=== PATIENT | female | born 1955 ===

== ENCOUNTER 2020-02-14 15:43 | Emergency (ER) | payer OTHER, SELFPAY ==
[2020-02-14 16:25] VITALS: BP 134/77; PULSE 72; RESP 16; TEMP 37; O2SAT 100; BMI 42.0
--- NOTE | 2020-02-14 16:35 | ED.SKABFB ---
HPI - Skin/Abscess/Foreign Bdy General Chief complaint: Skin/Abscess/Foreign Body Stated complaint: Mouth discomfort Time Seen by Provider: 02/14/20 16:29 Source: patient Mode of arrival: ambulatory Limitations: no limitations History of Present Illness HPI narrative: 64 y/o female with history of DM2 not on insulin, asthma, HTN, TIA, COPD, active smoker who presenting with 1 week of painful rash and a cyst under her right breast. She states the cyst has been draining a foul smelling pus, which is improving. She was seen in another ED on 02/06 where she had an I&D and was started on antibiotics. She states the rash around it is red, itchy and painful and worsening. She denies fever, chills. Glucose has been controlled. Related Data Home Medications Medication Instructions Recorded Confirmed albuterol sulfate 0.63 mg INHALATION Q4-6H PRN 01/25/20 01/25/20 albuterol sulfate 2 puff INHALATION Q4-6H PRN 01/25/20 01/25/20 amlodipine 1 tab PO BID 01/25/20 01/25/20 famotidine 40 mg PO BEDTIME 01/25/20 01/25/20 fluticasone propionate [Flovent 1 puff INHALATION BID 01/25/20 01/25/20 HFA] hydrochlorothiazide 1 tab PO DAILY 01/25/20 01/25/20 metformin 1 tab PO BID 01/25/20 01/25/20 methadone 120 mg PO DAILY 01/25/20 01/25/20 mirtazapine 1 tab PO BEDTIME 01/25/20 01/25/20 oxcarbazepine 600 mg PO BID 01/25/20 01/25/20 sertraline 1 tab PO DAILY 01/25/20 01/25/20 simvastatin 1 tab PO DAILY 01/25/20 01/25/20 zolpidem 1 tab PO BEDTIME 01/25/20 01/25/20 Previous Rx's Medication Instructions Recorded ketoconazole 1 applic TOPICAL BID #30 g 02/14/20 Allergies Allergy/AdvReac Type Severity Reaction Status Date / Time Penicillins Allergy Intermediate RASH SOB Verified 01/25/20 08:47 Aspir-81 Allergy Intermediate Rash Uncoded 01/25/20 08:47 Review of Systems Review of Systems: Constitutional: No Fever, No Chills ENT/Mouth: No sore throat, No Rhinorrhea, No Swallowing Difficulty Eyes: No Eye Pain, No Swelling, No Redness Cardiovascular: No Chest Pain, No SOB, No Orthopnea, No Edema Respiratory: No Cough, No Sputum, No Wheezing, No dyspnea Gastrointestinal: No Nausea, No Vomiting, No Diarrhea, No abdominal Pain Genitourinary: No Dysuria, No Urinary Frequency, No Hematuria Musculoskeletal: No joint pain, No Myalgias Skin: + Skin Lesions, + rash Neuro: No Weakness, No Numbness, No Dizziness, No Headache Psych: No Anxiety/Panic, No Depression Heme/Lymph: No Bruising, No Lymphadenopathy Endocrine: No Polyuria, No Polydipsia PMFSH Past Medical History Attestation statement: The following information was validated with the patient. Medical History Anemia Arthritis Asthma Back pain BiPAP (biphasic positive airway pressure) dependence COPD (chronic obstructive pulmonary disease) COPD (chronic obstructive pulmonary disease) Depression Diabetes Diabetic acidosis, type I Elevated cholesterol GERD (gastroesophageal reflux disease) History of blood transfusion History of headache HTN (hypertension) Hx of anxiety disorder Hx of bipolar disorder Hx of drug dependence Oxygen dependent Sleep apnea Surgical History H/O colonoscopy History of esophagogastroduodenoscopy (EGD) Hx of arthroscopic knee surgery Hx of section Hx of foot surgery Hx of total knee replacement Social History Social History Smoking Status: Current every day smoker Packs Per Day: 0.25 Cigarettes Per Day: 5.0 Years Smoked: 50 Smoked in Last 30 Days: Yes Use of substances other than those prescribed or required for medical reasons: No Advance Directives: No Advance Directives Information Provided: Yes Physical Exam Vital Signs: Vital Signs: Vital Signs Temp Pulse Resp BP Pulse Ox 02/14/20 16:25 98.6 F 72 16 134/77 100 Body Mass Index 42.0 Appearance: Alert. Oriented X3. No acute distress. HEENT: normal inspection CVS: Normal heart rate and rhythm. Pulses normal. Chest: under right breast fold is a diffuse erythematous and flaky rash, small self-draining abscess with no drainage, unable to express pus, no induration or flutuance Respiratory: No respiratory distress. Skin: Skin warm and dry. Normal skin color. Normal skin turgor. No rashes. Neuro: Oriented X 3. No motor deficit. No sensory deficit. Course Course Course Narrative: 64 y/o female presenting with itchy painful rash under her right breast consistent with candidiasis. will give 1x dose of diflucan now and start on an antifungal ointment. the small cyst is no longer draining and is improveing. no need for antibiotics at this time. no systemic signs or symptoms of infection. MDM - Skin/Abscess/Foreign Bdy MDM Narrative Medical decision making narrative: fungal rash Differential Diagnosis Differential diagnosis: Likely abscess of skin or subcutaneous tissue, urticaria, herpes zoster, allergic reaction to drug, cellulitis and contact dermatitis Critical Care Time Critical Care Time Critical Care Time: No Discharge Plan Discharge Clinical Impression: Candidiasis of breast Patient Disposition: Home, Self-Care Instructions: Skin Yeast Infection (ED) Additional Instructions: You were given a dose of a strong antifungal medication for the rash under your breast. Keep area clean and dry. It is okay to clean briefly with mild soap and water. Recommend using cotton or gauze in between your breast tissue and upper abdomen to absorb any sweat or moisture and allow the rash to heal. Use the prescribed cream 2 times per day until rash is completely gone. If the cyst returns or has increased drainage, redness, warmth or pain call your doctor or come back to the ER for further evaluation. Prescriptions: New ketoconazole 2 % cream 1 applic topical BID Qty: 30 RF: 0 No Action albuterol sulfate 0.63 mg/3 mL Solution For Nebulization 0.63 mg INHALATION Q4-6H PRN (Reason: Shortness Of Breath) RF: 0 famotidine 40 mg Tablet 40 mg PO BEDTIME RF: 0 simvastatin 10 mg tablet 1 tab PO DAILY RF: 0 amlodipine 5 mg tablet 1 tab PO BID RF: 0 metformin 1,000 mg tablet 1 tab PO BID RF: 0 mirtazapine 45 mg tablet 1 tab PO BEDTIME RF: 0 oxcarbazepine 600 mg Tablet 600 mg PO BID RF: 0 hydrochlorothiazide 25 mg tablet 1 tab PO DAILY RF: 0 zolpidem 10 mg tablet 1 tab PO BEDTIME RF: 0 albuterol sulfate 90 mcg/actuation HFA aerosol inhaler 2 puff inhalation Q4-6H PRN (Reason: Shortness Of Breath) RF: 0 sertraline 50 mg tablet 1 tab PO DAILY RF: 0 Flovent HFA 110 mcg/actuation Hfa Aerosol Inhaler 1 puff INHALATION BID RF: 0 methadone 5 mg/5 mL Solution 120 mg PO DAILY RF: 0
[2020-02-14] MEDS: Fluconazole 150 MG TABLET PO (17:26)
== END 2020-02-14 17:20 | disposition home or self-care (01) ==
PROVIDERS: Emergency Provider Internal Medicine; PCP Internal Medicine
DX: B37.2 Candidiasis of skin and nail (principal); F17.200 Nicotine dependence, unspecified, uncomplicated; Z71.6 Tobacco abuse counseling; Z79.899 Other long term (current) drug therapy
CPT/HCPCS: 99283; 99284

== ENCOUNTER 2020-02-22 11:28 | Outpatient (REF) | payer OTHER, SELFPAY | END 2020-02-22 11:29 | disposition home or self-care (01) | LOC: HO.LAB 11:28 | PROVIDERS: Visit Provider Internal Medicine | DX: Z20.828 Contact with and (suspected) exposure to other viral communicable diseases (principal) | CPT/HCPCS: C9803; U0003 ==

== ENCOUNTER 2020-04-08 12:38 | Emergency (ER) | payer OTHER, SELFPAY ==
[2020-04-08 12:41] VITALS: BP 204/101; PULSE 68; RESP 19; TEMP 36.9; O2SAT 94; BMI 53.0
--- NOTE | 2020-04-08 12:49 | PC.NURSE ---
pt to formerly [facility] per charge- charge aware of bp.
[2020-04-08 14:52] VITALS: BP 171/93; PULSE 64; O2SAT 94
--- NOTE | 2020-04-08 14:53 | PC.NURSE ---
ambulatory with steady/slow/laborous ambulation
--- NOTE | 2020-04-08 15:14 | ED_ITS ---
HPI - General Adult General Chief complaint: General Medical Stated complaint: leg pain,diff walking Time Seen by Provider: 04/08/20 14:57 Source: patient Mode of arrival: ambulatory Limitations: no limitations History of Present Illness HPI narrative: 64-year-old female with a past medical history of high cholester ol on simvastatin, substance abuse on methadone, anemia, arthritis, asthma, chronic back pain, COPD, depression, diabetes, GERD, hypertension, anxiety, bipolar disease here with bilateral lower leg pain. The patient tells me she has had pain for the last 2-3 weeks. She has 0 to a primary care doctor today and he referred her to the emergency department for further evaluation. She denies any fall risks or injuries. She denies any back pain. She denies any numbness or tingling. Denies any bowel or bladder incontinence. No fevers or chills. She does feel like her both of her legs are slightly swollen and feel heavy. No shortness of breath, chest pain, cough. No recent travel. No sick contacts. Onset (ago): week(s) Location: lower extremity (Bilateral) Radiation: non-radiation Severity: mild Quality: aching Relieving factors: none Exacerbating factors: none Associated symptoms: denies other symptoms Treatments prior to arrival: none Related Data Home Medications Medication Instructions Recorded Confirmed albuterol sulfate 0.63 mg INHALATION Q4-6H PRN 01/25/20 01/25/20 albuterol sulfate 2 puff INHALATION Q4-6H PRN 01/25/20 01/25/20 amlodipine 1 tab PO BID 01/25/20 01/25/20 famotidine 40 mg PO BEDTIME 01/25/20 01/25/20 fluticasone propionate [Flovent 1 puff INHALATION BID 01/25/20 01/25/20 HFA] hydrochlorothiazide 1 tab PO DAILY 01/25/20 01/25/20 metformin 1 tab PO BID 01/25/20 01/25/20 methadone 120 mg PO DAILY 01/25/20 01/25/20 mirtazapine 1 tab PO BEDTIME 01/25/20 01/25/20 oxcarbazepine 600 mg PO BID 01/25/20 01/25/20 sertraline 1 tab PO DAILY 01/25/20 01/25/20 simvastatin 1 tab PO DAILY 01/25/20 01/25/20 zolpidem 1 tab PO BEDTIME 01/25/20 01/25/20 Previous Rx's Medication Instructions Recorded ketoconazole 1 applic TOPICAL BID #30 g 02/14/20 cyclobenzaprine 10 mg PO TID PRN #10 tab 04/08/20 Allergies Allergy/AdvReac Type Severity Reaction Status Date / Time Penicillins Allergy Intermediate RASH SOB Verified 04/08/20 12:40 Aspir-81 Allergy Intermediate Rash Uncoded 01/25/20 08:47 Review of Systems Review of Systems: Yes all other systems are reviewed and are negative Constitutional: Constitutional: Reports no additional constitutional complaints, Denies body ache(s), Denies chills, Denies fever(s), Denies headache(s) and Denies weakness Eyes: Eyes: Reports no additional eye complaints and Denies change in vision ENT: Reports system reviewed and no additional complaints, except as documented, Denies dizziness, Denies headache(s), Denies nasal congestion, Denies nasal discharge and Denies neck pain Cardiovascular: Cardiovascular: Reports no additional cardiovascular complaints, Denies chest pain, Denies leg edema and Denies dyspnea Respiratory: Respiratory: Reports no additional respiratory complaints, Denies cough and Denies dyspnea Gastrointestinal: Gastrointestinal: Reports no additional gastrointestinal complaints, Denies abdominal pain, Denies diarrhea, Denies nausea and Denies vomiting Genitourinary: Genitourinary: Reports no additional female genitourinary complaints and Denies urinary incontinence Musculoskeletal: Musculoskeletal: Reports no additional musculoskeletal complaints, Denies back pain, Denies arthralgias, Denies joint swelling, Denies neck pain, Denies numbness and Denies tingling Comments: Muscle aches Integumentary/Breasts: Skin/Breast: Reports system reviewed and no additional complaints, except as docu and Denies rash Neurologic: Reports system reviewed and no additional complaints, except as documented, Denies Abnormal speech present, Denies dizziness, Denies headache(s), Denies numbness, Denies tingling and Denies weakness PMFSH Past Medical History Attestation statement: The following information was validated with the patient. Source: old records reviewed and nursing notes reviewed Medical History Anemia Arthritis Asthma Back pain BiPAP (biphasic positive airway pressure) dependence COPD (chronic obstructive pulmonary disease) COPD (chronic obstructive pulmonary disease) Depression Diabetes Diabetic acidosis, type I Elevated cholesterol GERD (gastroesophageal reflux disease) History of blood transfusion History of headache HTN (hypertension) Hx of anxiety disorder Hx of bipolar disorder Hx of drug dependence Oxygen dependent Sleep apnea Surgical History H/O colonoscopy History of esophagogastroduodenoscopy (EGD) Hx of arthroscopic knee surgery Hx of section Hx of foot surgery Hx of total knee replacement Social History Social History Smoking Status: Current every day smoker Packs Per Day: 0.25 Cigarettes Per Day: 5.0 Years Smoked: 50 Use of substances other than those prescribed or required for medical reasons: No Advance Directives: No Advance Directives Information Provided: No Physical Exam Vital Signs: Vital Signs: Last Vital Signs Temp 98.2 F 04/08/20 17:52 Pulse 62 04/08/20 17:52 Resp 18 04/08/20 17:52 BP 145/85 H 04/08/20 17:52 Pulse Ox 93 04/08/20 17:52 Body Mass Index 53.0 Const: General: cooperative, healthy appearing, comfortable and no acute distress Orientation/consciousness: patient oriented x3 Limitations: no limitations HENMT: Head: Yes normal to inspection Ears: hearing grossly normal bilaterally General nose exam: Normal external nose present Face and sinus: Yes normal facial exam Mouth: Normal oral and palatal mucosa present Throat: Yes posterior oropharynx normal Eyes: General: appearance normal, both eyes and all related structures Pupils: Equal, round and reactive pupils present Neck: Neck: Yes normal visual inspection Chest: Chest palpation & inspection: normal inspection of the chest Resp: Effort & Inspection: normal respiratory effort Auscultation: clear to auscultation bilaterally Cardio: Rate: regular rate Rhythm: regular rhythm Peripheral pulses: Peripheral pulses 2+ throughout GI: Inspection: Yes normal to inspection Palpation (GI): Soft to palpation and nontender Auscultation: normal bowel sounds Back/Spine/Pelvis: Thoracic/Lumbar Spine: thoracic and lumbar spine normal to inspection Skin: General skin exam: no rashes or lesions noted Neuro: General: patient oriented x3, Normal light touch and pain sensation, no focal motor deficits and normal sensation to monofilament Cranial nerves: Yes CN's II-XII intact bilaterally, Yes Equal, round and reactive pupils present and Yes Bilaterally intact EOM present Cognition (Neuro): normal cognition Speech: No Abnormal speech present Gait exam (Neuro): Normal gait present Motor exam (neuro): 5/5 motor strength present throughout Sensory Exam: Normal double simultaneous stimulation for sensation Deep tendon reflexes (DTR's): Right patellar reflex intensity grade: 2+, Left patellar reflex intensity grade: 2+, Right ankle reflex intensity grade: 2+ and Left ankle reflex intensity grade: 2+ Extrem: Other: Trace bilateral lower extremity swelling. Nonpitting. No redness or warmth. Neurovascularly intact distally with palpable pulses. Diffuse tenderness in the lower extremities over the muscles noted. No bony abnormalities with full range of motion of each joint General: Yes normal to inspection Course Course Course Narrative: 64-year-old female here with bilateral lower extremity pain, heaviness, trace edema times several weeks. On exam patient has normal neurological exam. She has some trace nonpitting edema. She has diffuse muscle tenderness in the lower extremities with normal reflexes. Will check labs including CPK, D-dimer, LFTs. 1800-labs are unremarkable. Patient feeling improved. Likely component of chronic venous stasis, may also have some underlying MS pain syndrome. Recommended f/u with PCP in the next 7 days for further eval and treatment as needed. Reviewed worrisome signs and symptoms and when to return to the emergency department comfortable discharge home Medical Decision Making Medical Records Medical records reviewed: Yes I reviewed the patient's medical records. Lab Data Lab results reviewed: Yes I reviewed the patient's lab results. Result diagrams: 04/08/20 16:41 04/08/20 16:41 Labs: Lab Results 04/08/20 04/08/20 04/08/20 Range/Units 16:40 16:41 16:41 WBC 10.8 (4.8-10.8) X10*3/uL RBC 4.60 (4.20-5.50) X10*6/uL Hgb 13.1 (12.0-16.0) g/dl Hct 41.9 (37-47) % MCV 91.1 (80-98) fL MCH 28.5 (27.0-33.0) pg MCHC 31.3 (31.0-35.0) g/dl RDW 14.8 (11.0-16.0) % Plt Count 241 (160-400) X10*3/uL MPV 10.8 (9.4-12.3) fL Immature Gran % (Auto) 0.5 H (0.0-0.4) % Neut % (Auto) 66.9 (45-73) % Lymph % (Auto) 23.5 (20-40) % [place] % (Auto) 6.9 (2-11) % Eos % (Auto) 1.8 (0-4) % Baso % (Auto) 0.4 (0-2) % Lymph # (Auto) 2.5 (1.2-4.9) X10*3/uL [place] # (Auto) 0.7 (0.1-1.2) X10*3/uL Eos # (Auto) 0.2 (0.0-0.4) X10*3/uL Baso # (Auto) 0.0 (0.0-0.2) X10*3/uL Abs Immat Gran (auto) 0.05 H (0.00-0.03) X10*3/uL Absolute Neuts (auto) 7.2 (2.0-8.3) X10*3/uL Absolute Nucleated RBC 0.000 (0.0-0.012) X10*3/uL Nucleated RBC % (auto) 0.0 (0.0-0.2) /100WBC PT 11.8 (10.8-13.0) SEC INR 1.0 (0.9-1.1) D-Dimer < 200 NG/ML Sodium (135-145) mmol/L Potassium (3.3-5.1) mmol/l Chloride (96-108) mmol/L Carbon Dioxide (22-29) mmol/L Anion Gap (12-20) BUN (9-16) mg/dL Creatinine (0.5-1.4) mg/dL Estim Creat Clear Calc Estimated GFR Random Glucose (60-115) mg/dL Calcium (8.4-10.2) mg/dL Magnesium (1.6-2.6) mg/dL Total Bilirubin (0.0-1.0) mg/dL Direct Bilirubin (0.0-0.5) mg/dL AST (5-31) U/L ALT (0-31) U/L Alkaline Phosphatase (39-117) U/L Total Creatine Kinase (26-140) U/L B-Natriuretic Peptide 97 (<100) pg/mL Total Protein (6.5-8.0) g/dL Albumin (3.5-5.0) g/dL 04/08/20 Range/Units 16:41 WBC (4.8-10.8) X10*3/uL RBC (4.20-5.50) X10*6/uL Hgb (12.0-16.0) g/dl Hct (37-47) % MCV (80-98) fL MCH (27.0-33.0) pg MCHC (31.0-35.0) g/dl RDW (11.0-16.0) % Plt Count (160-400) X10*3/uL MPV (9.4-12.3) fL Immature Gran % (Auto) (0.0-0.4) % Neut % (Auto) (45-73) % Lymph % (Auto) (20-40) % [place] % (Auto) (2-11) % Eos % (Auto) (0-4) % Baso % (Auto) (0-2) % Lymph # (Auto) (1.2-4.9) X10*3/uL [place] # (Auto) (0.1-1.2) X10*3/uL Eos # (Auto) (0.0-0.4) X10*3/uL Baso # (Auto) (0.0-0.2) X10*3/uL Abs Immat Gran (auto) (0.00-0.03) X10*3/uL Absolute Neuts (auto) (2.0-8.3) X10*3/uL Absolute Nucleated RBC (0.0-0.012) X10*3/uL Nucleated RBC % (auto) (0.0-0.2) /100WBC PT (10.8-13.0) SEC INR (0.9-1.1) D-Dimer NG/ML Sodium 143 (135-145) mmol/L Potassium 4.1 (3.3-5.1) mmol/l Chloride 102 (96-108) mmol/L Carbon Dioxide 36 H (22-29) mmol/L Anion Gap 9 L (12-20) BUN 10 (9-16) mg/dL Creatinine 0.94 (0.5-1.4) mg/dL Estim Creat Clear Calc 78.9 Estimated GFR 60 Random Glucose 124 H (60-115) mg/dL Calcium 8.6 (8.4-10.2) mg/dL Magnesium 1.9 (1.6-2.6) mg/dL Total Bilirubin 0.3 (0.0-1.0) mg/dL Direct Bilirubin < 0.2 (0.0-0.5) mg/dL AST 16 (5-31) U/L ALT 20 (0-31) U/L Alkaline Phosphatase 124 H (39-117) U/L Total Creatine Kinase 113 (26-140) U/L B-Natriuretic Peptide (<100) pg/mL Total Protein 7.2 (6.5-8.0) g/dL Albumin 3.9 (3.5-5.0) g/dL Discharge Plan Discharge Clinical Impression: Muscle ache of extremity Patient Disposition: Home, Self-Care Instructions: Musculoskeletal Pain (ED) Additional Instructions: Buy some topical pain creams and apply your legs (gordon rodriguez) Elevate your legs Follow-up with your PCP as discussed Prescriptions: New cyclobenzaprine 10 mg tablet 10 mg PO TID PRN (Reason: muscle spasm) Qty: 10 RF: 0 No Action albuterol sulfate 0.63 mg/3 mL Solution For Nebulization 0.63 mg INHALATION Q4-6H PRN (Reason: Shortness Of Breath) RF: 0 famotidine 40 mg Tablet 40 mg PO BEDTIME RF: 0 simvastatin 10 mg tablet 1 tab PO DAILY RF: 0 amlodipine 5 mg tablet 1 tab PO BID RF: 0 metformin 1,000 mg tablet 1 tab PO BID RF: 0 mirtazapine 45 mg tablet 1 tab PO BEDTIME RF: 0 oxcarbazepine 600 mg Tablet 600 mg PO BID RF: 0 hydrochlorothiazide 25 mg tablet 1 tab PO DAILY RF: 0 zolpidem 10 mg tablet 1 tab PO BEDTIME RF: 0 albuterol sulfate 90 mcg/actuation HFA aerosol inhaler 2 puff inhalation Q4-6H PRN (Reason: Shortness Of Breath) RF: 0 sertraline 50 mg tablet 1 tab PO DAILY RF: 0 Flovent HFA 110 mcg/actuation Hfa Aerosol Inhaler 1 puff INHALATION BID RF: 0 methadone 5 mg/5 mL Solution 120 mg PO DAILY RF: 0 ketoconazole 2 % cream 1 applic topical BID Qty: 30 RF: 0 Referrals: Rito Grady MD [Primary Care Provider] - 2 days Interventions: ED Discharge Assessment Last Done: 04/08/20 18:03 Discharge Date/Time: 04/08/20 18:04
[2020-04-08] MEDS: oxyCODONE HCl Immed Release 5 MG TABLET PO (16:06)
[2020-04-08 16:49] LABS: MANUAL DIFF FLAG NO
[2020-04-08 16:50] LABS: Basophils Percent Auto 0.4 % (0-2); Eosinophils Absolute Auto 0.2 X10*3/uL (0.0-0.4); Eosinophils Percent Auto 1.8 % (0-4); Hematocrit 41.9 % (37-47); Hemoglobin 13.1 g/dl (12.0-16.0); Imm Gran Abs Auto 0.05 X10*3/uL (0.00-0.03); Imm Gran Pct Auto 0.5 % (0.0-0.4); Lymphocytes Absolute Auto 2.5 X10*3/uL (1.2-4.9); Lymphocytes Percent Auto 23.5 % (20-40); Mean Corpuscular HGB Conc 31.3 g/dl (31.0-35.0); Mean Corpuscular Hemoglobin 28.5 pg (27.0-33.0); Mean Corpuscular Volume 91.1 fL (80-98); Mean Platelet Volume 10.8 fL (9.4-12.3); Monocytes Absolute Auto 0.7 X10*3/uL (0.1-1.2); Monocytes Percent Auto 6.9 % (2-11); Neutrophils Absolute Auto 7.2 X10*3/uL (2.0-8.3); Neutrophils Percent Auto 66.9 % (45-73); Platelet Count 241 X10*3/uL (160-400); Red Cell Distribution Width 14.8 % (11.0-16.0); White Blood Count 10.8 X10*3/uL (4.8-10.8)
[2020-04-08 16:56] LABS: Prothrombin Time 11.8 SEC (10.8-13.0)
[2020-04-08 17:03] LABS: D Dimer < 200 NG/ML
[2020-04-08 17:18] LABS: B Type Natriuretic Peptide 97 pg/mL (<100)
[2020-04-08 17:27] LABS: Alanine Aminotransferase 20 U/L (0-31); Albumin Level 3.9 g/dL (3.5-5.0); Alkaline Phosphatase 124 U/L (39-117); Anion Gap 9 (12-20); Aspartate Amino Transferase 16 U/L (5-31); Bilirubin Direct < 0.2 mg/dL (0.0-0.5); Bilirubin Total 0.3 mg/dL (0.0-1.0); Blood Urea Nitrogen 10 mg/dL (9-16); Calcium 8.6 mg/dL (8.4-10.2); Carbon Dioxide 36 mmol/L (22-29); Chloride 102 mmol/L (96-108); Creatinine Clr Calc Pharmacy 78.9; Estimated Glomerular Filt Rate 60; Glucose Random 124 mg/dL (60-115); Magnesium 1.9 mg/dL (1.6-2.6); Potassium 4.1 mmol/l (3.3-5.1); Sodium 143 mmol/L (135-145); Total Protein 7.2 g/dL (6.5-8.0)
[2020-04-08 17:52] VITALS: BP 145/85; PULSE 62; RESP 18; TEMP 36.8; O2SAT 93
== END 2020-04-08 18:04 | disposition home or self-care (01) ==
PROVIDERS: Nurse Practitioner Family; Emergency Provider Emergency Medicine Emergency Medical Services; PCP Internal Medicine
DX: M79.10 Myalgia, unspecified site (principal); M79.662 Pain in left lower leg; M79.661 Pain in right lower leg; E11.9 Type 2 diabetes mellitus without complications; I10 Essential (primary) hypertension; E78.00 Pure hypercholesterolemia, unspecified; F11.20 Opioid dependence, uncomplicated; F17.200 Nicotine dependence, unspecified, uncomplicated; Z79.899 Other long term (current) drug therapy
CPT/HCPCS: 36415; 80048; 80076; 82550; 83735; 83880; 85025; 85379; 85610; 99284

== ENCOUNTER 2020-04-30 09:42 | Emergency (ER) | payer OTHER, SELFPAY ==
[2020-04-30 10:05] VITALS: BP 151/84; PULSE 73; RESP 18; TEMP 36.6; O2SAT 94; BMI 51.2
--- NOTE | 2020-04-30 10:23 | XR_ITS ---
EXAMINATION: XR KNEE, LEFT CLINICAL INFORMATION: Twisting injury COMPARISON: Standing AP knees 03/17/2019, left knee 05/10/2017 TECHNIQUE: Four views of the left knee. FINDINGS: There has been prior total knee arthroplasty. The hardware is intact. There is no fracture. No destructive process or osteolysis. Suprapatellar effusion is present and there is spurring at the quadriceps surgeon patella. XR/XR knee LT 3V IMPRESSION: Suprapatellar effusion. No fracture or dislocation. Prior total knee arthroplasty.
--- NOTE | 2020-04-30 11:06 | ED_ITS ---
HPI - Extremity Injury (Lower) General Chief Complaint: Extremity Injury, Lower Stated Complaint: knee pain Time Seen by Provider: 04/30/20 10:19 Source: patient Mode of arrival: ambulatory History of Present Illness HPI Narrative: 64-year-old female with a past medical history of anemia, asthma, COPD, diabetes, hyperlipidemia, GERD, hypertension, bipolar, bilateral total knee replacement c/o left knee pain s/p twisting injury/stepping wrong last night. Denies direct trauma/falls, numbness, tingling, weakness, fever/chills complaint: knee injury Related Data Home Medications Medication Instructions Recorded Confirmed albuterol sulfate 0.63 mg INHALATION Q4-6H PRN 01/25/20 01/25/20 albuterol sulfate 2 puff INHALATION Q4-6H PRN 01/25/20 01/25/20 amlodipine 1 tab PO BID 01/25/20 01/25/20 famotidine 40 mg PO BEDTIME 01/25/20 01/25/20 fluticasone propionate [Flovent 1 puff INHALATION BID 01/25/20 01/25/20 HFA] hydrochlorothiazide 1 tab PO DAILY 01/25/20 01/25/20 metformin 1 tab PO BID 01/25/20 01/25/20 methadone 120 mg PO DAILY 01/25/20 01/25/20 mirtazapine 1 tab PO BEDTIME 01/25/20 01/25/20 oxcarbazepine 600 mg PO BID 01/25/20 01/25/20 sertraline 1 tab PO DAILY 01/25/20 01/25/20 simvastatin 1 tab PO DAILY 01/25/20 01/25/20 zolpidem 1 tab PO BEDTIME 01/25/20 01/25/20 Previous Rx's Medication Instructions Recorded ketoconazole 1 applic TOPICAL BID #30 g 02/14/20 cyclobenzaprine 10 mg PO TID PRN #10 tab 04/08/20 naproxen 500 mg PO BID PRN 10 Days #20 tab 04/30/20 Allergies Allergy/AdvReac Type Severity Reaction Status Date / Time Penicillins Allergy Intermediate RASH SOB Verified 04/08/20 12:40 Aspir-81 Allergy Intermediate Rash Uncoded 01/25/20 08:47 Review of Systems Review of Systems: Constitutional: No Weight loss, No Fever, No Chills Musculoskeletal: + joint pain, No Myalgias, + Joint Swelling Skin: No Skin Lesions, No rash Neuro: No Weakness, No Numbness, No Paresthesias Yes all other systems are reviewed and are negative [facility] Past Medical History Attestation statement: The following information was validated with the patient. Medical History Anemia Arthritis Asthma Back pain BiPAP (biphasic positive airway pressure) dependence COPD (chronic obstructive pulmonary disease) COPD (chronic obstructive pulmonary disease) Depression Diabetes Diabetic acidosis, type I Elevated cholesterol GERD (gastroesophageal reflux disease) History of blood transfusion History of headache HTN (hypertension) Hx of anxiety disorder Hx of bipolar disorder Hx of drug dependence Oxygen dependent Sleep apnea Surgical History H/O colonoscopy History of esophagogastroduodenoscopy (EGD) Hx of arthroscopic knee surgery Hx of section Hx of foot surgery Hx of total knee replacement Social History Social History Smoking Status: Current every day smoker Packs Per Day: 0.25 Cigarettes Per Day: 5.0 Years Smoked: 50 Advance Directives: No Advance Directives Information Provided: Yes Physical Exam Vital Signs: Vital Signs: Last Vital Signs Temp 97.9 F 04/30/20 10:05 Pulse 73 04/30/20 10:05 Resp 18 04/30/20 10:05 BP 151/84 H 04/30/20 10:05 Pulse Ox 94 04/30/20 10:05 Body Mass Index 51.2 Const: General: cooperative and healthy appearing Orientation/consciousness: patient oriented x3 Limitations: no limitations HENMT: Head: Yes normal to inspection Ears: hearing grossly normal bilaterally General nose exam: Normal external nose present Face and sinus: Yes normal facial exam Eyes: General: appearance normal, both eyes and all related structures EOM: EOMs intact bilaterally Neck: Neck: Yes normal visual inspection Resp: Effort & Inspection: normal respiratory effort Cardio: Rate: regular rate Peripheral pulses: dorsalis pedis present GI: Inspection: Yes normal to inspection Skin: Rashes: no rashes Wounds: no wounds Neuro: General: patient oriented x3 Extrem: Other: Left knee with prior surgical site noted, suprapatellar swelling with diffuse ttp, pain with ROM. NV intact Course Course Course Narrative: Knee x-ray showing suprapatellar effusion. No fracture or dislocation. > patient placed in Roman wrap in the ED to follow-up with orthopedics MDM - Extremity Injury (Lower) MDM Narrative Medical decision making narrative: Concern for ligamental/tension or meniscal injury. Lower concern for fracture/dislocation without direct trauma Discharge Plan Discharge Clinical Impression: Suprapatellar effusion of knee Patient Disposition: Home, Self-Care Instructions: Swollen Knee Joint (ED) Additional Instructions: Your x-ray showed an effusion of your knee. Wear Roman wrap at home for comfort/stability. Follow-up with orthopedics. Ice and elevate. Take Tylenol and naproxen at home for pain. If symptoms persist or worsen, pain becomes unbearable, you develop weak ness/numbness return to the ED Prescriptions: New naproxen 500 mg tablet 500 mg PO BID PRN (Reason: pain) 10 Days Qty: 20 RF: 0 No Action albuterol sulfate 0.63 mg/3 mL Solution For Nebulization 0.63 mg INHALATION Q4-6H PRN (Reason: Shortness Of Breath) RF: 0 famotidine 40 mg Tablet 40 mg PO BEDTIME RF: 0 simvastatin 10 mg tablet 1 tab PO DAILY RF: 0 amlodipine 5 mg tablet 1 tab PO BID RF: 0 metformin 1,000 mg tablet 1 tab PO BID RF: 0 mirtazapine 45 mg tablet 1 tab PO BEDTIME RF: 0 oxcarbazepine 600 mg Tablet 600 mg PO BID RF: 0 hydrochlorothiazide 25 mg tablet 1 tab PO DAILY RF: 0 zolpidem 10 mg tablet 1 tab PO BEDTIME RF: 0 albuterol sulfate 90 mcg/actuation HFA aerosol inhaler 2 puff inhalation Q4-6H PRN (Reason: Shortness Of Breath) RF: 0 sertraline 50 mg tablet 1 tab PO DAILY RF: 0 Flovent HFA 110 mcg/actuation Hfa Aerosol Inhaler 1 puff INHALATION BID RF: 0 methadone 5 mg/5 mL Solution 120 mg PO DAILY RF: 0 ketoconazole 2 % cream 1 applic topical BID Qty: 30 RF: 0 cyclobenzaprine 10 mg tablet 10 mg PO TID PRN (Reason: muscle spasm) Qty: 10 RF: 0 Referrals: Melia Rick MD [Physician] - 1 week
--- NOTE | 2020-04-30 11:12 | PC.NURSE ---
PT ASSISTED BY W/C TO BATHROOM AND BACK TO CHAIR. SLOW STEADY GAIT.
== END 2020-04-30 11:22 | disposition home or self-care (01) ==
PROVIDERS: Emergency Provider Emergency Medicine; PCP Internal Medicine
DX: M25.462 Effusion, left knee (principal); E11.9 Type 2 diabetes mellitus without complications; I10 Essential (primary) hypertension; F17.210 Nicotine dependence, cigarettes, uncomplicated; J44.9 Chronic obstructive pulmonary disease, unspecified; Z99.81 Dependence on supplemental oxygen; Z79.84 Long term (current) use of oral hypoglycemic drugs; Z79.899 Other long term (current) drug therapy
CPT/HCPCS: 73562; 99283

== ENCOUNTER → 2020-05-06 13:09 | Outpatient (BNVA) | payer OTHER, SELFPAY | PROVIDERS: PCP Internal Medicine; Visit Provider Orthopaedic Surgery | DX: Z47.1 Aftercare following joint replacement surgery (principal); Z96.652 Presence of left artificial knee joint | CPT/HCPCS: 99212 ==

== ENCOUNTER 2020-05-16 11:15 | Emergency (ER) | payer OTHER, SELFPAY ==
--- NOTE | ~2020-05-16 | US_ITS ---
EXAMINATION: US VENOUS ULTRASOUND WITH DOPPLER LOWER EXTREMITY, LEFT CLINICAL INFORMATION: Left lower extremity pain and swelling. COMPARISON: None TECHNIQUE: Ultrasound of the deep veins is performed from the hip to the calf with compression sonography and color and pulse Doppler assessment. Spectral analysis with color-flow imaging is performed. FINDINGS: There is normal venous compression and respiratory variation and augmented flow. The visualized common femoral vein, superficial femoral vein, profunda femoral vein, popliteal vein, and the trifurcation region shows no evidence of deep venous thrombosis. There is no significant popliteal fossa cyst. If the patient's symptoms persist, followup ultrasound in 5 days 7 days might be of value to exclude proximal propagation from a non-visualized calf vein. US/US venous duplex LE LT IMPRESSION: No DVT demonstrated in the left lower extremity.
[2020-05-16 12:13] VITALS: BP 133/100; PULSE 71; RESP 18; TEMP 36.8; O2SAT 92; BMI 51.2
--- NOTE | 2020-05-16 12:14 | ED_ITS ---
HPI - General Adult General Chief complaint: Extremity Problem Stated complaint: LEG PAIN,SWELLING Time Seen by Provider: 05/16/20 12:13 Source: patient Mode of arrival: wheelchair Limitations: no limitations History of Present Illness HPI narrative: 64 yo female with past medical history of COPD, anemia, arthritis, chronic back pain, depression, DM, GERD, HLD, anxiety, bipolar here with complaints of left knee/calf pain x several weeks. Had fall initially. Seen [place] [facility] and had negative x-rays. Referred to orthopedics. Seen by Dr Villasenor and referred to PT and bariatrics. Patient tells me increasing pain in calf and posterior knee now. No SOB, CP, Cough. Related Data Home Medications Medication Instructions Recorded Confirmed albuterol sulfate 0.63 mg INHALATION Q4-6H PRN 01/25/20 01/25/20 albuterol sulfate 2 puff INHALATION Q4-6H PRN 01/25/20 01/25/20 amlodipine 1 tab PO BID 01/25/20 01/25/20 famotidine 40 mg PO BEDTIME 01/25/20 01/25/20 fluticasone propionate [Flovent 1 puff INHALATION BID 01/25/20 01/25/20 HFA] hydrochlorothiazide 1 tab PO DAILY 01/25/20 01/25/20 metformin 1 tab PO BID 01/25/20 01/25/20 methadone 120 mg PO DAILY 01/25/20 01/25/20 mirtazapine 1 tab PO BEDTIME 01/25/20 01/25/20 oxcarbazepine 600 mg PO BID 01/25/20 01/25/20 sertraline 1 tab PO DAILY 01/25/20 01/25/20 simvastatin 1 tab PO DAILY 01/25/20 01/25/20 zolpidem 1 tab PO BEDTIME 01/25/20 01/25/20 Previous Rx's Medication Instructions Recorded ketoconazole 1 applic TOPICAL BID #30 g 02/14/20 cyclobenzaprine 10 mg PO TID PRN #10 tab 04/08/20 naproxen 500 mg tablet 500 mg PO BID PRN 30 Days #60 tab 05/06/20 cyclobenzaprine 10 mg PO TID PRN #30 tab 05/16/20 oxycodone 5 mg PO Q8H PRN #5 tab 05/16/20 Allergies Allergy/AdvReac Type Severity Reaction Status Date / Time Penicillins Allergy Intermediate RASH SOB Verified 05/16/20 12:17 Aspir-81 Allergy Intermediate Rash Uncoded 05/16/20 12:17 Review of Systems Review of Systems: Yes all other systems are reviewed and are negative Constitutional: Constitutional: Reports no additional constitutional complai nts, Denies body ache(s), Denies chills, Denies fever(s), Denies headache(s) and Denies weakness Eyes: Eyes: Reports no additional eye complaints and Denies change in vision ENT: Reports system reviewed and no additional complaints, except as documented, Denies dizziness, Denies headache(s), Denies nasal congestion, Denies nasal discharge and Denies neck pain Cardiovascular: Cardiovascular: Reports no additional cardiovascular complaints, Denies chest pain, Denies leg edema and Denies dyspnea Respiratory: Respiratory: Reports no additional respiratory complaints, Denies cough and Denies dyspnea Gastrointestinal: Gastrointestinal: Reports no additional gastrointestinal complaints, Denies abdominal pain, Denies diarrhea, Denies nausea and Denies vomiting Genitourinary: Genitourinary: Reports no additional female genitourinary complaints and Denies urinary incontinence Musculoskeletal: Musculoskeletal: Reports no additional musculoskeletal complaints, Denies back pain, Reports arthralgias, Reports joint swelling, Denies neck pain, Denies numbness and Denies tingling Integumentary/Breasts: Skin/Breast: Reports system reviewed and no additional complaints, except as docu and Denies rash Neurologic: Reports system reviewed and no additional complaints, except as documented, Denies Abnormal speech present, Denies dizziness, Denies headache(s), Denies numbness, Denies tingling and Denies weakness [facility] Past Medical History Attestation statement: The following information was validated with the patient. Source: old records reviewed and nursing notes reviewed Medical History Anemia Arthritis Asthma Back pain BiPAP (biphasic positive airway pressure) dependence COPD (chronic obstructive pulmonary disease) COPD (chronic obstructive pulmonary disease) Depression Diabetes Diabetic acidosis, type I Elevated cholesterol GERD (gastroesophageal reflux disease) History of blood transfusion History of headache HTN (hypertension) Hx of anxiety disorder Hx of bipolar disorder Hx of drug dependence Oxygen dependent Sleep apnea Surgical History H/O colonoscopy History of esophagogastroduodenoscopy (EGD) Hx of arthroscopic knee surgery Hx of section Hx of foot surgery Hx of total knee replacement Social History Social History Smoking Status: Current every day smoker Packs Per Day: 0.25 Cigarettes Per Day: 5.0 Years Smoked: 50 Advance Directives: No Advance Directives Information Provided: No Current occupational status: disabled Current occupation: right handed Physical Exam Vital Signs: Vital Signs: Last Vital Signs Temp 98.3 F 05/16/20 12:13 Pulse 71 05/16/20 12:13 Resp 18 05/16/20 12:13 BP 133/100 H 05/16/20 12:13 Pulse Ox 92 05/16/20 12:13 Body Mass Index 51.2 Const: General: cooperative, healthy appearing, comfortable and no acute distress Orientation/consciousness: patient oriented x3 Limitations: no limitations HENMT: Head: Yes normal to inspection Ears: hearing grossly normal bilaterally General nose exam: Normal external nose present Face and sinus: Yes normal facial exam Mouth: Normal oral and palatal mucosa present Throat: Yes posterior oropharynx normal Eyes: General: appearance normal, both eyes and all related structures Pupils: Equal, round and reactive pupils present Neck: Neck: Yes normal visual inspection Chest: Chest palpation & inspection: normal inspection of the chest Resp: Effort & Inspection: normal respiratory effort Auscultation: clear to auscultation bilaterally Cardio: Rate: regular rate Rhythm: regular rhythm Peripheral pulses: Peripheral pulses 2+ throughout GI: Inspection: Yes normal to inspection Palpation (GI): Soft to palpation and nontender Auscultation: normal bowel sounds Back/Spine/Pelvis: Thoracic/Lumbar Spine: thoracic and lumbar spine normal to inspection Skin: General skin exam: no rashes or lesions noted Neuro: General: patient oriented x3, no focal motor deficits and normal sensation to monofilament Cranial nerves: Yes Equal, round and reactive pupils present Cognition (Neuro): normal cognition Speech: No Abnormal speech present Gait exam (Neuro): Normal gait present Motor exam (neuro): 5/5 motor strength present throughout Extrem: Other: Pain over posteroir knee and left calf. No appreciated swelling, erythema or warmth. FROM. NV intact distally General: Yes normal to inspection Course Course Course Narrative: 64 yo female here with left knee pain/calf pain and swelling x several weeks. Initially had injury. Seen and had negative x-rays and then followed by orthopedics. Pending PT and bariatric appt. WIll check US to r/o DVT. 1600-US negative for DVT. Likely underlying degenerative changes vs sprain. No need for new x-ray with no new trauma or injury. Reviewed supportive care at home. Reviewed worrisome signs/symptoms with patient and when to return to the ED. Comfortable with discharge home. Medical Decision Making Imaging Data venous US: Attestation: I personally reviewed and interpreted this imaging study as follows: Radiologist's impression: EXAMINATION: US VENOUS ULTRASOUND WITH DOPPLER LOWER EXTREMITY, LEFT CLINICAL INFORMATION: Left lower extremity pain and swelling. COMPARISON: None TECHNIQUE: Ultrasound of the deep veins is performed from the hip to the calf with compression sonography and color and pulse Doppler assessment. Spectral analysis with color-flow imaging is performed. FINDINGS: There is normal venous compression and respiratory variation and augmented flow. The visualized common femoral vein, superficial femoral vein, profunda femoral vein, popliteal vein, and the trifurcation region shows no evidence of deep venous thrombosis. There is no significant popliteal fossa cyst. If the patient's symptoms persist, followup ultrasound in 5 days 7 days might be of value to exclude proximal propagation from a non-visualized calf vein. US/US venous duplex LE IMPRESSION: No DVT demonstrated in the left lower extremity. Discharge Plan Discharge Clinical Impression: Arthritis Patient Disposition: Home, Self-Care Instructions: Knee Pain (ED) Additional Instructions: Ice, elevation, srini wrap for comfort Use cane for walking Follow-up with orthopedics, physical therapy and bariatrics Prescriptions: New cyclobenzaprine 10 mg tablet 10 mg PO TID PRN (Reason: muscle spasm) Qty: 30 RF: 0 oxycodone 5 mg tablet 5 mg PO Q8H PRN (Reason: pain) Qty: 5 RF: 0 No Action albuterol sulfate 0.63 mg/3 mL Solution For Nebulization 0.63 mg INHALATION Q4-6H PRN (Reason: Shortness Of Breath) RF: 0 famotidine 40 mg Tablet 40 mg PO BEDTIME RF: 0 simvastatin 10 mg tablet 1 tab PO DAILY RF: 0 amlodipine 5 mg tablet 1 tab PO BID RF: 0 metformin 1,000 mg tablet 1 tab PO BID RF: 0 mirtazapine 45 mg tablet 1 tab PO BEDTIME RF: 0 oxcarbazepine 600 mg Tablet 600 mg PO BID RF: 0 hydrochlorothiazide 25 mg tablet 1 tab PO DAILY RF: 0 zolpidem 10 mg tablet 1 tab PO BEDTIME RF: 0 albuterol sulfate 90 mcg/actuation HFA aerosol inhaler 2 puff inhalation Q4-6H PRN (Reason: Shortness Of Breath) RF: 0 sertraline 50 mg tablet 1 tab PO DAILY RF: 0 Flovent HFA 110 mcg/actuation Hfa Aerosol Inhaler 1 puff INHALATION BID RF: 0 methadone 5 mg/5 mL Solution 120 mg PO DAILY RF: 0 ketoconazole 2 % cream 1 applic topical BID Qty: 30 RF: 0 cyclobenzaprine 10 mg tablet 10 mg PO TID PRN (Reason: muscle spasm) Qty: 10 RF: 0 naproxen 500 mg tablet 500 mg PO BID PRN (Reason: pain) 30 Days Qty: 60 RF: 0 Referrals: Ethan Villasenor MD [Physician] - 2 days Interventions: ED Discharge Assessment Last Done: 05/16/20 14:37 Discharge Date/Time: 05/16/20 14:37
[2020-05-16] MEDS: Ketorolac Tromethamine 60 MG/2 ML VIAL IM (14:34)
== END 2020-05-16 14:37 | disposition home or self-care (01) ==
PROVIDERS: Emergency Provider Emergency Medicine; PCP Internal Medicine
DX: M17.0 Bilateral primary osteoarthritis of knee (principal); R60.0 Localized edema; M25.562 Pain in left knee; M25.561 Pain in right knee; Z79.899 Other long term (current) drug therapy; F17.200 Nicotine dependence, unspecified, uncomplicated; Z71.6 Tobacco abuse counseling
CPT/HCPCS: 93971; 96372; 99283; 99284; J1885

== ENCOUNTER 2020-05-20 09:44 | Emergency (ER) | payer OTHER, SELFPAY ==
--- NOTE | ~2020-05-20 | XR_ITS ---
EXAMINATION: XR CHEST CLINICAL INFORMATION: Shortness of breath COMPARISON: Previous chest x-ray August [address] of the chest February 2019 TECHNIQUE: 2 views of the chest were obtained. FINDINGS: The cardiac and mediastinal contours are normal. The lungs are clear. There is no pleural effusion or pneumothorax. There are degenerative changes of the spine. XR/XR chest 2V IMPRESSION: No evidence for acute disease in the chest.
[2020-05-20 10:26] VITALS: BP 179/89; PULSE 92; RESP 16; TEMP 37.3; O2SAT 90; BMI 49.4
--- NOTE | 2020-05-20 10:31 | ED_ITS ---
HPI - Extremity Injury (Lower) General Chief Complaint: Extremity Injury, Lower Stated Complaint: bilateral knee pain,arthritis Time Seen by Provider: 05/20/20 10:29 Source: patient Mode of arrival: ambulatory History of Present Illness HPI Narrative: 64-year-old female with a past medical history of anemia, asthma, COPD on home O2 as needed, diabetes, hyperlipidemia, GERD, hypertension, bipolar, bilateral total knee replacement c/o acute on chronic low back pain radiating down bilateral lower extremities greater on the left. Admits was seen and evaluated in ED twice recently for similar symptoms, had negative x-rays and DVT study, however reports continued pain. Denies trauma/falls or injury. Denies numbness, weakness, urinary incontinence/retention, fever. Related Data Home Medications Medication Instructions Recorded Confirmed albuterol sulfate 0.63 mg INHALATION Q4-6H PRN 01/25/20 01/25/20 albuterol sulfate 2 puff INHALATION Q4-6H PRN 01/25/20 01/25/20 amlodipine 1 tab PO BID 01/25/20 01/25/20 famotidine 40 mg PO BEDTIME 01/25/20 01/25/20 fluticasone propionate [Flovent 1 puff INHALATION BID 01/25/20 01/25/20 HFA] hydrochlorothiazide 1 tab PO DAILY 01/25/20 01/25/20 metformin 1 tab PO BID 01/25/20 01/25/20 methadone 120 mg PO DAILY 01/25/20 01/25/20 mirtazapine 1 tab PO BEDTIME 01/25/20 01/25/20 oxcarbazepine 600 mg PO BID 01/25/20 01/25/20 sertraline 1 tab PO DAILY 01/25/20 01/25/20 simvastatin 1 tab PO DAILY 01/25/20 01/25/20 zolpidem 1 tab PO BEDTIME 01/25/20 01/25/20 Previous Rx's Medication Instructions Recorded ketoconazole 1 applic TOPICAL BID #30 g 02/14/20 cyclobenzaprine 10 mg PO TID PRN #10 tab 04/08/20 naproxen 500 mg tablet 500 mg PO BID PRN 30 Days #60 tab 05/06/20 cyclobenzaprine 10 mg PO TID PRN #30 tab 05/16/20 oxycodone 5 mg PO Q8H PRN #5 tab 05/16/20 acetaminophen [Tylenol Extra 500 mg PO Q6H PRN #20 tab 05/20/20 Strength] lidocaine [Lidoderm] 1 patch TOPICAL DAILY PRN #30 ea 05/20/20 MDD remove after 12 hours tramadol 50 mg PO Q8H PRN 3 Days #9 tab 05/20/20 Allergies Allergy/AdvReac Type Severity Reaction Status Date / Time Penicillins Allergy Intermediate RASH SOB Verified 05/16/20 12:17 Aspir-81 Allergy Intermediate Rash Uncoded 05/16/20 12:17 Review of Systems Review of Systems: Constitutional: No Weight loss, No Fever, No Chills Cardiovascular: No Chest Pain, + SOB Respiratory: No Cough Genitourinary: No Hematuria, No Urinary Incontinence/Retention, No Flank Pain Musculoskeletal: +back pain radiating down legs, + Myalgias, + Joint Swelling Skin: No Skin Lesions, No rash Neuro: No Weakness, No Numbness, No Paresthesias Yes all other systems are reviewed and are negative [facility] Past Medical History Attestation statement: The following information was validated with the patient. Medical History Anemia Arthritis Asthma Back pain BiPAP (biphasic positive airway pressure) dependence COPD (chronic obstructive pulmonary disease) COPD (chronic obstructive pulmonary disease) Depression Diabetes Diabetic acidosis, type I Elevated cholesterol GERD (gastroesophageal reflux disease) History of blood transfusion History of headache HTN (hypertension) Hx of anxiety disorder Hx of bipolar disorder Hx of drug dependence Oxygen dependent Sleep apnea Surgical History H/O colonoscopy History of esophagogastroduodenoscopy (EGD) Hx of arthroscopic knee surgery Hx of section Hx of foot surgery Hx of total knee replacement Social History Social History Smoking Status: Current every day smoker Packs Per Day: 0.25 Cigarettes Per Day: 5.0 Years Smoked: 50 Smoked in Last 30 Days: Yes Use of substances other than those prescribed or required for medical reasons: No Substance Use Type Other:: methadone Advance Directives: No Advance Directives Information Provided: Yes Current occupational status: disabled Current occupation: right handed Physical Exam Vital Signs: Vital Signs: Last Vital Signs Temp 99.2 F 05/20/20 10:26 Pulse 65 05/20/20 11:56 Resp 16 05/20/20 10:26 BP 179/89 H 05/20/20 10:26 Pulse Ox 96 05/20/20 11:56 Body Mass Index 49.4 Const: General: cooperative, healthy appearing, comfortable, no acute distress, well developed, alert and awake Orientation/consciousness: patient oriented x3 Limitations: no limitations HENMT: Head: Yes normal to inspection Ears: hearing grossly normal bilaterally General nose exam: Normal external nose present Face and sinus: Yes normal facial exam Eyes: General: appearance normal, both eyes and all related structures EOM: EOMs intact bilaterally Neck: Neck: Yes normal visual inspection and Yes no meningeal signs Resp: Effort & Inspection: normal respiratory effort and able to speak in complete sentences Auscultation: no rales, no rhonchi and no wheezes Cardio: Rate: regular rate Heart sounds: S1 normal heart sound present and S2 normal heart sound present GI: Inspection: Yes normal to inspection : General: Yes no CVA tenderness Back/Spine/Pelvis: Other: No midline thoracic/lumbar spinous tenderness. + left-sided lower lumbar MSK tenderness/buttock tenderness to palpation. Back: no CVA tenderness Skin: Rashes: no rashes Wounds: no wounds Neuro: Other: Strength intact throughout. No saddle anesthesia General: patient oriented x3, tone normal, moves all extremities and no meningeal signs Motor exam (neuro): 5/5 motor strength present throughout Extrem: General: Yes normal to inspection Course Course Course Narrative: -patient is now satting 96% on room air, without intervention. CXR unremarkable. Discussed follow-up with her PCP, patient verbalized understanding feel safe for discharge home MDM - Extremity Injury (Lower) MDM Narrative Medical decision making narrative: On exam patient sating 90% on 2L nasal cannula which she reports is her baseline when she has a cold, upon further questioning does admits to mild SOB x 1 week, denies cough/CP. Lungs CTA, in no respiratory distress, talking in complete sentences. No midline spinous tenderness throughout, no red flag symptoms. Concern patient is pain seeking. States she is going to see PCP straight from the ED Convinced patient to obtain CXR in the ED for lung evaluation which she was agreeable for prior to d/c Discharge Plan Discharge Clinical Impression: Sciatic leg pain Patient Disposition: Home, Self-Care Instructions: Sciatica (ED) Additional Instructions: Your pain is likely musculoskeletal Continue taking previously prescribed medication Lidoderm patches are numbing patches, apply to painful area In addition take Tylenol at home Tramadol as an opiate pain medication, take only when pain is severe for the next 3 days. You need to follow-up with her primary care doctor If symptoms persist or worsen, pain becomes unbearable, you developed urinary retention or incontinence, or weakness return to the ED Prescriptions: New tramadol 50 mg tablet 50 mg PO Q8H PRN (Reason: severe pain (scale score 7-10)) 3 Days Qty: 9 RF: 0 acetaminophen [Tylenol Extra Strength] 500 mg tablet 500 mg PO Q6H PRN (Reason: pain or fever) Qty: 20 RF: 0 lidocaine [Lidoderm] 5 % adhesive patch,medicated 1 patch topical DAILY MDD remove after 12 hours PRN (Reason: pain) Qty: 30 RF: 0 No Action albuterol sulfate 0.63 mg/3 mL Solution For Nebulization 0.63 mg INHALATION Q4-6H PRN (Reason: Shortness Of Breath) RF: 0 famotidine 40 mg Tablet 40 mg PO BEDTIME RF: 0 simvastatin 10 mg tablet 1 tab PO DAILY RF: 0 amlodipine 5 mg tablet 1 tab PO BID RF: 0 metformin 1,000 mg tablet 1 tab PO BID RF: 0 mirtazapine 45 mg tablet 1 tab PO BEDTIME RF: 0 oxcarbazepine 600 mg Tablet 600 mg PO BID RF: 0 hydrochlorothiazide 25 mg tablet 1 tab PO DAILY RF: 0 zolpidem 10 mg tablet 1 tab PO BEDTIME RF: 0 albuterol sulfate 90 mcg/actuation HFA aerosol inhaler 2 puff inhalation Q4-6H PRN (Reason: Shortness Of Breath) RF: 0 sertraline 50 mg tablet 1 tab PO DAILY RF: 0 Flovent HFA 110 mcg/actuation Hfa Aerosol Inhaler 1 puff INHALATION BID RF: 0 methadone 5 mg/5 mL Solution 120 mg PO DAILY RF: 0 ketoconazole 2 % cream 1 applic topical BID Qty: 30 RF: 0 cyclobenzaprine 10 mg tablet 10 mg PO TID PRN (Reason: muscle spasm) Qty: 30 RF: 0 oxycodone 5 mg tablet 5 mg PO Q8H PRN (Reason: pain) Qty: 5 RF: 0 cyclobenzaprine 10 mg tablet 10 mg PO TID PRN (Reason: muscle spasm) Qty: 10 RF: 0 naproxen 500 mg tablet 500 mg PO BID PRN (Reason: pain) 30 Days Qty: 60 RF: 0 Referrals: Rito Grady MD [Primary Care Provider] - 2 days
[2020-05-20] MEDS: oxyCODONE HCl Immed Release 5 MG TABLET PO (10:57)
[2020-05-20] MEDS: Acetaminophen 325 MG TABLET 650 MG PO (10:58)
[2020-05-20] MEDS: Lidocaine 4 % Patch ADH..PATCH 1 PATCH TRANSDERMA (10:59)
[2020-05-20 11:56] VITALS: PULSE 65; O2SAT 96
== END 2020-05-20 12:38 | disposition home or self-care (01) ==
PROVIDERS: Emergency Provider Emergency Medicine; PCP Internal Medicine
DX: M54.42 Lumbago with sciatica, left side (principal); E11.9 Type 2 diabetes mellitus without complications; I10 Essential (primary) hypertension; J44.9 Chronic obstructive pulmonary disease, unspecified; Z99.81 Dependence on supplemental oxygen; F11.20 Opioid dependence, uncomplicated; F17.210 Nicotine dependence, cigarettes, uncomplicated
CPT/HCPCS: 71046; 99283; 99284

== ENCOUNTER 2020-05-27 10:41 | Outpatient (REF) | payer OTHER, SELFPAY ==
--- NOTE | ~2020-05-27 | XR_ITS ---
EXAMINATION: XR LUMBOSACRAL SPINE CLINICAL INFORMATION: Pain COMPARISON: Previous x-ray November 2013 TECHNIQUE: Three views of the lumbosacral spine. FINDINGS: There is 6 mm anterior subluxation of L4 with respect L5 probably related to facet arthritis. This is increased from 2014 exam. Bone alignment is otherwise normal. No fracture or dislocation is seen. There is mild degenerative disc disease at L3-L4 and L4-L5. There is degenerative disc disease at T11-T12. There is severe lower lumbar spine facet arthritis. XR/XR lumbar spine 2-3V IMPRESSION: 6 mm anterior subluxation of L4 with respect L5 probably related to facet arthritis. There is severe lower lumbar spine facet arthritis. Mild degenerative disc disease at L3-L4 and L4-L5.
[2020-05-27 12:14] LABS: Anion Gap 14 (12-20); Blood Urea Nitrogen 16 mg/dL (9-16); C Reactive Protein 3.42 mg/dL (< or = 0.50); Calcium 9.8 mg/dL (8.4-10.2); Carbon Dioxide 37 mmol/L (22-29); Chloride 95 mmol/L (96-108); Estimated Glomerular Filt Rate 42; Glucose Random 125 mg/dL (60-115); Potassium 4.4 mmol/L (3.3-5.1); Sodium 142 mmol/L (135-145)
[2020-05-27 12:34] LABS: Erythrocyte Sedimentation Rate 19 MM/HR (0-20)
== END 2020-05-27 10:42 | disposition home or self-care (01) ==
LOC: HO.LAB 10:41
PROVIDERS: PCP Internal Medicine; Visit Provider Internal Medicine
DX: M54.9 Dorsalgia, unspecified (principal); E11.9 Type 2 diabetes mellitus without complications; I10 Essential (primary) hypertension; F31.9 Bipolar disorder, unspecified
CPT/HCPCS: 36415; 72100; 80048; 82550; 85652; 86140

== ENCOUNTER 2020-06-11 09:50 | Emergency (ER) | payer OTHER, SELFPAY ==
[2020-06-11 09:58] VITALS: BP 127/72; PULSE 80; RESP 20; TEMP 36.6; O2SAT 95; BMI 47.5
--- NOTE | 2020-06-11 11:16 | ED.BACK ---
HPI - Back Pain/Injury General Chief Complaint: Back Pain/Injury Stated Complaint: BACK PAIN Time Seen by Provider: 06/11/20 11:03 Source: patient Mode of arrival: ambulatory History of Present Illness HPI Narrative: 64-year-old female with a past medical history of anemia, asthma, COPD on home O2 as needed, diabetes, hyperlipidemia, GERD, hypertension, bipolar, bilateral total knee replacement c/o acute on chronic low back pain radiating down left lower extremity x 1 month. Admits was recently seen and treated in our ED for similar symptoms however ran out of medications. Denies known injury, trauma or fall. Admits to paresthesias in left foot. Denies numbness, weakness, urinary incontinence/retention, fever Related Data Home Medications Medication Instructions Recorded Confirmed albuterol sulfate 0.63 mg INHALATION Q4-6H PRN 01/25/20 01/25/20 albuterol sulfate 2 puff INHALATION Q4-6H PRN 01/25/20 01/25/20 amlodipine 1 tab PO BID 01/25/20 01/25/20 famotidine 40 mg PO BEDTIME 01/25/20 01/25/20 fluticasone propionate [Flovent 1 puff INHALATION BID 01/25/20 01/25/20 HFA] hydrochlorothiazide 1 tab PO DAILY 01/25/20 01/25/20 metformin 1 tab PO BID 01/25/20 01/25/20 methadone 120 mg PO DAILY 01/25/20 01/25/20 mirtazapine 1 tab PO BEDTIME 01/25/20 01/25/20 oxcarbazepine 600 mg PO BID 01/25/20 01/25/20 sertraline 1 tab PO DAILY 01/25/20 01/25/20 simvastatin 1 tab PO DAILY 01/25/20 01/25/20 zolpidem 1 tab PO BEDTIME 01/25/20 01/25/20 Previous Rx's Medication Instructions Recorded ketoconazole 1 applic TOPICAL BID #30 g 02/14/20 cyclobenzaprine 10 mg PO TID PRN #10 tab 04/08/20 cyclobenzaprine 10 mg PO TID PRN #30 tab 05/16/20 oxycodone 5 mg PO Q8H PRN #5 tab 05/16/20 acetaminophen [Tylenol Extra 500 mg PO Q6H PRN #20 tab 05/20/20 Strength] lidocaine [Lidoderm] 1 patch TOPICAL DAILY PRN #30 ea 05/20/20 MDD remove after 12 hours tramadol 50 mg PO Q8H PRN 3 Days #9 tab 05/20/20 naproxen 500 mg tablet 500 mg PO BID PRN #60 tab 05/30/20 acetaminophen [Tylenol Extra 500 mg PO Q6H PRN #20 tab 06/11/20 Strength] cyclobenzaprine 5 mg PO Q8H PRN 5 Days #14 tab 06/11/20 lidocaine [Lidoderm] 1 patch TOPICAL DAILY PRN #30 ea 06/11/20 MDD remove after 12 hours naproxen 500 mg PO BID PRN 10 Days #20 tab 06/11/20 tramadol 50 mg PO Q8H PRN 3 Days #9 tab 06/11/20 Allergies Allergy/AdvReac Type Severity Reaction Status Date / Time Penicillins Allergy Intermediate RASH SOB Verified 05/16/20 12:17 Aspir-81 Allergy Intermediate Rash Uncoded 05/16/20 12:17 Review of Systems Review of Systems: Constitutional: No Fever, No Chills Genitourinary: No Urinary Incontinence/retention, No Urgency Musculoskeletal: +back pain, No Myalgias, No Joint Swelling Skin: No Skin Lesions, No rash Neuro: No Weakness, No Numbness, + Paresthesias Yes all other systems are reviewed and are negative [facility] Past Medical History Attestation statement: The following information was validated with the patient. Medical History Anemia Arthritis Asthma Back pain BiPAP (biphasic positive airway pressure) dependence COPD (chronic obstructive pulmonary disease) COPD (chronic obstructive pulmonary disease) Depression Diabetes Diabetic acidosis, type I Elevated cholesterol GERD (gastroesophageal reflux disease) History of blood transfusion History of headache HTN (hypertension) Hx of anxiety disorder Hx of bipolar disorder Hx of drug dependence Oxygen dependent Sleep apnea Surgical History H/O colonoscopy History of esophagogastroduodenoscopy (EGD) Hx of arthroscopic knee surgery Hx of section Hx of foot surgery Hx of total knee replacement Social History Social History Smoking Status: Current every day smoker Packs Per Day: 0.25 Cigarettes Per Day: 5.0 Years Smoked: 50 Advance Directives: No Advance Directives Information Provided: No Current occupational status: disabled Current occupation: right handed Physical Exam Vital Signs: Vital Signs: Last Vital Signs Temp 98 F 06/11/20 09:58 Pulse 80 06/11/20 09:58 Resp 20 06/11/20 09:58 BP 127/72 06/11/20 09:58 Pulse Ox 95 06/11/20 09:58 Body Mass Index 47.5 Const: General: cooperative and healthy appearing Orientation/consciousness: patient oriented x3 Limitations: no limitations HENMT: Head: Yes normal to inspection Ears: hearing grossly normal bilaterally General nose exam: Normal external nose present Face and sinus: Yes normal facial exam Eyes: General: appearance normal, both eyes and all related structures EOM: EOMs intact bilaterally Neck: Neck: Yes normal visual inspection and Yes no meningeal signs Resp: Effort & Inspection: normal respiratory effort Cardio: Rate: regular rate Back/Spine/Pelvis: Other: No midline thoracic/lumbar spinous tenderness. + left-sided lower lumbar/buttock MSK tenderness to palpation. Skin: Rashes: no rashes Wounds: no wounds Neuro: Other: No saddle anesthesia. General: patient oriented x3, tone normal, moves all extremities and no meningeal signs Gait exam (Neuro): Normal gait present Motor exam (neuro): 5/5 motor strength present throughout Extrem: General: Yes normal to inspection MDM - Back Pain/Injury MDM Narrative Medical decision making narrative: On exam VSS, NAD/well-appearing, no midline spinous tenderness or red flag symptoms. No saddle anesthesia. Likely MSK pain/sciatica pain. Low concern for cauda equina/cord compression Differential Diagnosis Differential diagnosis: Likely lumbar radiculopathy and sciatica Medical Records Attestation: I reviewed the patient's medical records. Discharge Plan Discharge Clinical Impression: Sciatica Qualifiers: Laterality: left Qualified Code(s): M54.32 - Sciatica, left side Patient Disposition: Home, Self-Care Instructions: Sciatica (ED) Additional Instructions: Your pain is likely musculoskeletal Flexeril is a muscle relaxer, take at night as it makes you drowsy, do not drive, drink alcohol, or operate machinery while taking it Naproxen as an anti-inflammatory / pain medication, take with food Lidoderm patches are numbing patches, apply to painful area In addition take Tylenol at home Tramadol as an opiate pain medication, take only when pain is severe for the next 3 days You need to follow-up with her primary care doctor If symptoms persist or worsen, pain becomes unbearable, you developed urinary retention or incontinence, or weakness return to the ED Prescriptions: New acetaminophen [Tylenol Extra Strength] 500 mg tablet 500 mg PO Q6H PRN (Reason: pain or fever) Qty: 20 RF: 0 lidocaine [Lidoderm] 5 % adhesive patch,medicated 1 patch topical DAILY MDD remove after 12 hours PRN (Reason: pain) Qty: 30 RF: 0 naproxen 500 mg tablet 500 mg PO BID PRN (Reason: pain) 10 Days Qty: 20 RF: 0 cyclobenzaprine 5 mg tablet 5 mg PO Q8H PRN (Reason: pain (scale score 7-10)) 5 Days Qty: 14 RF: 0 tramadol 50 mg tablet 50 mg PO Q8H PRN (Reason: pain, severe) 3 Days Qty: 9 RF: 0 No Action naproxen 500 mg tablet 500 mg PO BID PRN (Reason: for pain) Qty: 60 RF: 0 albuterol sulfate 0.63 mg/3 mL Solution For Nebulization 0.63 mg INHALATION Q4-6H PRN (Reason: Shortness Of Breath) RF: 0 famotidine 40 mg Tablet 40 mg PO BEDTIME RF: 0 simvastatin 10 mg tablet 1 tab PO DAILY RF: 0 amlodipine 5 mg tablet 1 tab PO BID RF: 0 metformin 1,000 mg tablet 1 tab PO BID RF: 0 mirtazapine 45 mg tablet 1 tab PO BEDTIME RF: 0 oxcarbazepine 600 mg Tablet 600 mg PO BID RF: 0 hydrochlorothiazide 25 mg tablet 1 tab PO DAILY RF: 0 zolpidem 10 mg tablet 1 tab PO BEDTIME RF: 0 albuterol sulfate 90 mcg/actuation HFA aerosol inhaler 2 puff inhalation Q4-6H PRN (Reason: Shortness Of Breath) RF: 0 sertraline 50 mg tablet 1 tab PO DAILY RF: 0 Flovent HFA 110 mcg/actuation Hfa Aerosol Inhaler 1 puff INHALATION BID RF: 0 methadone 5 mg/5 mL Solution 120 mg PO DAILY RF: 0 ketoconazole 2 % cream 1 applic topical BID Qty: 30 RF: 0 cyclobenzaprine 10 mg tablet 10 mg PO TID PRN (Reason: muscle spasm) Qty: 30 RF: 0 oxycodone 5 mg tablet 5 mg PO Q8H PRN (Reason: pain) Qty: 5 RF: 0 cyclobenzaprine 10 mg tablet 10 mg PO TID PRN (Reason: muscle spasm) Qty: 10 RF: 0 tramadol 50 mg tablet 50 mg PO Q8H PRN (Reason: severe pain (scale score 7-10)) 3 Days Qty: 9 RF: 0 acetaminophen [Tylenol Extra Strength] 500 mg tablet 500 mg PO Q6H PRN (Reason: pain or fever) Qty: 20 RF: 0 lidocaine [Lidoderm] 5 % adhesive patch,medicated 1 patch topical DAILY MDD remove after 12 hours PRN (Reason: pain) Qty: 30 RF: 0 Referrals: Rito Grady MD [Primary Care Provider] - 2 days
[2020-06-11] MEDS: Ketorolac Tromethamine 30 MG/ML VIAL IM (11:25)
== END 2020-06-11 12:01 | disposition home or self-care (01) ==
PROVIDERS: Emergency Provider Emergency Medicine; PCP Internal Medicine
DX: M54.42 Lumbago with sciatica, left side (principal); E11.9 Type 2 diabetes mellitus without complications; I10 Essential (primary) hypertension; E78.5 Hyperlipidemia, unspecified; J44.9 Chronic obstructive pulmonary disease, unspecified; Z99.81 Dependence on supplemental oxygen; Z96.653 Presence of artificial knee joint, bilateral; Z79.899 Other long term (current) drug therapy
CPT/HCPCS: 96372; 99283; 99284; J1885

== ENCOUNTER 2020-08-01 11:10 | Outpatient (REF) | payer OTHER, SELFPAY ==
[2020-08-01 13:25] LABS: MANUAL DIFF FLAG NO
[2020-08-01 13:28] LABS: Basophils Percent Auto 0.2 % (0-2); Eosinophils Absolute Auto 0.2 X10*3/uL (0.0-0.4); Eosinophils Percent Auto 1.3 % (0-4); Hematocrit 42.3 % (37-47); Hemoglobin 13.5 g/dl (12.0-16.0); Imm Gran Abs Auto 0.06 X10*3/uL (0.00-0.03); Imm Gran Pct Auto 0.5 % (0.0-0.4); Lymphocytes Absolute Auto 2.1 X10*3/uL (1.2-4.9); Lymphocytes Percent Auto 16.3 % (20-40); Mean Corpuscular HGB Conc 31.9 g/dl (31.0-35.0); Mean Corpuscular Hemoglobin 28.9 pg (27.0-33.0); Mean Corpuscular Volume 90.6 fL (80-98); Mean Platelet Volume 11.3 fL (9.4-12.3); Monocytes Absolute Auto 0.8 X10*3/uL (0.1-1.2); Neutrophils Absolute Auto 9.9 X10*3/uL (2.0-8.3); Neutrophils Percent Auto 75.7 % (45-73); Platelet Count 312 X10*3/uL (160-400); Red Blood Count 4.67 X10*6/uL (4.20-5.50); Red Cell Distribution Width 14.4 % (11.0-16.0); White Blood Count 13.1 X10*3/uL (4.8-10.8)
[2020-08-01 13:58] LABS: B Type Natriuretic Peptide 40 pg/mL (<100)
[2020-08-01 14:02] LABS: Alanine Aminotransferase 17 U/L (0-31); Alkaline Phosphatase 156 U/L (39-117); Anion Gap 13 (12-20); Aspartate Amino Transferase 18 U/L (5-31); Bilirubin Total 0.3 mg/dL (0.0-1.0); Blood Urea Nitrogen 14 mg/dL (9-16); Calcium 9.4 mg/dL (8.4-10.2); Carbon Dioxide 39 mmol/L (22-29); Chloride 95 mmol/L (96-108); Estimated Average Glucose 137 mg/dL; Estimated Glomerular Filt Rate 53; Glucose Random 103 mg/dL (60-115); Hemoglobin A1c % 6.4 %; Potassium 4.1 mmol/L (3.3-5.1); Sodium 143 mmol/L (135-145); Total Protein 7.9 g/dL (6.5-8.0)
[2020-08-01 14:23] LABS: Free T4 (Free Thyroxine) 0.82 ng/dL (0.71-1.85); Thyroid Stimulating Hormone 0.51 uIU/mL (0.32-4.0); Vitamin D 25-OH Total 11.5 ng/mL (>30)
== END 2020-08-01 11:11 | disposition home or self-care (01) ==
LOC: HO.10HDL 11:10
PROVIDERS: PCP Internal Medicine; Visit Provider Internal Medicine
DX: E11.9 Type 2 diabetes mellitus without complications (principal); I10 Essential (primary) hypertension; R60.9 Edema, unspecified; N18.9 Chronic kidney disease, unspecified; R53.83 Other fatigue; E55.9 Vitamin D deficiency, unspecified
CPT/HCPCS: 36415; 80053; 82306; 83036; 83880; 84439; 84443; 85025

== ENCOUNTER → 2020-08-09 12:43 | Outpatient (REF) | payer OTHER, SELFPAY ==
--- NOTE | 2020-08-09 13:00 | CA_ITS ---
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 Study Quality: Technically Difficult ECG Rhythm: Sinus Conclusions: - 1. Normal LV systolic function with grade 1 diastolic dysfunction 2. Normal cardiac valvular Doppler 3. Normal RV systolic pressure 4. No pericardial effusion Findings Left Ventricle Normal left ventricular size, thickness, and systolic function. The visually estimated ejection fraction is between 65-70%. Spectral Doppler is indicative of an impaired relaxation filling pattern. E/E prime ratio is <8, consistent with normal filling pressures. Evidence suggests grade I (mild) diastolic dysfunction. Right Ventricle Normal right ventricular cavity size and systolic function. Atria Both atria are normal in size. There is no evidence of interatrial shunt. Aortic Valve Normal aortic valve structure and function. There is no aortic valve stenosis. There is no aortic valve regurgitation. Mitral Valve Normal mitral valve structure and function. There is mild mitral annular calcification. There is trace mitral valve regurgitation. There is no mitral valve stenosis. Pulmonic Valve The pulmonic valve was not well visualized. Tricuspid Valve Likely normal tricuspid valve structure and function. There is trace tricuspid valve regurgitation. The right ventricular systolic pressure is normal. The right ventricular systolic pressure is 31 mmHg. Normal right atrial pressure. There is no evidence of pulmonary hypertension. Great Vessels All visible segments of the aorta are normal in size. The pulmonary artery was not well visualized. Venous The inferior vena cava is normal in size and collapses greater than 50% with inspiration. Pericardium/Pleural There is no evidence of pericardial effusion. Prior Study Comparison No prior study available for comparison. Measurements M-Mode Liner Measurements Normals - Women/Men AOV Cusps: 1.90 1.5-2.6 cm/m2 2D Linear Measurements IVSd: 1.12 0.6-0.9/0.6-1.0 cm LVIDd: 4.16 3.9-5.3/4.2-5.9 cm LVIDd Index: 2.01 2.4-3.2/2.2-3.1 cm/m2 LVIDs: 2.77 2.0-3.6 cm LVPWd: 1.13 0.7-1.1 cm Ao Root: 2.30 2.1-3.5 cm LA Diam: 3.60 2.7-3.8/3.0-4.0 cm LAIDs Index: 1.74 1.5-2.3 cm/m2 LV Mass: 199.04 67-162/88-224 g LV Mass Index: 96.15 43-95/49-115 g/m2 LVOT Diam: 1.80 3.0+(-)1.3 cm 2D Systolic Function EF 4C: 77.00 >55% EF 2C: 53.90 >55% EF BiP: 67.10 >55% Mitral Valve MV Pk E: 0.68 MV PK A: 0.90 MV Decel Time: 318.00 E/A: 0.80 E'Lateral: 7.62 E'Medial: 7.94 E/E' Med: 8.60 E/E' Lat: 8.90 PHT: 93.00 MVA PHT: 2.37 Decel [place]: 2.13 Aortic Valve AoV Pk Rishabh: 1.91 AoV Mn Rishabh: 1.30 AoV VTI: 0.38 AoV Pk Grad: 15.00 Aov Mn Grad: 8.00 MARCELINO Cont.VTI: 1.74 LVOT LVOT Pk Rishabh: 1.44 LVOT Mn Rishabh: 1.02 LVOT VTI: 0.26 LVOT Pk Grad: 8.00 LVOT Mn Grad: 5.00 LVOT Diam: 1.80 LVOT Area: 2.54 Diastolic Function MV Pk E: 0.68 MV Pk A: 0.90 E/A: 0.80 E'Medial: 7.94 E/E' Med: 8.60 E' Laterial: 7.62 E/E' Lat: 8.90 Tricuspid Valve TR Pk Rishabh: 2.64 TR Pk Grad: 28.00 RA Press: 3.00 RVSP: 31.00 Great Vessels Aorta Ao Root-2D: 2.30 2.0-3.7 cm Ao Asc: 3.10 2.1-3.4 cm Ao Arch: 3.00 Pulmonary Valve PV Pk Rishabh: 1.15 Peak PV Grad: 5.00 Updated in Other Vendor System with Status of Final Familia Morris MD electronically signed on 08/10/2020 11:28:27 AM with status of Final
== END ==
LOC: HO.CARD 12:43
PROVIDERS: Visit Provider Internal Medicine
DX: R53.82 Chronic fatigue, unspecified (principal); R06.82 Tachypnea, not elsewhere classified; R60.9 Edema, unspecified
CPT/HCPCS: 93306

== ENCOUNTER 2020-10-01 10:32 | Inpatient (IN) | payer OTHER, SELFPAY ==
--- NOTE | ~2020-10-01 | US_ITS ---
EXAMINATION: US VENOUS ULTRASOUND WITH DOPPLER LOWER EXTREMITY, BILATERAL CLINICAL INFORMATION: Bilateral lower extremity swelling COMPARISON: None TECHNIQUE: Ultrasound of the deep veins is performed from the hip to the calf with compression sonography and color and pulse Doppler assessment. Spectral analysis with color-flow imaging is performed. FINDINGS: RIGHT: There is normal venous compression and respiratory variation and augmented flow. Lower extremity edema is present The visualized common femoral vein, superficial femoral vein, profunda femoral vein, popliteal vein, and the trifurcation region shows no evidence of deep venous thrombosis. The peroneal veins are poorly seen There is no significant popliteal fossa cyst. LEFT: There is normal venous compression and respiratory variation and augmented flow. Lower extremity edema is present. The visualized common femoral vein, superficial femoral vein, profunda femoral vein, popliteal vein, and the trifurcation region shows no evidence of deep venous thrombosis. There is no significant popliteal fossa cyst. If the patient's symptoms persist, followup ultrasound in 5 days 7 days might be of value to exclude proximal propagation from a non-visualized calf vein. US/US venous duplex LE BI IMPRESSION: No DVT demonstrated in either lower extremity.
--- NOTE | ~2020-10-01 | CT_ITS ---
EXAMINATION: CT ANGIOGRAM OF THE CHEST WITH AND WITHOUT CONTRAST (CT PULMONARY ANGIOGRAM FOR PE) CLINICAL INFORMATION: Shortness of breath, T-wave changes on EKG, rule out PE COMPARISON: Chest x-ray 10/01/2020. CT chest 03/01/2019 TECHNIQUE: Prior to contrast administration, noncontrast localization images were obtained. Subsequently, multidetector volumetric imaging was performed from the thoracic inlet to below the diaphragms following the administration of 71 mL Omnipaque 350 intravenous contrast. No contrast reaction reported Sagittal, coronal, and MIP oblique sagittal reformatted images were obtained on the CT workstation, uploaded to PACS, and reviewed. This CT examination was performed using dose optimization techniques as appropriate, variously including the following: *Automated exposure control *Adjustment of mA and/or kV according to patient size (this includes techniques or standardized protocols for targeted exams where dose is matched to indication/reason for exam; i.e. extremities or head) *Use of iterative reconstruction technique Total exam dose-length product 454 mGy-cm FINDINGS: QUALITY OF STUDY/CONTRAST BOLUS: Satisfactory. PULMONARY ARTERIES: No central or segmental pulmonary emboli. THORACIC AORTA: No aneurysm or dissection. LUNG: Dependent linear atelectasis at both lung bases. No focal consolidation. No suspicious lung nodule. The central bronchial airways are open. There is no bronchiectasis. No interstitial lung disease. Lung nodules: There is a 4 mm nodule right upper lobe axial image 129/45 series 8. This is new since CAT scan 03/01/2019. No other significant lung nodule. A few micronodules noted on the CAT scan of 2019 not apparent on today's study PLEURA: No pleural effusion or pneumothorax. MEDIASTINUM: Heart size mildly enlarged. No pericardial effusion. No evidence of septal bowing or right heart strain. No significant lymphadenopathy. The thyroid is unremarkable. CHEST WALL/AXILLA: No axillary or internal mammary lymphadenopathy. OSSEOUS STRUCTURES: No acute or suspicious osseous abnormality. Multilevel degenerative spondylosis of the spine. UPPER ABDOMEN: Unremarkable. No reflux of contrast into the hepatic veins to suggest elevated right heart pressures. CT/CT angio chest PE protocol IMPRESSION: 1. No acute abnormality. No evidence of pulmonary embolism. 2. 4 mm right upper lobe nodule. 2017 Fleischner Society Recommendations for Lung Nodule(s): Follow-Up based on size (average of long- and short-axis diameters). Use most suspicious nodule for followup. Single Solid low risk nodule < 6 mm: No routine follow-up imaging is recommended in low risk and high risk patients. These guidelines do not apply to patients younger than 35 years, immunocompromised patients, and patients with cancer. F/u in patients with significant comorbidities as clinically warranted. For lung cancer screening, adhere to Lung-RADS guidelines. Reference: Radiology. 2017 Jagjit; 284(1):228-243 VTE: negative
--- NOTE | ~2020-10-01 | XR_ITS ---
EXAMINATION: XR CHEST CLINICAL INFORMATION: Shortness of breath COMPARISON: None TECHNIQUE: 2 views of the chest were obtained. FINDINGS: There is mild cardiomegaly. Lungs are well-expanded and clear. There is moderate spondylosis dorsal spine. No lytic process. XR/XR chest 2V IMPRESSION: No acute cardiopulmonary process seen.
--- NOTE | 2020-10-01 07:14 | ECG_ITS ---
Test Reason : SOB Blood Pressure : / mmHG Vent. Rate : 060 BPM Atrial Rate : 060 BPM P-R Int : 164 ms QRS Dur : 094 ms QT Int : 486 ms P-R-T Axes : 028 053 024 degrees QTc Int : 486 ms Normal sinus rhythm ST & T wave abnormality, consider anterior ischemia Prolonged QT Abnormal ECG When compared with ECG of 30-AUG-2018 16:18, T wave inversion now evident in Anterior leads QT has lengthened Referred By: Claudio Diaz Electronically Signed By:Ty Montes De Oca
[2020-10-01 10:49] VITALS: BP 146/71; PULSE 57; RESP 20; TEMP 36.8; O2SAT 94; BMI 46.0
[2020-10-01 12:13] LABS: MANUAL DIFF FLAG NO
[2020-10-01 12:20] LABS: Basophils Percent Auto 0.3 % (0-2); Eosinophils Absolute Auto 0.2 X10*3/uL (0.0-0.4); Hematocrit 45.2 % (37-47); Hemoglobin 14.3 g/dl (12.0-16.0); Imm Gran Abs Auto 0.06 X10*3/uL (0.00-0.03); Imm Gran Pct Auto 0.5 % (0.0-0.4); Lymphocytes Percent Auto 16.8 % (20-40); Mean Corpuscular HGB Conc 31.6 g/dl (31.0-35.0); Mean Corpuscular Hemoglobin 28.5 pg (27.0-33.0); Mean Platelet Volume 11.5 fL (9.4-12.3); Monocytes Absolute Auto 0.9 X10*3/uL (0.1-1.2); Monocytes Percent Auto 7.5 % (2-11); Neutrophils Absolute Auto 8.7 X10*3/uL (2.0-8.3); Neutrophils Percent Auto 72.9 % (45-73); Platelet Count 241 X10*3/uL (160-400); Red Blood Count 5.02 X10*6/uL (4.20-5.50); Red Cell Distribution Width 14.3 % (11.0-16.0); White Blood Count 11.9 X10*3/uL (4.8-10.8)
[2020-10-01 12:22] LABS: Glucose Urine UA NEG (NEG); Leukocyte Esterase Urine NEG (NEG); Nitrite Urine NEG (NEG); Specific Gravity - Urine <= 1.005 (1.005-1.025); Urine Blood NEG (NEG); Urine Ketones NEG (NEG); Urine Protein NEG (NEG-TRACE)
[2020-10-01 12:28] LABS: Appearance Urine CLEAR; Color Urine STRAW
[2020-10-01 12:53] LABS: Anion Gap 13 (12-20); Blood Urea Nitrogen 11 mg/dL (9-16); Calcium 9.3 mg/dL (8.4-10.2); Carbon Dioxide 38 mmol/L (22-29); Chloride 95 mmol/L (96-108); Creatinine Clr Calc Pharmacy 69.4; Estimated Glomerular Filt Rate 57; Glucose Random 100 mg/dL (60-115); Potassium 3.2 mmol/L (3.3-5.1); Sodium 143 mmol/L (135-145)
[2020-10-01 12:58] LABS: B Type Natriuretic Peptide 18 pg/mL (<100); Troponin-I High Sensitivity 4.3 ng/L (<3.5-17.0)
[2020-10-01] MEDS: predniSONE 20 MG TABLET 60 MG PO (13:47)
[2020-10-01] MEDS: Albuterol Sulfate (0.083%) 2.5 MG/3 ML VIAL.NEB 5 MG INHALE (14:17)
[2020-10-01 14:20] VITALS: PULSE 58; O2SAT 98
[2020-10-01 15:19] VITALS: BP 115/65; PULSE 69; RESP 18; O2SAT 93
[2020-10-01 15:59] LABS: Troponin-I High Sensitivity 4.6 ng/L (<3.5-17.0)
--- NOTE | 2020-10-01 16:15 | ED.GENADULT ---
HPI - General Adult General Chief complaint: Recheck/Abnormal Lab/Rx Stated complaint: abnormal EKG,SOB Time Seen by Provider: 10/01/20 11:18 Source: patient and other (Patient's PCP, Dr. Grady) Mode of arrival: wheelchair Limitations: no limitations History of Present Illness HPI narrative: 64-year-old female who presents emergency department for evaluation of swelling in her lower extremities, shortness of breath, dyspnea on exertion, hypoxia and change in her EKG. The patient states that over the last week she has noted increased swelling in her lower extremities. She states that her legs from the knee down her swollen. She states that she is having constant, burning pain in both her lower extremities which is moderate to severe in intensity. The patient does have COPD but she states that her shortness of breath is worse than usual. She does occasionally wear oxygen 2 L as needed at home and states that she wears it several times a week as needed for shortness of breath. She states that she has had difficulty lying down flat secondary to shortness of breath and does feel short of breath when she walks around. She denied cough, chest pain, fever, chills, nausea, vomiting. The patient followed up with her PCP today, Dr. Grady. He noted that she had significant peripheral edema, she was hypoxic with O2 saturations in the ED 60 89% range and the patient had new T-wave inversions in leads V1 through V4 on her EKG, therefore he brought her to the emergency department for evaluation. Related Data Home Medications Medication Instructions Recorded Confirmed albuterol sulfate 2 puff INHALATION Q4-6H PRN 01/25/20 01/25/20 hydrochlorothiazide 25 mg PO DAILY 01/25/20 01/25/20 metformin 1 tab PO BID 01/25/20 01/25/20 methadone 120 mg PO DAILY 01/25/20 01/25/20 mirtazapine 45 mg PO BEDTIME 01/25/20 01/25/20 oxcarbazepine 600 mg PO BID 01/25/20 01/25/20 simvastatin 10 mg PO DAILY 01/25/20 01/25/20 zolpidem 10 mg PO BEDTIME 01/25/20 01/25/20 famotidine 20 mg PO BEDTIME 10/01/20 Previous Rx's Medication Instructions Recorded acetaminophen [Tylenol Extra 500 mg PO Q6H PRN #20 tab 05/20/20 Strength] Allergies Allergy/AdvReac Type Severity Reaction Status Date / Time Penicillins Allergy Intermediate RASH SOB Verified 05/16/20 12:17 Aspir-81 Allergy Intermediate Rash Uncoded 05/16/20 12:17 Review of Systems Review of Systems: Yes all other systems are reviewed and are negative [facility] Past Medical History [facility] Narrative: Social history: The patient smokes 7 cigarettes per day times 50 years, she drinks alcohol occasionally, she states that she does have a history of drug use. She states that she used intranasal heroin 3 days prior, she states that she occasionally uses crack cocaine but has not used in several months. Source: unable to obtain Medical History Anemia Arthritis Asthma Back pain BiPAP (biphasic positive airway pressure) dependence COPD (chronic obstructive pulmonary disease) COPD (chronic obstructive pulmonary disease) Depression Diabetes Diabetic acidosis, type I Elevated cholesterol GERD (gastroesophageal reflux disease) History of blood transfusion History of headache HTN (hypertension) Hx of anxiety disorder Hx of bipolar disorder Hx of drug dependence Oxygen dependent Sleep apnea Surgical History H/O colonoscopy History of esophagogastroduodenoscopy (EGD) Hx of arthroscopic knee surgery Hx of section Hx of foot surgery Hx of total knee replacement Social History Social History Cigarette Packs Per Day: 0.25 Cigarettes Per Day: 5.0 Years Smoked: 50 Advance Directives: No Advance Directives Information Provided: No Patient : No Current occupational status: disabled Current occupation: right handed Physical Exam Vital Signs: Vital Signs: Last Vital Signs Temp 98.3 F 10/01/20 10:49 Pulse 75 10/01/20 17:17 Resp 20 10/01/20 17:17 BP 117/64 10/01/20 17:17 Pulse Ox 94 10/01/20 17:17 Oxygen Flow Rate 3 10/01/20 10:49 Body Mass Index 46.0 Const: Other: Very pleasant, cooperative, female, does not appear to be in distress, answers all questions appropriately HENMT: Head: Yes normal to inspection, Yes normocephalic and Yes atraumatic Ears: external ears normal General nose exam: Normal external nose present Face and sinus: Yes normal facial exam Mouth: Normal oral and palatal mucosa present Throat: Yes posterior oropharynx normal Eyes: Periorbital: periorbital findings normal Eyelids: Yes eyelids normal Conjunctivae: conjunctivae normal Sclerae: sclerae normal Corneas: corneas normal Pupils: Equal, round and reactive pupils present Direct Ophthalmoscopy: normal light reflex Neck: Neck: Yes full ROM, Yes no lymphadenopathy, Yes no meningeal signs, Yes trachea midline and Yes supple Chest: Chest palpation & inspection: normal inspection of the chest and normal palpation of entire chest wall Resp: Effort & Inspection: normal respiratory effort and able to speak in complete sentences Auscultation: clear to auscultation bilaterally Cardio: Rate: regular rate Rhythm: regular rhythm Heart sounds: S1 normal heart sound present, S2 normal heart sound present and no murmurs GI: Inspection: Yes normal to inspection Palpation (GI): Soft to palpation, nontender, no guarding, not rigid and No hepatosplenomegaly present : General: Yes no CVA tenderness Back/Spine/Pelvis: Back: no CVA tenderness Cervical Spine: normal cervical lordosis Thoracic/Lumbar Spine: thoracic and lumbar spine normal to inspection Skin: Lesions: no lesions Rashes: no rashes Wounds: no wounds Neuro: General: no meningeal signs Cranial nerves: Yes CN's II-XII intact bilaterally and Yes Equal, round and reactive pupils present Cognition (Neuro): normal cognition Motor exam (neuro): 5/5 motor strength present throughout Extrem: Other: 1+ to 2+ pitting edema in the lower extremities, symmetric General: Yes full ROM Psych: Appearance: well kempt Mental Status: mental status grossly normal Speech and movement: Normal speech and movement present Affect: normal affect Attitude: cooperative Thought process: Normal thought process present Thought content: Normal thought content present Course Course Course Narrative: 64-year-old female who was brought to emergency department by her PCP, Dr. Grady for evaluation of new peripheral edema, hypoxia, shortness of breath, dyspnea on exertion, orthopnea and new T-wave inversion V1 through V4 on her 12 EKG. Vital signs were stable. Patient's physical examination did reveal 1+ to 2+ peripheral edema in her lower extremities. Lung exam was clear. On 2-3 L of oxygen via nasal cannula her O2 saturation remained above 92%. I ordered a CBC, CMP, troponin, PT/INR, BNP, EKG and chest x-ray. 1641: Laboratory evaluation revealed a slightly low potassium of 3.2, elevated bicarb of 38. Initial high sensitivity troponin was detectable of 4.3 but not elevated. Repeat 3 hour high sensitivity troponin was 4.6 which was not significantly changed suggesting she did not have acute myocardial injury. BNP was normal. Chest x-ray was unremarkable. Twelve EKG did reveal inverted T-waves V1 through V4. I did discuss these findings with Dr. Grady and with the covering cancer spec, . The cancer spec was concerned that the patient's presentation could represent right heart strain or angina and recommended that the patient be evaluated for pulmonary embolism. Therefore I ordered a CT angiogram and bilateral Doppler ultrasound studies.. He recommended that the patient be heparinized and I did order Lovenox 1 milligram/kilogram subcutaneously. He also recommended the patient be admitted for evaluation of possible coronary artery disease. 1726: Patient was given potassium chloride 40 mg orally for her potassium. The patient's CT pulmonary angiogram in lower extremity Doppler ultrasound studies are pending. At the end of my shift, the patient's care was turned over to my colleague, Dr. Honey Mcgee. 1741: CT pulmonary angiogram revealed no PE or other acute findings. I did discuss the patient's presentation with the covering hospitalist and the patient will be admitted to the hospital service for further evaluation and treatment. Medical Decision Making Lab Data Result diagrams: 10/01/20 12:07 10/01/20 12:07 Labs: Lab Results 10/01/20 10/01/20 10/01/20 Range/Units 12:07 12:07 12:07 WBC 11.9 H (4.8-10.8) X10*3/uL RBC 5.02 (4.20-5.50) X10*6/uL Hgb 14.3 (12.0-16.0) g/dl Hct 45.2 (37-47) % MCV 90.0 (80-98) fL MCH 28.5 (27.0-33.0) pg MCHC 31.6 (31.0-35.0) g/dl RDW 14.3 (11.0-16.0) % Plt Count 241 (160-400) X10*3/uL MPV 11.5 (9.4-12.3) fL Immature Gran % (Auto) 0.5 H (0.0-0.4) % Neut % (Auto) 72.9 (45-73) % Lymph % (Auto) 16.8 L (20-40) % [place] % (Auto) 7.5 (2-11) % Eos % (Auto) 2.0 (0-4) % Baso % (Auto) 0.3 (0-2) % Lymph # (Auto) 2.0 (1.2-4.9) X10*3/uL [place] # (Auto) 0.9 (0.1-1.2) X10*3/uL Eos # (Auto) 0.2 (0.0-0.4) X10*3/uL Baso # (Auto) 0.0 (0.0-0.2) X10*3/uL Abs Immat Gran (auto) 0.06 H (0.00-0.03) X10*3/uL Absolute Neuts (auto) 8.7 H (2.0-8.3) X10*3/uL Absolute Nucleated RBC 0.000 (0.0-0.012) X10*3/uL Nucleated RBC % (auto) 0.0 (0.0-0.2) /100WBC PT 12.0 (10.8-13.0) SEC INR 1.0 (0.9-1.1) APTT 38.3 H (24.1-38.0) SEC Sodium 143 (135-145) mmol/L Potassium 3.2 L D (3.3-5.1) mmol/L Chloride 95 L (96-108) mmol/L Carbon Dioxide 38 H (22-29) mmol/L Anion Gap 13 (12-20) BUN 11 (9-16) mg/dL Creatinine 0.98 (0.5-1.4) mg/dL Estim Creat Clear Calc 69.4 Estimated GFR 57 Random Glucose 100 (60-115) mg/dL Calcium 9.3 (8.4-10.2) mg/dL Troponin I High Sens (<3.5-17.0) ng/L B-Natriuretic Peptide (<100) pg/mL Urine Color Urine Appearance Urine pH (5.0-8.0) Ur Specific [place] (1.005-1.025) Urine Protein (NEG-TRACE) MG/DL Urine Glucose (UA) (NEG) MG/DL Urine Ketones (NEG) MG/DL Urine Blood (NEG) Urine Nitrite (NEG) Ur Leukocyte Esterase (NEG) 10/01/20 10/01/20 10/01/20 Range/Units 12:07 12:07 15:18 WBC (4.8-10.8) X10*3/uL RBC (4.20-5.50) X10*6/uL Hgb (12.0-16.0) g/dl Hct (37-47) % MCV (80-98) fL MCH (27.0-33.0) pg MCHC (31.0-35.0) g/dl RDW (11.0-16.0) % Plt Count (160-400) X10*3/uL MPV (9.4-12.3) fL Immature Gran % (Auto) (0.0-0.4) % Neut % (Auto) (45-73) % Lymph % (Auto) (20-40) % [place] % (Auto) (2-11) % Eos % (Auto) (0-4) % Baso % (Auto) (0-2) % Lymph # (Auto) (1.2-4.9) X10*3/uL [place] # (Auto) (0.1-1.2) X10*3/uL Eos # (Auto) (0.0-0.4) X10*3/uL Baso # (Auto) (0.0-0.2) X10*3/uL Abs Immat Gran (auto) (0.00-0.03) X10*3/uL Absolute Neuts (auto) (2.0-8.3) X10*3/uL Absolute Nucleated RBC (0.0-0.012) X10*3/uL Nucleated RBC % (auto) (0.0-0.2) /100WBC PT (10.8-13.0) SEC INR (0.9-1.1) APTT (24.1-38.0) SEC Sodium (135-145) mmol/L Potassium (3.3-5.1) mmol/L Chloride (96-108) mmol/L Carbon Dioxide (22-29) mmol/L Anion Gap (12-20) BUN (9-16) mg/dL Creatinine (0.5-1.4) mg/dL Estim Creat Clear Calc Estimated GFR Random Glucose (60-115) mg/dL Calcium (8.4-10.2) mg/dL Troponin I High Sens 4.3 4.6 (<3.5-17.0) ng/L B-Natriuretic Peptide 18 (<100) pg/mL Urine Color STRAW Urine Appearance CLEAR Urine pH 6.0 (5.0-8.0) Ur Specific [place] <= 1.005 (1.005-1.025) Urine Protein NEG (NEG-TRACE) MG/DL Urine Glucose (UA) NEG (NEG) MG/DL Urine Ketones NEG (NEG) MG/DL Urine Blood NEG (NEG) Urine Nitrite NEG (NEG) Ur Leukocyte Esterase NEG (NEG) ECG Data Attestation: I personally reviewed and interpreted this ECG as follows: Interpretation: 1110: Normal sinus rhythm rate of 60, normal DC interval, QRS duration with a prolonged QTC of 486 milliseconds, Q-waves in lead 3 and AVF, inverted T-waves in V1 through V4. No PACs or PVCs noted, no ST segment elevation or ST segment depression noted. Discharge Plan Discharge Clinical Impression: Acute dyspnea, Edema, peripheral, EKG abnormalities Patient Disposition: Admitted As Inpatient
[2020-10-01 16:47] LABS: Partial Thromboplastin Time 38.3 SEC (24.1-38.0)
[2020-10-01] MEDS: iohexoL 350 MG/ML 100 ML INFUS..BTL IV (17:12)
[2020-10-01] MEDS: Enoxaparin Sodium 120 MG/0.8 ML SYRINGE 115 MG SUBCUT (17:16)
[2020-10-01 17:17] VITALS: BP 117/64; PULSE 75; RESP 20; O2SAT 94
[2020-10-01 18:04] LABS: COVID-19 Test Negative (Negative)
--- NOTE | 2020-10-01 18:04 | PHA.MEDREC ---
Pharmacy Consult ? Medication Reconciliation Pharmacy has completed the medication reconciliation. pt states that she is also taking norvasc 5 mg daily last fill 03/27/20
[2020-10-01 18:20] VITALS: PULSE 73; RESP 16; O2SAT 100
[2020-10-01] MEDS: Potassium Chloride Packet 20 MEQ PACKET 40 MEQ PO (18:20)
--- NOTE | 2020-10-01 19:09 | PC.NURSE ---
ASSUMED CARE OF PT. PT RESTING IN [facility] AWAITING FOR ROOM ASSIGNMENT. WILL CONTINUE TO MONITOR PT.
[2020-10-01 22:07] VITALS: BP 147/61; PULSE 63; RESP 14; O2SAT 95
--- NOTE | 2020-10-01 22:13 | P.HPHOSP_ITS ---
History of Present Illness Date of Service: 10/01/20 Chief Complaint: SOB 64-year-old female with a past medical history of hypertension, hyperlipidemia, diabetes, COPD, history of opiate dependence on methadone, TESS on CPAP, chronic respiratory failure on as needed supplemental oxygen, anxiety, depression, bipolar disorder, chronic back pain, history of anemia, arthritis presented to the hospital with a chief complaint of shortness of breath. Patient reported that for the past few days she has been feeling short of breath, dyspnea on exertion, also noted leg swelling and weight gain. Mentioned that she went to her PCP for evaluation today noted to have EKG changes; subsequently sent to the ER for further evaluation. Patient denied any chest pains. Denied any lightheadedness dizziness numbness tingling or focal weakness. Denies any urinary symptoms. Patient complains of dry cough. Patient complains of generalized weakness/fatigue. Denies any prior history of CHF are being on Lasix. Review of all other systems is negative except mentioned above ER course: Per ER team patient troponins were negative, EKG showed T-wave inversions in V1 to V4, discussed with Cardiology on-call who recommended admission to the hospital for further evaluation. Initially there were concerns for possible dilatation just but given troponins being negative patient was given Lovenox at therapeutic dose, admitted to the [facility] per Cardiology recommendation. Patient also received prednisone in the ER. [facility] Medical History Anemia Arthritis Asthma Back pain BiPAP (biphasic positive airway pressure) dependence COPD (chronic obstructive pulmonary disease) COPD (chronic obstructive pulmonary disease) Depression Diabetes Diabetic acidosis, type I Elevated cholesterol GERD (gastroesophageal reflux disease) History of blood transfusion History of headache HTN (hypertension) Hx of anxiety disorder Hx of bipolar disorder Hx of drug dependence Oxygen dependent Sleep apnea Surgical History H/O colonoscopy History of esophagogastroduodenoscopy (EGD) Hx of arthroscopic knee surgery Hx of section Hx of foot surgery Hx of total knee replacement Social History Household Members: None Housing: Apartment Do you presently have visiting nurse or other home services: Yes Patient Tobacco Use Status: Current everyday Tobacco user Tobacco use type: Cigarette Cigarette Packs Per Day: 0.25 Cigarettes Per Day: 6 Years Smoked: 50 Second Hand Smoke Exposure: No Substance Use Type: Heroin service: No Current occupational status: disabled Current occupation: right handed Meds Allergies Allergy/AdvReac Type Severity Reaction Status Date / Time Penicillins Allergy Intermediate RASH SOB Verified 05/16/20 12:17 Aspir-81 Allergy Intermediate Rash Uncoded 05/16/20 12:17 Active Medications: Current Medications Generic Name Dose Route Start Last Admin Trade Name Freq PRN Reason Stop Dose Admin Acetaminophen 650 mg 10/01/20 22:07 Acetaminophen 325 Mg Tablet PO Q6H PRN Pain, Mild (Pain Scale 1-3) Amlodipine Besylate 5 mg 10/02/20 09:00 Amlodipine Besylate 5 Mg Tablet PO DAILY [facility] Protocol Atorvastatin Calcium 10 mg 10/02/20 09:00 Atorvastatin Calcium 10 Mg Tablet PO DAILY [facility] Enoxaparin Sodium 115 mg 10/01/20 18:00 10/01/20 17:16 Enoxaparin Sodium 120 Mg/0.8 Ml Syringe SUBCUT 115 mg Q12H [facility] Administration Enoxaparin Sodium 40 mg 10/01/20 22:15 Enoxaparin Sodium 40 Mg/0.4 Ml Syringe SUBCUT Q24H [facility] Famotidine 20 mg 10/02/20 21:00 Famotidine 20 Mg Tablet PO BEDTIME [facility] Furosemide 40 mg 10/02/20 09:00 Furosemide 40 Mg/4 Ml Vial IVPUSH DAILY [facility] Protocol Insulin Human Lispro 0 unit 10/02/20 07:30 Insulin Lispro 100 Unit/Ml 3 Ml Vial SUBCUT QIDACHS [facility] Protocol Magnesium Hydroxide 30 ml 10/01/20 22:07 Milk Of Magnesia 30 Ml Oral.Susp PO DAILY PRN Constipation Mirtazapine 45 mg 10/02/20 21:00 Mirtazapine 15 Mg Tablet PO BEDTIME [facility] Oxcarbazepine 600 mg 10/02/20 09:00 Oxcarbazepine 300 Mg Tablet PO BID [facility] Pharmacy Consult 1 each 10/01/20 17:19 Consult Rx Perform Med Rec MISCELLANE ONCE PRN Consult order Prednisone 40 mg 10/02/20 09:00 Prednisone 20 Mg Tablet PO 10/06/20 09:01 DAILY [facility] Sodium Chloride 3 ml 10/02/20 00:00 0.9 % Sodium Chloride Flush 3 Ml Syringe IVFLUSH QSHIFT [facility] Zolpidem Tartrate 10 mg 10/02/20 21:00 Zolpidem Tartrate 5 Mg Tablet PO BEDTIME [facility] Home Medications Medication Instructions Recorded Confirmed Last Taken Type albuterol sulfate 2 puff INHALATION Q4H PRN 01/25/20 10/01/20 Unknown History hydrochlorothiazide 25 mg PO DAILY 01/25/20 10/01/20 09/30/20 History methadone 120 mg PO DAILY 01/25/20 10/01/20 10/01/20 History oxcarbazepine 600 mg PO BID 01/25/20 10/01/20 10/01/20 History simvastatin 10 mg PO DAILY 01/25/20 10/01/20 10/01/20 History zolpidem 10 mg PO BEDTIME 01/25/20 10/01/20 09/30/20 History amlodipine 1 tab PO DAILY 10/01/20 10/01/20 10/01/20 History famotidine 20 mg PO BEDTIME 10/01/20 10/01/20 09/30/20 History Physical Exam Vital Signs and Narrative: Vital Signs: Last Vital Signs Temp 98.3 F 10/01/20 10:49 Pulse 73 10/01/20 18:20 Resp 16 10/01/20 18:20 BP 117/64 10/01/20 17:17 Pulse Ox 100 10/01/20 18:20 Oxygen Flow Rate 3 10/01/20 10:49 Body Mass Index 46.0 Gen: Appears be in no acute distress HEENT: NCAT, Moist mucosa. JVD present Pulmonary: Slightly diminished breath sounds, occasional expiratory wheezes noted CVS: Normal S1-S2 Abdomen: BS+, Soft, Nontender Extremities: Warm well perfused; 2+ pitting edema noted Neuro: Alert and awake. Grossly nonfocal Results Labs CBC and Chem 7: 10/03/20 12:30 10/03/20 09:49 Labs: Laboratory Results - last 24 hr 10/01/20 10/01/20 10/01/20 12:07 12:07 12:07 MCV 90.0 MCH 28.5 MCHC 31.6 RDW 14.3 Plt Count 241 MPV 11.5 Immature Gran % (Auto) 0.5 H Neut % (Auto) 72.9 Lymph % (Auto) 16.8 L [place] % (Auto) 7.5 Eos % (Auto) 2.0 Baso % (Auto) 0.3 Lymph # (Auto) 2.0 [place] # (Auto) 0.9 Eos # (Auto) 0.2 Baso # (Auto) 0.0 Abs Immat Gran (auto) 0.06 H Absolute Neuts (auto) 8.7 H Absolute Nucleated RBC 0.000 Nucleated RBC % (auto) 0.0 PT 12.0 INR 1.0 APTT 38.3 H Anion Gap 13 Estim Creat Clear Calc 69.4 Estimated GFR 57 Random Glucose 100 Calcium 9.3 Troponin I High Sens B-Natriuretic Peptide Urine Color Urine Appearance Urine pH Ur Specific [place] Urine Protein Urine Glucose (UA) Urine Ketones Urine Blood Urine Nitrite Ur Leukocyte Esterase COVID-19 (ARTHUR) COVID-[place]overink 10/01/20 10/01/20 10/01/20 12:07 12:07 15:18 MCV MCH MCHC RDW Plt Count MPV Immature Gran % (Auto) Neut % (Auto) Lymph % (Auto) [place] % (Auto) Eos % (Auto) Baso % (Auto) Lymph # (Auto) [place] # (Auto) Eos # (Auto) Baso # (Auto) Abs Immat Gran (auto) Absolute Neuts (auto) Absolute Nucleated RBC Nucleated RBC % (auto) PT INR APTT Anion Gap Estim Creat Clear Calc Estimated GFR Random Glucose Calcium Troponin I High Sens 4.3 4.6 B-Natriuretic Peptide 18 Urine Color STRAW Urine Appearance CLEAR Urine pH 6.0 Ur Specific [place] <= 1.005 Urine Protein NEG Urine Glucose (UA) NEG Urine Ketones NEG Urine Blood NEG Urine Nitrite NEG Ur Leukocyte Esterase NEG COVID-19 (ARTHUR) COVID-[place]ink 10/01/20 17:27 MCV MCH MCHC RDW Plt Count MPV Immature Gran % (Auto) Neut % (Auto) Lymph % (Auto) [place] % (Auto) Eos % (Auto) Baso % (Auto) Lymph # (Auto) [place] # (Auto) Eos # (Auto) Baso # (Auto) Abs Immat Gran (auto) Absolute Neuts (auto) Absolute Nucleated RBC Nucleated RBC % (auto) PT INR APTT Anion Gap Estim Creat Clear Calc Estimated GFR Random Glucose Calcium Troponin I High Sens B-Natriuretic Peptide Urine Color Urine Appearance Urine pH Ur Specific [place] Urine Protein Urine Glucose (UA) Urine Ketones Urine Blood Urine Nitrite Ur Leukocyte Esterase COVID-19 (ARTHUR) Negative COVID-19 Clin Com See Note Imaging Radiologist's Impressions: Impressions Chest X-Ray 10/01/20 13:13 IMPRESSION: No acute cardiopulmonary process seen. Chest CTA 10/01/20 16:26 IMPRESSION: 1. No acute abnormality. No evidence of pulmonary embolism. 2. 4 mm right upper lobe nodule. 2017 Fleischner Society Recommendations for Lung Nodule(s): Follow-Up based on size (average of long- and short-axis diameters). Use most suspicious nodule for followup. Single Solid low risk nodule < 6 mm: No routine follow-up imaging is recommended in low risk and high risk patients. These guidelines do not apply to patients younger than 35 years, immunocompromised patients, and patients with cancer. F/u in patients with significant comorbidities as clinically warranted. For lung cancer screening, adhere to Lung-RADS guidelines. Reference: Radiology. 2017 Oct; 284(1):228-243 VTE: negative Venous Duplex 10/01/20 16:26 IMPRESSION: No DVT demonstrated in either lower extremity. Assessment and Plan (1) Acute dyspnea: Status: Acute 64-year-old female with a past medical history of hypertension, hyperlipidemia, diabetes, COPD, TESS, chronic respiratory failure on oxygen as needed, high BMI, GERD, anxiety, depression, bipolar disorder presented to the hospital with a chief complaint of shortness of breath, dyspnea on exertion, generalized weakness. In the ER patient noted to be in mild COPD exacerbation, and new EKG changes; admitted for further evaluation. Shortness of breath: Patient was initially hypoxic, not in respiratory distress, speaks in full sentences, placed on supplemental oxygen. New EKG changes-noted T-wave inversions in V1 to V4, cardiology notified, patient started on therapeutic Lovenox. Echocardiogram. Telemetry. Troponins x2 negative. Patient denies any chest pain. CT scan showed no evidence of PE. COVID-19 negative. No evidence of pneumonia. New onset CHF: Patient noted to have peripheral edema and JVD. Will keep the patient on Lasix 40 mg IV daily. Daily weights and I's and O's. Echocardiogram as mentioned. Mild COPD exacerbation: Will continue the patient on DuoNeb standing and p.r.n.. Prednisone 40 mg daily for 5 days. Hypertension/hyperlipidemia: Continue home amlodipine and statin. Diabetes: Hold home metformin. Will give the patient on insulin sliding scale. Diabetic diet. History of opiate dependence: Patient on methadone 120 mg daily at home. Will consult admission medicine for confirmation off methadone and resuming accordingly. Pulmonary nodule: Outpatient follow-up with the PCP for surveillance CT scans. GI prophylaxis: Pepcid DVT prophylaxis: Patient on systemic anticoagulation Code status: Full code Quality Stroke Does the patient have a stroke diagnosis?: No VTE Prior VTE?: No VTE Risk Level:: Medical - moderate - high VTE Device Contraindication: N/A - Device Ordered VTE Drug Contraindication: N/A - Med Ordered
--- NOTE | 2020-10-01 23:40 | PC.NURSE ---
REPORT GIVEN TO VALERIANO GARCIA. PT TO FLOOR IN [facility] IN [facility].
[2020-10-02] VITALS (11 sets, daily range): BP systolic 111–162; BP diastolic 48–75; PULSE 55–93; RESP 18–19; TEMP 36–36.9; O2SAT 93–97; BMI 45.6
--- NOTE | 2020-10-02 | ECG_ITS ---
Test Reason : EKG CHANGES Blood Pressure : / mmHG Vent. Rate : 056 BPM Atrial Rate : 056 BPM P-R Int : 162 ms QRS Dur : 102 ms QT Int : 522 ms P-R-T Axes : 017 061 068 degrees QTc Int : 503 ms Sinus bradycardia Cannot rule out Inferior infarct , age undetermined ST & T wave abnormality, consider anterolateral ischemia Abnormal ECG When compared with ECG of 01-OCT-2020 11:10, No significant change was found Referred By: Richie Villegas Electronically Signed By:Ty Montes De Oca
[2020-10-02] MEDS: Acetaminophen 325 MG TABLET 650 MG PO (00:38)
[2020-10-02] MEDS: Mirtazapine 15 MG TABLET 45 MG PO (00:38)
[2020-10-02] MEDS: 0.9 % Sodium Chloride Flush 3 ML SYRINGE IVFLUSH ×4 (00:39→23:27)
[2020-10-02] MEDS: Zolpidem Tartrate 5 MG TABLET 10 MG PO ×2 (00:39→21:06)
[2020-10-02] MEDS: Enoxaparin Sodium 120 MG/0.8 ML SYRINGE 115 MG SUBCUT ×2 (06:10→17:39)
[2020-10-02 06:15] LABS: MANUAL DIFF FLAG NO
[2020-10-02 06:22] LABS: Basophils Percent Auto 0.2 % (0-2); Eosinophils Percent Auto 0.1 % (0-4); Hematocrit 42.4 % (37-47); Hemoglobin 13.7 g/dl (12.0-16.0); Imm Gran Abs Auto 0.05 X10*3/uL (0.00-0.03); Imm Gran Pct Auto 0.4 % (0.0-0.4); Lymphocytes Absolute Auto 1.5 X10*3/uL (1.2-4.9); Lymphocytes Percent Auto 11.1 % (20-40); Mean Corpuscular HGB Conc 32.3 g/dl (31.0-35.0); Mean Corpuscular Hemoglobin 28.8 pg (27.0-33.0); Mean Corpuscular Volume 89.1 fL (80-98); Mean Platelet Volume 11.2 fL (9.4-12.3); Monocytes Absolute Auto 1.1 X10*3/uL (0.1-1.2); Neutrophils Absolute Auto 10.8 X10*3/uL (2.0-8.3); Neutrophils Percent Auto 80.2 % (45-73); Platelet Count 235 X10*3/uL (160-400); Red Blood Count 4.76 X10*6/uL (4.20-5.50); White Blood Count 13.5 X10*3/uL (4.8-10.8)
[2020-10-02 06:52] LABS: Alanine Aminotransferase 9 U/L (0-31); Albumin Level 3.7 g/dL (3.5-5.0); Alkaline Phosphatase 130 U/L (39-117); Anion Gap 12 (12-20); Aspartate Amino Transferase 15 U/L (5-31); Bilirubin Total 0.3 mg/dL (0.0-1.0); Blood Urea Nitrogen 10 mg/dL (9-16); Calcium 9.1 mg/dL (8.4-10.2); Carbon Dioxide 36 mmol/L (22-29); Chloride 99 mmol/L (96-108); Creatinine Clr Calc Pharmacy 81.4; Estimated Glomerular Filt Rate > 60; Glucose Random 97 mg/dL (60-115); Potassium 3.6 mmol/L (3.3-5.1); Sodium 143 mmol/L (135-145); Total Protein 7.3 g/dL (6.5-8.0)
[2020-10-02] MEDS: Albuterol/Iprat 2.5/0.5MG 3 ML AMPUL.NEB INHALE ×4 (07:55→19:58)
[2020-10-02 08:07] LABS: Glucose, Whole Blood 104 mg/dL (60-115)
[2020-10-02] MEDS: Furosemide 40 MG/4 ML VIAL IVPUSH ×2 (08:50→17:42)
[2020-10-02] MEDS: OXcarbazepine 300 MG TABLET 600 MG PO ×2 (08:52→21:05)
[2020-10-02] MEDS: predniSONE 20 MG TABLET 40 MG PO (08:52)
[2020-10-02] MEDS: hydroCHLOROthiazide 25 MG TABLET PO (08:52)
[2020-10-02] MEDS: amLODIPine Besylate 5 MG TABLET PO (08:52)
[2020-10-02] MEDS: metFORMIN HCl 1,000 MG TABLET 1000 MG PO (08:53)
[2020-10-02] MEDS: Atorvastatin Calcium 10 MG TABLET PO (08:53)
--- NOTE | 2020-10-02 09:30 | CA_ITS ---
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 - Normal biventricular function. - No RWMA. Findings Procedure Information Contrast agent, definity, is being given per protocol without apparent complications. Left Ventricle Normal left ventricular size and systolic function. There is mildly increased left ventricular wall thickness. The visually estimated ejection fraction is between 65-70%. There is no evidence of regional wall motion abnormalities. Diastolic function is indeterminate on the basis of available data. E/E prime ratio is <8, consistent with normal filling pressures. Right Ventricle Normal right ventricular cavity size and systolic function. Prior Study Comparison No significant change compared to prior study dated: 08/09/2020. Measurements 2D Linear Measurements IVSd: 1.15 0.6-0.9/0.6-1.0 cm LVIDd: 4.36 3.9-5.3/4.2-5.9 cm LVIDd Index: 2.08 2.4-3.2/2.2-3.1 cm/m2 LVIDs: 2.79 2.0-3.6 cm LVPWd: 1.20 0.7-1.1 cm LV Mass: 228.00 67-162/88-224 g LV Mass Index: 108.57 43-95/49-115 g/m2 2D Systolic Function EF 4C: 72.80 >55% EF 2C: 74.40 >55% EF BiP: 74.10 >55% Mitral Valve MV Pk E: 0.92 MV PK A: 0.96 MV Decel Time: 271.00 E/A: 1.00 E'Lateral: 13.30 E'Medial: 12.30 E/E' Med: 7.50 E/E' Lat: 6.90 PHT: 79.00 MVA PHT: 2.78 Decel [place]: 3.40 Diastolic Function MV Pk E: 0.92 MV Pk A: 0.96 E/A: 1.00 E'Medial: 12.30 E/E' Med: 7.50 E' Laterial: 13.30 E/E' Lat: 6.90 Updated in Other Vendor System with Status of Final Ty Montes De Oca MD electronically signed on 10/02/2020 11:20:03 AM with status of Final
--- NOTE | 2020-10-02 09:34 | HO.PM.IMPN ---
Subjective Subjective Date of Service: 10/06/20 Interval History: Seen in f/u for SOB, ECG changes ? Heart failure, still w/ SOB and clicnically no evidence of heart failure Review of Systems Gen: no fever Resp: no sob, no cough CV: no chest, no REED, + leg edema GI: No n/v, no abd pain Neuro: No confusion Physical Exam Vital Signs: Vital Signs: Last Vital Signs Temp 96.8 F 10/02/20 07:48 Pulse 93 10/02/20 07:56 Resp 18 10/02/20 07:48 BP 143/68 H 10/02/20 07:48 Pulse Ox 93 10/02/20 07:48 Oxygen Flow Rate 3 10/01/20 10:49 Body Mass Index 45.6 Const: Other: Constitutional Awake and Alert, No apparent distress Neck Supple, No lymphadenopathy Cardiovascular RRR, No M/R/G, S1 S2, No S3 S4, 1+ pedal edema Respiratory Lungs clear, No respiratory distress Gastrointestinal Non tender, Non-distended Skin No rash Neurological Alert & oriented x3 Psychological Appropriate affect Objective Data Current Medications Generic Name Dose Route Start Last Admin Trade Name Freq PRN Reason Stop Dose Admin Acetaminophen 650 mg 10/01/20 22:07 10/02/20 00:38 Acetaminophen 325 Mg Tablet PO 650 mg Q6H PRN Administration Pain, Mild (Pain Scale 1-3) Albuterol/Ipratropium 3 ml 10/01/20 22:34 Albuterol/Iprat 2.5/0.5mg 3 Ml Ampul.Neb INHALE RQ4H PRN Shortness of Breath/Wheezing Albuterol/Ipratropium 3 ml 10/02/20 08:00 10/02/20 07:55 Albuterol/Iprat 2.5/0.5mg 3 Ml Ampul.Neb INHALE 3 ml RQ4H WHILE AWAKE KAMRYN Administration Amlodipine Besylate 5 mg 10/02/20 09:00 10/02/20 08:52 Amlodipine Besylate 5 Mg Tablet PO 5 mg DAILY KAMRYN Administration Protocol Atorvastatin Calcium 10 mg 10/02/20 09:00 10/02/20 08:53 Atorvastatin Calcium 10 Mg Tablet PO 10 mg DAILY KAMRYN Administration Enoxaparin Sodium 115 mg 10/01/20 18:00 10/02/20 06:10 Enoxaparin Sodium 120 Mg/0.8 Ml Syringe SUBCUT 115 mg Q12H KAMRYN Administration Famotidine 20 mg 10/02/20 21:00 Famotidine 20 Mg Tablet PO BEDTIME KAMRYN Furosemide 40 mg 10/02/20 09:00 10/02/20 08:50 Furosemide 40 Mg/4 Ml Vial IVPUSH 40 mg DAILY KAMRYN Administration Protocol Hydrochlorothiazide 25 mg 10/02/20 09:00 10/02/20 08:52 Hydrochlorothiazide 25 Mg Tablet PO 25 mg DAILY KAMRYN Administration Protocol Insulin Human Lispro 0 unit 10/02/20 07:30 10/02/20 08:12 Insulin Lispro 100 Unit/Ml 3 Ml Vial SUBCUT Not Given QIDACHS [facility] Protocol Magnesium Hydroxide 30 ml 10/01/20 22:07 Milk Of Magnesia 30 Ml Oral.Susp PO DAILY PRN Constipation Metformin HCl 1,000 mg 10/02/20 08:30 10/02/20 08:53 Metformin Hcl 1,000 Mg Tablet PO 1,000 mg BIDWM KAMRYN Administration Methadone HCl 120 mg 10/02/20 09:00 10/02/20 09:33 Methadone Hcl 1 Mg/0.1 Ml Oral.Conc PO 120 mg DAILY KAMRYN Administration Mirtazapine 45 mg 10/02/20 21:00 10/02/20 00:38 Mirtazapine 15 Mg Tablet PO 45 mg BEDTIME KAMRYN Administration Oxcarbazepine 600 mg 10/02/20 09:00 10/02/20 08:52 Oxcarbazepine 300 Mg Tablet PO 600 mg BID KAMRYN Administration Pharmacy Consult 1 each 10/01/20 17:19 Consult Rx Perform Med Rec MISCELLANE ONCE PRN Consult order Prednisone 40 mg 10/02/20 09:00 10/02/20 08:52 Prednisone 20 Mg Tablet PO 10/06/20 09:01 40 mg DAILY KAMRYN Administration Sodium Chloride 3 ml 10/02/20 00:00 10/02/20 08:50 0.9 % Sodium Chloride Flush 3 Ml Syringe IVFLUSH 3 ml QSHIFT KAMRYN Administration Zolpidem Tartrate 10 mg 10/02/20 21:00 10/02/20 00:39 Zolpidem Tartrate 5 Mg Tablet PO 10 mg BEDTIME KAMRYN Administration Labs CBC & Chem 7: 10/03/20 12:30 10/03/20 09:49 Labs: Laboratory Results - last 24 hr 10/01/20 10/01/20 10/01/20 12:07 12:07 12:07 WBC 11.9 H RBC 5.02 Hgb 14.3 Hct 45.2 MCV 90.0 MCH 28.5 MCHC 31.6 RDW 14.3 Plt Count 241 MPV 11.5 Immature Gran % (Auto) 0.5 H Neut % (Auto) 72.9 Lymph % (Auto) 16.8 L [place] % (Auto) 7.5 Eos % (Auto) 2.0 Baso % (Auto) 0.3 Lymph # (Auto) 2.0 [place] # (Auto) 0.9 Eos # (Auto) 0.2 Baso # (Auto) 0.0 Abs Immat Gran (auto) 0.06 H Absolute Neuts (auto) 8.7 H Absolute Nucleated RBC 0.000 Nucleated RBC % (auto) 0.0 PT 12.0 INR 1.0 APTT 38.3 H Sodium 143 Potassium 3.2 L D Chloride 95 L Carbon Dioxide 38 H Anion Gap 13 BUN 11 Creatinine 0.98 Estim Creat Clear Calc 69.4 Estimated GFR 57 POC Glucose Random Glucose 100 Calcium 9.3 Total Bilirubin AST ALT Alkaline Phosphatase Troponin I High Sens B-Natriuretic Peptide Total Protein Albumin Urine Color Urine Appearance Urine pH Ur Specific [place] Urine Protein Urine Glucose (UA) Urine Ketones Urine Blood Urine Nitrite Ur Leukocyte Esterase COVID-19 ([facility]) COVID-19 Clin Com 10/01/20 10/01/20 10/01/20 12:07 12:07 15:18 WBC RBC Hgb Hct MCV MCH MCHC RDW Plt Count MPV Immature Gran % (Auto) Neut % (Auto) Lymph % (Auto) [place] % (Auto) Eos % (Auto) Baso % (Auto) Lymph # (Auto) [place] # (Auto) Eos # (Auto) Baso # (Auto) Abs Immat Gran (auto) Absolute Neuts (auto) Absolute Nucleated RBC Nucleated RBC % (auto) PT INR APTT Sodium Potassium Chloride Carbon Dioxide Anion Gap BUN Creatinine Estim Creat Clear Calc Estimated GFR POC Glucose Random Glucose Calcium Total Bilirubin AST ALT Alkaline Phosphatase Troponin I High Sens 4.3 4.6 B-Natriuretic Peptide 18 Total Protein Albumin Urine Color STRAW Urine Appearance CLEAR Urine pH 6.0 Ur Specific Jackson <= 1.005 Urine Protein NEG Urine Glucose (UA) NEG Urine Ketones NEG Urine Blood NEG Urine Nitrite NEG Ur Leukocyte Esterase NEG COVID-19 ([facility]) COVID-19 Clin Com 10/01/20 10/02/20 10/02/20 17:27 05:59 05:59 WBC Cancelled 13.5 H RBC Cancelled 4.76 Hgb Cancelled 13.7 Hct Cancelled 42.4 MCV Cancelled 89.1 MCH Cancelled 28.8 MCHC Cancelled 32.3 RDW Cancelled 14.0 Plt Count Cancelled 235 MPV Cancelled 11.2 Immature Gran % (Auto) 0.4 Neut % (Auto) 80.2 H Lymph % (Auto) 11.1 L [place] % (Auto) 8.0 Eos % (Auto) 0.1 Baso % (Auto) 0.2 Lymph # (Auto) 1.5 [place] # (Auto) 1.1 Eos # (Auto) 0.0 Baso # (Auto) 0.0 Abs Immat Gran (auto) 0.05 H Absolute Neuts (auto) 10.8 H Absolute Nucleated RBC Cancelled 0.000 Nucleated RBC % (auto) Cancelled 0.0 PT INR APTT Sodium Potassium Chloride Carbon Dioxide Anion Gap BUN Creatinine Estim Creat Clear Calc Estimated GFR POC Glucose Random Glucose Calcium Total Bilirubin AST ALT Alkaline Phosphatase Troponin I High Sens B-Natriuretic Peptide Total Protein Albumin Urine Color Urine Appearance Urine pH Ur Specific [place] Urine Protein Urine Glucose (UA) Urine Ketones Urine Blood Urine Nitrite Ur Leukocyte Esterase COVID-19 ([facility]) Negative COVID-19 Clin Com See Note 10/02/20 10/02/20 05:59 07:44 WBC RBC Hgb Hct MCV MCH MCHC RDW Plt Count MPV Immature Gran % (Auto) Neut % (Auto) Lymph % (Auto) [place] % (Auto) Eos % (Auto) Baso % (Auto) Lymph # (Auto) [place] # (Auto) Eos # (Auto) Baso # (Auto) Abs Immat Gran (auto) Absolute Neuts (auto) Absolute Nucleated RBC Nucleated RBC % (auto) PT INR APTT Sodium 143 Potassium 3.6 Chloride 99 Carbon Dioxide 36 H Anion Gap 12 BUN 10 Creatinine 0.83 Estim Creat Clear Calc 81.4 Estimated GFR > 60 POC Glucose 104 Random Glucose 97 Calcium 9.1 Total Bilirubin 0.3 AST 15 ALT 9 Alkaline Phosphatase 130 H Troponin I High Sens B-Natriuretic Peptide Total Protein 7.3 Albumin 3.7 Urine Color Urine Appearance Urine pH Ur Specific [place] Urine Protein Urine Glucose (UA) Urine Ketones Urine Blood Urine Nitrite Ur Leukocyte Esterase COVID-19 ([facility]) COVID-19 Clin Com Quality Stroke Does the patient have a stroke diagnosis?: No VTE Prior VTE?: No VTE Risk Level:: Medical - moderate - high VTE Device Contraindication: N/A - Device Ordered VTE Drug Contraindication: N/A - Med Ordered Assessment and Plan (1) Acute dyspnea: Status: Acute Assessment and Plan: 64-year-old female with a past medical history of hypertension, hyperlipidemia, diabetes, COPD, TESS, chronic respiratory failure on oxygen as needed, high BMI, GERD, anxiety, depression, bipolar disorder presented to the hospital with a chief complaint of shortness of breath, dyspnea on exertion, generalized weakness. In the ER patient noted to be in mild COPD exacerbation, and new EKG changes; admitted for further evaluation. Shortness of breath: likely from reactive airways disease, possible COPD exacerbation. Better, treat with inhalers, steroid. TESS--to bring in her CPAP ?New onset CHF: I am not convinced she has heart failure, BNP is normal, leg edema likely from CCB, CXR is clear. DC IV Lasix, gert Echo and see what cardiology has to say ?ACS--I am not convinced of ACS and will leave to cardiiology, continue ASA, Lovenox for now Hypertension-Noravasc, add low Lisinopril counter leg edema /hyperlipidemia: statin. Diabetes: Restart Metformin, continue SSI, and diabetic diet Opioid dependence: Methadone verified and ordered. Pulmonary nodule: Outpatient follow-up with the PCP for surveillance CT scans. GI prophylaxis: Pepcid DVT prophylaxis: Lovenox Code status: Full code
--- NOTE | 2020-10-02 11:06 | P.CONCA_ITS ---
History of Present Illness History of Present Illness Date of Service: 10/02/20 Requesting physician: Cecil Rodriguez Chief complaint: CHF, anterior T wave changes Narrative: 64-year-old female who has background history of hypertension, hyperlipidemia, diabetes, COPD, history of opiate dependence on methadone, SPECT to sleep apnea and coronary spur tree failure on supplemental oxygen at home, bipolar disorder, history of anemia and arthritis who is presenting for shortness of breath and anterior T-wave changes. She saw her primary care physician for shortness of breath and lower extremity edema the EKG was performed which showed precordial T-wave inversions. She denied any chest discomfort. With these symptoms she was sent to the emergency department. In the ER her workup was fairly unremarkable other than the ECG changes. She had CT PA to rule out pulmonary embolism. She was started on Lovenox she was being treated as ACS. She was given IV diuretics because she appeared volume overloaded. Of note her BNP was very low. She is complaining of some orthopnea and has lower extremity edema. She is on IV diuretics right now. She is getting Lovenox b.i.d. therapeutic dose. [facility]LY [facility] Past Medical History Medical History Anemia Arthritis Asthma Back pain BiPAP (biphasic positive airway pressure) dependence COPD (chronic obstructive pulmonary disease) COPD (chronic obstructive pulmonary disease) Depression Diabetes Diabetic acidosis, type I Elevated cholesterol GERD (gastroesophageal reflux disease) History of blood transfusion History of headache HTN (hypertension) Hx of anxiety disorder Hx of bipolar disorder Hx of drug dependence Oxygen dependent Sleep apnea Surgical History Surgical History H/O colonoscopy History of esophagogastroduodenoscopy (EGD) Hx of arthroscopic knee surgery Hx of section Hx of foot surgery Hx of total knee replacement Social History Social History Household Members: None Housing: Apartment Do you presently have visiting nurse or other home services: Yes Patient Tobacco Use Status: Current everyday Tobacco user Tobacco use type: Cigarette Cigarette Packs Per Day: 0.25 Cigarettes Per Day: 6 Years Smoked: 50 Smoked in Last 30 Days: Yes Patient Interested in Nicotine Replacement: Yes Patient Given Instructions on How to Stop Smoking: No Second Hand Smoke Exposure: No Use of substances other than those prescribed or required for medical reasons: Yes Substance Use Type: Heroin Substance Use Frequency: Weekly Last Used Substance: Days (ago) Currently Displaying Signs/Symptoms of Drug Intoxication Withdrawal: No Any prior treatment program specific to substance use: Yes Have you been hit, kicked, punched, or otherwise hurt by someone within the past year? If so, by whom?: No Do you feel safe in your current relationship?: No Current Relationship Is there a partner from a previous relationship who is making you feel unsafe now?: No Are you made to feel afraid or neglected: No Advance Directives: No Advance Directives Information Provided: No Do you have thoughts of harming others: None Do you have a plan to hurt others: No Plan Recently lost weight without trying: No How much weight loss: Not applicable Eating poorly because of decreased appetite: No Nutrition screen score: 0 Nutrition Risks: No Nutritional Risk Patient : No : No Poor oral hygiene: No service: No Current occupational status: disabled Current occupation: right handed Meds Allergies Allergy/AdvReac Type Severity Reaction Status Date / Time Penicillins Allergy Intermediate RASH SOB Verified 05/16/20 12:17 Aspir-81 Allergy Intermediate Rash Uncoded 05/16/20 12:17 Active Medications: Current Medications Generic Name Dose Route Start Last Admin Trade Name Freq PRN Reason Stop Dose Admin Acetaminophen 650 mg 10/01/20 22:07 10/02/20 00:38 Acetaminophen 325 Mg Tablet PO 650 mg Q6H PRN Administration Pain, Mild (Pain Scale 1-3) Albuterol/Ipratropium 3 ml 10/01/20 22:34 Albuterol/Iprat 2.5/0.5mg 3 Ml Ampul.Neb INHALE RQ4H PRN Shortness of Breath/Wheezing Albuterol/Ipratropium 3 ml 10/02/20 08:00 10/02/20 07:55 Albuterol/Iprat 2.5/0.5mg 3 Ml Ampul.Neb INHALE 3 ml RQ4H WHILE AWAKE KAMRYN Administration Amlodipine Besylate 5 mg 10/02/20 09:00 10/02/20 08:52 Amlodipine Besylate 5 Mg Tablet PO 5 mg DAILY KAMRYN Administration Protocol Atorvastatin Calcium 10 mg 10/02/20 09:00 10/02/20 08:53 Atorvastatin Calcium 10 Mg Tablet PO 10 mg DAILY KAMRYN Administration Enoxaparin Sodium 115 mg 10/01/20 18:00 10/02/20 06:10 Enoxaparin Sodium 120 Mg/0.8 Ml Syringe SUBCUT 115 mg Q12H KAMRYN Administration Famotidine 20 mg 10/02/20 21:00 Famotidine 20 Mg Tablet PO BEDTIME KAMRYN Furosemide 40 mg 10/02/20 09:00 10/02/20 08:50 Furosemide 40 Mg/4 Ml Vial IVPUSH 40 mg DAILY KAMRYN Administration Protocol Hydrochlorothiazide 25 mg 10/02/20 09:00 10/02/20 08:52 Hydrochlorothiazide 25 Mg Tablet PO 25 mg DAILY KAMRYN Administration Protocol Insulin Human Lispro 0 unit 10/02/20 07:30 10/02/20 08:12 Insulin Lispro 100 Unit/Ml 3 Ml Vial SUBCUT Not Given QIDACHS [facility] Protocol Magnesium Hydroxide 30 ml 10/01/20 22:07 Milk Of Magnesia 30 Ml Oral.Susp PO DAILY PRN Constipation Metformin HCl 1,000 mg 10/02/20 08:30 10/02/20 08:53 Metformin Hcl 1,000 Mg Tablet PO 1,000 mg BIDWM KAMRYN Administration Methadone HCl 120 mg 10/02/20 09:00 10/02/20 09:33 Methadone Hcl 1 Mg/0.1 Ml Oral.Conc PO 120 mg DAILY KAMRYN Administration Mirtazapine 45 mg 10/02/20 21:00 10/02/20 00:38 Mirtazapine 15 Mg Tablet PO 45 mg BEDTIME KAMRYN Administration Oxcarbazepine 600 mg 10/02/20 09:00 10/02/20 08:52 Oxcarbazepine 300 Mg Tablet PO 600 mg BID KAMRYN Administration Pharmacy Consult 1 each 10/01/20 17:19 Consult Rx Perform Med Rec MISCELLANE ONCE PRN Consult order Prednisone 40 mg 10/02/20 09:00 10/02/20 08:52 Prednisone 20 Mg Tablet PO 10/06/20 09:01 40 mg DAILY KAMRYN Administration Sodium Chloride 3 ml 10/02/20 00:00 10/02/20 08:50 0.9 % Sodium Chloride Flush 3 Ml Syringe IVFLUSH 3 ml QSHIFT KAMRYN Administration Zolpidem Tartrate 10 mg 10/02/20 21:00 10/02/20 00:39 Zolpidem Tartrate 5 Mg Tablet PO 10 mg BEDTIME KAMRYN Administration Home Medications Medication Instructions Recorded Confirmed Last Taken Type albuterol sulfate 2 puff INHALATION Q4H PRN 01/25/20 10/01/20 Unknown History hydrochlorothiazide 25 mg PO DAILY 01/25/20 10/01/20 09/30/20 History metformin 1 tab PO BIDWM 01/25/20 10/01/20 10/01/20 History methadone 120 mg PO DAILY 01/25/20 10/01/20 10/01/20 History mirtazapine 45 mg PO BEDTIME 01/25/20 10/01/20 Unknown History oxcarbazepine 600 mg PO BID 01/25/20 10/01/20 10/01/20 History simvastatin 10 mg PO DAILY 01/25/20 10/01/20 10/01/20 History zolpidem 10 mg PO BEDTIME 01/25/20 10/01/20 09/30/20 History amlodipine 1 tab PO DAILY 10/01/20 10/01/20 10/01/20 History famotidine 20 mg PO BEDTIME 10/01/20 10/01/20 09/30/20 History Physical Exam Vital Signs: Vital Signs: Last Vital Signs Temp 96.8 F 10/02/20 07:48 Pulse 93 10/02/20 07:56 Resp 18 10/02/20 07:48 BP 143/68 H 10/02/20 07:48 Pulse Ox 93 10/02/20 07:48 Oxygen Flow Rate 3 10/01/20 10:49 Body Mass Index 45.6 GENERAL APPEARANCE: in no acute distress, pleasant. NECK: no carotid bruit, + jugular venous distention. SKIN: no suspicious lesions, warm and dry. HEART: no murmurs, regular rate and rhythm. LUNGS: Bilateral crackles. ABDOMEN: soft, nontender. EXTREMITIES: 1+ edema. PERIPHERAL PULSES: equal. NEUROLOGIC: No gross deficits, AAO X 3 Results Labs and Meds Result diagrams: 10/02/20 05:59 10/02/20 05:59 Lab results: Laboratory Results - last 24 hr 10/01/20 10/01/20 10/01/20 12:07 12:07 12:07 WBC 11.9 H RBC 5.02 Hgb 14.3 Hct 45.2 MCV 90.0 MCH 28.5 MCHC 31.6 RDW 14.3 Plt Count 241 MPV 11.5 Immature Gran % (Auto) 0.5 H Neut % (Auto) 72.9 Lymph % (Auto) 16.8 L Stone % (Auto) 7.5 Eos % (Auto) 2.0 Baso % (Auto) 0.3 Lymph # (Auto) 2.0 Stone # (Auto) 0.9 Eos # (Auto) 0.2 Baso # (Auto) 0.0 Abs Immat Gran (auto) 0.06 H Absolute Neuts (auto) 8.7 H Absolute Nucleated RBC 0.000 Nucleated RBC % (auto) 0.0 PT 12.0 INR 1.0 APTT 38.3 H Sodium 143 Potassium 3.2 L D Chloride 95 L Carbon Dioxide 38 H Anion Gap 13 BUN 11 Creatinine 0.98 Estim Creat Clear Calc 69.4 Estimated GFR 57 POC Glucose Random Glucose 100 Calcium 9.3 Total Bilirubin AST ALT Alkaline Phosphatase Troponin I High Sens B-Natriuretic Peptide Total Protein Albumin Urine Color Urine Appearance Urine pH Ur Specific [place] Urine Protein Urine Glucose (UA) Urine Ketones Urine Blood Urine Nitrite Ur Leukocyte Esterase COVID-19 (ARTHUR) COVID-[employer] 10/01/20 10/01/20 10/01/20 12:07 12:07 15:18 WBC RBC Hgb Hct MCV MCH MCHC RDW Plt Count MPV Immature Gran % (Auto) Neut % (Auto) Lymph % (Auto) Stone % (Auto) Eos % (Auto) Baso % (Auto) Lymph # (Auto) Stone # (Auto) Eos # (Auto) Baso # (Auto) Abs Immat Gran (auto) Absolute Neuts (auto) Absolute Nucleated RBC Nucleated RBC % (auto) PT INR APTT Sodium Potassium Chloride Carbon Dioxide Anion Gap BUN Creatinine Estim Creat Clear Calc Estimated GFR POC Glucose Random Glucose Calcium Total Bilirubin AST ALT Alkaline Phosphatase Troponin I High Sens 4.3 4.6 B-Natriuretic Peptide 18 Total Protein Albumin Urine Color STRAW Urine Appearance CLEAR Urine pH 6.0 Ur Specific [place] <= 1.005 Urine Protein NEG Urine Glucose (UA) NEG Urine Ketones NEG Urine Blood NEG Urine Nitrite NEG Ur Leukocyte Esterase NEG COVID-19 (ARTHUR) COVID-19 [employer] 10/01/20 10/02/20 10/02/20 17:27 05:59 05:59 WBC Cancelled 13.5 H RBC Cancelled 4.76 Hgb Cancelled 13.7 Hct Cancelled 42.4 MCV Cancelled 89.1 MCH Cancelled 28.8 MCHC Cancelled 32.3 RDW Cancelled 14.0 Plt Count Cancelled 235 MPV Cancelled 11.2 Immature Gran % (Auto) 0.4 Neut % (Auto) 80.2 H Lymph % (Auto) 11.1 L Stone % (Auto) 8.0 Eos % (Auto) 0.1 Baso % (Auto) 0.2 Lymph # (Auto) 1.5 Stone # (Auto) 1.1 Eos # (Auto) 0.0 Baso # (Auto) 0.0 Abs Immat Gran (auto) 0.05 H Absolute Neuts (auto) 10.8 H Absolute Nucleated RBC Cancelled 0.000 Nucleated RBC % (auto) Cancelled 0.0 PT INR APTT Sodium Potassium Chloride Carbon Dioxide Anion Gap BUN Creatinine Estim Creat Clear Calc Estimated GFR POC Glucose Random Glucose Calcium Total Bilirubin AST ALT Alkaline Phosphatase Troponin I High Sens B-Natriuretic Peptide Total Protein Albumin Urine Color Urine Appearance Urine pH Ur Specific [place] Urine Protein Urine Glucose (UA) Urine Ketones Urine Blood Urine Nitrite Ur Leukocyte Esterase COVID-19 (ARTHUR) Negative COVID-19 Clin Com See Note 10/02/20 10/02/20 05:59 07:44 WBC RBC Hgb Hct MCV MCH MCHC RDW Plt Count MPV Immature Gran % (Auto) Neut % (Auto) Lymph % (Auto) Stone % (Auto) Eos % (Auto) Baso % (Auto) Lymph # (Auto) Stone # (Auto) Eos # (Auto) Baso # (Auto) Abs Immat Gran (auto) Absolute Neuts (auto) Absolute Nucleated RBC Nucleated RBC % (auto) PT INR APTT Sodium 143 Potassium 3.6 Chloride 99 Carbon Dioxide 36 H Anion Gap 12 BUN 10 Creatinine 0.83 Estim Creat Clear Calc 81.4 Estimated GFR > 60 POC Glucose 104 Random Glucose 97 Calcium 9.1 Total Bilirubin 0.3 AST 15 ALT 9 Alkaline Phosphatase 130 H Troponin I High Sens B-Natriuretic Peptide Total Protein 7.3 Albumin 3.7 Urine Color Urine Appearance Urine pH Ur Specific [place] Urine Protein Urine Glucose (UA) Urine Ketones Urine Blood Urine Nitrite Ur Leukocyte Esterase COVID-19 (ARTHUR) COVID-19 Clin Com Imaging Radiologist's impression: Impressions Chest X-Ray 10/01/20 13:13 IMPRESSION: No acute cardiopulmonary process seen. Chest CTA 10/01/20 16:26 IMPRESSION: 1. No acute abnormality. No evidence of pulmonary embolism. 2. 4 mm right upper lobe nodule. 2017 Fleischner Society Recommendations for Lung Nodule(s): Follow-Up based on size (average of long- and short-axis diameters). Use most suspicious nodule for followup. Single Solid low risk nodule < 6 mm: No routine follow-up imaging is recommended in low risk and high risk patients. These guidelines do not apply to patients younger than 35 years, immunocompromised patients, and patients with cancer. F/u in patients with significant comorbidities as clinically warranted. For lung cancer screening, adhere to Lung-RADS guidelines. Reference: Radiology. 2017 Oct; 284(1):228-243 VTE: negative Venous Duplex 10/01/20 16:26 IMPRESSION: No DVT demonstrated in either lower extremity. Assessment and Plan (1) Acute dyspnea: Status: Acute (2) Prolonged QT interval: Status: Acute (3) T wave inversion in electrocardiogram: Status: Acute 64-year-old female who has complex medical issues presenting for shortness of breath. She has new anterior T-wave changes. She has prolonged QT also. Echocardiography is not showing any wall motion abnormalities. Clinically she looks volume overloaded and is on diuretics. She does not have pulmonary embolism based on CT PA. she is being treated as acute coronary syndrome with therapeutic dose of Lovenox. She has an aspirin allergy with rash. I think we should load her with Plavix and leave her on 75 mg once a day Plavix. Blood pressure control is good. She has prolonged QT and she is on methadone, mirtazapine and sertraline. I think the med does not been at sertraline should be held for now. Please monitor electrolytes closely. In addition to potassium and magnesium levels sh ould be monitored closely and repleted accordingly. As volume status improves I would transfer to [facility] for potential catheterization. We will aim for transfer tomorrow and catheter ization on Wednesday. Thank you for allowing me to participate in the care of your patient. Please feel free to contact me if you have any questions. Procedures Date of Service Date of Service: 10/02/20
[2020-10-02] MEDS: Insulin Lispro 100 UNIT/ML 3 ML VIAL SUBCUT ×3 (11:32→21:05)
[2020-10-02 11:47] LABS: Glucose, Whole Blood 155 mg/dL (60-115)
--- NOTE | 2020-10-02 12:14 | MHC.CM.PN ---
EMR REVIEWED, PT ADMITTED W/CHF, PER PT SHE LIVES ALONE , USES A CANE, CPAP, HOME O2 PRN 2L NC AND DIABETIC SUPPLIES, PT HAS 1HR/5DAYS A WEEK OF RESIDENCY COORDINATOR HRS WITH [facility], PT WOULD LIKE AN INCREASE IN HOURS AND WAS INSRUCED TO CALL HER PCP MARK TAVAREZ WHOM PT IS ACTIVE WITH, PT ALSO REPORTS DR TAVAREZ PRESCRIBES HER PSYCHIATRIC MEDICATION AND WOULD LIKE TO SPEAK TO CARE TEAM ABOUT [facility] AND [facility]YCHIATRY, CM CONTACTED CARE TEAM AND THEY WILL SEE PT PRIOR TO D/C. PT DOES REPORT SHE FEELS STABLE ON CURRENT MED REGIME, DENIES SI/SIB. D/C PLAN: HOME W/NEW VNA, FRIEND FOR TRANSPORT [facility]: [facility], [facility], GETS A WEEK SUPPLY AT A TIME [facility] FOR HOME O2 [facility]: RESIDENCY COORDINATOR HRS
[2020-10-02] MEDS: Sertraline HCL 50 MG TABLET PO (12:38)
[2020-10-02] MEDS: Clopidogrel Bisulfate 300 MG TABLET PO (13:46)
[2020-10-02] MEDS: Potassium Chloride ER 20 MEQ TAB.ER.PRT 40 MEQ PO (13:46)
--- NOTE | 2020-10-02 14:57 | MHC.CLN ---
NUTRITION DIET CHANGED FROM DIABETIC 2200 KCAL TO DIABETIC 1800 KCAL. 1800 KCAL DIET PROVIDES 36 KCAL/KG IBW. BMI=45.6. DID NOT PROVIDE EDUCATION ON CHF SINCE HEART FAILURE NOT CONFIRMED.
[2020-10-02] MEDS: Nicotine 14 MG PATCH.TD24 TRANSDERMA (16:08)
[2020-10-02 16:18] LABS: INTERNATIONAL NORM RATIO 1.1 (0.9-1.1); Prothrombin Time 12.8 SEC (10.8-13.0)
[2020-10-02 17:00] LABS: Glucose, Whole Blood 215 mg/dL (60-115)
[2020-10-02 20:47] LABS: Glucose, Whole Blood 152 mg/dL (60-115)
[2020-10-02] MEDS: Famotidine 20 MG TABLET PO (21:06)
--- NOTE | 2020-10-03 | ECG_ITS ---
Test Reason : QTC, T WAVE ABN Blood Pressure : / mmHG Vent. Rate : 060 BPM Atrial Rate : 060 BPM P-R Int : 152 ms QRS Dur : 096 ms QT Int : 480 ms P-R-T Axes : 009 058 042 degrees QTc Int : 480 ms Normal sinus rhythm T wave abnormality, consider anterior ischemia Prolonged QT Abnormal ECG When compared with ECG of 02-OCT-2020 09:58, No significant change was found Referred By: Ara Simms Electronically Signed By:Ty Montes De Oca
[2020-10-03 04:00] VITALS: BP 132/55; PULSE 51; RESP 18; TEMP 36.2; O2SAT 95
[2020-10-03 05:36] VITALS: BMI 44.6
[2020-10-03] MEDS: Enoxaparin Sodium 120 MG/0.8 ML SYRINGE 115 MG SUBCUT (05:44)
--- NOTE | 2020-10-03 06:40 | MHC.CARE ---
Wednesday10/02/20, 1400: Received consult for this patient for Anxiety and Depression. Met with pt, who stated she was feeling depressed and had elevated anxiety. Pt reports a Bipolar diagnosis and had a prescriber and therapist through [facility] prior to the pandemic. Pt reports being discharged from [facility] care for missing appointments. Pt is infirmed with Health issues that make it challenging to walk to appointments. She presently has no means of transportation. Pt has been maintaining her medications, being prescribed them through her PCP but is requesting counseling services, a Psychiatrist and a home health aid. Pt advised that a referral will be submitted to [facility] for a therapist and psychiatrist. [employer] contacted to determine if rides could be arranged when tele health services end, [facility] does not provide transportation to anywhere but this campus. Case Management consulted regarding securing a home health aid and other transportation options.
[2020-10-03 07:48] LABS: Glucose, Whole Blood 115 mg/dL (60-115)
[2020-10-03 08:00] VITALS: BP 149/70; PULSE 54; RESP 16; TEMP 36.3; O2SAT 94
[2020-10-03] MEDS: Nicotine 14 MG PATCH.TD24 TRANSDERMA (08:27)
[2020-10-03] MEDS: Furosemide 40 MG/4 ML VIAL IVPUSH (08:27)
[2020-10-03] MEDS: 0.9 % Sodium Chloride Flush 3 ML SYRINGE IVFLUSH (08:27)
[2020-10-03] MEDS: Clopidogrel Bisulfate 75 MG TABLET PO (08:27)
[2020-10-03 08:28] VITALS: BP 149/70; PULSE 65
[2020-10-03] MEDS: OXcarbazepine 300 MG TABLET 600 MG PO (08:28)
[2020-10-03] MEDS: predniSONE 20 MG TABLET 40 MG PO (08:28)
[2020-10-03] MEDS: Atorvastatin Calcium 10 MG TABLET PO (08:28)
[2020-10-03] MEDS: amLODIPine Besylate 5 MG TABLET PO (08:28)
[2020-10-03] MEDS: hydroCHLOROthiazide 25 MG TABLET PO (08:28)
[2020-10-03 09:04] LABS: Magnesium 1.8 mg/dL (1.6-2.6)
--- NOTE | 2020-10-03 10:33 | PM.PNCARD ---
Subjective Subjective Date of Service: 10/03/20 <GUILLERMO Alves - Last Filed: 10/03/20 12:08> 10/03/20 <Ty Montes De Oca MD - Last Filed: 10/03/20 12:43> Principal diagnosis: Abnormal EKG, Fluid overload, ACS <GUILLERMO Alves - Last Filed: 10/03/20 12:08> Interval history: Cardiology follow up for the above. Seen at 0930. Today she reports feeling better. Her breathing is comfortable. She wears O2 2 liters at home and wearing at present. No chest pains or pressure. No palpitation, presyncope, PND, orthopnea. Edema resolved. Slept well. Aware of plan for [facility] transfer. <GUILLERMO Alves - Last Filed: 10/03/20 12:08> Review of Systems Review of Systems as above <GUILLERMO Alves - Last Filed: 10/03/20 12:08> Yes all other systems are reviewed and are negative <GUILLERMO Alves - Last Filed: 10/03/20 12:08> Physical Exam Vital Signs: Last Vital Signs Temp 97.3 F 10/03/20 08:00 Pulse 65 10/03/20 08:28 Resp 16 10/03/20 08:00 BP 149/70 H 10/03/20 08:28 Pulse Ox 94 10/03/20 08:00 Oxygen Flow Rate 3 10/01/20 10:49 Body Mass Index 44.6 <GUILLERMO Alves - Last Filed: 10/03/20 12:08> Const General: cooperative, no acute distress, alert and awake <GUILLERMO Alves - Last Filed: 10/03/20 12:08> Orientation/consciousness: patient oriented x3 <GUILLERMO Alves Last Filed: 10/03/20 12:08> Neck Neck: Yes normal visual inspection and Yes no JVD <GUILLERMO Alves Last Filed: 10/03/20 12:08> Resp Effort & Inspection: normal respiratory effort, able to speak in complete sentences and not labored <GUILLERMO Alves - Last Filed: 10/03/20 12:08> Auscultation: clear to auscultation bilaterally, no crackles, no rales, no rhonchi and no wheezes <Ara SimmsLILLIEC - Last Filed: 10/03/20 12:08> Cardio Palpation: normal PMI <Ara Simms LILLIEC - Last Filed: 10/03/20 12:08> Rate: regular rate <LILLIE AlvesC - Last Filed: 10/03/20 12:08> Rhythm: regular rhythm <Ara SimmsMARYLOUEugeneC - Last Filed: 10/03/20 12:08> Heart sounds: S1 normal heart sound present and S2 normal heart sound present <Ara SimmsMARYLOUEugeneC - Last Filed: 10/03/20 12:08> Peripheral pulses: Peripheral pulses 2+ throughout <Ara SimmsMARYLOUEugeneC - Last Filed: 10/03/20 12:08> GI Inspection: Yes normal to inspection <Ara SimmsMARYLOUEugeneC - Last Filed: 10/03/20 12:08> Neuro General: patient oriented x3 <Ara SimmsMARYLOUEugeneC - Last Filed: 10/03/20 12:08> Extrem General: Yes normal to inspection and No edema <Ara SimmsLILLIEC - Last Filed: 10/03/20 12:08> Results Labs and Meds Result diagrams: : 10/03/20 12:30 10/03/20 09:49 <Ara SimmsLILLIEC - Last Filed: 10/03/20 12:08> Lab results: Laboratory Results - last 24 hr 10/02/20 10/02/20 10/02/20 05:59 11:24 16:00 PT 12.8 INR 1.1 POC Glucose 155 H Magnesium 2.0 10/02/20 10/02/20 10/03/20 16:57 20:40 07:41 PT INR POC Glucose 215 H 152 H 115 Magnesium 10/03/20 08:32 PT INR POC Glucose Magnesium 1.8 <Ara SimmsLILLIEC - Last Filed: 10/03/20 12:08> Progress Note: A&P Assessment and plan (1) T wave inversion in electrocardiogram: Status: Acute <LILLIE AlvesC - Last Filed: 10/03/20 12:08> Assessment and Plan: Admit with sob, edema, EKG changes. EKG shows anterior T wave inversions. No cardiac hx. Does have multi cardiac risks including obesity, HTN, HLD, DM. CTA shows no PE. Evidence of fluid overload and being diuresed with IV Lasix. On therapuetic Lovenox for anticoagulation. - Will change to Heparin drip instead of Lovenox. Given Plavix load and now on 75mg daily. Has aspirin allergy. Heart rate in 50-60s, SB. Not on BB. Continue amlodipine, HCTZ for BP control. EKG done today, no significant change from prior. Will make arrangements for [facility] transfer for planned cardiac cath tomorrow. NPO after midnight. Pt aware of this plan and agreeable. <LILLIE AlvesC - Last Filed: 10/03/20 12:08> (2) Prolonged QT interval: Status: Acute <LILLIE AlvesC - Last Filed: 10/03/20 12:08> Assessment and Plan: EKG yesterday with QTc 503ms. Home sertraline held. K and mg normal. EKG today shows QTc 480ms. am labs are pending. <LILLIE AlvesC - Last Filed: 10/03/20 12:08> (3) Acute dyspnea: Status: Acute <LILLIE AlvesC - Last Filed: 10/03/20 12:08> Assessment and Plan: Improved per pt report. On exam does not appear grossly fluid overloaded at this time. Has been on Lasix 40mg IV bid and fluid balance neg 3 liters since admit. On O2 at same does as at home. Am labs still pending. Likely continue IV Lasix through today then change to PO. <LILLIE AlvesC - Last Filed: 10/03/20 12:08> (4) Edema, peripheral: Status: Acute <LILLIE AlvesC - Last Filed: 10/03/20 12:08> (5) EKG abnormalities: Status: Acute <LILLIE AlvesC - Last Filed: 10/03/20 12:08> (6) ACS (acute coronary syndrome): Status: Acute <GUILLERMO Alves - Last Filed: 10/03/20 12:08> Assessment and Plan: as above <GUILLERMO Alves - Last Filed: 10/03/20 12:08> Fall Risk Details Current Medications: Current Medications Generic Name Dose Route Start Last Admin Trade Name Freq PRN Reason Stop Dose Admin Acetaminophen 650 mg 10/01/20 22:07 10/02/20 00:38 Acetaminophen 325 Mg Tablet PO 650 mg Q6H PRN Administration Pain, Mild (Pain Scale 1-3) Albuterol/Ipratropium 3 ml 10/01/20 22:34 Albuterol/Iprat 2.5/0.5mg 3 Ml Ampul.Neb INHALE RQ4H PRN Shortness of Breath/Wheezing Albuterol/Ipratropium 3 ml 10/02/20 08:00 10/03/20 07:36 Albuterol/Iprat 2.5/0.5mg 3 Ml Ampul.Neb INHALE Not Given RQ4H WHILE AWAKE KAMRYN Amlodipine Besylate 5 mg 10/02/20 09:00 10/03/20 08:28 Amlodipine Besylate 5 Mg Tablet PO 5 mg DAILY KAMRYN Administration Protocol Atorvastatin Calcium 10 mg 10/02/20 09:00 10/03/20 08:28 Atorvastatin Calcium 10 Mg Tablet PO 10 mg DAILY KAMRYN Administration Clopidogrel Bisulfate 75 mg 10/03/20 09:00 10/03/20 08:27 Clopidogrel Bisulfate 75 Mg Tablet PO 75 mg DAILY KAMRYN Administration Enoxaparin Sodium 115 mg 10/01/20 18:00 10/03/20 05:44 Enoxaparin Sodium 120 Mg/0.8 Ml Syringe SUBCUT 115 mg Q12H KAMRYN Administration Famotidine 20 mg 10/02/20 21:00 10/02/20 21:06 Famotidine 20 Mg Tablet PO 20 mg BEDTIME KAMRYN Administration Furosemide 40 mg 10/02/20 18:00 10/03/20 08:27 Furosemide 40 Mg/4 Ml Vial IVPUSH 40 mg BID@0900,1800 KAMRYN Administration Protocol Hydrochlorothiazide 25 mg 10/02/20 09:00 10/03/20 08:28 Hydrochlorothiazide 25 Mg Tablet PO 25 mg DAILY KAMRYN Administration Protocol Insulin Human Lispro 0 unit 10/02/20 07:30 10/03/20 08:04 Insulin Lispro 100 Unit/Ml 3 Ml Vial SUBCUT Not Given QIDACHS [facility] Protocol Magnesium Hydroxide 30 ml 10/01/20 22:07 Milk Of Magnesia 30 Ml Oral.Susp PO DAILY PRN Constipation Metformin HCl 1,000 mg 10/02/20 08:30 10/03/20 08:34 Metformin Hcl 1,000 Mg Tablet PO Not Given BIDWM KAMRYN Methadone HCl 120 mg 10/02/20 09:00 10/03/20 08:27 Methadone Hcl 1 Mg/0.1 Ml Oral.Conc PO 120 mg DAILY KAMRYN Administration Nicotine 14 mg 10/02/20 16:00 10/03/20 08:27 Nicotine 14 Mg Patch.Td24 TRANSDERMA 14 mg DAILY KAMRYN Administration Oxcarbazepine 600 mg 10/02/20 09:00 10/03/20 08:28 Oxcarbazepine 300 Mg Tablet PO 600 mg BID KAMRYN Administration Pharmacy Consult 1 each 10/01/20 17:19 Consult Rx Perform Med Rec MISCELLANE ONCE PRN Consult order Prednisone 40 mg 10/02/20 09:00 10/03/20 08:28 Prednisone 20 Mg Tablet PO 10/06/20 09:01 40 mg DAILY KAMRYN Administration Sodium Chloride 3 ml 10/02/20 00:00 10/03/20 08:27 0.9 % Sodium Chloride Flush 3 Ml Syringe IVFLUSH 3 ml QSHIFT KAMRYN Administration Zolpidem Tartrate 10 mg 10/02/20 21:00 10/02/20 21:06 Zolpidem Tartrate 5 Mg Tablet PO 10 mg BEDTIME KAMRYN Administration <GUILLERMO Alves - Last Filed: 10/03/20 12:08> Time Spent With Patient Time: Total time spent is greater than 50% in coordination of care (as documented) at patient's floor/unit and/or counseling patient: 35 <GUILLERMO Alves - Last Filed: 10/03/20 12:08> Time with patient: 25 - 35 minutes <GUILLERMO Alves - Last Filed: 10/03/20 12:08> Progress Note: Quality Stroke Does the patient have a stroke diagnosis?: No <GUILLERMO Alves Filed: 10/03/20 12:08> Procedures Date of Service Date of Service: 10/03/20 <GUILLERMO Alves - Last Filed: 10/03/20 12:08>
[2020-10-03 11:11] LABS: Anion Gap 15 (12-20); Blood Urea Nitrogen 17 mg/dL (9-16); Calcium 9.3 mg/dL (8.4-10.2); Carbon Dioxide 42 mmol/L (22-29); Chloride 88 mmol/L (96-108); Estimated Glomerular Filt Rate 57; Glucose Random 150 mg/dL (60-115); Magnesium 1.7 mg/dL (1.6-2.6); Sodium 141 mmol/L (135-145)
[2020-10-03 11:13] LABS: Glucose, Whole Blood 212 mg/dL (60-115)
[2020-10-03] MEDS: Albuterol/Iprat 2.5/0.5MG 3 ML AMPUL.NEB INHALE (11:20)
[2020-10-03 11:21] VITALS: PULSE 91; O2SAT 94
--- NOTE | 2020-10-03 11:35 | PC.NURSE ---
Skin Assessment completed today. No skin issues were found. Bilateral lower extremity edema was noted.
[2020-10-03] MEDS: Insulin Lispro 100 UNIT/ML 3 ML VIAL SUBCUT (11:58)
[2020-10-03 12:00] VITALS: BP 140/65; PULSE 65; RESP 18; TEMP 36; O2SAT 96
--- NOTE | 2020-10-03 12:02 | P.DS_ITS ---
DS: Providers Provider Date of Service: 10/03/20 <CARLOTA Calvert - Last Filed: 10/03/20 12:22> Date of admission: 10/01/20 22:07 <CARLOTA Calvert - Last Filed: 10/03/20 12:22> Primary care physician: Rito Grady MD <CARLOTA Calvert - Last Filed: 10/03/20 12:22> Consults: 10/01/20 22:07 Consult to Cardiology Routine Consulting Provider: Ty Montes De Oca Reason for consultation: CHF 10/02/20 00:30 Consult Respiratory Therapy Routine Reason for consultation: sleep apnea 10/02/20 12:13 Consult to Care Team Routine Comment: Reason for consultation: Opiod dependence Has provider been notified: No <CARLOTA Calvert - Last Filed: 10/03/20 12:22> DS: Diagnosis Discharge Diagnosis (1) T wave inversion in electrocardiogram: Status: Acute <CARLOTA Calvert - Last Filed: 10/03/20 12:22> (2) Prolonged QT interval: Status: Acute <CARLOTA Calvert - Last Filed: 10/03/20 12:22> (3) Acute dyspnea: Status: Acute <CARLOTA Calvert - Last Filed: 10/03/20 12:22> (4) Edema, peripheral: Status: Acute <CARLOTA Calvert - Last Filed: 10/03/20 12:22> (5) EKG abnormalities: Status: Acute <CARLOTA Calvert - Last Filed: 10/03/20 12:22> (6) ACS (acute coronary syndrome): Status: Acute <CARLOTA Calvert - Last Filed: 10/03/20 12:22> DS: Medications Discharge Medications Home Medications: Home Medications Medication Instructions Recorded Confirmed albuterol sulfate 2 puff INHALATION Q4H PRN 01/25/20 10/01/20 hydrochlorothiazide 25 mg PO DAILY 01/25/20 10/01/20 methadone 120 mg PO DAILY 01/25/20 10/01/20 oxcarbazepine 600 mg PO BID 01/25/20 10/01/20 simvastatin 10 mg PO DAILY 01/25/20 10/01/20 zolpidem 10 mg PO BEDTIME 01/25/20 10/01/20 amlodipine 1 tab PO DAILY 10/01/20 10/01/20 famotidine 20 mg PO BEDTIME 10/01/20 10/01/20 Previous Rx's Medication Instructions Recorded clopidogrel 75 mg PO DAILY #1 tab 10/03/20 furosemide 40 mg IVPUSH BID@0900,1800 1 Days 10/03/20 ml heparin(porcine) in 0.45% NaCl 25,000 unit CONTINUOUS IV INFUSION 10/03/20 .Q0M #250 ml insulin lispro [Humalog U-100 See Protocol SUBCUT QIDACHS #10 ml 10/03/20 Insulin] ipratropium-albuterol 3 ml INHALATION RQ4H PRN #15 ml 10/03/20 nicotine 14 mg TRANSDERMAL DAILY #7 ea 10/03/20 <CARLOTA Calvert - Last Filed: 10/03/20 12:22> DS: Summary Hospital Course Hospital Course: From H&P on day of admission 64-year-old female with a past medical history of hypertension, hyperlipidemia, diabetes, COPD, history of opiate dependence on methadone, TESS on CPAP, chronic respiratory failure on as needed supplemental oxygen, anxiety, depression, bipolar disorder, chronic back pain, history of anemia, arthritis presented to the hospital with a chief complaint of shortness of breath. Patient reported that for the past few days she has been feeling short of breath, dyspnea on exertion, also noted leg swelling and weight gain. Mentioned that she went to her PCP for evaluation today noted to have EKG changes; subsequently sent to the ER for further evaluation. Patient denied any chest pains. Denied any lightheadedness dizziness numbness tingling or focal weakness. Denies any urinary symptoms. Patient complains of dry cough. Patient complains of generalized weakness/fatigue. Denies any prior history of CHF are being on Lasix. Review of all other systems is negative except mentioned above ER course: Per ER team patient troponins were negative, EKG showed T-wave inversions in V1 to V4, discussed with Cardiology on-call who recommended admission to the hospital for further evaluation. Initially there were concerns for possible dilatation just but given troponins being negative patient was given Lovenox at therapeutic dose, admitted to the [facility] per Cardiology recommendation. Patient also received prednisone in the ER. Dyspnea/EKG changes. Patient was initially hypoxic but not in respiratory distress. She had new t wave inversions noted on her EKG. CTA showed no evidence of PTE. COVID negative, no evidence of pneumonia. She was started on as needed breathing treatments fell with his well as daily prednisone for possible mild COPD exacerbation. She did have peripheral edema and JVD was started on IV Lasix. She underwent echocardiogram which was preserved ejection fraction with no regional wall motion abnormality. She was evaluated by Cardiology who felt she continue diuresis with IV Lasix and also recommended transfer to [facility] for diagnostic cardiac catheterization. She was initially started on therapeutic lovenox which was transitioned to heparin drip. She was loaded with plavix due to aspirin allergy and continued on 75 mg daily. her home statin was continued. Prolonged QTC. QTC over 500ms on admission. no recent fill history for sertraline. continued home home dose of methadone. qt improved to 480 today Pulmonary nodule. outpatient follow up with PCP for surveillance CT Diabetes. Metformin d/c today due to plan for cardiac cath. continue insulin sliding scale Chronic respiratory failure. Patient uses 2 L of oxygen at baseline due to underlying COPD TESS-patient uses CPAP at night Attending Attestation: Patient seen and examined independently and I was present during mercado portion of E/M service. Agree with CARLOTA Zepeda's history, physical, assessment, and plan. <CARLOTA Calvert - Last Filed: 10/03/20 12:22> Time Spent with Patient Time attestation: Total time spent providing and/or coordinating discharge services: <CARLOTA Calvert - Last Filed: 10/03/20 12:22> Discharge coordination time: Greater than 30 minutes <CARLOTA Calvert - Last Filed: 10/03/20 12:22> Quality: Stroke Does the patient have a stroke diagnosis?: No <CARLOTA Calvert - Last Filed: 10/03/20 12:22> Physical Exam Vital Signs: Vital Signs: Last Vital Signs Temp 97.3 F 10/03/20 08:00 Pulse 91 10/03/20 11:21 Resp 16 10/03/20 08:00 BP 149/70 H 10/03/20 08:28 Pulse Ox 94 10/03/20 08:00 Oxygen Flow Rate 3 10/01/20 10:49 Body Mass Index 44.6 <CARLOTA Calvert - Last Filed: 10/03/20 12:22> Const: General: comfortable, no acute distress and alert <CARLOTA Calvert - Last Filed: 10/03/20 12:22> Nutritional Appearance: obese <CARLOTA Calvert - Last Filed: 10/03/20 12:22> Orientation/consciousness: patient oriented x3 <CARLOTA Calvert - Last Filed: 10/03/20 12:22> HENMT: Head: Yes normocephalic and Yes atraumatic <CARLOTA Calvert - Last Filed: 10/03/20 12:22> Eyes: Sclerae: sclerae normal <CARLOTA Calvert - Last Filed: 10/03/20 12:22> Resp: Effort & Inspection: normal respiratory effort and no respiratory distress <CARLOTA Calvert - Last Filed: 10/03/20 12:22> Auscultation: clear to auscultation bilaterally <CARLOTA Calvert - Last Filed: 10/03/20 12:22> Cardio: Rate: regular rate <CARLOTA Calvert - Last Filed: 10/03/20 12:22> Rhythm: regular rhythm <CARLOTA Calvert - Last Filed: 10/03/20 12:22> GI: Palpation (GI): Soft to palpation and nontender <CARLOTA Calvert - Last Filed: 10/03/20 12:22> Neuro: General: patient oriented x3 <CARLOTA Calvert - Last Filed: 10/03/20 12:22> Cranial nerves: Yes CN's II-XII intact bilaterally and Yes Bilaterally intact EOM present <CARLOTA Calvert - Last Filed: 10/03/20 12:22> DS: Data Data Completed and Pending Labs on day of discharge: Laboratory Results - last 24 hr 10/02/20 10/02/20 10/02/20 05:59 16:00 16:57 PT 12.8 INR 1.1 Sodium Potassium Chloride Carbon Dioxide Anion Gap BUN Creatinine Estim Creat Clear Calc Estimated GFR POC Glucose 215 H Random Glucose Calcium Magnesium 2.0 10/02/20 10/03/20 10/03/20 20:40 07:41 08:32 PT INR Sodium Potassium Chloride Carbon Dioxide Anion Gap BUN Creatinine Estim Creat Clear Calc Estimated GFR POC Glucose 152 H 115 Random Glucose Calcium Magnesium 1.8 10/03/20 10/03/20 09:49 11:01 PT INR Sodium 141 Potassium 4.0 Chloride 88 L Carbon Dioxide 42 H* Anion Gap 15 BUN 17 H D Creatinine 0.98 Estim Creat Clear Calc 68.0 Estimated GFR 57 POC Glucose 212 H Random Glucose 150 H D Calcium 9.3 Magnesium 1.7 <CARLOTA Calvert - Last Filed: 10/03/20 12:22> Discharge Plan Discharge Patient Disposition: [facility] <CARLOTA Calvert - Last Filed: 10/03/20 12:22> Discharge Diagnosis: New EKG changes Prolonged QT Dyspnea <CARLOTA Calvert - Last Filed: 10/03/20 12:22> New EKG changes Prolonged QT Dyspnea <Nahum Weiss MD - Last Filed: 10/03/20 13:37> Referrals: [facility] [Outside] - 1 Week Rito Grady MD [Primary Care Provider] - 1 Week Ty Montes De Oca MD [Physician] - 1 Week <CARLOTA Calvert - Last Filed: 10/03/20 12:22> Discharge Medications: New nicotine 14 mg/24 hr Patch 24 Hour 14 mg transdermal DAILY Qty: 7 RF: 0 ipratropium-albuterol 0.5 mg-3 mg(2.5 mg base)/3 mL Solution For Nebulization 3 ml inhalation RQ4H PRN (Reason: Shortness Of Breath/Wheezing) Qty: 15 RF: 0 clopidogrel 75 mg Tablet 75 mg PO DAILY Qty: 1 RF: 0 heparin(porcine) in 0.45% NaCl 25,000 unit/250 mL Parenteral Solution 25,000 unit continuous IV infusion .Q0M Qty: 250 RF: 0 furosemide 10 mg/mL Solution 40 mg IVPUSH BID@0900,1800 1 Days RF: 0 insulin lispro [Humalog U-100 Insulin] 100 unit/mL Solution See Protocol unit subcut QIDACHS Qty: 10 RF: 0 Continued simvastatin 10 mg tablet 10 mg PO DAILY RF: 0 oxcarbazepine 600 mg Tablet 600 mg PO BID RF: 0 hydrochlorothiazide 25 mg tablet 25 mg PO DAILY RF: 0 zolpidem 10 mg tablet 10 mg PO BEDTIME RF: 0 albuterol sulfate 90 mcg/actuation HFA aerosol inhaler 2 puff inhalation Q4H PRN (Reason: Shortness Of Breath) RF: 0 methadone 5 mg/5 mL Solution 120 mg PO DAILY RF: 0 famotidine 20 mg tablet 20 mg PO BEDTIME RF: 0 amlodipine 5 mg tablet 1 tab PO DAILY RF: 0 Discontinued metformin 1,000 mg tablet 1 tab PO BIDWM RF: 0 mirtazapine 45 mg tablet 45 mg PO BEDTIME RF: 0 acetaminophen [Tylenol Extra Strength] 500 mg tablet 500 mg PO Q6H PRN (Reason: pain or fever) Qty: 20 RF: 0 <CARLOTA Calvert - Last Filed: 10/03/20 12:22> Discharge Orders: Discharge Order (Routine); Ordered 10/03/20 Ordered By: Ines Mendieta <CARLOTA Calvert - Last Filed: 10/03/20 12:22> Activity on Discharge: bedrest <CALROTA Calvert - Last Filed: 10/03/20 12:22> bedrest <Nahum Weiss MD - Last Filed: 10/03/20 13:37> Stand Alone Forms: Patient Portal Discharge page <CARLOTA Calvert - Last Filed: 10/03/20 12:22> Care Plan Goals: see below <CARLOTA Calvert - Last Filed: 10/03/20 12:22> Health Concerns: EKG changes Dyspnea <CARLOTA Calvert - Last Filed: 10/03/20 12:22> Plan of Treatment: seen by Cardiology, recommend transfer to [facility] for cardiac catheterization <CARLOTA Calvert Last Filed: 10/03/20 12:22> Assessment: see discharge summary <CARLOTA Calvert - Last Filed: 10/03/20 12:22>
[2020-10-03 12:38] LABS: Hemoglobin 14.9 g/dl (12.0-16.0); Mean Corpuscular HGB Conc 31.7 g/dl (31.0-35.0); Mean Corpuscular Hemoglobin 28.4 pg (27.0-33.0); Mean Corpuscular Volume 89.5 fL (80-98); Mean Platelet Volume 10.8 fL (9.4-12.3); Platelet Count 258 X10*3/uL (160-400); Red Blood Count 5.25 X10*6/uL (4.20-5.50); Red Cell Distribution Width 14.2 % (11.0-16.0); White Blood Count 15.1 X10*3/uL (4.8-10.8)
[2020-10-03] MEDS: Heparin Sodium,Porcine/1/2NS 25,000 UNIT/250 ML IV.SOLN 13.27 UNIT IVCONT (12:39)
[2020-10-03 12:44] LABS: INTERNATIONAL NORM RATIO 1.1 (0.9-1.1); Prothrombin Time 12.6 SEC (10.8-13.0)
[2020-10-03 12:46] LABS: PTT Heparin Drip 48.9 SEC (53-77.9)
== END 2020-10-03 14:46 | disposition short-term general hospital (02) | DRG 198 ==
LOC: HO.ED 17:30 → HO.S3 22:25
PROVIDERS: Emergency Medicine; Internal Medicine; Internal Medicine Cardiovascular Disease; Nurse Practitioner Family; Physician Assistant Medical; Admitting Provider Hospitalist; Emergency Provider Emergency Medicine Emergency Medical Services; PCP Internal Medicine; Visit Provider Family Medicine
DX: I24.9 Acute ischemic heart disease, unspecified (principal); I11.0 Hypertensive heart disease with heart failure; F11.20 Opioid dependence, uncomplicated; Z99.81 Dependence on supplemental oxygen; K21.9 Gastro-esophageal reflux disease without esophagitis; F17.210 Nicotine dependence, cigarettes, uncomplicated; Z71.6 Tobacco abuse counseling; F41.9 Anxiety disorder, unspecified; G47.33 Obstructive sleep apnea (adult) (pediatric); E78.5 Hyperlipidemia, unspecified; J44.1 Chronic obstructive pulmonary disease with (acute) exacerbation; F32.9 Major depressive disorder, single episode, unspecified; E11.9 Type 2 diabetes mellitus without complications; R91.1 Solitary pulmonary nodule; R94.31 Abnormal electrocardiogram [ECG] [EKG]; Z20.822 Contact with and (suspected) exposure to COVID-19; Z99.89 Dependence on other enabling machines and devices; Z88.0 Allergy status to penicillin; Z88.6 Allergy status to analgesic agent; Z79.4 Long term (current) use of insulin; Z79.02 Long term (current) use of antithrombotics/antiplatelets; Z79.899 Other long term (current) drug therapy
CPT/HCPCS: 36415; 71046; 71275; 80048; 80053; 81003; 82947; 83735; 83880; 84484; 85025; 85027; 85610; 85730; 87635; 93005; 93308; 93970; 94640; 99285; J1650; J1940; Q9957; Q9967

== ENCOUNTER 2020-10-25 12:39 | Outpatient (REF) | payer OTHER, SELFPAY ==
[2020-10-25 13:45] LABS: MANUAL DIFF FLAG NO
[2020-10-25 13:46] LABS: Basophils Percent Auto 0.3 % (0-2); Eosinophils Absolute Auto 0.3 X10*3/uL (0.0-0.4); Eosinophils Percent Auto 2.2 % (0-4); Hematocrit 43.7 % (37-47); Hemoglobin 13.9 g/dl (12.0-16.0); Imm Gran Abs Auto 0.05 X10*3/uL (0.00-0.03); Imm Gran Pct Auto 0.4 % (0.0-0.4); Lymphocytes Absolute Auto 2.2 X10*3/uL (1.2-4.9); Lymphocytes Percent Auto 18.1 % (20-40); Mean Corpuscular HGB Conc 31.8 g/dl (31.0-35.0); Mean Corpuscular Hemoglobin 28.3 pg (27.0-33.0); Mean Corpuscular Volume 88.8 fL (80-98); Mean Platelet Volume 11.3 fL (9.4-12.3); Monocytes Percent Auto 7.9 % (2-11); Neutrophils Absolute Auto 8.7 X10*3/uL (2.0-8.3); Neutrophils Percent Auto 71.1 % (45-73); Platelet Count 258 X10*3/uL (160-400); Red Blood Count 4.92 X10*6/uL (4.20-5.50); White Blood Count 12.3 X10*3/uL (4.8-10.8)
[2020-10-25 13:58] LABS: Estimated Average Glucose 154 mg/dL
[2020-10-25 14:13] LABS: Alanine Aminotransferase 13 U/L (0-31); Alkaline Phosphatase 130 U/L (39-117); Anion Gap 14 (12-20); Aspartate Amino Transferase 14 U/L (5-31); Bilirubin Total 0.3 mg/dL (0.0-1.0); Blood Urea Nitrogen 11 mg/dL (9-16); C Reactive Protein 3.31 mg/dL (< or = 0.50); Calcium 9.6 mg/dL (8.4-10.2); Carbon Dioxide 39 mmol/L (22-29); Chloride 97 mmol/L (96-108); Estimated Glomerular Filt Rate 49; Glucose Random 110 mg/dL (60-115); Potassium 4.8 mmol/L (3.3-5.1); Sodium 145 mmol/L (135-145); Total Protein 7.8 g/dL (6.5-8.0)
== END 2020-10-25 12:40 | disposition home or self-care (01) ==
LOC: HO.LAB 12:39
PROVIDERS: PCP Internal Medicine; Visit Provider Internal Medicine
DX: E11.22 Type 2 diabetes mellitus with diabetic chronic kidney disease (principal); I12.9 Hypertensive chronic kidney disease with stage 1 through stage 4 chronic kidney disease, or unspecified chronic kidney disease; N18.9 Chronic kidney disease, unspecified; R60.0 Localized edema; L03.90 Cellulitis, unspecified
CPT/HCPCS: 36415; 80053; 83036; 85025; 86140

== ENCOUNTER → 2020-10-29 14:00 | Outpatient (BNVA) | payer OTHER, SELFPAY | PROVIDERS: PCP Internal Medicine; Referring Provider Internal Medicine; Visit Provider Nurse Practitioner Family | DX: R60.9 Edema, unspecified (principal); R94.31 Abnormal electrocardiogram [ECG] [EKG]; F17.200 Nicotine dependence, unspecified, uncomplicated; Z98.890 Other specified postprocedural states; Z79.899 Other long term (current) drug therapy; Z71.6 Tobacco abuse counseling | CPT/HCPCS: 93005; 99212 ==

== ENCOUNTER 2020-11-14 11:08 | Outpatient (REF) | payer MEDICARE, SELFPAY ==
[2020-11-14 12:18] LABS: B Type Natriuretic Peptide 21 pg/mL (<100)
[2020-11-14 12:21] LABS: Blood Urea Nitrogen 11 mg/dL (9-16); Calcium 9.4 mg/dL (8.4-10.2); Estimated Glomerular Filt Rate 44; Glucose Random 111 mg/dL (60-115)
[2020-11-14 13:20] LABS: Anion Gap 15 (12-20); Carbon Dioxide 40 mmol/L (22-29); Chloride 95 mmol/L (96-108); Potassium 3.9 mmol/L (3.3-5.1); Sodium 146 mmol/L (135-145)
== END 2020-11-14 11:09 | disposition home or self-care (01) ==
LOC: HO.LAB 11:08
PROVIDERS: PCP Internal Medicine; Visit Provider Nurse Practitioner Family
DX: R60.9 Edema, unspecified (principal); R06.00 Dyspnea, unspecified
CPT/HCPCS: 36415; 80048; 83880

== ENCOUNTER 2021-01-07 09:30 | Outpatient (REF) | payer MEDICARE, MEDICAID, SELFPAY ==
--- NOTE | ~2021-01-07 | MM_ITS ---
EXAMINATION: MM SCREENING DIGITAL BREAST TOMOSYNTHESIS, BILATERAL CLINICAL INFORMATION: Screening. Asymptomatic. The lifetime risk of breast cancer based on the Tyrer-Cuzick Model is 4%. COMPARISON: Mammography: 06/08/2018, 07/07/2016, 07/02/2011 TECHNIQUE: Digital breast tomosynthesis is performed in both the craniocaudal and mediolateral oblique views along with computer-aided detection (CAD). Synthesized 2D images are generated from the tomosynthesis. FINDINGS: The breasts are almost entirely fatty (ACR BI-RADS breast composition Category a). There are no significant masses, abnormal calcifications, or other abnormalities. Background stromal markings are similar to prior exams. Skin contours are smooth. MM/MM tomosynthesis screening BI IMPRESSION: No mammographic evidence of malignancy. ASSESSMENT: BI-RADS 1: Negative RECOMMENDATION: Routine annual mammography screening. This patient's information was entered into a reminder system with a target due date for their next mammogram.
--- NOTE | ~2021-01-07 | MM_ITS ---
EXAMINATION: BONE DENSITOMETRY CLINICAL INDICATION: Postmenopausal. COMPARISON: Previous BD dated 07/07/2016 and baseline BD dated 02/01/2012. TECHNIQUE: Using a [employer] DXA System (software version: 13.1) manufactured by [employer], dual-energy x-ray absorptiometry was performed of the lumbar spine and left hip. The images are of good technical quality. Summary results are attached. FINDINGS: AP SPINE L1-L3 (excluding L4): The data of L1-L4 has been changed to exclude the L4 vertebral body, because degenerative changes at this level may cause overestimation of lumbar spine density. Current: BMD 1.388 g/cm2, Z-score 2.2, T-score 1.8, normal, 2.5% decrease from previous, 6.0% increase from baseline (<5% change is not significant). Prior: BMD 1.424 g/cm2. Baseline: BMD 1.310 g/cm2. LEFT FEMUR, NECK: Current: BMD 1.041 g/cm2, Z-score 0.7, T-score 0.0, normal. Prior: BMD 1.124 g/cm2. Baseline: BMD 1.049 g/cm2. LEFT FEMUR, TOTAL: Current: BMD 1.181 g/cm2, Z-score 1.7, T-score 1.4, normal, 1.4% increase from previous, 2.6% increase from baseline (<5% change is not significant). Prior: BMD 1.165 g/cm2. Baseline: BMD 1.151 g/cm2. IDENTIFIED RISK FACTORS: Menopause, tobacco use (current smoker). HISTORY OF FRACTURE: None listed. MEDICATIONS: Vitamin D. MM/XR DEXA axial skeleton IMPRESSION: 1. DIAGNOSIS: Normal bone density based on the lowest T-score value of 0.0 in the femoral neck applying World Health Organization criteria. 2. 10-YEAR FRACTURE RISK PREDICTION, FRAX: Major osteoporotic fracture (clinical spine, forearm, hip or shoulder) 3.0%. Hip fracture 0.2%. 3. Treatment Recommendations: NOF guidelines recommend consideration for treatment in postmenopausal women and men age 50 and older presenting with the following: -A hip or vertebral (clinical or morphometric) fracture. -T-score less than or equal to -2.5 at the femoral neck or spine after appropriate evaluation to exclude secondary causes. -Low bone mass at the hip or spine and a 10-year fracture probability by FRAX of greater than or equal to 3% for hip fracture or greater than or equal to 20% for major osteoporotic fracture based on the [place] adapted WHO algorithm. 4. Other Recommendations: All treatment decisions require clinical judgment and consideration of individual patient factors, including patient preferences, comorbidities, previous drug use, risk factors not captured in the FRAX model (e.g. frailty, falls, vitamin D deficiency, increased bone turnover, interval significant decline in bone density) and possible under or overestimation of fracture risk by FRAX. FUTURE SCAN RECOMMENDATION: People with diagnosed cases of osteoporosis or at high risk for fracture should have regular bone mineral density tests. For patients eligible for Medicare, routine testing is allowed once every 2 years. The testing frequency can be increased to one year for patients who have rapidly progressing disease, those who are receiving or discontinuing medical therapy to restore bone mass, or have additional risk factors.
== END 2021-01-07 09:31 | disposition home or self-care (01) ==
LOC: HO.MAMMO 09:30
PROVIDERS: Visit Provider Internal Medicine
DX: Z12.31 Encounter for screening mammogram for malignant neoplasm of breast (principal); Z13.820 Encounter for screening for osteoporosis; Z78.0 Asymptomatic menopausal state; F17.200 Nicotine dependence, unspecified, uncomplicated; Z79.899 Other long term (current) drug therapy
CPT/HCPCS: 77063; 77067; 77080

== ENCOUNTER 2021-01-14 15:10 | Outpatient (REF) | payer MEDICARE, MEDICAID, SELFPAY ==
[2021-01-14 15:28] LABS: MANUAL DIFF FLAG NO
[2021-01-14 15:43] LABS: Basophils Percent Auto 0.3 % (0-2); Eosinophils Absolute Auto 0.2 X10*3/uL (0.0-0.4); Eosinophils Percent Auto 1.4 % (0-4); Hematocrit 40.7 % (37-47); Hemoglobin 13.1 g/dl (12.0-16.0); Imm Gran Abs Auto 0.03 X10*3/uL (0.00-0.03); Imm Gran Pct Auto 0.3 % (0.0-0.4); Lymphocytes Absolute Auto 2.3 X10*3/uL (1.2-4.9); Lymphocytes Percent Auto 21.6 % (20-40); Mean Corpuscular HGB Conc 32.2 g/dl (31.0-35.0); Mean Corpuscular Hemoglobin 28.4 pg (27.0-33.0); Mean Corpuscular Volume 88.1 fL (80-98); Mean Platelet Volume 10.7 fL (9.4-12.3); Monocytes Absolute Auto 0.9 X10*3/uL (0.1-1.2); Neutrophils Absolute Auto 7.4 X10*3/uL (2.0-8.3); Neutrophils Percent Auto 68.4 % (45-73); Platelet Count 255 X10*3/uL (160-400); Red Blood Count 4.62 X10*6/uL (4.20-5.50); Red Cell Distribution Width 15.1 % (11.0-16.0); White Blood Count 10.8 X10*3/uL (4.8-10.8)
[2021-01-14 16:03] LABS: Anion Gap 13 (12-20); Blood Urea Nitrogen 13 mg/dL (9-16); C Reactive Protein 3.96 mg/dL (< or = 0.50); Calcium 9.2 mg/dL (8.4-10.2); Carbon Dioxide 38 mmol/L (22-29); Chloride 97 mmol/L (96-108); Estimated Glomerular Filt Rate 49; Glucose Random 115 mg/dL (60-115); Lactate Dehydrogenase 270 U/L (122-220); Sodium 144 mmol/L (135-145)
== END 2021-01-14 15:11 | disposition home or self-care (01) ==
LOC: HO.LAB 15:10
PROVIDERS: PCP Internal Medicine; Visit Provider Internal Medicine
DX: L98.9 Disorder of the skin and subcutaneous tissue, unspecified (principal); E11.22 Type 2 diabetes mellitus with diabetic chronic kidney disease; I12.9 Hypertensive chronic kidney disease with stage 1 through stage 4 chronic kidney disease, or unspecified chronic kidney disease; N18.9 Chronic kidney disease, unspecified
CPT/HCPCS: 36415; 80048; 83615; 85025; 86140

== ENCOUNTER 2021-01-27 13:58 | Outpatient (REF) | payer MEDICARE, MEDICAID, SELFPAY ==
--- NOTE | ~2021-01-27 | US_ITS ---
EXAMINATION: US VENOUS ULTRASOUND WITH DOPPLER LOWER EXTREMITY, BILATERAL CLINICAL INFORMATION: Bilateral leg edema. COMPARISON: None TECHNIQUE: Ultrasound of the deep veins is performed from the hip to the calf with compression sonography and color and pulse Doppler assessment. Spectral analysis with color-flow imaging is performed. FINDINGS: RIGHT: There is normal venous compression and respiratory variation and augmented flow. The visualized common femoral vein, superficial femoral vein, profunda femoral vein, popliteal vein, and the trifurcation region shows no evidence of deep venous thrombosis. There is no significant popliteal fossa cyst. Patient is unable to tolerate full compression on right femoral vein. LEFT: There is normal venous compression and respiratory variation and augmented flow. The visualized common femoral vein, superficial femoral vein, profunda femoral vein, popliteal vein, and the trifurcation region shows no evidence of deep venous thrombosis. There is no significant popliteal fossa cyst. Patient is unable to tolerate full compression on the left femoral vein If the patient's symptoms persist, followup ultrasound in 5 days 7 days might be of value to exclude proximal propagation from a non-visualized calf vein. US/US venous duplex LE BI IMPRESSION: No DVT demonstrated in the bilateral lower extremity.
== END 2021-01-27 13:59 | disposition home or self-care (01) ==
LOC: HO.US 13:58
PROVIDERS: PCP Internal Medicine; Visit Provider Internal Medicine
DX: R22.43 Localized swelling, mass and lump, lower limb, bilateral (principal)
CPT/HCPCS: 93970

== ENCOUNTER 2021-04-01 10:46 | Outpatient (REF) | payer MEDICARE, MEDICAID, SELFPAY ==
[2021-04-01 13:55] LABS: MANUAL DIFF FLAG NO
[2021-04-01 14:11] LABS: Basophils Percent Auto 0.3 % (0-2); Eosinophils Absolute Auto 0.2 X10*3/uL (0.0-0.4); Eosinophils Percent Auto 1.5 % (0-4); Hematocrit 40.8 % (37.0-47.0); Hemoglobin 13.2 g/dl (12.0-16.0); Imm Gran Abs Auto 0.03 X10*3/uL (0.00-0.03); Imm Gran Pct Auto 0.3 % (0.0-0.4); Lymphocytes Absolute Auto 1.8 X10*3/uL (1.2-4.9); Lymphocytes Percent Auto 17.3 % (20-40); Mean Corpuscular HGB Conc 32.4 g/dl (31.0-35.0); Mean Corpuscular Hemoglobin 28.9 pg (27.0-33.0); Mean Corpuscular Volume 89.3 fL (80.0-98.0); Mean Platelet Volume 11.5 fL (9.4-12.3); Monocytes Absolute Auto 0.8 X10*3/uL (0.1-1.2); Monocytes Percent Auto 7.4 % (2-11); Neutrophils Absolute Auto 7.4 x10*3/uL (2.0-8.3); Neutrophils Percent Auto 73.2 % (45-73); Platelet Count 246 X10*3/uL (160-400); Red Blood Count 4.57 X10*6/uL (4.20-5.50); Red Cell Distribution Width 13.6 % (11.0-16.0); White Blood Count 10.1 X10*3/uL (4.8-10.8)
[2021-04-01 14:12] LABS: Appearance Urine CLEAR; Color Urine YELLOW; Glucose Urine UA NEG (NEG); Leukocyte Esterase Urine NEG (NEG); Nitrite Urine NEG (NEG); Urine Blood NEG (NEG); Urine Ketones NEG (NEG); Urine Protein NEG (NEG-TRACE)
[2021-04-01 14:27] LABS: Alanine Aminotransferase 16 U/L (0-31); Albumin Level 3.9 g/dL (3.5-5.0); Alkaline Phosphatase 112 U/L (39-117); Anion Gap 12 (12-20); Aspartate Amino Transferase 16 U/L (5-31); Bilirubin Total 0.4 mg/dL (0.0-1.0); Blood Urea Nitrogen 15 mg/dL (9-16); C Reactive Protein 3.01 mg/dL (< or = 0.50); Calcium 9.6 mg/dL (8.4-10.2); Carbon Dioxide 39 mmol/L (22-29); Chloride 94 mmol/L (96-108); Estimated Average Glucose 137 mg/dL; Estimated Glomerular Filt Rate 48; Glucose Random 111 mg/dL (60-115); Hemoglobin A1c % 6.4 %; Lipase 8 U/L (8-78); Potassium 3.4 mmol/L (3.3-5.1); Sodium 142 mmol/L (135-145); Total Protein 7.5 g/dL (6.5-8.0)
[2021-04-01 14:54] LABS: Creatinine Urine 73.36 mg/dL; Microalbum/Creatinine Ratio Ur 13.6 ug/mg cr
== END 2021-04-01 10:47 | disposition home or self-care (01) ==
LOC: HO.10HDL 10:46
PROVIDERS: Visit Provider Internal Medicine
DX: J44.9 Chronic obstructive pulmonary disease, unspecified (principal); E11.40 Type 2 diabetes mellitus with diabetic neuropathy, unspecified; K21.9 Gastro-esophageal reflux disease without esophagitis; R10.9 Unspecified abdominal pain
CPT/HCPCS: 36415; 80053; 81003; 82043; 83036; 83690; 85025; 86140; 87086

== ENCOUNTER 2021-10-01 13:45 | Emergency (ER) | payer MEDICARE, MEDICAID, SELFPAY ==
--- NOTE | ~2021-10-01 | XR_ITS ---
EXAMINATION: XR TOES, LEFT CLINICAL INFORMATION: Left first digit pain status post nail injury. COMPARISON: None TECHNIQUE: 3 views of the left toes were obtained. FINDINGS: There is no acute fracture or dislocation. The joint spaces are unremarkable. Increased density seen associated with the overlying nail. The soft tissues are unremarkable. XR/XR toe LT min 2V IMPRESSION: First digit nail injury with possible subungual hematoma, but no definitive acute underlying osseous abnormality.
[2021-10-01 14:13] VITALS: BP 171/70; PULSE 59; RESP 20; TEMP 36.3; O2SAT 94; BMI 40.2
--- NOTE | 2021-10-01 14:31 | ED.EXTPRO ---
HPI - Extremity Problem General Chief complaint: Extremity Problem Stated complaint: left foot toe inj Time Seen by Provider: 10/01/21 14:25 Source: patient and family Mode of arrival: wheelchair Limitations: no limitations History of Present Illness HPI Narrative: 65-year-old female here with reports of left great toe pain and left foot pain as well as redness and swelling since an injury yesterday. Patient tells me she was putting her shoe on and her foot slipped causing it to bend behind her. Since then she has pain in her left great toe with radiation up the foot with some warmth, redness and swelling. No fevers or chills. Related Data Home Medications Medication Instructions Recorded Confirmed albuterol sulfate 90 mcg/actuation 2 puff inhalation Q4H PRN 01/25/20 10/29/20 aerosol inhaler Shortness Of Breath methadone 5 mg/5 mL oral solution 120 mg PO DAILY 01/25/20 10/29/20 oxcarbazepine 600 mg tablet 600 mg PO BID 01/25/20 10/29/20 simvastatin 10 mg tablet 10 mg PO DAILY 01/25/20 10/29/20 zolpidem 10 mg tablet 10 mg PO BEDTIME 01/25/20 10/29/20 amlodipine 5 mg tablet 1 tab PO DAILY 10/01/20 10/29/20 famotidine 20 mg tablet 20 mg PO BEDTIME 10/01/20 10/29/20 cephalexin 500 mg tablet 500 mg PO TID 10/29/20 10/29/20 tiotropium bromide 18 mcg capsule 1 cap inhalation DAILY 10/29/20 10/29/20 with inhalation device Previous Rx's Medication Instructions Recorded insulin lispro 100 unit/mL See Protocol subcut QIDACHS #10 mL 10/03/20 subcutaneous solution (Humalog U-100 Insulin) ipratropium 0.5 mg-albuterol 3 mg 3 ml inhalation RQ4H PRN Shortness 10/03/20 (2.5 mg base)/3 mL nebulization Of Breath/Wheezing #15 mL soln nicotine 14 mg/24 hr daily 14 mg transdermal DAILY #7 ea 10/03/20 transdermal patch clopidogrel 75 mg tablet 75 mg PO DAILY 90 days #30 tabs 09/01/21 furosemide 40 mg tablet 40 mg PO Q OTHER DAY #45 tabs 09/01/21 doxycycline monohydrate 100 mg 100 mg PO BID #20 caps 10/01/21 capsule Allergies Allergy/AdvReac Type Severity Reaction Status Date / Time Penicillins Allergy Intermediate RASH SOB Verified 10/29/20 15:00 [id number] Allergy Intermediate Rash Uncoded 10/29/20 15:00 Review of Systems Review of Systems: Yes all other systems are reviewed and are negative Constitutional: Constitutional: Reports no additional constitutional complaints, Denies body ache(s), Denies chills, Denies fever(s), Denies headache(s) and Denies weakness Eyes: Eyes: Reports no additional eye complaints and Denies change in vision ENT: Reports system reviewed and no additional complaints, except as documented, Denies dizziness, Denies headache(s), Denies nasal congestion, Denies nasal discharge and Denies neck pain Cardiovascular: Cardiovascular: Reports no additional cardiovascular complaints, Denies chest pain, Denies leg edema and Denies dyspnea Respiratory: Respiratory: Reports no additional respiratory complaints, Denies cough and Denies dyspnea Gastrointestinal: Gastrointestinal: Reports no additional gastrointestinal complaints, Denies abdominal pain, Denies diarrhea, Denies nausea and Denies vomiting Genitourinary: Genitourinary: Reports no additional female genitourinary complaints and Denies urinary incontinence Musculoskeletal: Musculoskeletal: Reports no additional musculoskeletal complaints, Denies back pain, Reports arthralgias, Reports joint swelling, Reports limited range of motion, Denies neck pain, Denies numbness and Denies tingling Integumentary/Breasts: Skin/Breast: Reports system reviewed and no additional complaints, except as docu, Reports swelling, Reports erythema and Denies rash Neurologic: Reports system reviewed and no additional complaints, except as documented, Denies Abnormal speech present, Denies dizziness, Denies headache(s), Denies numbness, Denies tingling and Denies weakness [facility] Past Medical History Attestation statement: The following information was validated with the patient. Source: old records reviewed and nursing notes reviewed Medical History Anemia Arthritis Asthma Back pain BiPAP (biphasic positive airway pressure) dependence COPD (chronic obstructive pulmonary disease) COPD (chronic obstructive pulmonary disease) Depression Diabetes Diabetic acidosis, type I Elevated cholesterol GERD (gastroesophageal reflux disease) History of blood transfusion History of headache HTN (hypertension) Hx of anxiety disorder Hx of bipolar disorder Hx of drug dependence Oxygen dependent Sleep apnea Surgical History H/O colonoscopy History of esophagogastroduodenoscopy (EGD) Hx of arthroscopic knee surgery Hx of section Hx of foot surgery Hx of total knee replacement Family History Family History Father Heart disease Mother Heart disease Social History Social History Household Members: None Housing: Apartment Do you presently have visiting nurse or other home services: Yes Patient Tobacco Use Status: Current everyday Tobacco user Tobacco use type: Cigarette Cigarette Packs Per Day: 0.25 Cigarettes Per Day: 2 Years Smoked: 50 Second Hand Smoke Exposure: No Substance Use Type: Heroin Advance Directives: No Advance Directives Information Provided: No service: No Current occupational status: disabled Current occupation: right handed Physical Exam Vital Signs: Vital Signs: Last Vital Signs Temp 97.3 F 10/01/21 14:13 Pulse 59 10/01/21 14:13 Resp 20 10/01/21 14:13 BP 171/70 H 10/01/21 14:13 Pulse Ox 94 10/01/21 14:13 O2 Del Method 10/01/21 14:13 BMI result Body Mass Index 40.2 Const: General: cooperative, healthy appearing, comfortable and no acute distress Orientation/consciousness: patient oriented x3 Limitations: no limitations HEENT: Head: Yes normal to inspection Ears: hearing grossly normal bilaterally General nose exam: Normal external nose present Face and sinus: Yes normal facial exam Mouth: Normal oral and palatal mucosa present Throat: Yes posterior oropharynx normal Eyes: General: appearance normal, both eyes and all related structures Pupils: Equal, round and reactive pupils present Neck: Neck: Yes normal visual inspection Chest: Chest palpation & inspection: normal inspection of the chest Resp: Effort & Inspection: normal respiratory effort Auscultation: clear to auscultation bilaterally Cardio: Rate: regular rate Rhythm: regular rhythm Peripheral pulses: Peripheral pulses 2+ throughout GI: Inspection: Yes normal to inspection Palpation (GI): Soft to palpation and nontender Auscultation: normal bowel sounds Back/Spine/Pelvis: Thoracic/Lumbar Spine: thoracic and lumbar spine normal to inspection Skin: General skin exam: no rashes or lesions noted Neuro: General: patient oriented x3, no focal motor deficits and normal sensation to monofilament Cranial nerves: Yes Equal, round and reactive pupils present Cognition (Neuro): normal cognition Speech: No Abnormal speech present Gait exam (Neuro): Normal gait present Motor exam (neuro): 5/5 motor strength present throughout Extrem: Other: There is tenderness over the base of the left great toe and over the more distal aspect of the foot. There is redness, warmth and swelling over the dorsal aspect of the foot and over the great toe. There are palpable DP and PT pulses. There is full range of motion. Sensation is normal General: Yes normal to inspection Course Course Course Narrative: X-ray show no bony abnormality. There is warmth, redness swelling over dorsal foot. Question early cellulitis. Patient is nontoxic-appearing. She is afebrile. Will initiate oral antibiotics. Will recommend warm soaks. Reviewed worrisome signs and symptoms of when to return to the emergency department. Comfortable discharge home. MDM - Extremity (Nontraumatic) MDM Narrative Medical decision making narrative: Sixty-five Medical Records Attestation: I reviewed the patient's medical records. Lab Data Attestation: I reviewed the patient's lab results. Imaging Data foot xray: Attestation: I personally reviewed and interpreted this imaging study as follows: Radiologist's impression: EXAMINATION: XR TOES, LEFT CLINICAL INFORMATION: Left first digit pain status post nail injury. COMPARISON: None TECHNIQUE: 3 views of the left toes were obtained. FINDINGS: There is no acute fracture or dislocation. The joint spaces are unremarkable. Increased density seen associated with the overlying nail. The soft tissues are unremarkable. XR/XR toe LT min 2V IMPRESSION: First digit nail injury with possible subungual hematoma, but no definitive acute underlying osseous abnormality. Discharge Plan Discharge Clinical Impression: Cellulitis Patient Disposition: Home, Self-Care Instructions: Cellulitis (ED), Warm Compress or Soak (ED) Additional Instructions: X-ray show no fractures. Return for increasing redness, increasing swelling, fever greater than 100.4 Prescriptions: New doxycycline monohydrate 100 mg capsule 100 mg PO BID Qty: 20 0RF No Action clopidogrel 75 mg tablet 75 mg PO DAILY 90 Days Qty: 30 0RF furosemide 40 mg tablet 40 mg PO Q OTHER DAY Qty: 45 1RF simvastatin 10 mg tablet 10 mg PO DAILY oxcarbazepine 600 mg Tablet 600 mg PO BID zolpidem 10 mg tablet 10 mg PO BEDTIME albuterol sulfate 90 mcg/actuation HFA aerosol inhaler 2 puff inhalation Q4H PRN (Reason: Shortness Of Breath) methadone 5 mg/5 mL Solution 120 mg PO DAILY famotidine 20 mg tablet 20 mg PO BEDTIME amlodipine 5 mg tablet 1 tab PO DAILY nicotine 14 mg/24 hr Patch 24 Hour 14 mg transdermal DAILY Qty: 7 0RF ipratropium-albuterol 0.5 mg-3 mg(2.5 mg base)/3 mL Solution For Nebulization 3 ml inhalation RQ4H PRN (Reason: Shortness Of Breath/Wheezing) Qty: 15 0RF insulin lispro [Humalog U-100 Insulin] 100 unit/mL Solution See Protocol subcut QIDACHS Qty: 10 0RF Protocol: Insulin Correction Scale Less than or equal to 110 ---- Give (units): 0 111 to 150 Give (units): 0 151 to 200 Give (units): 2 201 to 250 Give (units): 4 251 to 300 Give (units): 6 301 to 350 Give (units): 8 Greater than 350 Give (units): 10 Call MD if Blood Glucose > : 350 cephalexin 500 mg tablet 500 mg PO TID Spiriva with HandiHaler 18 mcg capsule, w/inhalation device 1 cap inhalation DAILY Referrals: Rito Grady MD [Primary Care Provider] -
== END 2021-10-01 16:09 | disposition home or self-care (01) ==
PROVIDERS: Emergency Provider Emergency Medicine; PCP Internal Medicine
DX: L03.032 Cellulitis of left toe (principal); F17.210 Nicotine dependence, cigarettes, uncomplicated; Z71.6 Tobacco abuse counseling; Z79.899 Other long term (current) drug therapy
CPT/HCPCS: 73660; 99283

== ENCOUNTER 2021-10-04 12:35 | Emergency (ER) | payer MEDICARE, MEDICAID, SELFPAY ==
[2021-10-04 12:36] VITALS: BP 135/69; PULSE 68; RESP 18; TEMP 37; O2SAT 96; BMI 40.4
--- NOTE | 2021-10-04 13:35 | ED_ITS ---
HPI - General Adult General Chief complaint: Extremity Injury, Lower Stated complaint: L foot swelling Time Seen by Provider: 10/04/21 13:35 Source: patient Mode of arrival: ambulatory Limitations: no limitations History of Present Illness HPI narrative: Patient is a 65 year old female presenting to the emergency department today with left foot swelling and pain. Patient states that she was seen here a couple of days ago for this and it seems to be getting worse. Patient denies any dizziness, lightheadedness, abdominal pain, nausea, vomiting, fever, chills, blurry vision, double vision, loss of vision, chest pain, difficulty breathing, shortness of breath, back pain, night sweats, pain with urination, increased urinary frequency, increased urinary urgency, blood in her urine or stool, syncope or a near syncopal episode, recent trauma or falls, bowel incontinence, bladder incontinence, bowel retention, bladder retention, or any other complaints at this time. Onset (ago): day(s) Location: left and lower extremity Radiation: non-radiation Severity: mild Severity scale (1-10): 2 Quality: burning Pain Consistency: constant Relieving factors: none Exacerbating factors: none Associated symptoms: denies other symptoms Treatments prior to arrival: none Related Data Home Medications Medication Instructions Recorded Confirmed albuterol sulfate 90 mcg/actuation 2 puff inhalation Q4H PRN 01/25/20 10/29/20 aerosol inhaler Shortness Of Breath methadone 5 mg/5 mL oral solution 120 mg PO DAILY 01/25/20 10/29/20 oxcarbazepine 600 mg tablet 600 mg PO BID 01/25/20 10/29/20 simvastatin 10 mg tablet 10 mg PO DAILY 01/25/20 10/29/20 zolpidem 10 mg tablet 10 mg PO BEDTIME 01/25/20 10/29/20 amlodipine 5 mg tablet 1 tab PO DAILY 10/01/20 10/29/20 famotidine 20 mg tablet 20 mg PO BEDTIME 10/01/20 10/29/20 cephalexin 500 mg tablet 500 mg PO TID 10/29/20 10/29/20 tiotropium bromide 18 mcg capsule 1 cap inhalation DAILY 10/29/20 10/29/20 with inhalation device Previous Rx's Medication Instructions Recorded insulin lispro 100 unit/mL See Protocol subcut QIDACHS #10 mL 10/03/20 subcutaneous solution (Humalog U-100 Insulin) ipratropium 0.5 mg-albuterol 3 mg 3 ml inhalation RQ4H PRN Shortness 10/03/20 (2.5 mg base)/3 mL nebulization Of Breath/Wheezing #15 mL soln nicotine 14 mg/24 hr daily 14 mg transdermal DAILY #7 ea 10/03/20 transdermal patch clopidogrel 75 mg tablet 75 mg PO DAILY 90 days #30 tabs 09/01/21 furosemide 40 mg tablet 40 mg PO Q OTHER DAY #45 tabs 09/01/21 doxycycline monohydrate 100 mg 100 mg PO BID #20 caps 10/01/21 capsule naproxen 500 mg tablet 500 mg PO BID 7 days #14 tabs 10/04/21 Allergies Allergy/AdvReac Type Severity Reaction Status Date / Time Penicillins Allergy Intermediate RASH SOB Verified 10/29/20 15:00 [id number]-81 Allergy Intermediate Rash Uncoded 10/29/20 15:00 Review of Systems Constitutional: Constitutional: Reports no additional constitutional complaints, Denies chills, Denies fever(s) and Denies night sweats Eyes: Eyes: Reports no additional eye complaints, Denies blurry vision, Denies change in vision, Denies diplopia, Denies eye discharge, Denies loss of vision and Denies eye pain ENT: Denies dizziness Cardiovascular: Cardiovascular: Reports no additional cardiovascular complaints, Denies chest pain, Denies lightheadedness, Denies Loss of Conscio usness and Denies dyspnea Respiratory: Respiratory: Reports no additional respiratory complaints and Denies dyspnea Gastrointestinal: Gastrointestinal: Reports no additional gastrointestinal complaints, Denies abdominal pain, Denies melena, Denies hematochezia, Denies change in bowel habits and Denies change in stool character Genitourinary: Genitourinary: Denies hematuria, Denies urinary frequency, Denies dysuria, Denies urinary incontinence, Denies urinary hesitancy and Denies urinary urgency Musculoskeletal: Musculoskeletal: Reports no additional musculoskeletal complaints, Denies numbness and Denies tingling Comments: left foot pain Neurologic: Denies dizziness, Denies loss of vision, Denies numbness and Denies tingling Psychiatric: Psychiatric: Reports no additional psychiatric complaints Endocrine: Endocrine: Reports no additional endocrine complaints Hematologic/Lymphatic: Hematologic/Lymphatic: Reports no additional mariela tologic/lymphatic complaints Allergic/Immunologic: Allergic/Immunologic: Reports no additional allergic/immunologic complaints [facility] Past Medical History Attestation statement: The following information was validated with the patient. Source: old records reviewed Medical History Anemia Arthritis Asthma Back pain BiPAP (biphasic positive airway pressure) dependence COPD (chronic obstructive pulmonary disease) COPD (chronic obstructive pulmonary disease) Depression Diabetes Diabetic acidosis, type I Elevated cholesterol GERD (gastroesophageal reflux disease) History of blood transfusion History of headache HTN (hypertension) Hx of anxiety disorder Hx of bipolar disorder Hx of drug dependence Oxygen dependent Sleep apnea Surgical History H/O colonoscopy History of esophagogastroduodenoscopy (EGD) Hx of arthroscopic knee surgery Hx of section Hx of foot surgery Hx of total knee replacement Family History Family History Father Heart disease Mother Heart disease Social History Social History Household Members: None Housing: Apartment Do you presently have visiting nurse or other home services: Yes Patient Tobacco Use Status: Current everyday Tobacco user Tobacco use type: Cigarette Cigarette Packs Per Day: 0.25 Cigarettes Per Day: 2 Years Smoked: 50 Second Hand Smoke Exposure: No Substance Use Type: Heroin Advance Directives: No Advance Directives Information Provided: Yes service: No Current occupational status: disabled Current occupation: right handed Physical Exam ED Vital Signs: Vital Signs - 24 hr 10/04/21 12:36 Temperature 98.6 F Pulse Rate 68 Respiratory Rate 18 Blood Pressure 135/69 Pulse Oximetry 96 Oxygen Delivery Method Room Air BMI result Body Mass Index 40.4 Const General: cooperative, no acute distress, alert and awake Nutritional Appearance: well nourished Orientation/consciousness: patient oriented x3 Limitations: no limitations HENMT Head: Yes normal to inspection and Yes atraumatic Ears: hearing grossly normal bilaterally and external ears normal General nose exam: Normal external nose present, no nasal discharge noted and no epistaxis Face and sinus: Yes normal facial exam, No abrasion and No laceration Mouth: Normal oral and palatal mucosa present, no drooling and no muffled voice Eyes General: appearance normal, both eyes and all related structures Periorbital: periorbital findings normal Eyelids: Yes eyelids normal Conjunctivae: conjunctivae normal Pupils: Equal, round and reactive pupils present EOM: EOMs intact bilaterally Neck Neck: Yes normal visual inspection, Yes full ROM and Yes no lymphadenopathy Chest Chest palpation & inspection: normal inspection of the chest Resp Effort & Inspection: normal respiratory effort and able to speak in complete sentences Auscultation: clear to auscultation bilaterally Cardio Rate: regular rate Rhythm: regular rhythm GI Inspection: Yes normal to inspection Skin Other: redness and warmth to the dorsal aspect of the left toe Neuro General: patient oriented x3 and moves all extremities Cranial nerves: Yes Equal, round and reactive pupils present Cognition (Neuro): normal cognition Motor exam (neuro): 5/5 motor strength present throughout Sensory Exam: Normal double simultaneous stimulation for sensation Coordination: [id number] test normal Extrem General: Yes normal to inspection, Yes full ROM and Yes capillary refill normal Psych Appearance: grossly normal Mental Status: mental status grossly normal Affect: normal affect Attitude: cooperative Thought process: Normal thought process present Thought content: Normal thought content present Insight: Good insight present (Psych) Medical Decision Making MDM Narrative Medical decision making narrative: Patient is a 65 year old female presenting to the emergency department today with left foot pain. Patient's physical exam showed erythema and warmth directly over the MTP joint of the left foot, consistent with gout. I explained my physical exam findings to the patient and the patient's son. I answered all questions asked by the patient and the patient's son. I stressed the importance of the patient taking her medication as prescribed. I stressed the importance of the patient following up with her primary care provider. I stressed the impo rtance of the patient returning to the emergency department immediately if her symptoms were to worsen or if she were to develop any dizziness, shortness of breath, difficulty breathing, chest pain, blurry vision, loss of vision, nausea, vomiting, abdominal pain, fever, chills, back pain, or any other complaints. Patient and the patient's son verbalized agreement and understanding with this treatment plan and discharge. Differential Diagnosis Differential Diagnosis: gout Medical Records Medical records reviewed: Yes I reviewed the patient's medical records. Discharge Plan Discharge Clinical Impression: Gout Patient Disposition: Home, Self-Care Instructions: Gout (ED) Additional Instructions: Follow up with your primary care provider. Return to the emergency department immediately if your symptoms worsen or if you develop any dizziness, shortness of breath, difficulty breathing, chest pain, blurry vision, loss of vision, nausea, vomiting, abdominal pain, fever, chills, back pain, or any other complaints. Prescriptions: New naproxen 500 mg tablet 500 mg PO BID 7 Days Qty: 14 0RF No Action clopidogrel 75 mg tablet 75 mg PO DAILY 90 Days Qty: 30 0RF furosemide 40 mg tablet 40 mg PO Q OTHER DAY Qty: 45 1RF simvastatin 10 mg tablet 10 mg PO DAILY oxcarbazepine 600 mg Tablet 600 mg PO BID zolpidem 10 mg tablet 10 mg PO BEDTIME albuterol sulfate 90 mcg/actuation HFA aerosol inhaler 2 puff inhalation Q4H PRN (Reason: Shortness Of Breath) methadone 5 mg/5 mL Solution 120 mg PO DAILY famotidine 20 mg tablet 20 mg PO BEDTIME amlodipine 5 mg tablet 1 tab PO DAILY nicotine 14 mg/24 hr Patch 24 Hour 14 mg transdermal DAILY Qty: 7 0RF ipratropium-albuterol 0.5 mg-3 mg(2.5 mg base)/3 mL Solution For Nebulization 3 ml inhalation RQ4H PRN (Reason: Shortness Of Breath/Wheezing) Qty: 15 0RF insulin lispro [Humalog U-100 Insulin] 100 unit/mL Solution See Protocol subcut QIDACHS Qty: 10 0RF Protocol: Insulin Correction Scale Less than or equal to 110 ---- Give (units): 0 111 to 150 Give (units): 0 151 to 200 Give (units): 2 201 to 250 Give (units): 4 251 to 300 Give (units): 6 301 to 350 Give (units): 8 Greater than 350 Give (units): 10 Call MD if Blood Glucose > : 350 doxycycline monohydrate 100 mg capsule 100 mg PO BID Qty: 20 0RF cephalexin 500 mg tablet 500 mg PO TID Spiriva with HandiHaler 18 mcg capsule, w/inhalation device 1 cap inhalation DAILY Referrals: Rito Grady MD [Primary Care Provider] - Interventions: ED Discharge Assessment Last Done: 10/04/21 14:07 Discharge Date/Time: 10/04/21 14:08 Print Language: Indonesian
== END 2021-10-04 14:08 | disposition home or self-care (01) ==
PROVIDERS: Emergency Provider Emergency Medicine Emergency Medical Services; PCP Internal Medicine
DX: M10.9 Gout, unspecified (principal); R60.0 Localized edema; Z79.899 Other long term (current) drug therapy; F17.210 Nicotine dependence, cigarettes, uncomplicated; Z71.6 Tobacco abuse counseling
CPT/HCPCS: 99282; 99283

== ENCOUNTER 2021-11-06 12:27 | Emergency (ER) | payer MEDICARE, MEDICAID, SELFPAY ==
[2021-11-06 13:23] VITALS: BP 149/77; PULSE 63; RESP 18; TEMP 37; O2SAT 94; BMI 40.6
--- NOTE | 2021-11-06 16:33 | ED.BACK ---
HPI - Back Pain/Injury General Chief Complaint: Back Pain/Injury Stated Complaint: back pain Time Seen by Provider: 11/06/21 16:33 Source: patient Mode of arrival: ambulatory Limitations: no limitations History of Present Illness HPI Narrative: History of sciatica now with left sciatic pain. Patient has had pain on and off for a month Pertinent past history: prior back pain Onset (ago): month(s) Timing: constant Severity: mild Similar Symptoms Previously: Yes Location: lumbar spine Radiation: left upper leg Exacerbating factors: none Relieving factors: none Associated symptoms: denies other symptoms Related Data Home Medications Medication Instructions Recorded Confirmed albuterol sulfate 90 mcg/actuation 2 puff inhalation Q4H PRN 01/25/20 10/29/20 aerosol inhaler Shortness Of Breath methadone 5 mg/5 mL oral solution 120 mg PO DAILY 01/25/20 10/29/20 oxcarbazepine 600 mg tablet 600 mg PO BID 01/25/20 10/29/20 simvastatin 10 mg tablet 10 mg PO DAILY 01/25/20 10/29/20 zolpidem 10 mg tablet 10 mg PO BEDTIME 01/25/20 10/29/20 amlodipine 5 mg tablet 1 tab PO DAILY 10/01/20 10/29/20 famotidine 20 mg tablet 20 mg PO BEDTIME 10/01/20 10/29/20 cephalexin 500 mg tablet 500 mg PO TID 10/29/20 10/29/20 tiotropium bromide 18 mcg capsule 1 cap inhalation DAILY 10/29/20 10/29/20 with inhalation device Previous Rx's Medication Instructions Recorded insulin lispro 100 unit/mL See Protocol subcut QIDACHS #10 mL 10/03/20 subcutaneous solution (Humalog U-100 Insulin) ipratropium 0.5 mg-albuterol 3 mg 3 ml inhalation RQ4H PRN Shortness 10/03/20 (2.5 mg base)/3 mL nebulization Of Breath/Wheezing #15 mL soln nicotine 14 mg/24 hr daily 14 mg transdermal DAILY #7 ea 10/03/20 transdermal patch clopidogrel 75 mg tablet 75 mg PO DAILY 90 days #30 tabs 09/01/21 furosemide 40 mg tablet 40 mg PO Q OTHER DAY #45 tabs 09/01/21 doxycycline monohydrate 100 mg 100 mg PO BID #20 caps 10/01/21 capsule naproxen 500 mg tablet 500 mg PO BID 7 days #14 tabs 10/04/21 cyclobenzaprine 10 mg tablet 10 mg PO TID #10 tabs 11/06/21 naproxen 500 mg tablet (Naprosyn) 500 mg PO BID #20 tabs 11/06/21 Allergies Allergy/AdvReac Type Severity Reaction Status Date / Time Penicillins Allergy Intermediate RASH SOB Verified 10/29/20 15:00 Aspir-81 Allergy Intermediate Rash Uncoded 10/29/20 15:00 Review of Systems Constitutional: Constitutional: Reports no additional constitutional complaints Eyes: Eyes: Reports no additional eye complaints ENT: Denies dizziness Cardiovascular: Cardiovascular: Reports no additional cardiovascular complaints Respiratory: Respiratory: Reports as per HPI Gastrointestinal: Gastrointestinal: Reports no additional gastrointestinal complaints Genitourinary: Genitourinary: Reports no additional female genitourinary complaints Musculoskeletal: Musculoskeletal: Reports no additional musculoskeletal complaints Integumentary/Breasts: Skin/Breast: Denies rash Neurologic: Reports system reviewed and no additional complaints, except as documented, Denies dizziness and Denies Sensory deficit (Neuro) Psychiatric: Psychiatric: Denies anxiety PMFSH Past Medical History Medical History Anemia Arthritis Asthma Back pain BiPAP (biphasic positive airway pressure) dependence COPD (chronic obstructive pulmonary disease) COPD (chronic obstructive pulmonary disease) Depression Diabetes Diabetic acidosis, type I Elevated cholesterol GERD (gastroesophageal reflux disease) History of blood transfusion History of headache HTN (hypertension) Hx of anxiety disorder Hx of bipolar disorder Hx of drug dependence Oxygen dependent Sleep apnea Surgical History H/O colonoscopy History of esophagogastroduodenoscopy (EGD) Hx of arthroscopic knee surgery Hx of section Hx of foot surgery Hx of total knee replacement S/P cardiac cath Family History Family History Father Heart disease Mother Heart disease Social History Social History Household Members: None Housing: Apartment Do you presently have visiting nurse or other home services: Yes Patient Tobacco Use Status: Current everyday Tobacco user Tobacco use type: Cigarette Cigarette Packs Per Day: 0.25 Cigarettes Per Day: 2 Years Smoked: 50 Second Hand Smoke Exposure: No Substance Use Type: Heroin service: No Current occupational status: disabled Current occupation: right handed Physical Exam Vital Signs: Vital Signs: Last Vital Signs Temp 98.6 F 11/06/21 13:23 Pulse 63 11/06/21 13:23 Resp 18 11/06/21 13:23 BP 149/77 H 11/06/21 13:23 Pulse Ox 94 11/06/21 13:23 O2 Del Method 11/06/21 13:23 BMI result Body Mass Index 40.6 Const: General: healthy appearing Nutritional Appearance: obese Orientation/consciousness: oriented to person and patient oriented x3 Limitations: no limitations HEENT: Head: Yes normal to inspection Ears: external ears normal General nose exam: Normal external nose present Mouth: Normal oral and palatal mucosa present and oropharynx normal Throat: Yes posterior oropharynx normal Eyes: General: appearance normal, both eyes and all related structures Neck: Other: supple Neck: Yes normal visual inspection Chest: Chest palpation & inspection: normal inspection of the chest Resp: Auscultation: clear to auscultation bilaterally Cardio: Jugular venous distension: no JVD Rate: regular rate Rhythm: regular rhythm Heart sounds: S1 normal heart sound present and S2 normal heart sound present GI: Inspection: Yes normal to inspection Palpation (GI): Soft to palpation, nontender and No hepatosplenomegaly present Auscultation: normal bowel sounds Back/Spine/Pelvis: Other: left SI joint pain and left sciatic notch pain to palpation Skin: General skin exam: no rashes or lesions noted Neuro: General: oriented to person and patient oriented x3 Cranial nerves: Yes CN's II-XII intact bilaterally Motor exam (neuro): 5/5 motor strength present throughout Sensory Exam: No Sensory deficit (Neuro) Extrem: General: Yes normal to inspection Psych: Appearance: grossly normal Course Reevaluation(s) Reevaluation #1: patient with obvious sciatica will start NSAIDs and flexeril, patient needs to follow up with physical therapy Time: 16:47 Discharge Plan Discharge Clinical Impression: Lumbar radiculopathy, Sciatica Patient Disposition: Home, Self-Care Instructions: Sciatica (ED), Acute Low Back Pain (ED), Lumbar Radiculopathy (ED) Additional Instructions: you must follow up with physical therapy Prescriptions: New cyclobenzaprine 10 mg tablet 10 mg PO TID Qty: 10 0RF naproxen [Naprosyn] 500 mg tablet 500 mg PO BID Qty: 20 0RF No Action clopidogrel 75 mg tablet 75 mg PO DAILY 90 Days Qty: 30 0RF furosemide 40 mg tablet 40 mg PO Q OTHER DAY Qty: 45 1RF simvastatin 10 mg tablet 10 mg PO DAILY oxcarbazepine 600 mg Tablet 600 mg PO BID zolpidem 10 mg tablet 10 mg PO BEDTIME albuterol sulfate 90 mcg/actuation HFA aerosol inhaler 2 puff inhalation Q4H PRN (Reason: Shortness Of Breath) methadone 5 mg/5 mL Solution 120 mg PO DAILY famotidine 20 mg tablet 20 mg PO BEDTIME amlodipine 5 mg tablet 1 tab PO DAILY nicotine 14 mg/24 hr Patch 24 Hour 14 mg transdermal DAILY Qty: 7 0RF ipratropium-albuterol 0.5 mg-3 mg(2.5 mg base)/3 mL Solution For Nebulization 3 ml inhalation RQ4H PRN (Reason: Shortness Of Breath/Wheezing) Qty: 15 0RF insulin lispro [Humalog U-100 Insulin] 100 unit/mL Solution See Protocol subcut QIDACHS Qty: 10 0RF Protocol: Insulin Correction Scale Less than or equal to 110 ---- Give (units): 0 111 to 150 Give (units): 0 151 to 200 Give (units): 2 201 to 250 Give (units): 4 251 to 300 Give (units): 6 301 to 350 Give (units): 8 Greater than 350 Give (units): 10 Call MD if Blood Glucose > : 350 naproxen 500 mg tablet 500 mg PO BID 7 Days Qty: 14 0RF doxycycline monohydrate 100 mg capsule 100 mg PO BID Qty: 20 0RF cephalexin 500 mg tablet 500 mg PO TID Spiriva with HandiHaler 18 mcg capsule, w/inhalation device 1 cap inhalation DAILY Referrals: Rito Grady MD [Primary Care Provider] - 1 week
[2021-11-06] MEDS: Ketorolac Tromethamine 60 MG/2 ML VIAL IM (17:02)
[2021-11-06] MEDS: Cyclobenzaprine HCl 10 MG TABLET PO (17:03)
== END 2021-11-06 17:24 | disposition home or self-care (01) ==
LOC: HO.ED 17:20
PROVIDERS: Emergency Provider Emergency Medicine; PCP Internal Medicine
DX: M54.42 Lumbago with sciatica, left side (principal); M54.16 Radiculopathy, lumbar region; Z79.899 Other long term (current) drug therapy; F17.210 Nicotine dependence, cigarettes, uncomplicated; F11.90 Opioid use, unspecified, uncomplicated; Z71.6 Tobacco abuse counseling
CPT/HCPCS: 96372; 99282; 99284; J1885

== ENCOUNTER 2021-11-21 11:14 | Outpatient (REF) | payer MEDICARE, MEDICAID, SELFPAY ==
[2021-11-21 13:50] LABS: MANUAL DIFF FLAG NO
[2021-11-21 14:07] LABS: Basophils Percent Auto 0.3 % (0-2); Eosinophils Absolute Auto 0.2 X10*3/uL (0.0-0.4); Eosinophils Percent Auto 1.5 % (0-4); Hemoglobin 13.2 g/dl (12.0-16.0); Imm Gran Abs Auto 0.06 X10*3/uL (0.00-0.03); Imm Gran Pct Auto 0.5 % (0.0-0.4); Lymphocytes Absolute Auto 1.9 X10*3/uL (1.2-4.9); Lymphocytes Percent Auto 15.8 % (20-40); Mean Corpuscular Hemoglobin 29.3 pg (27.0-33.0); Mean Corpuscular Volume 88.9 fL (80.0-98.0); Mean Platelet Volume 11.3 fL (9.4-12.3); Monocytes Absolute Auto 0.8 X10*3/uL (0.1-1.2); Neutrophils Absolute Auto 8.9 x10*3/uL (2.0-8.3); Neutrophils Percent Auto 74.9 % (45-73); Platelet Count 300 X10*3/uL (160-400); Red Cell Distribution Width 13.7 % (11.0-16.0); White Blood Count 11.9 X10*3/uL (4.8-10.8)
[2021-11-21 14:16] LABS: Estimated Average Glucose 140 mg/dL; Hemoglobin A1c % 6.5 %
[2021-11-21 14:29] LABS: B Type Natriuretic Peptide 12 pg/mL (<100)
[2021-11-21 14:44] LABS: Alanine Aminotransferase 11 U/L (0-31); Alkaline Phosphatase 120 U/L (39-117); Anion Gap 17 (12-20); Aspartate Amino Transferase 15 U/L (5-31); Bilirubin Total 0.2 mg/dL (0.0-1.0); Blood Urea Nitrogen 21 mg/dL (9-16); Calcium 9.3 mg/dL (8.4-10.2); Carbon Dioxide 40 mmol/L (22-29); Chloride 90 mmol/L (96-108); Estimated Glomerular Filt Rate 41; Glucose Random 186 mg/dL (60-115); Potassium 3.6 mmol/L (3.3-5.1); Sodium 143 mmol/L (135-145); Total Protein 7.8 g/dL (6.5-8.0)
== END 2021-11-21 11:15 | disposition home or self-care (01) ==
LOC: HO.10HDL 11:14
PROVIDERS: Absent Provider Internal Medicine; Visit Provider Nurse Practitioner Family
DX: R60.9 Edema, unspecified (principal); E11.9 Type 2 diabetes mellitus without complications; K21.9 Gastro-esophageal reflux disease without esophagitis; J45.909 Unspecified asthma, uncomplicated
CPT/HCPCS: 36415; 80048; 80053; 82043; 83036; 83880; 85025

== ENCOUNTER → 2021-12-11 13:03 | Outpatient (BNVA) | payer OTHER, MEDICAID, SELFPAY | PROVIDERS: PCP Internal Medicine; Visit Provider Nurse Practitioner Family | DX: R94.31 Abnormal electrocardiogram [ECG] [EKG] (principal); R60.9 Edema, unspecified; Z98.890 Other specified postprocedural states | CPT/HCPCS: 93005; 99212 ==

== ENCOUNTER 2021-12-19 16:19 | Outpatient (REF) | payer OTHER, SELFPAY ==
[2021-12-19 17:26] LABS: Anion Gap 16 (12-20); Blood Urea Nitrogen 15 mg/dL (9-16); Calcium 9.3 mg/dL (8.4-10.2); Carbon Dioxide 36 mmol/L (22-29); Chloride 95 mmol/L (96-108); Estimated Glomerular Filt Rate 46; Glucose Random 83 mg/dL (60-115); Potassium 3.9 mmol/L (3.3-5.1); Sodium 143 mmol/L (135-145); Uric Acid 10.6 mg/dL (2.4-5.7)
[2021-12-19 17:55] LABS: Erythrocyte Sedimentation Rate 32 MM/HR (0-20)
== END 2021-12-19 16:20 | disposition home or self-care (01) ==
LOC: HO.LAB 16:19
PROVIDERS: Visit Provider Internal Medicine
DX: E11.9 Type 2 diabetes mellitus without complications (principal); M10.9 Gout, unspecified; N18.9 Chronic kidney disease, unspecified
CPT/HCPCS: 36415; 80048; 84550; 85652; 86140

== ENCOUNTER 2022-01-02 11:00 | Outpatient (RCR) | payer MEDICARE, MEDICAID, SELFPAY ==
--- NOTE | 2021-12-05 16:08 | MHC.PT.EP ---
[facility] [place] Office [place] Office [place] Office [address] Mitesh Maria [address] [phone] F: [phone] F: [phone] F: [phone] F: [phone] Physical Therapy Plan of Care Date of Evaluation: Date of Surgery: NA Diagnosis: SCIATICA L Assessment: PATIENT IS 66 YO F REFERRED TO PT FROM DR TAVAREZ WITH L SIDED SCIATICA. Pt PRESENTS WITH C/O L LBP REFERRED INTO L LE. HAS DECREASED LUMBAR ROM AND HIP FLEXION WITH POOR ABDOMINAL/CORE STRENGTH. Pt AMB WITH ST CANE (INITIALLY TOO HIGH) WITH SOME ANTALGIA (DECREASED WB ON L). SHOULD BENEFIT FROM PT TO ADDRESS THESE ISSUES. Frequency and Duration: The patient will be seen 2X/WEEK FOR 4 WEEKS Short Term Goals: 2 WEEKS: 1. INCREASED AWARENESS POSTURE/BACK CARE 2. CENTRALIZE SXS 3. Pt TO PERF 2-3 TASKS WITH PROPER BODY MECH Correction Goals: 4 WEEKS: 1. Pt TO REPORT NO FALLS 2. I HEP WITH DC EX PLAN 3. DECREASED BACK PAIN AT LEAST 50% WITH ADLS Treatment Plan: Modalities to reduce pain, spasms and effusion. Manual therapy to restore motion and function. Therapeutic exercise to improve strength and flexibility. Neuromuscular re-education for posture and balance. Therapeutic activities to return to functional activities of daily living. Electronically signed by: PENNIE GARCIA PT Please sign and return to therapist. Thank you for your referral.
--- NOTE | 2022-02-10 13:30 | MHC.PT.DC ---
[facility] [place] Office [place] Office [place] Office [address] Mitesh Maria [address] [phone] F: [phone] F: [phone] F: [phone] F: [phone] Physical Therapy Discharge Report Diagnosis: SCIATICA L Date of Surgery: NA Date of Evaluation: 12/05/21 Date of Discharge: 02/10/22 Treatments to Date: 6 Cancellations to Date: No Shows to Date: Discharge Status: Insurance Declined Tx Discharge Summary: Pt LAST SEEN ON 01/02/22. PER SUBJECTIVE/ASSESSMENT FROM SALIMA DUDLEY PT THAT DAY she is more confident with HEP and reports that she is performing it regularly at home . Pt THEN CANCELLED NEXT SESSION REPORTING IN TOO MUCH PAIN . THEN PRIMARY INSURANCE WAS INACTIVE. Pt WAS TO LOOK INTO IT AND GET BACK TO US..NO FURTHER APPTS SCHEDULED OF TODAY (02/10/22). WILL DC AT THIS TIME Electronically signed by: PENNIE GARCIA PT Please sign and return to therapist. Thank you for your referral.
== END 2022-02-10 13:32 | disposition home or self-care (01) ==
LOC: HO.PT 11:00
PROVIDERS: PCP Internal Medicine; Visit Provider Internal Medicine
DX: M54.32 Sciatica, left side (principal)
CPT/HCPCS: 97110; 97162

== ENCOUNTER 2022-01-12 10:04 | Outpatient (REF) | payer OTHER, MEDICAID, SELFPAY ==
--- NOTE | ~2022-01-12 | MM_ITS ---
EXAMINATION: MM SCREENING DIGITAL BREAST TOMOSYNTHESIS, BILATERAL CLINICAL INFORMATION: Screening. Asymptomatic. The lifetime risk of breast cancer based on the Tyrer-Cuzick Model is 5%. COMPARISON: Mammography: 01/07/2021, 06/08/2018, 07/07/2016 TECHNIQUE: Digital breast tomosynthesis is performed in both the craniocaudal and mediolateral oblique views along with computer-aided detection (CAD). Synthesized 2D images are generated from the tomosynthesis. FINDINGS: The breasts are almost entirely fatty (ACR BI-RADS breast composition Category a). Background stromal markings are similar to prior exams and there is no developing density or interval mass or architectural abnormality. Low left axillary tail node is again noted as incidental finding. The skin contours are smooth. There are no significant changes from prior studies. MM/MM tomosynthesis screening BI IMPRESSION: No mammographic evidence of malignancy. ASSESSMENT: BI-RADS 1: Negative RECOMMENDATION: Routine annual mammography screening. This patient's information was entered into a reminder system with a target due date for their next mammogram.
== END 2022-01-12 10:05 | disposition home or self-care (01) ==
LOC: HO.MAMMO 10:04
PROVIDERS: PCP Internal Medicine; Visit Provider Internal Medicine
DX: Z12.31 Encounter for screening mammogram for malignant neoplasm of breast (principal)
CPT/HCPCS: 77063; 77067

== ENCOUNTER 2022-02-25 17:48 | Emergency (ER) | payer OTHER, MEDICAID, SELFPAY ==
--- NOTE | ~2022-02-25 | XR_ITS ---
EXAMINATION: XR foot RT 2V, XR ankle RT 2V CLINICAL INFORMATION: Reason for Exam swelling and pain COMPARISON: None. TECHNIQUE: AP, lateral, and oblique views of the foot and 2 views of the ankle FINDINGS: No acute fracture or dislocation. Mild degenerative changes of the foot with plantar calcaneal and Achilles tendon enthesopathy and degenerative spurring of the dorsal midfoot. Mild soft tissue swelling along the dorsum of the foot. No tibiotalar joint effusion. XR/XR ankle RT 2V IMPRESSION: 1. No acute fracture or dislocation. 2. Mild soft tissue swelling along the dorsum of the foot. 3. Mild degenerative changes of the foot.
--- NOTE | ~2022-02-25 | XR_ITS ---
EXAMINATION: XR foot RT 2V, XR ankle RT 2V CLINICAL INFORMATION: Reason for Exam swelling and pain COMPARISON: None. TECHNIQUE: AP, lateral, and oblique views of the foot and 2 views of the ankle FINDINGS: No acute fracture or dislocation. Mild degenerative changes of the foot with plantar calcaneal and Achilles tendon enthesopathy and degenerative spurring of the dorsal midfoot. Mild soft tissue swelling along the dorsum of the foot. No tibiotalar joint effusion. XR/XR foot RT 2V IMPRESSION: 1. No acute fracture or dislocation. 2. Mild soft tissue swelling along the dorsum of the foot. 3. Mild degenerative changes of the foot.
[2022-02-25 19:36] VITALS: BP 135/84; PULSE 81; RESP 20; TEMP 36.7; O2SAT 92; BMI 42.2
--- NOTE | 2022-02-25 19:41 | ED.LOWEXIN ---
HPI - Extremity Injury (Lower) General Chief Complaint: General Medical Stated Complaint: Gout flare Time Seen by Provider: 02/25/22 21:33 Related Data Home Medications Medication Instructions Recorded Confirmed albuterol sulfate 90 mcg/actuation 2 puff inhalation Q4H PRN 01/25/20 12/11/21 aerosol inhaler Shortness Of Breath methadone 5 mg/5 mL oral solution 120 mg PO DAILY 01/25/20 12/11/21 oxcarbazepine 600 mg tablet 600 mg PO BID 01/25/20 12/11/21 simvastatin 10 mg tablet 10 mg PO DAILY 01/25/20 12/11/21 zolpidem 10 mg tablet 10 mg PO BEDTIME 01/25/20 12/11/21 famotidine 20 mg tablet 20 mg PO BEDTIME 10/01/20 12/11/21 cephalexin 500 mg tablet 500 mg PO TID 10/29/20 12/11/21 tiotropium bromide 18 mcg capsule 1 cap inhalation DAILY 10/29/20 12/11/21 with inhalation device amlodipine 5 mg tablet 5 mg PO DAILY 12/11/21 12/11/21 furosemide 20 mg tablet 20 mg PO DAILY 12/11/21 12/11/21 metformin 1,000 mg tablet 1,000 mg PO BID 12/11/21 12/11/21 sertraline 50 mg tablet 50 mg PO DAILY 12/11/21 12/11/21 Previous Rx's Medication Instructions Recorded ipratropium 0.5 mg-albuterol 3 mg 3 ml inhalation RQ4H PRN Shortness 10/03/20 (2.5 mg base)/3 mL nebulization Of Breath/Wheezing #15 mL soln nicotine 14 mg/24 hr daily 14 mg transdermal DAILY #7 ea 10/03/20 transdermal patch doxycycline monohydrate 100 mg 100 mg PO BID #20 caps 10/01/21 capsule naproxen 500 mg tablet 500 mg PO BID 7 days #14 tabs 10/04/21 cyclobenzaprine 10 mg tablet 10 mg PO TID #10 tabs 11/06/21 naproxen 500 mg tablet (Naprosyn) 500 mg PO BID #20 tabs 11/06/21 furosemide 40 mg tablet 40 mg PO Q OTHER DAY #45 tabs 01/12/22 allopurinol 100 mg tablet 100 mg PO DAILY #30 tabs 02/25/22 colchicine 0.6 mg tablet 0.6 mg PO DAILY #30 tabs 02/25/22 ibuprofen 600 mg tablet 600 mg PO Q6H PRN fever or pain 02/25/22 #30 tabs oxycodone 5 mg tablet 5 mg PO Q6H PRN pain #20 tabs 02/25/22 prednisone 20 mg tablet 40 mg PO DAILY #10 tabs 02/25/22 Allergies Allergy/AdvReac Type Severity Reaction Status Date / Time Penicillins Allergy Intermediate RASH SOB Verified 02/25/22 19:41 Aspir-81 Allergy Intermediate Rash Uncoded 02/25/22 19:41 PMF Past Medical History Medical History Anemia Arthritis Asthma Back pain BiPAP (biphasic positive airway pressure) dependence COPD (chronic obstructive pulmonary disease) COPD (chronic obstructive pulmonary disease) Depression Diabetes Diabetic acidosis, type I Elevated cholesterol GERD (gastroesophageal reflux disease) History of blood transfusion History of headache HTN (hypertension) Hx of anxiety disorder Hx of bipolar disorder Hx of drug dependence Oxygen dependent Sleep apnea Surgical History H/O colonoscopy History of esophagogastroduodenoscopy (EGD) Hx of arthroscopic knee surgery Hx of section Hx of foot surgery Hx of total knee replacement S/P cardiac cath Family History Family History Father Heart disease Mother Heart disease Social History Social History Household Members: None Housing: Apartment Do you presently have visiting nurse or other home services: Yes Patient Tobacco Use Status: Current everyday Tobacco user Tobacco use type: Cigarette Cigarette Packs Per Day: 0.25 Cigarettes Per Day: 2 Years Smoked: 50 Second Hand Smoke Exposure: No Substance Use Type: Heroin Advance Directives: No Advance Directives Information Provided: No service: No Current occupational status: disabled Current occupation: right handed Physical Exam Vital Signs: Vital Signs: Last Vital Signs Temp 98.5 F 02/25/22 22:37 Pulse 80 02/25/22 22:37 Resp 20 02/25/22 19:36 BP 168/68 H 02/25/22 22:37 Pulse Ox 92 02/25/22 22:37 O2 Del Method 02/25/22 22:37 BMI result Body Mass Index 42.2 Course Reevaluation(s) Reevaluation #1: Right foot/right ankle pain and swelling patient has history of gout in the past declined any injuries or trauma to the area, no fever or chills patient in triage was given 60 mg of prednisone and oxycodone. Time: 19:41 Medications Administered Discontinued Medications Generic Name Dose Route Start Last Admin Trade Name Freq PRN Reason Stop Dose Admin Colchicine 0.6 mg 02/25/22 21:40 02/25/22 22:42 Colchicine 0.6 Mg Tablet PO 02/25/22 21:41 0.6 mg ONCE ONE Administration Ketorolac Tromethamine 60 mg 02/25/22 21:40 02/25/22 21:55 Ketorolac Tromethamine 60 Mg/2 Ml Vial IM 02/25/22 21:41 60 mg ONCE ONE Administration Oxycodone HCl 5 mg 02/25/22 19:39 02/25/22 19:44 Oxycodone Hcl Immed Release 5 Mg Tablet PO 02/25/22 19:40 5 mg ONCE ONE Administration Oxycodone HCl 5 mg 02/25/22 23:03 02/25/22 23:14 Oxycodone Hcl Immed Release 5 Mg Tablet PO 02/25/22 23:04 5 mg ONCE ONE Administration Prednisone 60 mg 02/25/22 19:39 02/25/22 19:44 Prednisone 20 Mg Tablet PO 02/25/22 19:40 60 mg ONCE ONE Administration Discharge Plan Discharge Clinical Impression: Gout attack Patient Disposition: Home, Self-Care Instructions: Low Purine Diet (ED), Gout (ED) Additional Instructions: Take medication as prescribed Follow with PCP Prescriptions: New prednisone 20 mg tablet 40 mg PO DAILY Qty: 10 0RF ibuprofen 600 mg tablet 600 mg PO Q6H PRN (Reason: fever or pain) Qty: 30 0RF oxycodone 5 mg tablet 5 mg PO Q6H PRN (Reason: pain) Qty: 20 0RF Rx Instructions: Partial Fill upon patient request. colchicine 0.6 mg tablet 0.6 mg PO DAILY Qty: 30 0RF allopurinol 100 mg tablet 100 mg PO DAILY Qty: 30 0RF No Action furosemide 40 mg tablet 40 mg PO Q OTHER DAY Qty: 45 5RF simvastatin 10 mg tablet 10 mg PO DAILY oxcarbazepine 600 mg Tablet 600 mg PO BID zolpidem 10 mg tablet 10 mg PO BEDTIME albuterol sulfate 90 mcg/actuation HFA aerosol inhaler 2 puff inhalation Q4H PRN (Reason: Shortness Of Breath) methadone 5 mg/5 mL Solution 120 mg PO DAILY famotidine 20 mg tablet 20 mg PO BEDTIME nicotine 14 mg/24 hr Patch 24 Hour 14 mg transdermal DAILY Qty: 7 0RF ipratropium-albuterol 0.5 mg-3 mg(2.5 mg base)/3 mL Solution For Nebulization 3 ml inhalation RQ4H PRN (Reason: Shortness Of Breath/Wheezing) Qty: 15 0RF amlodipine 5 mg tablet 5 mg PO DAILY naproxen 500 mg tablet 500 mg PO BID 7 Days Qty: 14 0RF doxycycline monohydrate 100 mg capsule 100 mg PO BID Qty: 20 0RF cyclobenzaprine 10 mg tablet 10 mg PO TID Qty: 10 0RF naproxen [Naprosyn] 500 mg tablet 500 mg PO BID Qty: 20 0RF cephalexin 500 mg tablet 500 mg PO TID Spiriva with HandiHaler 18 mcg capsule, w/inhalation device 1 cap inhalation DAILY metformin 1,000 mg tablet 1,000 mg PO BID furosemide 20 mg tablet 20 mg PO DAILY sertraline 50 mg tablet 50 mg PO DAILY Interventions: ED Discharge Assessment Last Done: 02/25/22 23:16 Discharge Date/Time: 02/25/22 23:17
[2022-02-25] MEDS: oxyCODONE HCl Immed Release 5 MG TABLET PO ×2 (19:44→23:14)
[2022-02-25] MEDS: predniSONE 20 MG TABLET 60 MG PO (19:44)
--- NOTE | 2022-02-25 21:39 | ED.EXTPRO ---
HPI - Extremity Problem General Chief complaint: General Medical Stated complaint: Gout flare Time Seen by Provider: 02/25/22 21:33 Source: patient Mode of arrival: ambulatory Limitations: no limitations History of Present Illness HPI Narrative: Patient history of recurrent gouty attacks almost every 3 months comes here for pain in the right ankle for last 3 days with swelling no trauma no fever no chills. NO Other joint involved Related Data Home Medications Medication Instructions Recorded Confirmed albuterol sulfate 90 mcg/actuation 2 puff inhalation Q4H PRN 01/25/20 12/11/21 aerosol inhaler Shortness Of Breath methadone 5 mg/5 mL oral solution 120 mg PO DAILY 01/25/20 12/11/21 oxcarbazepine 600 mg tablet 600 mg PO BID 01/25/20 12/11/21 simvastatin 10 mg tablet 10 mg PO DAILY 01/25/20 12/11/21 zolpidem 10 mg tablet 10 mg PO BEDTIME 01/25/20 12/11/21 famotidine 20 mg tablet 20 mg PO BEDTIME 10/01/20 12/11/21 cephalexin 500 mg tablet 500 mg PO TID 10/29/20 12/11/21 tiotropium bromide 18 mcg capsule 1 cap inhalation DAILY 10/29/20 12/11/21 with inhalation device amlodipine 5 mg tablet 5 mg PO DAILY 12/11/21 12/11/21 furosemide 20 mg tablet 20 mg PO DAILY 12/11/21 12/11/21 metformin 1,000 mg tablet 1,000 mg PO BID 12/11/21 12/11/21 sertraline 50 mg tablet 50 mg PO DAILY 12/11/21 12/11/21 Previous Rx's Medication Instructions Recorded ipratropium 0.5 mg-albuterol 3 mg 3 ml inhalation RQ4H PRN Shortness 10/03/20 (2.5 mg base)/3 mL nebulization Of Breath/Wheezing #15 mL soln nicotine 14 mg/24 hr daily 14 mg transdermal DAILY #7 ea 10/03/20 transdermal patch doxycycline monohydrate 100 mg 100 mg PO BID #20 caps 10/01/21 capsule naproxen 500 mg tablet 500 mg PO BID 7 days #14 tabs 10/04/21 cyclobenzaprine 10 mg tablet 10 mg PO TID #10 tabs 11/06/21 naproxen 500 mg tablet (Naprosyn) 500 mg PO BID #20 tabs 11/06/21 furosemide 40 mg tablet 40 mg PO Q OTHER DAY #45 tabs 01/12/22 allopurinol 100 mg tablet 100 mg PO DAILY #30 tabs 02/25/22 colchicine 0.6 mg tablet 0.6 mg PO DAILY #30 tabs 02/25/22 ibuprofen 600 mg tablet 600 mg PO Q6H PRN fever or pain 02/25/22 #30 tabs oxycodone 5 mg tablet 5 mg PO Q6H PRN pain #20 tabs 02/25/22 prednisone 20 mg tablet 40 mg PO DAILY #10 tabs 02/25/22 Allergies Allergy/AdvReac Type Severity Reaction Status Date / Time Penicillins Allergy Intermediate RASH SOB Verified 02/25/22 19:41 Aspir-81 Allergy Intermediate Rash Uncoded 02/25/22 19:41 Review of Systems Review of Systems: Yes all other systems are reviewed and are negative PMFSH Past Medical History Medical History Anemia Arthritis Asthma Back pain BiPAP (biphasic positive airway pressure) dependence COPD (chronic obstructive pulmonary disease) COPD (chronic obstructive pulmonary disease) Depression Diabetes Diabetic acidosis, type I Elevated cholesterol GERD (gastroesophageal reflux disease) History of blood transfusion History of headache HTN (hypertension) Hx of anxiety disorder Hx of bipolar disorder Hx of drug dependence Oxygen dependent Sleep apnea Surgical History H/O colonoscopy History of esophagogastroduodenoscopy (EGD) Hx of arthroscopic knee surgery Hx of section Hx of foot surgery Hx of total knee replacement S/P cardiac cath Family History Family History Father Heart disease Mother Heart disease Social History Social History Household Members: None Housing: Apartment Do you presently have visiting nurse or other home services: Yes Patient Tobacco Use Status: Current everyday Tobacco user Tobacco use type: Cigarette Cigarette Packs Per Day: 0.25 Cigarettes Per Day: 2 Years Smoked: 50 Second Hand Smoke Exposure: No Substance Use Type: Heroin Advance Directives: No Advance Directives Information Provided: No service: No Current occupational status: disabled Current occupation: right handed Physical Exam Vital Signs: Vital Signs: Last Vital Signs Temp 98.5 F 02/25/22 22:37 Pulse 80 02/25/22 22:37 Resp 20 02/25/22 19:36 BP 168/68 H 02/25/22 22:37 Pulse Ox 92 02/25/22 22:37 O2 Del Method 02/25/22 22:37 BMI result Body Mass Index 42.2 Appearance: Alert. Oriented X3. No acute distress. Eyes: No pallor no icterus ENT: Pharynx normal. Oral Mucosa moist Neck: Normal inspection. Neck supple. CVS: Normal heart rate and rhythm. Pulses normal. Respiratory: No respiratory distress. Equal air entry bilateral, Abdomen: Soft and nontender. Bowel sounds are present Skin: Skin warm and dry. Normal skin color. Normal skin turgor. Extremities: No lower extremity edema. No calf tenderness diffuse tenderness warmth and swelling of right ankle Neuro: Oriented X 3. No motor deficit. Medications Administered Discontinued Medications Generic Name Dose Route Start Last Admin Trade Name Luna PRN Reason Stop Dose Admin Colchicine 0.6 mg 02/25/22 21:40 02/25/22 22:42 Colchicine 0.6 Mg Tablet PO 02/25/22 21:41 0.6 mg ONCE ONE Administration Ketorolac Tromethamine 60 mg 02/25/22 21:40 02/25/22 21:55 Ketorolac Tromethamine 60 Mg/2 Ml Vial IM 02/25/22 21:41 60 mg ONCE ONE Administration Oxycodone HCl 5 mg 02/25/22 19:39 02/25/22 19:44 Oxycodone Hcl Immed Release 5 Mg Tablet PO 02/25/22 19:40 5 mg ONCE ONE Administration Oxycodone HCl 5 mg 02/25/22 23:03 02/25/22 23:14 Oxycodone Hcl Immed Release 5 Mg Tablet PO 02/25/22 23:04 5 mg ONCE ONE Administration Prednisone 60 mg 02/25/22 19:39 02/25/22 19:44 Prednisone 20 Mg Tablet PO 02/25/22 19:40 60 mg ONCE ONE Administration MDM - Extremity (Nontraumatic) MDM Narrative Medical decision making narrative: Patient with right ankle gouty arthritis responded to prednisone and Toradol discharge patient home on colchicine and allopurinol and prednisone Discharge Plan Discharge Clinical Impression: Gout attack Patient Disposition: Home, Self-Care Instructions: Low Purine Diet (ED), Gout (ED) Additional Instructions: Take medication as prescribed Follow with PCP Prescriptions: New prednisone 20 mg tablet 40 mg PO DAILY Qty: 10 0RF ibuprofen 600 mg tablet 600 mg PO Q6H PRN (Reason: fever or pain) Qty: 30 0RF oxycodone 5 mg tablet 5 mg PO Q6H PRN (Reason: pain) Qty: 20 0RF Rx Instructions: Partial Fill upon patient request. colchicine 0.6 mg tablet 0.6 mg PO DAILY Qty: 30 0RF allopurinol 100 mg tablet 100 mg PO DAILY Qty: 30 0RF No Action furosemide 40 mg tablet 40 mg PO Q OTHER DAY Qty: 45 5RF simvastatin 10 mg tablet 10 mg PO DAILY oxcarbazepine 600 mg Tablet 600 mg PO BID zolpidem 10 mg tablet 10 mg PO BEDTIME albuterol sulfate 90 mcg/actuation HFA aerosol inhaler 2 puff inhalation Q4H PRN (Reason: Shortness Of Breath) methadone 5 mg/5 mL Solution 120 mg PO DAILY famotidine 20 mg tablet 20 mg PO BEDTIME nicotine 14 mg/24 hr Patch 24 Hour 14 mg transdermal DAILY Qty: 7 0RF ipratropium-albuterol 0.5 mg-3 mg(2.5 mg base)/3 mL Solution For Nebulization 3 ml inhalation RQ4H PRN (Reason: Shortness Of Breath/Wheezing) Qty: 15 0RF amlodipine 5 mg tablet 5 mg PO DAILY naproxen 500 mg tablet 500 mg PO BID 7 Days Qty: 14 0RF doxycycline monohydrate 100 mg capsule 100 mg PO BID Qty: 20 0RF cyclobenzaprine 10 mg tablet 10 mg PO TID Qty: 10 0RF naproxen [Naprosyn] 500 mg tablet 500 mg PO BID Qty: 20 0RF cephalexin 500 mg tablet 500 mg PO TID Spiriva with HandiHaler 18 mcg capsule, w/inhalation device 1 cap inhalation DAILY metformin 1,000 mg tablet 1,000 mg PO BID furosemide 20 mg tablet 20 mg PO DAILY sertraline 50 mg tablet 50 mg PO DAILY Interventions: ED Discharge Assessment Last Done: 02/25/22 23:16 Discharge Date/Time: 02/25/22 23:17
[2022-02-25] MEDS: Ketorolac Tromethamine 60 MG/2 ML VIAL IM (21:55)
[2022-02-25 22:37] VITALS: BP 168/68; PULSE 80; TEMP 36.9; O2SAT 92
[2022-02-25] MEDS: Colchicine 0.6 MG TABLET PO (22:42)
== END 2022-02-25 23:17 | disposition home or self-care (01) ==
PROVIDERS: Emergency Provider Internal Medicine; PCP Internal Medicine
DX: M10.9 Gout, unspecified (principal); M25.571 Pain in right ankle and joints of right foot
CPT/HCPCS: 73600; 73620; 96372; 99284; J1885

== ENCOUNTER → 2022-03-12 09:08 | Outpatient (BNVA) | payer OTHER, MEDICAID, SELFPAY | PROVIDERS: PCP Internal Medicine; Referring Provider Internal Medicine; Visit Provider Nurse Practitioner Family | DX: I45.81 Long QT syndrome (principal) | CPT/HCPCS: 93005 ==

== ENCOUNTER → 2022-05-20 09:34 | Outpatient (BNVA) | payer OTHER, SELFPAY | PROVIDERS: PCP Internal Medicine; Visit Provider Physician Assistant | DX: Z12.11 Encounter for screening for malignant neoplasm of colon (principal); J44.9 Chronic obstructive pulmonary disease, unspecified; F11.20 Opioid dependence, uncomplicated; E11.9 Type 2 diabetes mellitus without complications; Z98.890 Other specified postprocedural states | CPT/HCPCS: 99202 ==

== ENCOUNTER 2022-07-22 09:07 | Outpatient (REF) | payer OTHER, SELFPAY ==
[2022-07-22 09:23] LABS: MANUAL DIFF FLAG NO
[2022-07-22 09:30] LABS: Basophils Percent Auto 0.3 % (0-2); Eosinophils Absolute Auto 0.2 X10*3/uL (0.0-0.4); Eosinophils Percent Auto 1.7 % (0-4); Hemoglobin 13.4 g/dl (12.0-16.0); Imm Gran Abs Auto 0.05 X10*3/uL (0.00-0.03); Imm Gran Pct Auto 0.4 % (0.0-0.4); Lymphocytes Absolute Auto 2.9 X10*3/uL (1.2-4.9); Lymphocytes Percent Auto 24.5 % (20-40); Mean Corpuscular HGB Conc 32.7 g/dl (31.0-35.0); Mean Corpuscular Hemoglobin 28.7 pg (27.0-33.0); Mean Corpuscular Volume 87.8 fL (80.0-98.0); Mean Platelet Volume 10.6 fL (9.4-12.3); Monocytes Percent Auto 8.8 % (2-11); Neutrophils Absolute Auto 7.5 x10*3/uL (2.0-8.3); Neutrophils Percent Auto 64.3 % (45-73); Platelet Count 228 X10*3/uL (160-400); Red Blood Count 4.67 X10*6/uL (4.20-5.50); Red Cell Distribution Width 14.4 % (11.0-16.0); White Blood Count 11.7 X10*3/uL (4.8-10.8)
[2022-07-22 10:10] LABS: Alanine Aminotransferase 15 U/L (0-31); Albumin Level 3.7 g/dL (3.5-5.0); Alkaline Phosphatase 125 U/L (39-117); Anion Gap 12 (12-20); Aspartate Amino Transferase 15 U/L (5-31); Bilirubin Total 0.3 mg/dL (0.0-1.0); Blood Urea Nitrogen 15 mg/dL (9-16); Carbon Dioxide 36 mmol/L (22-29); Chloride 98 mmol/L (96-108); Cholesterol 200 mg/dL; Estimated Glomerular Filt Rate 41; Glucose Fasting 129 mg/dL (60-99); HDL Cholesterol 38 mg/dL; LDL Cholesterol Calculated 105 mg/dl; Potassium 3.6 mmol/L (3.3-5.1); Sodium 142 mmol/L (135-145); Total Protein 6.5 g/dL (6.5-8.0); Triglycerides 288 mg/dL; Uric Acid 8.6 mg/dL (2.4-5.7)
[2022-07-22 10:42] LABS: Folate 8.6 ng/mL (> or = 4.0); Vitamin B12 425 pg/mL (200-900)
[2022-07-22 10:44] LABS: Creatinine Urine 136.45 mg/dL; Microalbum/Creatinine Ratio Ur 6.5 ug/mg cr
[2022-07-22 11:46] LABS: Vitamin D 25-OH Total 8.6 ng/mL (>30)
== END 2022-07-22 09:08 | disposition home or self-care (01) ==
LOC: HO.LAB 09:07
PROVIDERS: PCP Internal Medicine; Visit Provider Internal Medicine
DX: E78.5 Hyperlipidemia, unspecified (principal); E55.9 Vitamin D deficiency, unspecified; E53.8 Deficiency of other specified B group vitamins; M10.9 Gout, unspecified; E11.9 Type 2 diabetes mellitus without complications; E66.01 Morbid (severe) obesity due to excess calories; D64.9 Anemia, unspecified
CPT/HCPCS: 36415; 80053; 80061; 82043; 82306; 82607; 82746; 84550; 85025

== ENCOUNTER 2022-10-30 14:44 | Outpatient (AMB) | payer OTHER, SELFPAY ==
--- NOTE | 2022-10-30 14:50 | MHC.OFFWIV ---
Intake Vital Signs 10/30/22 14:54 BP 100/62 Blood Pressure Location Rt brachial Position Sitting Pulse 60 Pulse Source Pulse Oximeter Pulse Oximetry (%) 96 Oxygen Delivery Method Room Air Intake Visit Reasons: EP headaches 4 days, RT arm twitching Intake Note: Patient here as she has been having headaches for the past 4 days, she states her blood pressure and sugars have been elevated- last time she tested was yesterday. Patient Tobacco Use Status: Current everyday Tobacco user Allergies Penicillins Allergy (Intermediate, Verified 10/30/22 14:53) RASH SOB Do you need a note to return to daycare/school/sports/work: No HPI HPI Comments History of Present Illness Details This is a 66-year-old female with past medical history significant for hypertension, diabetes mellitus, opioid use disorder on methadone who presents to the office today for a sick visit. Patient reports a constant headache for the past 4 days. She states the headache is diffuse and located all over her head. She states it is constant and severe. She states she felt extremely lethargic yesterday. She denies any head trauma or head injury. Patient states she is feeling much better today. She denies any slurred speech. She denies any facial asymmetry. She denies any visual disturbances. She denies any numbness/weakness/paresthesias of her extremities. She denies any nausea or vomiting. She denies any photophobia or phonophobia. She denies any neck pain or neck stiffness. She denies any fevers or chills. Patient states she checked her blood pressure yesterday, which was high at about 200/100. She states her blood sugar was also high, she believes it was over 200. Patient also reports intermittent involuntary twitching of her right arm. [facility] Medical History Anemia Arthritis Asthma Back pain BiPAP (biphasic positive airway pressure) dependence COPD (chronic obstructive pulmonary disease) COPD (chronic obstructive pulmonary disease) Depression Diabetes Diabetic acidosis, type I Elevated cholesterol GERD (gastroesophageal reflux disease) History of blood transfusion History of headache History of heroin use HTN (hypertension) Hx of anxiety disorder Hx of bipolar disorder Hx of drug dependence Oxygen dependent Sleep apnea Surgical History H/O colonoscopy History of esophagogastroduodenoscopy (EGD) Hx of arthroscopic knee surgery Hx of section Hx of foot surgery Hx of total knee replacement S/P cardiac cath Family History Father Heart disease Mother Heart disease Family/Other Mental health disorder Substance use disorder Social History Household Members: None Housing: Apartment Do you presently have visiting nurse or other home services: Yes Alcohol intake: former Patient Tobacco Use Status: Current everyday Tobacco user Tobacco use type: Cigarette Cigarettes Per Day: 3 Years Smoked: 50 e-Cigarette/Vaping Use: Never Used Second Hand Smoke Exposure: No Substance Use Type: Heroin service: No Current occupational status: disabled Current occupation: right handed Cognitive needs: Yes Hearing needs: No Vision needs: Yes Review of Systems Const All systems reviewed & are unremarkable except as noted in HPI and below Reports as per HPI Eyes Reports as per HPI ENT Reports no additional complaints Physical Exam Vital Signs: Last Vital Signs Pulse 60 10/30/22 14:54 BP 100/62 10/30/22 14:54 Pulse Ox 96 10/30/22 14:54 Oxygen Delivery Method Room Air 10/30/22 14:54 Const General: no acute distress Orientation/consciousness: patient oriented x3 HEENT Other: Normocephalic and atraumatic. No Pepe sign or raccoon eyes. Head: Yes normal to inspection Ears: hearing grossly normal bilaterally General nose exam: Normal external nose present Face and sinus: Yes normal facial exam Eyes General: appearance normal, both eyes and all related structures Pupils: Equal, round and reactive pupils present EOM: EOMs intact bilaterally Neck Neck: Yes no meningeal signs Resp Effort & Inspection: normal respiratory effort Auscultation: clear to auscultation bilaterally, no crackles, no rales, no rhonchi and no wheezes Cardio Rate: regular rate Rhythm: regular rhythm Heart sounds: no gallops, no murmurs and no rubs GI Inspection: Yes normal to inspection and No distended Palpation (GI): Soft to palpation and nontender Skin General skin exam: no rashes or lesions noted Neuro Other: No involuntary movements or seizure like activity noted during my evaluation. General: patient oriented x3, gait normal, no meningeal signs and CN's II-XI intact bilaterally Cranial nerves: Yes Facial sensation intact/muscles of mastication intact and Yes Equal, round and reactive pupils present Cognition (Neuro): normal cognition Speech: No Expressive aphasia present, No Receptive aphasia present and No Global aphasia present Gait exam (Neuro): Normal gait present Motor exam (neuro): 5/5 motor strength present throughout Coordination: [id number] test normal Extrem General: Yes normal to inspection Results AMB Random Glucose (hemocue) AMB Random Glucose (hemocue) 129 mg/dL Last Edit by CESIA Samayoa on 10/30/22 15:04 Results Reviewed Results Reviewed: Laboratory Last Values Random Glu (Clinic) 129 mg/dL 10/30/22 15:03 Assessment & Plan Assessment & Plan (1) Headache: Code(s): R51.9 - Headache, unspecified Plan: This is a 66-year-old female who presented to the office today in the setting of a constant headache for the past 4 days. Patient has a history of chronic migraines, but states she has not had a migraine in a while. Patient states she is feeling much better today. Patient reports a high blood pressure yesterday measured at about 200/100. Her vital signs are well within normal limits today at the office. Patient's neurological exam is normal without focal neurological deficits. I expressed my concern to the patient related to her headaches and elevated blood pressure. I recommended proceeding to the emergency room for CT head to rule out an acute intracranial bleed. Patient adamantly declines going to the emergency room at this time as she is feeling better. I have low suspicion for an acute intracranial process given she is neurologically intact, but I explained that it would be prudent to at least window as she had elevated blood pressures yesterday. Patient again adamantly declined. Patient agrees to proceed directly to the emergency room if she were to develop any neurological symptoms including facial asymmetry, slurred speech, numbness/weakness/paresthesias of extremities, or worsening headaches. She also agreed to proceed directly to the emergency room if her blood pressures are that high again. For now, patient would like to treat her headaches symptomatic Oriana with acetaminophen/ibuprofen, cognitive rest, and increased fluids. Orders: Orders AMB Random Glucose (hemocue) Today Z13.9 - Encounter for screening, unspecified Coding Level of Care Code Est Pt Level 3 (33715) Diagnoses Headache R51.9
[2022-10-30 14:54] VITALS: BP 100/62; PULSE 60; O2SAT 96
== END 2022-10-30 15:14 | disposition home or self-care (01) ==
PROVIDERS: PCP Internal Medicine; Visit Provider Physician Assistant Medical
DX: Z13.9 Encounter for screening, unspecified (principal); R51.9 Headache, unspecified
CPT/HCPCS: 82948; 99213

== ENCOUNTER 2022-11-19 13:57 | Outpatient (AMB) | payer OTHER, SELFPAY ==
--- NOTE | 2022-11-19 14:00 | MHC.OFFVIS ---
Intake Vital Signs 11/19/22 14:02 Weight 223 lb 12.307 oz BP 120/60 Blood Pressure Location Rt brachial Position Sitting Pulse 70 Pulse Source Pulse Oximeter Pulse Oximetry (%) 94 Oxygen Delivery Method Room Air Intake Visit Reasons: COPD, Sleep apnea Allergies Penicillins Allergy (Intermediate, Verified 11/19/22 14:06) RASH SOB Medication List - Last Reconciled 11/19/22 by Nina Chase LPN albuterol sulfate 90 mcg/actuation 2 puffs inhalation Q4H PRN allopurinol 300 mg PO DAILY 90 days amlodipine 5 mg PO DAILY 90 days bisacodyl (Dulcolax (bisacodyl)) 10 mg MD DAILY PRN blood sugar diagnostic (Accu-Chek Guide test strips) Use 1 test strip once a day blood-glucose meter (Accu-Chek Guide Glucose Meter) As directed cane As directed cholecalciferol (vitamin D3) 50 mcg PO DAILY 90 days colchicine (gout) 0.6 mg PO BID PRN 30 days cyclobenzaprine 10 mg PO TID docusate sodium (Colace) 200 mg (2 x 100 mg) PO BEDTIME famotidine 20 mg PO BEDTIME furosemide 40 mg PO Q OTHER DAY furosemide 20 mg PO DAILY gabapentin 100 mg PO DAILY [home delivery of methadone per clinic dose Start date 06/15/2022 End date: 06/16/2023] hydrochlorothiazide 25 mg PO DAILY ibuprofen 600 mg PO Q6H PRN ipratropium-albuterol 0.5 mg-3 mg(2.5 mg base)/3 mL 3 mL inhalation RQ4H PRN lancets (Accu-Chek Softclix Lancets) Use 1 lancet once a day metformin 1,000 mg PO BID 30 days methadone 130 mg PO DAILY methylcellulose (laxative) (Citrucel) 500 mg PO TID mirtazapine 45 mg PO BEDTIME naproxen (Naprosyn) 500 mg PO BID nicotine 14 mg transdermal DAILY oxcarbazepine 600 mg PO BID polyethylene glycol 3350 (Miralax) 17 grams PO DAILY polymyxin B sulf-trimethoprim 10,000 unit- 1 mg/mL (Polytrim) 1 drp ophthalmic (eye) QID 7 days sertraline 50 mg PO DAILY simvastatin 20 mg PO BEDTIME 90 days tiotropium bromide 1 cap inhalation DAILY zolpidem 10 mg PO BEDTIME 30 days HPI COPD, Sleep apnea HPI Details 67-year-old lady active 30+ pack-year smoker previously followed For TESS and COPD, lost follow-up for several years, now returns to [facility] care. Patient states that she has been using Flovent, Spiriva, and albuterol MDI with reasonable control his symptoms. She denies wheezing of productive cough. Patient also denies dyspnea on exertion. [facility] Medical History Anemia Arthritis Asthma Back pain BiPAP (biphasic positive airway pressure) dependence COPD (chronic obstructive pulmonary disease) COPD (chronic obstructive pulmonary disease) Depression Diabetes Diabetic acidosis, type I Elevated cholesterol GERD (gastroesophageal reflux disease) History of blood transfusion History of headache History of heroin use HTN (hypertension) Hx of anxiety disorder Hx of bipolar disorder Hx of drug dependence Oxygen dependent Sleep apnea Surgical History H/O colonoscopy History of esophagogastroduodenoscopy (EGD) Hx of arthroscopic knee surgery Hx of section Hx of foot surgery Hx of total knee replacement S/P cardiac cath Family History Father Heart disease Mother Heart disease Family/Other Mental health disorder Substance use disorder Social History Household Members: None Housing: Apartment Do you presently have visiting nurse or other home services: Yes Alcohol intake: former Patient Tobacco Use Status: Current everyday Tobacco user Tobacco use type: Cigarette Cigarettes Per Day: 3 Years Smoked: 50 e-Cigarette/Vaping Use: Never Used Second Hand Smoke Exposure: No Substance Use Type: Heroin service: No Current occupational status: disabled Current occupation: right handed Cognitive needs: Yes Hearing needs: No Vision needs: Yes Review of Systems Const Denies daytime sleepiness, Denies excessive sweating, Denies fatigue, Denies fever(s), Denies lethargy, Denies malaise, Denies night sweats, Denies snoring and Denies weight loss Eyes Denies blurry vision and Denies itchy eyes ENT Denies nasal congestion, Denies post nasal drip, Denies sinus pain, Denies sinus pressure and Denies other ( Thrush) Card Denies chest pain, Denies pedal edema, Denies dyspnea, Denies orthopnea and Denies paroxysmal nocturnal dyspnea Resp Denies cough, Denies hemoptysis, Denies excessive phlegm production, Denies dyspnea, Denies snoring and Denies wheezing GI Denies abdominal pain and Denies heartburn Musc Denies myalgias, Denies arthralgias and Denies joint swelling Skin/Breast Denies rash Neuro Denies memory loss and Denies seizure-like activity Psych Denies abnormal sleep pattern, Denies anxiety and Denies memory loss Endo Denies excessive sweating, Denies fatigue and Denies heat intolerance Randy/Lymph Denies easy bruising Aller/Immun Denies itchy eyes, Denies seasonal rhinorrhea and Denies wheezing Physical Exam Vital Signs: Last Vital Signs Pulse 70 11/19/22 14:02 BP 120/60 11/19/22 14:02 Pulse Ox 94 11/19/22 14:02 Oxygen Delivery Method Room Air 11/19/22 14:02 Const General: no acute distress and alert Nutritional Appearance: not obese Orientation/consciousness: Other orientation findings ( oriented) HEENT Head: Yes atraumatic Eyes General: appearance normal, both eyes and all related structures Sclerae: sclerae normal EOM: EOMs intact bilaterally Neck Neck: Yes supple Lymphatic: no lymphadenopathy noted Resp Effort & Inspection: normal respiratory effort and no use of accessory muscles Auscultation: clear to auscultation bilaterally Cardio Rate: regular rate Rhythm: regular rhythm Heart sounds: no gallops, no murmurs and no rubs Skin General skin exam: other ( warm) Extrem General: No clubbing, No cyanosis and No edema Assessment & Plan Assessment & Plan (1) COPD (chronic obstructive pulmonary disease): Code(s): J44.9 - Chronic obstructive pulmonary disease, unspecified Plan: underlying COPD of unclear severity. Will obtain full PFT. Will continue on Flovent, Spiriva, and albuterol MDI until PFT results are available. (2) TESS (obstructive sleep apnea): Code(s): G47.33 - Obstructive sleep apnea (adult) (pediatric) Plan: Previously on BiPAP. Now requires new sleep study. (3) Pulmonary nodules: Code(s): R91.8 - Other nonspecific abnormal finding of lung field Plan: Will obtain CT chest for further evaluation. Orders: Orders PFT pulmonary function test Today J44.9 - Chronic obstructive pulmonary disease, unspecified CT chest wo IV con 12/25/22 R91.8 - Other nonspecific abnormal finding of lung field Coding Level of Care Code New Pt Level 4 (96134) Diagnoses COPD (chronic obstructive pulmonary disease) J44.9 TESS (obstructive sleep apnea) G47.33 Pulmonary nodules R91.8
[2022-11-19 14:02] VITALS: BP 120/60; PULSE 70; O2SAT 94
== END 2022-11-19 14:19 | disposition home or self-care (01) ==
PROVIDERS: PCP Internal Medicine; Visit Provider Internal Medicine Pulmonary Disease
DX: J44.9 Chronic obstructive pulmonary disease, unspecified (principal); G47.33 Obstructive sleep apnea (adult) (pediatric); R91.8 Other nonspecific abnormal finding of lung field
CPT/HCPCS: 99204

== ENCOUNTER → 2022-11-19 13:57 | Outpatient (BNVA) | payer OTHER, SELFPAY | PROVIDERS: PCP Internal Medicine; Visit Provider Internal Medicine Pulmonary Disease | DX: J44.9 Chronic obstructive pulmonary disease, unspecified (principal); R91.8 Other nonspecific abnormal finding of lung field; G47.33 Obstructive sleep apnea (adult) (pediatric); Z79.899 Other long term (current) drug therapy | CPT/HCPCS: 99202 ==

== ENCOUNTER 2022-12-02 13:30 | Outpatient (REF) | payer OTHER, SELFPAY ==
--- NOTE | 2022-12-02 14:24 | PFT_ITS ---
INDICATION: COPD. SPIROMETRY: FEV to FVC of 79% with an FEV1 of 1.87 L, which is 84% predicted and FVC of 2.31 L, which is 81% predicted. No significant response to bronchodilators noted. Maximum voluntary ventilation 61% predicted. LUNG VOLUMES: Total lung capacity 89% predicted with an expiratory reserve volume of 5% predicted . DIFFUSION CAPACITY: DLCO 68% predicted. It corrects to 76% when corrected for the alveolar volume. COMPARISONS: None available. INTERPRETATION: No obstructive ventilatory defects. No significant response to bronchodilators noted. There is a moderate decrease in maximum voluntary ventilation secondary likely to deconditioning, although cannot rule out neuromuscular conditions. Lung volumes are low normal, and she has a significantly decreased expiratory reserve volume secondary to likely an elevated BMI. The patient does have a mild diffusion impairment, which partially corrects when correcting for the alveolar volume. Need to consider correcting for hemoglobin. Also consider pulmonary vascular conditions. Clinical correlation warranted. MD JAKY Jung/MODRichardson / [id number]
== END 2022-12-02 13:31 | disposition home or self-care (01) ==
LOC: HO.RESP 13:30
PROVIDERS: PCP Internal Medicine; Visit Provider Internal Medicine Pulmonary Disease
DX: J44.9 Chronic obstructive pulmonary disease, unspecified (principal)
CPT/HCPCS: 94060; 94727; 94729

== ENCOUNTER → 2022-12-02 14:24 | Outpatient (BNV) | payer OTHER, SELFPAY | PROVIDERS: PCP Internal Medicine; Visit Provider Hospitalist | DX: J44.9 Chronic obstructive pulmonary disease, unspecified (principal) | CPT/HCPCS: 94060; 94727; 94729 ==

== ENCOUNTER 2022-12-08 11:10 | Outpatient (AMB) | payer OTHER, SELFPAY ==
[2022-12-08 11:18] VITALS: BP 132/70; BMI 39.9
--- NOTE | 2022-12-08 11:18 | MHC.PC.OV ---
Vital Signs 12/08/22 11:18 Height 5 ft 2 in Weight 218 lb BMI 39.9 BP 132/70 Blood Pressure Location Lt brachial Position Sitting Intake Visit Reasons: dm Intake Note: Patient here for a follow up dm Project Control Officer Required: No Accompanied by: Self / Same As Patient Allergies Penicillins Allergy (Intermediate, Verified 12/08/22 11:24) RASH SOB Medication List - Last Reconciled 12/08/22 by Portia Hicks MD albuterol sulfate 90 mcg/actuation 2 puffs inhalation Q4H PRN allopurinol 300 mg PO DAILY 90 days amlodipine 5 mg PO DAILY 90 days bisacodyl (Dulcolax (bisacodyl)) 10 mg [place] DAILY PRN blood sugar diagnostic (Accu-Chek Guide test strips) Use 1 test strip once a day blood-glucose meter (Accu-Chek Guide Glucose Meter) As directed cane As directed cholecalciferol (vitamin D3) 50 mcg PO DAILY 90 days colchicine (gout) 0.6 mg PO BID PRN 30 days cyclobenzaprine 10 mg PO TID docusate sodium (Colace) 200 mg (2 x 100 mg) PO BEDTIME famotidine 20 mg PO BEDTIME furosemide 40 mg PO Q OTHER DAY furosemide 20 mg PO DAILY gabapentin 100 mg PO DAILY [home delivery of methadone per clinic dose Start date 06/15/2022 End date: 06/16/2023] hydrochlorothiazide 25 mg PO DAILY ibuprofen 600 mg PO Q6H PRN ipratropium-albuterol 0.5 mg-3 mg(2.5 mg base)/3 mL 3 mL inhalation RQ4H PRN lancets (Accu-Chek Softclix Lancets) Use 1 lancet once a day metformin 1,000 mg PO BID 30 days methadone 130 mg PO DAILY methylcellulose (laxative) (Citrucel) 500 mg PO TID mirtazapine 45 mg PO BEDTIME naproxen (Naprosyn) 500 mg PO BID nicotine 14 mg transdermal DAILY oxcarbazepine 600 mg PO BID polyethylene glycol 3350 (Miralax) 17 grams PO DAILY polymyxin B sulf-trimethoprim 10,000 unit- 1 mg/mL (Polytrim) 1 drp ophthalmic (eye) QID 7 days sertraline 50 mg PO DAILY simvastatin 20 mg PO BEDTIME 90 days tiotropium bromide 1 cap inhalation DAILY zolpidem 10 mg PO BEDTIME 30 days Tobacco use date assessed: 07/16/22 Fall risk assessment: No Falls in past year Last assessed Fall Risk: 12/08/22 Dental Screening Dental Screen Date: 12/08/22 Did you have a dental visit in the last 12 months?: No Did you have a dental problem in the last 6 months where you did not have access to dental care?: No Was dental information given to patient?: Yes HPI HPI Comments History of Present Illness Details This is a 67-year-old female with diabetes mellitus type 2, hypertension, hyperlipidemia, bipolar depression, COPD and opioid dependence on agonist therapy that comes today for follow-up on her conditions. Walks with a cane for gait stability due to chronic low back pain. A1c within goal being 6.1% today. Blood pressure stable. Last LDL was not on goal and this will be repeated. Bipolar depression stable with SSRIs and follow by Psychiatry. COPD is stable with rescue inhaler as needed. No chest pain or shortness of breath. Was advised to quit smoking. Opiate dependence has been stable with methadone and this is follow by methadone clinic. [facility]LY [facility] Medical History Anemia Arthritis Asthma Back pain BiPAP (biphasic positive airway pressure) dependence COPD (chronic obstructive pulmonary disease) COPD (chronic obstructive pulmonary disease) Depression Diabetes Diabetic acidosis, type I Elevated cholesterol GERD (gastroesophageal reflux disease) History of blood transfusion History of headache History of heroin use HTN (hypertension) Hx of anxiety disorder Hx of bipolar disorder Hx of drug dependence Oxygen dependent Sleep apnea Surgical History H/O colonoscopy History of esophagogastroduodenoscopy (EGD) Hx of arthroscopic knee surgery Hx of section Hx of foot surgery Hx of total knee replacement S/P cardiac cath Family History Father Heart disease Mother Heart disease Family/Other Mental health disorder Substance use disorder Social History Household Members: None Housing: Apartment Do you presently have visiting nurse or other home services: Yes Alcohol intake: former Patient Tobacco Use Status: Current everyday Tobacco user Tobacco use type: Cigarette Cigarettes Per Day: 3 Years Smoked: 50 e-Cigarette/Vaping Use: Never Used Second Hand Smoke Exposure: No Substance Use Type: Heroin service: No Current occupational status: disabled Current occupation: right handed Cognitive needs: Yes Hearing needs: No Vision needs: Yes Questionnaire Thrive Questionnaire Date Thrive assessed: 07/16/22 SIMIN-7 AMB Questionnaire SIMIN-7 Date SIMIN - 7 assessed: 07/16/22 Source: Developed by Drs. Jann Du, Mary Norton, Alex Kerr and colleagues, with an educational mo from [employer]. Review of Systems Const All systems reviewed & are unremarkable except as noted in HPI and below Eyes Reports no additional complaints, Denies change in vision and Denies other visual disturbances Card Denies chest pain at rest, Denies chest pain with activity, Denies edema, Denies irregular heart rhythm, Denies claudication, Denies dyspnea, Denies dyspnea on exertion, Denies orthopnea, Denies paroxysmal nocturnal dyspnea and Denies slow heart rate Resp Denies cough, Denies dyspnea and Denies dyspnea on exertion GI Denies abdominal pain, Denies change in bowel habits, Denies excessive flatus, Denies nausea and Denies vomiting Denies urinary incontinence, Denies urinary hesitancy and Denies urinary urgency Musc Denies abnormal gait, Denies atrophy, Denies deformity and Denies limited range of motion Skin/Breast Denies bleeding lesions, Denies changing lesions and Denies rash Neuro Denies abnormal gait and Denies lack of coordination Physical exam (Primary Care) Vital Signs: Last Vital Signs BP 132/70 12/08/22 11:18 BMI result Body Mass Index 39.9 Tobacco/Smoking Status: Tobacco use Status Tobacco use date assessed 07/16/22 12/08/22 11:21 Patient Tobacco Use Status Current everyday Tobacco 12/08/22 11:21 Tobacco use type Cigarette 12/08/22 11:21 e-Cigarette/Vaping Use Never Used 12/08/22 11:21 Thrive Assessment: Date of Thrive Assessment Date Thrive assessed 07/16/22 12/08/22 11:21 Const Limitations: ambulation with cane Eyes General: appearance normal, both eyes and all related structures Eyelids: Yes eyelids normal Conjunctivae: conjunctivae normal Neck Neck: Yes normal visual inspection and Yes supple Resp Effort & Inspection: normal respiratory effort Auscultation: clear to auscultation bilaterally Cardio Jugular venous distension: no JVD Rate: regular rate Rhythm: regular rhythm Heart sounds: S1 normal heart sound present and S2 normal heart sound present Extrem General: Yes full ROM Results AMB Hemoglobin A1c AMB Hemoglobin A1c 6.1 % Last Edit by TOM Tamez on 12/08/22 12:02 Results Reviewed Results Reviewed: Laboratory Last Values Hgb A1c (Clinic) 6.1 % (4.0-6.0) H 12/08/22 11:26 Assessment and Plan Assessment & Plan (1) Bipolar disorder with depression: Code(s): F31.9 - Bipolar disorder, unspecified Plan: Continue sertraline. Follow-up with psychiatry. (2) Opioid dependence on agonist therapy: Comment: History of heroin use-methadone maintenance likely cause for constipation Code(s): F11.20 - Opioid dependence, uncomplicated Plan: Continue methadone clinic. (3) Diabetes: Code(s): E11.9 - Type 2 diabetes mellitus without complications Plan: Continue metformin. A1c goal is equal or less than 7%. (4) COPD (chronic obstructive pulmonary disease): Code(s): J44.9 - Chronic obstructive pulmonary disease, unspecified Plan: Use rescue inhaler as needed. (5) Hyperlipidemia LDL goal <70: Code(s): E78.5 - Hyperlipidemia, unspecified Plan: Continue statins. LDL goal is less than 70. (6) Essential hypertension: Code(s): I10 - Essential (primary) hypertension Plan: Continue hydrochlorothiazide and amlodipine. Blood pressure goal is equal or less than 130/80. Orders: Orders Vitamin B12 and Folate 4 Months E53.8 - Deficiency of other specified B group vitamins [facility] [place]. Panel Fast 4 Months E78.5 - Hyperlipidemia, unspecified Lipid Panel 4 Months E78.5 - Hyperlipidemia, unspecified Uric Acid 4 Months M10.9 - Gout, unspecified Vitamin D 25-OH Total 4 Months E55.9 - Vitamin D deficiency, unspecified Microalbumin, Random (w Creat) 4 Months E11.9 - Type 2 diabetes mellitus without complications AMB Hemoglobin A1c Today Z13.9 - Encounter for screening, unspecified Coding Level of Care Code Est Pt Level 4 (82971) Diagnoses Bipolar disorder with depression F31.9 Opioid dependence on agonist therapy F11.20 Diabetes E11.9 COPD (chronic obstructive pulmonary disease) J44.9 Hyperlipidemia LDL goal <70 E78.5 Essential hypertension I10 Time Spent (min) 23
== END 2022-12-08 11:32 | disposition home or self-care (01) ==
PROVIDERS: PCP Internal Medicine; Visit Provider Internal Medicine
DX: E11.9 Type 2 diabetes mellitus without complications (principal); F31.9 Bipolar disorder, unspecified; F11.20 Opioid dependence, uncomplicated; I10 Essential (primary) hypertension; J44.9 Chronic obstructive pulmonary disease, unspecified; E78.5 Hyperlipidemia, unspecified
CPT/HCPCS: 83036; 99214

== ENCOUNTER 2022-12-23 13:19 | Outpatient (AMB) | payer MEDICARE, MEDICAID, SELFPAY ==
[2022-12-23 13:23] VITALS: BP 130/74; PULSE 53; BMI 40.0
--- NOTE | 2022-12-23 13:23 | A.OFFVIS_ITS ---
Intake Vital Signs 12/23/22 13:23 Height 5 ft 2 in Weight 218 lb 11.177 oz BMI 40.0 BP 130/74 Blood Pressure Location Lt brachial Position Sitting Pulse 53 Intake Visit Reasons: 1 yr f/up per dc Intake Note: 1 year f/u Technician Trainee Required: No Allergies Penicillins Allergy (Intermediate, Verified 12/23/22 13:32) RASH SOB Medication List - Last Reconciled 12/23/22 by Ty Montes De Oca MD albuterol sulfate 90 mcg/actuation 2 puffs inhalation Q4H PRN allopurinol 300 mg PO DAILY 90 days amlodipine 5 mg PO DAILY 90 days bisacodyl (Dulcolax (bisacodyl)) 10 mg [place] DAILY PRN blood sugar diagnostic (Accu-Chek Guide test strips) Use 1 test strip once a day blood-glucose meter (Accu-Chek Guide Glucose Meter) As directed cane As directed cholecalciferol (vitamin D3) 50 mcg PO DAILY 90 days colchicine (gout) 0.6 mg PO BID PRN 30 days cyclobenzaprine 10 mg PO TID docusate sodium (Colace) 200 mg (2 x 100 mg) PO BEDTIME famotidine 20 mg PO BEDTIME furosemide 40 mg PO Q OTHER DAY furosemide 20 mg PO DAILY gabapentin 100 mg PO DAILY [home delivery of methadone per clinic dose Start date 06/15/2022 End date: 06/16/2023] hydrochlorothiazide 25 mg PO DAILY ibuprofen 600 mg PO Q6H PRN ipratropium-albuterol 0.5 mg-3 mg(2.5 mg base)/3 mL 3 mL inhalation RQ4H PRN lancets (Accu-Chek Softclix Lancets) Use 1 lancet once a day metformin 1,000 mg PO BID 30 days methadone 130 mg PO DAILY methylcellulose (laxative) (Citrucel) 500 mg PO TID mirtazapine 45 mg PO BEDTIME naproxen (Naprosyn) 500 mg PO BID nicotine 14 mg transdermal DAILY oxcarbazepine 600 mg PO BID polyethylene glycol 3350 (Miralax) 17 grams PO DAILY polymyxin B sulf-trimethoprim 10,000 unit- 1 mg/mL (Polytrim) 1 drp ophthalmic (eye) QID 7 days sertraline 50 mg PO DAILY simvastatin 20 mg PO BEDTIME 90 days tiotropium bromide 1 cap inhalation DAILY zolpidem 10 mg PO BEDTIME 30 days HPI HPI Comments History of Present Illness Details 67-year-old female who is here for follo w-up. She previously had ECG changes and chest discomfort and was transferred to [facility] for acute coronary syndrome. Cardiac catheterization showed no coronary disease. She also has CTA performed to rule out PE which was normal. She subsequently has followed up with us. She also has prolonged QT interval in the past and has been on multiple medication including methadone, mirtazapine and sertraline. QT interval currently 465. She is denying any symptoms at this point. In particular no chest pain or shortness of breath. She is compliant with medications and blood pressure control is good. [facility] Medical History Anemia Arthritis Asthma Back pain BiPAP (biphasic positive airway pressure) dependence COPD (chronic obstructive pulmonary disease) COPD (chronic obstructive pulmonary disease) Depression Diabetes Diabetic acidosis, type I Elevated cholesterol GERD (gastroesophageal reflux disease) History of blood transfusion History of headache History of heroin use HTN (hypertension) Hx of anxiety disorder Hx of bipolar disorder Hx of drug dependence Oxygen dependent Sleep apnea Surgical History S/P cardiac cath History of esophagogastroduodenoscopy (EGD) H/O colonoscopy Hx of total knee replacement Hx of arthroscopic knee surgery Hx of section Hx of foot surgery Family History Father Heart disease Mother Heart disease Family/Other Mental health disorder Substance use disorder Social History Household Members: None Housing: Apartment Do you presently have visiting nurse or other home services: Yes Alcohol intake: former Patient Tobacco Use Status: Current everyday Tobacco user Tobacco use type: Cigarette Cigarettes Per Day: 3 Years Smoked: 50 e-Cigarette/Vaping Use: Never Used Second Hand Smoke Exposure: No Substance Use Type: Heroin service: No Current occupational status: disabled Current occupation: right handed Cognitive needs: Yes Hearing needs: No Vision needs: Yes Review of Systems ENT Reports dizziness Card Denies chest pain, Denies chest pain at rest, Denies chest pain with activity, Denies rapid heart rate, Denies pedal edema, Denies edema, Denies leg edema, Denies lightheadedness, Denies palpitations, Denies dyspnea, Denies dyspnea on exertion and Denies orthopnea Resp Denies cough, Denies dyspnea and Denies dyspnea on exertion GI Denies hematochezia and Denies change in stool character Musc Denies abnormal gait, Reports limited range of motion, Reports muscle cramps, Denies muscle weakness, Denies numbness, Denies radiating pain into limb, Denies stiffness and Denies tingling Neuro Denies abnormal gait, Reports dizziness, Denies numbness and Denies tingling Endo Denies palpitations Physical Exam Vital Signs: Last Vital Signs Pulse 53 12/23/22 13:23 BP 130/74 12/23/22 13:23 BMI result Body Mass Index 40.0 GENERAL APPEARANCE: in no acute distress, pleasant. NECK: no carotid bruit, no jugular venous distention. SKIN: no suspicious lesions, warm and dry. HEART: no murmurs, regular rate and rhythm. Regular bradycardia. LUNGS: clear to auscultation bilaterally. ABDOMEN: soft, nontender. EXTREMITIES: no edema. PERIPHERAL PULSES: equal. NEUROLOGIC: No gross deficits, AAO X 3 Office Procedures EKG Details: Sinus bradycardia 53 beats per minute, normal axis, normal ECG, QTC 465 milliseconds. [id number], Complete Assessment & Plan Assessment & Plan (1) Essential hypertension: Code(s): I10 - Essential (primary) hypertension (2) Prolonged QT interval: Code(s): R94.31 - Abnormal electrocardiogram [ECG] [EKG] Plan Pleasant 67 year female who is here for follow-up. She has background of hypertension. She is currently taking amlodipine 5 mg da jeanne and hydrochlorothiazide 25 mg daily. Blood pressure control is good. She previously had prolonged QTC. She is on multiple medications which can cause prolonged QT interval including methadone, mirtazapine and sertraline. Generally, the effect of QT prolongation is additive by multiple agents. Please be careful adding more medications and interaction should be checked. In particular Z-Saman and levofloxacin/ciprofloxacin should be avoided. Thank you for allowing me to participate in the care of your patient. Please feel free to contact me if you have any questions. Coding Level of Care Code Est Pt Level 4 (59377) Diagnoses Essential hypertension I10 Prolonged QT interval R94.31 CPT Codes EKG - CPT: 92447-[id number], Complete ([id number])
== END 2022-12-23 13:48 | disposition home or self-care (01) ==
PROVIDERS: PCP Internal Medicine; Referring Provider Internal Medicine; Visit Provider Internal Medicine Cardiovascular Disease
DX: I10 Essential (primary) hypertension (principal); R94.31 Abnormal electrocardiogram [ECG] [EKG]
CPT/HCPCS: 93010; 99214

== ENCOUNTER → 2022-12-23 13:19 | Outpatient (BNVA) | payer MEDICARE, MEDICAID, SELFPAY | PROVIDERS: PCP Internal Medicine; Referring Provider Internal Medicine; Visit Provider Internal Medicine Cardiovascular Disease | DX: R00.1 Bradycardia, unspecified (principal); I10 Essential (primary) hypertension; R94.31 Abnormal electrocardiogram [ECG] [EKG]; F11.20 Opioid dependence, uncomplicated; F17.210 Nicotine dependence, cigarettes, uncomplicated; Z98.890 Other specified postprocedural states; Z99.81 Dependence on supplemental oxygen | CPT/HCPCS: 93005; 99212 ==

== ENCOUNTER 2022-12-25 13:10 | Outpatient (REF) | payer OTHER, SELFPAY ==
--- NOTE | ~2022-12-25 | CT_ITS ---
EXAMINATION: CT CHEST WITHOUT CONTRAST CLINICAL INFORMATION: Pulmonary nodule. COMPARISON: CT angiogram chest 10/01/2020: There is a 4 mm nodule right upper lobe axial image 129/45 series 8. This is new since CAT scan 03/01/2019. TECHNIQUE: Multidetector volumetric CT imaging of the chest was done. Axial MIP volume rendering provided. Sagittal and coronal reformatted images were obtained. This CT examination was performed using dose optimization techniques as appropriate, variously including the following: *Automated exposure control *Adjustment of mA and/or kV according to patient size (this includes techniques or standardized protocols for targeted exams where dose is matched to indication/reason for exam; i.e. extremities or head) *Use of iterative reconstruction technique DLP: 250 mGy-cm FINDINGS: LUNGS: There is evidence of mild underlying COPD. A few tiny bullae are seen. The previously seen new 4 mm nodule at the time of the 10/01/2020 study (8:128) appears less confluent and smaller with some air intermixed within this (5:123-126). This may have been a tiny amount of fluid seen in a small bullous. Other scattered small micronodules are seen, and mercado images of all have been saved. These are much better visualized on the current exam which has significantly less respiratory artifact than the 2020 study. No new worrisome or suspicious lung mass is seen. Dependent atelectasis which was present previously has resolved. MEDIASTINUM: The mediastinum is normal. CORONARY ARTERY CALCIFICATION: None visualized on this study. PLEURA: There is no pleural effusion. No pleural mass or thickening. AXILLA: No lymphadenopathy. UPPER ABDOMEN: Unremarkable. OSSEOUS STRUCTURES: Degenerative changes are present throughout the spine. CT/CT chest wo IV con IMPRESSION: The previously seen new 4 mm nodule at the time of the 10/01/2020 study appears less confluent and smaller with some air intermixed within this. This may have been a tiny amount of fluid seen in a small bullous-this is not a worrisome finding. Other scattered small micronodules are seen and are much better visualized on the current exam which has significantly less respiratory artifact than the 2020 study. No new worrisome or suspicious lung mass is seen. Fleischner guidelines were followed.
== END 2022-12-25 13:11 | disposition home or self-care (01) ==
LOC: HO.CT 13:10
PROVIDERS: PCP Internal Medicine; Visit Provider Internal Medicine Pulmonary Disease
DX: R91.8 Other nonspecific abnormal finding of lung field (principal)
CPT/HCPCS: 71250

== ENCOUNTER 2023-01-06 13:29 | Outpatient (AMB) | payer OTHER, SELFPAY ==
[2023-01-06 13:31] VITALS: BP 127/82; PULSE 56; O2SAT 91; BMI 39.7
--- NOTE | 2023-01-06 13:31 | A.OFFVIS_ITS ---
Intake Vital Signs 01/06/23 13:31 Height 5 ft 2 in Weight 217 lb 2.485 oz BMI 39.7 BP 127/82 Blood Pressure Location Rt brachial Position Sitting Pulse 56 Pulse Source Doppler Pulse Oximetry (%) 91 L Oxygen Delivery Method Room Air Intake Visit Reasons: ct follow up Allergies Penicillins Allergy (Intermediate, Verified 12/23/22 13:32) RASH SOB HPI ct follow up HPI Details 67-year-old lady active 30+ pack-year sm radha now followed for TESS, COPD, and dyspnea on exertion. After the last office visit patient completed her pulmonary function test and CT chest. Her symptoms are not well controlled on Flovent, Spiriva, and albuterol MDI. She is also undergoing cardiac workup. She denies an acute exacerbation. [facility] Medical History Anemia Arthritis Asthma Back pain BiPAP (biphasic positive airway pressure) dependence COPD (chronic obstructive pulmonary disease) COPD (chronic obstructive pulmonary disease) Depression Diabetes Diabetic acidosis, type I Elevated cholesterol GERD (gastroesophageal reflux disease) History of blood transfusion History of headache History of heroin use HTN (hypertension) Hx of anxiety disorder Hx of bipolar disorder Hx of drug dependence Oxygen dependent Sleep apnea Surgical History S/P cardiac cath History of esophagogastroduodenoscopy (EGD) H/O colonoscopy Hx of total knee replacement Hx of arthroscopic knee surgery Hx of section Hx of foot surgery Family History Father Heart disease Mother Heart disease Family/Other Mental health disorder Substance use disorder Social History Household Members: None Housing: Apartment Do you presently have visiting nurse or other home services: Yes Alcohol intake: former Patient Tobacco Use Status: Current everyday Tobacco user Tobacco use type: Cigarette Cigarettes Per Day: 3 Years Smoked: 50 e-Cigarette/Vaping Use: Never Used Second Hand Smoke Exposure: No Substance Use Type: Heroin service: No Current occupational status: disabled Current occupation: right handed Cognitive needs: Yes Hearing needs: No Vision needs: Yes Review of Systems Const Denies daytime sleepiness, Denies excessive sweating, Denies fatigue, Denies fever(s), Denies lethargy, Denies malaise, Denies night sweats, Denies snoring and Denies weight loss Eyes Denies blurry vision and Denies itchy eyes ENT Denies nasal congestion, Denies post nasal drip, Denies sinus pain, Denies sinus pressure and Denies other ( Thrush) Card Denies chest pain, Denies pedal edema, Denies dyspnea, Reports dyspnea on exertion, Denies orthopnea and Denies paroxysmal nocturnal dyspnea Resp Denies cough, Denies hemoptysis, Denies excessive phlegm production, Denies dyspnea, Reports dyspnea on exertion, Denies snoring and Denies wheezing GI Denies abdominal pain and Denies heartburn Musc Denies myalgias, Denies arthralgias and Denies joint swelling Skin/Breast Denies rash Neuro Denies memory loss and Denies seizure-like activity Psych Denies abnormal sleep pattern, Denies anxiety and Denies memory loss Endo Denies excessive sweating, Denies fatigue and Denies heat intolerance Randy/Lymph Denies easy bruising Aller/Immun Denies itchy eyes, Denies seasonal rhinorrhea and Denies wheezing Physical Exam Vital Signs: Last Vital Signs Pulse 56 01/06/23 13:31 BP 127/82 01/06/23 13:31 Pulse Ox 91 L 01/06/23 13:31 Oxygen Delivery Method Room Air 01/06/23 13:31 BMI result Body Mass Index 39.7 Const General: no acute distress and alert Nutritional Appearance: obese Orientation/consciousness: Other orientation findings ( oriented) HEENT Head: Yes atraumatic Eyes General: appearance normal, both eyes and all related structures Sclerae: sclerae normal EOM: EOMs intact bilaterally Neck Neck: Yes supple Lymphatic: no lymphadenopathy noted Resp Effort & Inspection: normal respiratory effort and no use of accessory muscles Auscultation: clear to auscultation bilaterally Cardio Rate: regular rate Rhythm: regular rhythm Heart sounds: no gallops, no murmurs and no rubs Skin General skin exam: other ( warm) Extrem General: No clubbing, No cyanosis and No edema Assessment & Plan Assessment & Plan (1) COPD (chronic obstructive pulmonary disease): Code(s): J44.9 - Chronic obstructive pulmonary disease, unspecified Plan: Suboptimally controlled on Flovent and Spiriva. Will change Flovent to Breo. Continue Spiriva and albuterol MDI. Results of pulmonary function test reviewed. (2) TESS (obstructive sleep apnea): Code(s): G47.33 - Obstructive sleep apnea (adult) (pediatric) Plan: New sleep study is pending. (3) Pulmonary nodules: Code(s): R91.8 - Other nonspecific abnormal finding of lung field Plan: Results of CT chest reviewed, no worrisome pulmonary nodules. Continue with yearly screening, next in December of 2023. Medications: New budesonide-formoterol 160-4.5 mcg/actuation (Symbicort) 2 puffs inhalation BID 30 days 10.2 grams 6RF Coding Level of Care Code Est Pt Level 4 (36197) Diagnoses COPD (chronic obstructive pulmonary disease) J44.9 TESS (obstructive sleep apnea) G47.33 Pulmonary nodules R91.8
== END 2023-01-06 13:45 | disposition home or self-care (01) ==
PROVIDERS: PCP Internal Medicine; Visit Provider Internal Medicine Pulmonary Disease
DX: J44.9 Chronic obstructive pulmonary disease, unspecified (principal); G47.33 Obstructive sleep apnea (adult) (pediatric); R91.8 Other nonspecific abnormal finding of lung field
CPT/HCPCS: 99214

== ENCOUNTER → 2023-01-06 13:29 | Outpatient (BNVA) | payer OTHER, SELFPAY | PROVIDERS: PCP Internal Medicine; Visit Provider Internal Medicine Pulmonary Disease | DX: G47.33 Obstructive sleep apnea (adult) (pediatric) (principal); J44.9 Chronic obstructive pulmonary disease, unspecified; R91.8 Other nonspecific abnormal finding of lung field | CPT/HCPCS: 99212 ==

== ENCOUNTER 2023-01-19 09:59 | Outpatient (REF) | payer OTHER, SELFPAY | END 2023-01-19 10:00 | disposition home or self-care (01) | LOC: HO.MAMMO 09:59 | PROVIDERS: PCP Internal Medicine; Visit Provider Internal Medicine | DX: Z12.31 Encounter for screening mammogram for malignant neoplasm of breast (principal) | CPT/HCPCS: 77063; 77067 ==

== ENCOUNTER → 2023-01-19 10:15 | Outpatient (BNV) | payer OTHER, SELFPAY | PROVIDERS: PCP Internal Medicine; Visit Provider Radiology Diagnostic Radiology | DX: Z12.31 Encounter for screening mammogram for malignant neoplasm of breast (principal) | CPT/HCPCS: 77063; 77067 ==

== ENCOUNTER 2023-02-19 11:21 | Outpatient (AMB) | payer OTHER, SELFPAY ==
--- NOTE | 2023-02-19 11:43 | AM.OFFWIN_ITS ---
Intake Vital Signs 02/19/23 11:44 Height 5 ft 2 in Weight 218 lb BMI 39.9 BP 118/70 Blood Pressure Location Rt brachial Position Sitting Pulse 66 Pulse Source Pulse Oximeter Temp 97.8 F Temp Source Temporal Artery Scan Pulse Oximetry (%) 99 Intake Visit Reasons: EST/sore throat (lobby masked) Intake Note: pt is here for c/o sore throat, congestion Patient Tobacco Use Status: Current everyday Tobacco user Allergies Penicillins Allergy (Intermediate, Verified 02/19/23 11:44) RASH SOB Do you need a note to return to daycare/school/sports/work: Yes HPI HPI Comments History of Present Illness Details This is a 67-year-old female who presents to the office today for sick visit. Patient complaining of persistent and slightly worsening viral URI symptoms including sore throat, nasal congestion, rhinorrhea, low-grade fevers, myalgias, headaches. She denies any productive cough. She denies chest pain or shortness of breath. She denied abdominal pain or nausea/vomiting/diarrhea. [facility] Medical History Anemia Arthritis Asthma Back pain BiPAP (biphasic positive airway pressure) dependence COPD (chronic obstructive pulmonary disease) COPD (chronic obstructive pulmonary disease) Depression Diabetes Diabetic acidosis, type I Elevated cholesterol GERD (gastroesophageal reflux disease) History of blood transfusion History of headache History of heroin use HTN (hypertension) Hx of anxiety disorder Hx of bipolar disorder Hx of drug dependence Oxygen dependent Sleep apnea Surgical History S/P cardiac cath History of esophagogastroduodenoscopy (EGD) H/O colonoscopy Hx of total knee replacement Hx of arthroscopic knee surgery Hx of section Hx of foot surgery Family History Father Heart disease Mother Heart disease Family/Other Mental health disorder Substance use disorder Social History Household Members: None Housing: Apartment Do you presently have visiting nurse or other home services: Yes Alcohol intake: former Patient Tobacco Use Status: Current everyday Tobacco user Tobacco use type: Cigarette Cigarettes Per Day: 3 Years Smoked: 50 e-Cigarette/Vaping Use: Never Used Second Hand Smoke Exposure: No Substance Use Type: Heroin service: No Current occupational status: disabled Current occupation: right handed Cognitive needs: Yes Hearing needs: No Vision needs: Yes Review of Systems Const All systems reviewed & are unremarkable except as noted in HPI and below Reports no additional complaints Eyes Reports no additional complaints ENT Reports no additional complaints Card Reports no additional complaints Resp Reports no additional complaints GI Reports no additional complaints Reports no additional complaints Musc Reports no additional complaints Skin/Breast Reports system reviewed and no additional complaints, except as documented Neuro Reports no additional complaints Psych Reports no additional complaints Endo Reports no additional complaints Randy/Lymph Reports no additional complaints Aller/Immun Reports no additional complaints Physical Exam Vital Signs: Last Vital Signs Temp 97.8 F 02/19/23 11:44 Pulse 66 02/19/23 11:44 BP 118/70 02/19/23 11:44 Pulse Ox 99 02/19/23 11:44 BMI result Body Mass Index 39.9 Const Other: Vital signs reviewed. Constitutional: Non-toxic appearing. No acute distress. Well-developed and well-nourished. HEENT: Normocephalic and atraumatic. Tympanic membranes without erythema, edema, or bulging bilaterally. External auditory canals without erythema or edema bilaterally. Moist mucous membranes. No pharyngeal erythema or exudates. Skin: Warm and dry. No rashes or lesions noted. Neck: Full and painless range of motion. No cervical lymphadenopathy. Cardio: Regular rate and rhythm. No murmurs, gallops, or rubs. No lower extremity edema. No JVD. Pulmonary: No respiratory distress. No accessory muscle usage. Clear to auscultation bilaterally without wheezing, crackles, or rhonchi. Gastrointestinal: Soft, nontender, and nondistended in all 4 quadrants. Normoactive bowel sounds in all 4 quadrants. Genitourinary: No CVA tenderness. Musculoskeletal: Normal range of motion in joints throughout the body. No deformity or other signs of injury. Neuro: Alert and oriented x4. Cranial nerves 2-12 grossly intact. No focal deficits appreciated. Psych: Normal mood and affect. Results AMB Rapid Strep AMB Rapid Strep Negative Last Edit by Dipika Holguin CMA on 02/19/23 12:11 Assessment & Plan Assessment & Plan (1) Upper respiratory infection: Code(s): J06.9 - Acute upper respiratory infection, unspecified Plan: This is a 67-year-old female presenting to the office complaining of persistent and slightly worsening viral URI symptoms x1 month. Patient's vital signs are stable, her physical exam is benign, and she is overall nontoxic appearing. Patient presenting with signs and symptoms most consistent with acute respiratory tract infection. Recommended symptomatic management including rest, increased fluids, advil/tylenol for pain/fever, and over the counter throat lozenges/decongestants. Patient was also sent on p.o. azithromycin 500 mg today followed by 250 mg x 4 days given duration of her symptoms and this will have an anti-inflammatory effect as well. COVID/flu/RSV sent. Patient advised to follow up here or go to the emergency room for worsening/persistent symptoms. Patient verbalizes her understanding and she is in agreement with the plan. Orders: Orders AMB Rapid Strep Screen Today Z13.9 - Encounter for screening, unspecified Radha Carcamo DO SARS-CoV2/FLU/RSV Today R09.89 - Other specified symptoms and signs involving the circulatory and respiratory systems CARLOTA Sanchez Medications: New azithromycin For 250 mg dose pack: take 500 mg today (day 1), then 250 mg for 4 days (days 2-5) PO 6 tabs 0RF CARLOTA Sanchez Coding Level of Care Code Est Pt Level 3 (48396) Diagnoses Upper respiratory infection J06.9
[2023-02-19 11:44] VITALS: BP 118/70; PULSE 66; TEMP 36.6; O2SAT 99; BMI 39.9
== END 2023-02-19 13:09 | disposition home or self-care (01) ==
PROVIDERS: PCP Internal Medicine; Visit Provider Physician Assistant Medical
DX: J06.9 Acute upper respiratory infection, unspecified (principal); J02.9 Acute pharyngitis, unspecified
CPT/HCPCS: 87880; 99213

== ENCOUNTER 2023-02-19 12:28 | Outpatient (REF) | payer OTHER, SELFPAY ==
[2023-02-19 14:13] LABS: Influenza A PCR NEGATIVE (Negative); Influenza B PCR NEGATIVE (Negative); Resp Syncy Virus RNA Qual PCR NEGATIVE (Negative); SARS COV2 PCR INHOUSE NEGATIVE (Negative)
== END 2023-02-19 12:29 | disposition home or self-care (01) ==
LOC: HO.LAB 12:28
PROVIDERS: Visit Provider Physician Assistant Medical
DX: Z11.52 Encounter for screening for COVID-19 (principal); Z20.822 Contact with and (suspected) exposure to COVID-19; R09.89 Other specified symptoms and signs involving the circulatory and respiratory systems
CPT/HCPCS: 0241U

== ENCOUNTER 2023-04-01 14:18 | Outpatient (AMB) | payer OTHER, SELFPAY ==
--- NOTE | 2023-04-01 14:19 | MHC.PC.OV ---
Vital Signs 04/01/23 14:20 Height 5 ft 2 in Weight 221 lb BMI 40.4 BP 122/80 Blood Pressure Location Lt brachial Position Sitting Intake Visit Reasons: dm Intake Note: Patient here for a follow up DM, c/o cough, mucus going on 2 months seen at walk-in [employer] Required: No Accompanied by: Self / Same As Patient Allergies Penicillins Allergy (Intermediate, Verified 04/01/23 14:31) RASH SOB Medication List - Last Reconciled 04/01/23 by Portia Hicks MD albuterol sulfate 90 mcg/actuation 2 puffs inhalation Q4H PRN allopurinol 300 mg PO DAILY 90 days amlodipine 5 mg PO DAILY 90 days bisacodyl (Dulcolax (bisacodyl)) 10 mg MT DAILY PRN blood sugar diagnostic (Accu-Chek Guide test strips) Use 1 test strip once a day blood-glucose meter (Accu-Chek Guide Glucose Meter) As directed budesonide-formoterol 160-4.5 mcg/actuation (Symbicort) 2 puffs inhalation BID 30 days cane As directed cholecalciferol (vitamin D3) 50 mcg PO DAILY 90 days colchicine 0.6 mg PO BID PRN cyclobenzaprine 10 mg PO TID docusate sodium (Colace) 200 mg (2 x 100 mg) PO BEDTIME famotidine 20 mg PO BEDTIME furosemide 40 mg PO Q OTHER DAY furosemide 20 mg PO DAILY gabapentin 100 mg PO DAILY [home delivery of methadone per clinic dose Start date 06/15/2022 End date: 06/16/2023] hydrochlorothiazide 25 mg PO DAILY ibuprofen 600 mg PO Q6H PRN ipratropium-albuterol 0.5 mg-3 mg(2.5 mg base)/3 mL 3 mL inhalation RQ4H PRN lancets (Accu-Chek Softclix Lancets) Use 1 lancet once a day metformin 1,000 mg PO BID 30 days methadone 130 mg PO DAILY mirtazapine 45 mg PO BEDTIME oxcarbazepine 600 mg PO BID sertraline 50 mg PO DAILY simvastatin 20 mg PO BEDTIME 90 days tiotropium bromide 1 cap inhalation DAILY zolpidem 10 mg PO BEDTIME 30 days Tobacco use date assessed: 07/16/22 Fall risk assessment: No Falls in past year Last assessed Fall Risk: 04/01/23 Dental Screening Dental Screen Date: 04/01/23 Did you have a dental visit in the last 12 months?: No Did you have a dental problem in the last 6 months where you did not have access to dental care?: No Was dental information given to patient?: Patient has dentist HPI HPI Comments History of Present Illness Details This is a 67-year-old female with diabetes mellitus type 2, COPD, morbid obesity, bipolar disorder with depression and opioid dependence on agonist therapy that comes today for follow-up on her conditions. Walks with a cane for gait stability. A1c within goal. COPD stable with longstanding inhaler and use rescue inhaler as needed. She is morbidly obese with a BMI of 40.4 and was advised to diet and exercise. Bipolar disorder stable with SSRIs for her depression. On methadone follow by methadone clinic for her opiate dependence. No chest pain or shortness of breath. [facility] Medical History History of heroin use BiPAP (biphasic positive airway pressure) dependence COPD (chronic obstructive pulmonary disease) Diabetic acidosis, type I Hx of drug dependence Arthritis Back pain History of blood transfusion Anemia Diabetes GERD (gastroesophageal reflux disease) Hx of anxiety disorder Hx of bipolar disorder History of headache Depression Sleep apnea Oxygen dependent COPD (chronic obstructive pulmonary disease) Asthma Elevated cholesterol HTN (hypertension) Surgical History S/P cardiac cath History of esophagogastroduodenoscopy (EGD) H/O colonoscopy Hx of total knee replacement Hx of arthroscopic knee surgery Hx of section Hx of foot surgery Family History Father Heart disease Mother Heart disease Family/Other Mental health disorder Substance use disorder Social History Household Members: None Housing: Apartment Do you presently have visiting nurse or other home services: Yes Alcohol intake: former Patient Tobacco Use Status: Current everyday Tobacco user Tobacco use type: Cigarette Cigarettes Per Day: 3 Years Smoked: 50 e-Cigarette/Vaping Use: Never Used Second Hand Smoke Exposure: No Substance Use Type: Heroin service: No Current occupational status: disabled Current occupation: right handed Cognitive needs: Yes Hearing needs: No Vision needs: Yes Questionnaire Thrive Questionnaire Date Thrive assessed: 07/16/22 SIMIN-7 AMB Questionnaire SIMIN-7 Date SIMIN - 7 assessed: 07/16/22 Source: Developed by Drs. Jann Du, Mary Norton, Alex Kerr and colleagues, with an educational mo from [employer]. Review of Systems Const All systems reviewed & are unremarkable except as noted in HPI and below Eyes Reports no additional complaints, Denies change in vision and Denies other visual disturbances Card Denies chest pain at rest, Denies chest pain with activity, Denies edema, Denies irregular heart rhythm, Denies claudication, Denies dyspnea, Denies dyspnea on exertion, Denies orthopnea, Denies paroxysmal nocturnal dyspnea and Denies slow heart rate Resp Denies cough, Denies dyspnea and Denies dyspnea on exertion GI Denies abdominal pain, Denies change in bowel habits, Denies excessive flatus, Denies nausea and Denies vomiting Denies urinary incontinence, Denies urinary hesitancy and Denies urinary urgency Musc Denies abnormal gait, Denies atrophy, Denies deformity and Denies limited range of motion Skin/Breast Denies bleeding lesions, Denies changing lesions and Denies rash Neuro Denies abnormal gait, Denies behavioral changes, Denies confusion and Denies lack of coordination Psych Denies behavioral changes and Denies confusion Physical exam (Primary Care) Vital Signs: Last Vital Signs BP 122/80 04/01/23 14:20 BMI result Body Mass Index 40.4 Tobacco/Smoking Status: Tobacco use Status Tobacco use date assessed 07/16/22 04/01/23 14:29 Patient Tobacco Use Status Current everyday Tobacco 04/01/23 14:29 Tobacco use type Cigarette 04/01/23 14:29 e-Cigarette/Vaping Use Never Used 04/01/23 14:29 Thrive Assessment: Date of Thrive Assessment Date Thrive assessed 07/16/22 04/01/23 14:29 Const General: No confusion Orientation/consciousness: patient oriented x3 and No confusion Eyes General: appearance normal, both eyes and all related structures Eyelids: Yes eyelids normal Conjunctivae: conjunctivae normal Neck Neck: Yes normal visual inspection and Yes supple Resp Effort & Inspection: normal respiratory effort Auscultation: clear to auscultation bilaterally Cardio Jugular venous distension: no JVD Rate: regular rate Rhythm: regular rhythm Heart sounds: S1 normal heart sound present and S2 normal heart sound present GI Inspection: Yes normal to inspection Palpation (GI): Soft to palpation and nontender Auscultation: normal bowel sounds Skin General skin exam: no rashes or lesions noted Neuro General: patient oriented x3, no focal motor deficits and No confusion Extrem General: Yes full ROM Psych Appearance: grossly normal Results AMB Hemoglobin A1c AMB Hemoglobin A1c 7.4 % Last Edit by TOM Tamez on 04/01/23 14:37 Results Reviewed Results Reviewed: Laboratory Last Values Hgb A1c (Clinic) 7.4 % (4.0-6.0) H 04/01/23 14:36 Assessment and Plan Assessment & Plan (1) Morbid obesity: Code(s): E66.01 - Morbid (severe) obesity due to excess calories Plan: Start diet and exercise. BMI goal is less than 30. (2) COPD (chronic obstructive pulmonary disease): Code(s): J44.9 - Chronic obstructive pulmonary disease, unspecified Plan: Continue longstanding inhaler. Use rescue inhaler as needed. (3) Diabetes: Code(s): E11.9 - Type 2 diabetes mellitus without complications Plan: Continue metformin. A1c goal is equal or less than 7%. (4) Bipolar disorder with depression: Code(s): F31.9 - Bipolar disorder, unspecified Plan: Continue SSRIs. (5) Opioid dependence on agonist therapy: Comment: History of heroin use-methadone maintenance likely cause for constipation Code(s): F11.20 - Opioid dependence, uncomplicated Plan: Follow-up with methadone clinic. Orders: Orders AMB Hemoglobin A1c 04/01/23 E11.9 - Type 2 diabetes mellitus without complications Microalbumin, Random (w Creat) 4 Months E11.9 - Type 2 diabetes mellitus without complications Lipid Panel 4 Months E78.5 - Hyperlipidemia, unspecified Vitamin D 25-OH Total 4 Months E55.9 - Vitamin D deficiency, unspecified Uric Acid 4 Months M10.9 - Gout, unspecified Comprehensive [place]. Panel Fast 4 Months I10 - Essential (primary) hypertension Medications: New guaifenesin ER (Mucinex) 600 mg PO BID 5 days 10 tabs 0RF Coding Level of Care Code Est Pt Level 4 (87330) Diagnoses Morbid obesity E66.01 COPD (chronic obstructive pulmonary disease) J44.9 Diabetes E11.9 Bipolar disorder with depression F31.9 Opioid dependence on agonist therapy F11.20 Time Spent (min) 24
[2023-04-01 14:20] VITALS: BP 122/80; BMI 40.4
== END 2023-04-01 14:39 | disposition home or self-care (01) ==
PROVIDERS: PCP Internal Medicine; Visit Provider Internal Medicine
DX: E11.9 Type 2 diabetes mellitus without complications (principal)
CPT/HCPCS: 83036; 99214

== ENCOUNTER 2023-05-19 13:33 | Outpatient (AMB) | payer OTHER, SELFPAY ==
[2023-05-19 13:44] VITALS: BP 128/84; PULSE 72; O2SAT 94; BMI 42.3
--- NOTE | 2023-05-19 13:44 | MHC.OFFVIS ---
Intake Vital Signs 05/19/23 13:44 Height 5 ft 2 in Weight 231 lb 7.766 oz BMI 42.3 BP 128/84 Blood Pressure Location Rt brachial Position Sitting Pulse 72 Pulse Source Doppler Pulse Oximetry (%) 94 Oxygen Delivery Method Room Air Intake Visit Reasons: ct follow up Allergies Penicillins Allergy (Intermediate, Verified 05/19/23 13:54) RASH SOB HPI ct follow up HPI Details 67-year-old lady active 30+ pack-year smoker now followed for TESS, COPD, and dyspnea on exertion. At the last office visit she was switched from Flovent to Symbicort with significantly improved, but still suboptimal symptom control. She continues to use also albuterol MDI, however she no longer has her Spiriva. Patient is also complaining of allergic rhinitis. [facility] Medical History History of heroin use BiPAP (biphasic positive airway pressure) dependence COPD (chronic obstructive pulmonary disease) Diabetic acidosis, type I Hx of drug dependence Arthritis Back pain History of blood transfusion Anemia Diabetes GERD (gastroesophageal reflux disease) Hx of anxiety disorder Hx of bipolar disorder History of headache Depression Sleep apnea Oxygen dependent COPD (chronic obstructive pulmonary disease) Asthma Elevated cholesterol HTN (hypertension) Surgical History S/P cardiac cath History of esophagogastroduodenoscopy (EGD) H/O colonoscopy Hx of total knee replacement Hx of arthroscopic knee surgery Hx of section Hx of foot surgery Family History Father Heart disease Mother Heart disease Family/Other Mental health disorder Substance use disorder Social History Household Members: None Housing: Apartment Do you presently have visiting nurse or other home services: Yes Alcohol intake: former Patient Tobacco Use Status: Current everyday Tobacco user Tobacco use type: Cigarette Cigarettes Per Day: 3 Years Smoked: 50 e-Cigarette/Vaping Use: Never Used Second Hand Smoke Exposure: No Substance Use Type: Heroin service: No Current occupational status: disabled Current occupation: right handed Cognitive needs: Yes Hearing needs: No Vision needs: Yes Review of Systems Const Denies daytime sleepiness, Denies excessive sweating, Denies fatigue, Denies fever(s), Denies lethargy, Denies malaise, Denies night sweats, Denies snoring and Denies weight loss Eyes Denies blurry vision and Denies itchy eyes ENT Reports nasal congestion, Reports post nasal drip, Denies sinus pain, Denies sinus pressure and Denies other ( Thrush) Card Denies chest pain, Denies pedal edema, Denies dyspnea, Denies orthopnea and Denies paroxysmal nocturnal dyspnea Resp Denies cough, Denies hemoptysis, Denies excessive phlegm production, Denies dyspnea, Denies snoring and Denies wheezing GI Denies abdominal pain and Denies heartburn Musc Denies myalgias, Denies arthralgias and Denies joint swelling Skin/Breast Denies rash Neuro Denies memory loss and Denies seizure-like activity Psych Denies abnormal sleep pattern, Denies anxiety and Denies memory loss Endo Denies excessive sweating, Denies fatigue and Denies heat intolerance Randy/Lymph Denies easy bruising Aller/Immun Denies itchy eyes, Denies seasonal rhinorrhea and Denies wheezing Physical Exam Vital Signs: Last Vital Signs Pulse 72 05/19/23 13:44 BP 128/84 05/19/23 13:44 Pulse Ox 94 05/19/23 13:44 Oxygen Delivery Method Room Air 05/19/23 13:44 BMI result Body Mass Index 42.3 Const General: no acute distress and alert Nutritional Appearance: not obese Orientation/consciousness: Other orientation findings ( oriented) HEENT Head: Yes atraumatic Eyes General: appearance normal, both eyes and all related structures Sclerae: sclerae normal EOM: EOMs intact bilaterally Neck Neck: Yes supple Lymphatic: no lymphadenopathy noted Resp Effort & Inspection: normal respiratory effort and no use of accessory muscles Auscultation: clear to auscultation bilaterally Cardio Rate: regular rate Rhythm: regular rhythm Heart sounds: no gallops, no murmurs and no rubs Skin General skin exam: other ( warm) Extrem General: No clubbing, No cyanosis and No edema Assessment & Plan Assessment & Plan (1) COPD (chronic obstructive pulmonary disease): Code(s): J44.9 - Chronic obstructive pulmonary disease, unspecified Plan: Improved but still suboptimal control on Symbicort, will switch to BrezTri. Continue duo nebs and albuterol MDI.. (2) Pulmonary nodules: Code(s): R91.8 - Other nonspecific abnormal finding of lung field Plan: Results of CT chest reviewed, improving pulmonary nodules. Continue with yearly screening, next in December of 2023. (3) Allergic rhinitis: Code(s): J30.9 - Allergic rhinitis, unspecified Plan: Will start on nasal ipratropium. Medications: New gwbjquofyg-gdmjgbos-zuicbshapu 160-9-4.8 mcg/actuation (Breztri Aerosphere) 2 inhalations inhalation BID 1 ea 6RF 30 days ipratropium bromide administer into each nostril 2 sprays intranasal TID 15 mL 6RF 30 days Discontinued budesonide-formoterol 160-4.5 mcg/actuation (Symbicort) Discontinued Reason: Doctor's Order 2 puffs inhalation BID 10.2 grams 6RF 30 days Coding Level of Care Code Est Pt Level 4 (93778) Diagnoses COPD (chronic obstructive pulmonary disease) J44.9 Pulmonary nodules R91.8 Allergic rhinitis J30.9
== END 2023-05-19 14:03 | disposition home or self-care (01) ==
PROVIDERS: PCP Internal Medicine; Visit Provider Internal Medicine Pulmonary Disease
DX: J44.9 Chronic obstructive pulmonary disease, unspecified (principal); R91.8 Other nonspecific abnormal finding of lung field; J30.9 Allergic rhinitis, unspecified
CPT/HCPCS: 99214

== ENCOUNTER → 2023-05-19 13:33 | Outpatient (BNVA) | payer OTHER, SELFPAY | PROVIDERS: PCP Internal Medicine; Visit Provider Internal Medicine Pulmonary Disease | DX: J44.9 Chronic obstructive pulmonary disease, unspecified (principal); J30.9 Allergic rhinitis, unspecified; R91.8 Other nonspecific abnormal finding of lung field | CPT/HCPCS: 99212 ==

== ENCOUNTER 2023-05-21 14:10 | Outpatient (AMB) | payer OTHER, SELFPAY ==
[2023-05-21 14:11] VITALS: BP 160/78; PULSE 60; TEMP 36.5; O2SAT 99; BMI 42.6
--- NOTE | 2023-05-21 14:11 | MHC.OFFWIV ---
Intake Vital Signs 05/21/23 14:11 Height 5 ft 2 in Weight 233 lb BMI 42.6 BP 160/78 H Blood Pressure Location Lt brachial Position Sitting Pulse 60 Pulse Source Pulse Oximeter Temp 97.7 F Temp Source Temporal Artery Scan Pulse Oximetry (%) 99 Oxygen Delivery Method Room Air Intake Visit Reasons: EST/LT shoulder pain (lobby) Intake Note: pt is here today for lft shoulder pain started 3 weeks ago Patient Tobacco Use Status: Current everyday Tobacco user Allergies Penicillins Allergy (Intermediate, Verified 05/21/23 14:11) RASH SOB Do you need a note to return to daycare/school/sports/work: No HPI HPI Comments History of Present Illness Details 67 y/o female presents to walk in clinic with c/o left shoulder pain x 3 weeks. Pt was sitting on toilet, fell asleep and fell to the ground, landing/hitting Sink and toilet sit. Reports pain, limited ROM due to pain. Reports some mild numbness and tingling. PFSH Medical History History of heroin use BiPAP (biphasic positive airway pressure) dependence COPD (chronic obstructive pulmonary disease) Diabetic acidosis, type I Hx of drug dependence Arthritis Back pain History of blood transfusion Anemia Diabetes GERD (gastroesophageal reflux disease) Hx of anxiety disorder Hx of bipolar disorder History of headache Depression Sleep apnea Oxygen dependent COPD (chronic obstructive pulmonary disease) Asthma Elevated cholesterol HTN (hypertension) Surgical History S/P cardiac cath History of esophagogastroduodenoscopy (EGD) H/O colonoscopy Hx of total knee replacement Hx of arthroscopic knee surgery Hx of section Hx of foot surgery Family History Father Heart disease Mother Heart disease Family/Other Mental health disorder Substance use disorder Social History Household Members: None Housing: Apartment Do you presently have visiting nurse or other home services: Yes Alcohol intake: former Patient Tobacco Use Status: Current everyday Tobacco user Tobacco use type: Cigarette Cigarettes Per Day: 3 Years Smoked: 50 e-Cigarette/Vaping Use: Never Used Second Hand Smoke Exposure: No Substance Use Type: Heroin service: No Current occupational status: disabled Current occupation: right handed Cognitive needs: Yes Hearing needs: No Vision needs: Yes Review of Systems Const All systems reviewed & are unremarkable except as noted in HPI and below Neuro Denies Sensory deficit (Neuro) Physical Exam Vital Signs: Last Vital Signs Temp 97.7 F 05/21/23 14:11 Pulse 60 05/21/23 14:11 BP 160/78 H 05/21/23 14:11 Pulse Ox 99 05/21/23 14:11 Oxygen Delivery Method Room Air 05/21/23 14:11 BMI result Body Mass Index 42.6 Neuro Gait exam (Neuro): Normal gait present Motor exam (neuro): 5/5 motor strength present throughout Sensory Exam: No Sensory deficit (Neuro) Extrem Right upper extremity: normal to inspection and full ROM Left upper extremity: shoulder/upper arm (Limited ROM due to pain. Small old Bruise on left side back.) Details: tenderness and ecchymosis; no swelling Assessment & Plan Assessment & Plan (1) Left shoulder pain: Code(s): M25.512 - Pain in left shoulder Qualifiers: Chronicity: chronic Qualified Code(s): M25.512 - Pain in left shoulder; G89.29 - Other chronic pain Plan: - Xray to r/o Fx - Ibuprofen for pain relief - Heat pad for pain relief - Might referral for PT or Ortho Orders: Orders XR shoulder LT min 2V Today G89.29 - Other chronic pain, M25.512 - Pain in left shoulder Medications: New cyclobenzaprine 10 mg PO BEDTIME 10 tabs 0RF G89.29 - Other chronic pain, M25.512 - Pain in left shoulder Refilled ibuprofen 600 mg PO Q6H PRN 30 tabs 0RF fever or pain Coding Level of Care Code Est Pt Level 3 (32529) Diagnoses Chronic left shoulder pain M25.512; G89.29 Chronicity: chronic Time Spent (min) 15
== END 2023-05-21 16:08 | disposition home or self-care (01) ==
PROVIDERS: PCP Internal Medicine; Visit Provider Nurse Practitioner Family
DX: M25.512 Pain in left shoulder (principal); G89.29 Other chronic pain
CPT/HCPCS: 99213

== ENCOUNTER 2023-05-21 14:35 | Outpatient (REF) | payer OTHER, SELFPAY ==
--- NOTE | ~2023-05-21 | XR_ITS ---
EXAMINATION: XR SHOULDER, LEFT CLINICAL INFORMATION: Left shoulder pain COMPARISON: None available. TECHNIQUE: Three views of the left shoulder. FINDINGS: The bones and soft tissues are normal. No fracture. Glenohumeral and acromioclavicular alignment is anatomic with normal joint space. No abnormal soft tissue calcifications. XR/XR shoulder LT min 2V IMPRESSION: Normal left shoulder.
== END 2023-05-21 14:36 | disposition home or self-care (01) ==
LOC: HO.HMGCX 14:35
PROVIDERS: PCP Internal Medicine; Visit Provider Nurse Practitioner Family
DX: M25.512 Pain in left shoulder (principal); G89.29 Other chronic pain
CPT/HCPCS: 73030

== ENCOUNTER 2023-06-10 13:48 | Outpatient (AMB) | payer OTHER, SELFPAY ==
[2023-06-10 14:08] VITALS: BP 130/84; PULSE 62; TEMP 36.6; O2SAT 98; BMI 42.6
--- NOTE | 2023-06-10 14:08 | MHC.OFFWIV ---
Intake Vital Signs 06/10/23 14:08 Height 5 ft 2 in Weight 233 lb BMI 42.6 BP 130/84 Blood Pressure Location Lt brachial Position Sitting Pulse 62 Pulse Source Pulse Oximeter Temp 97.9 F Temp Source Oral Pulse Oximetry (%) 98 Intake Visit Reasons: EST/right shoulder pain ongoing (lobby) Intake Note: pt is here for c/o right shoulder pain ongoing Patient Tobacco Use Status: Current everyday Tobacco user Allergies Penicillins Allergy (Intermediate, Verified 06/10/23 14:08) RASH SOB Do you need a note to return to daycare/school/sports/work: No HPI EST/right shoulder pain ongoing (lobby) HPI Details This is a 67 year old female patient who presents today with ongoing left shoulder pain. She had a fall onto shoulder about 5-6 weeks ago. She was seen at the [place] [facility] on 05/21 at which time a normal XR of her left shoulder was obtained. She was provided a short course of NSAIDs and muscle relaxers. She returns today with report of constant and worsening left shoulder pain and limited ROM. She has not had any other treatment for this. PCP is Dr. Howell. [facility] Medical History History of heroin use BiPAP (biphasic positive airway pressure) dependence COPD (chronic obstructive pulmonary disease) Diabetic acidosis, type I Hx of drug dependence Arthritis Back pain History of blood transfusion Anemia Diabetes GERD (gastroesophageal reflux disease) Hx of anxiety disorder Hx of bipolar disorder History of headache Depression Sleep apnea Oxygen dependent COPD (chronic obstructive pulmonary disease) Asthma Elevated cholesterol HTN (hypertension) Surgical History S/P cardiac cath History of esophagogastroduodenoscopy (EGD) H/O colonoscopy Hx of total knee replacement Hx of arthroscopic knee surgery Hx of section Hx of foot surgery Family History Father Heart disease Mother Heart disease Family/Other Mental health disorder Substance use disorder Social History Household Members: None Housing: Apartment Do you presently have visiting nurse or other home services: Yes Alcohol intake: former Patient Tobacco Use Status: Current everyday Tobacco user Tobacco use type: Cigarette Cigarettes Per Day: 3 Years Smoked: 50 e-Cigarette/Vaping Use: Never Used Second Hand Smoke Exposure: No Substance Use Type: Heroin service: No Current occupational status: disabled Current occupation: right handed Cognitive needs: Yes Hearing needs: No Vision needs: Yes Review of Systems Const All systems reviewed & are unremarkable except as noted in HPI and below Physical Exam Vital Signs: Last Vital Signs Temp 97.9 F 06/10/23 14:08 Pulse 62 06/10/23 14:08 BP 130/84 06/10/23 14:08 Pulse Ox 98 06/10/23 14:08 BMI result Body Mass Index 42.6 Const General: cooperative Neck Neck: Yes full ROM Resp Effort & Inspection: normal respiratory effort Auscultation: clear to auscultation bilaterally Cardio Palpation: normal PMI Rate: regular rate Rhythm: regular rhythm Skin General skin exam: no rashes or lesions noted Extrem Left upper extremity: shoulder/upper arm Details: tenderness Location: of the A-C joint and abnormal ROM Details: pain with active ROM (painful ROM in all planes, 30 degrees in abd/flex/ext) Psych Appearance: grossly normal Mental Status: mental status grossly normal Speech and movement: Normal speech and movement present Assessment & Plan Assessment & Plan (1) Left shoulder pain: Code(s): M25.512 - Pain in left shoulder Qualifiers: Chronicity: acute Qualified Code(s): M25.512 - Pain in left shoulder Plan: Patient has ongoing pain in left shoulder s/p fall over 1 month ago. Ant cuff is quite tender and she has pain with ROM at 20-30 degrees with abduction/flex/ext. We discussed PT however she does not feel she can tolerate PT at this time. I have referred her to [facility], and also prescribed her a short course of NSAIDs and Cyclobenzaprine. We reviewed indications, use, possible s/e of medications. I also advised she apply ice, topical products as needed, and perform some gentle ROM exercises at home. She verbalizes understanding and agrees to plan. Orders: Referrals Orthopedics Referral M25.512 - Pain in left shoulder Medications: New meloxicam 15 mg PO DAILY 7 days PRN 7 tabs 0RF pain, moderate M25.512 - Pain in left shoulder Refilled cyclobenzaprine 10 mg PO BEDTIME 10 tabs 0RF G89.29 - Other chronic pain, M25.512 - Pain in left shoulder Coding Level of Care Code Est Pt Level 3 (09129) Diagnoses Acute pain of left shoulder M25.512 Chronicity: acute
== END 2023-06-10 15:15 | disposition home or self-care (01) ==
PROVIDERS: PCP Internal Medicine; Visit Provider Nurse Practitioner Family
DX: M25.512 Pain in left shoulder (principal)
CPT/HCPCS: 99213

== ENCOUNTER 2023-07-05 16:34 | Outpatient (AMB) | payer OTHER, SELFPAY ==
--- NOTE | 2023-07-05 16:36 | A.OFFPC_ITS ---
Vital Signs 07/05/23 16:44 07/05/23 18:11 Height 5 ft 2 in Weight 231 lb BMI 42.2 BP 156/90 H 150/90 H Blood Pressure Location Rt brachial Lt brachial Position Sitting Sitting Intake Visit Reasons: Sciatic nerve pain Intake Note: Patent here for leg/foot pain and swelling, shoulder pain due to a fall Collateral Analyst Required: No Accompanied by: Self / Same As Patient Allergies Penicillins Allergy (Intermediate, Verified 07/05/23 16:55) RASH SOB Medication List - Last Reconciled 07/05/23 by Portia Hicks MD albuterol sulfate 90 mcg/actuation 2 puffs inhalation Q4H PRN allopurinol 300 mg PO DAILY 90 days amlodipine 5 mg PO DAILY 90 days blood sugar diagnostic (Accu-Chek Guide test strips) Use 1 test strip once a day blood-glucose meter (Accu-Chek Guide Glucose Meter) As directed budesonide-formoterol 160-4.5 mcg/actuation (Symbicort) 2 puffs inhalation BID puwmvucbpf-ncoilfit-zefhnwdirr 160-9-4.8 mcg/actuation (Breztri Aerosphere) 2 inhalations inhalation BID 30 days cane As directed cholecalciferol (vitamin D3) 50 mcg PO DAILY 90 days colchicine 0.6 mg PO BID PRN cyclobenzaprine 10 mg PO BEDTIME famotidine 20 mg PO BEDTIME furosemide 40 mg PO Q OTHER DAY gabapentin 100 mg PO DAILY [home delivery of methadone Start date 06/10/23 End date 06/09/24] [home delivery of methadone per clinic dose Start date 06/15/2022 End date: 06/16/2023] hydrochlorothiazide 25 mg PO DAILY ibuprofen 600 mg PO Q6H PRN ipratropium bromide 2 sprays intranasal TID 30 days ipratropium-albuterol 0.5 mg-3 mg(2.5 mg base)/3 mL 3 mL inhalation RQ4H PRN lancets (Accu-Chek Softclix Lancets) Use 1 lancet once a day lidocaine 4% (Aspercreme (lidocaine)) 1 patch topical DAILY PRN 30 days meloxicam 15 mg PO DAILY PRN 7 days metformin 1,000 mg PO BID 30 days methadone 130 mg PO DAILY mirtazapine 45 mg PO BEDTIME oxcarbazepine 600 mg PO BID sertraline 50 mg PO DAILY simvastatin 10 mg PO DAILY zolpidem 10 mg PO BEDTIME 30 days Tobacco use date assessed: 07/05/23 Fall risk assessment: 1 Fall in past year Last assessed Fall Risk: 07/05/23 Dental Screening Dental Screen Date: 07/05/23 Did you have a dental visit in the last 12 months?: No Did you have a dental problem in the last 6 months where you did not have access to dental care?: No Was dental information given to patient?: Patient has dentist HPI HPI Comments History of Present Illness Details This is a 67-year-old female with diabetes mellitus type 2, opioid dependence than agonist therapy, COPD, morbid obesity, bipolar depression and hypertension that comes today complaining of thoracic spine pain, left shoulder pain and left ankle pain and swelling after she fell few days ago while sitting in the toilet fall asleep and hit the sink and toilet seat. She walks with a cane for gait stability but now it is even harder to walk due to all this pain. X-ray will be order and she will referred to pain management. A1c close to goal and dietary changes were advised. On methadone therapy for her opiate dependence due to history of heroin use. COPD stable with long-acting inhaler. She is morbidly obese with a BMI of 42.3 and was advised to diet and exercise to reach BMI goal less than 30. Bipolar depression stable with SSRIs. Blood pressure elevated and will be recheck in 3 weeks by nurse navigator. [facility] Medical History (Updated 07/06/23 @ 07:41 by Portia Hicks MD) ACS (acute coronary syndrome) History of heroin use BiPAP (biphasic positive airway pressure) dependence COPD (chronic obstructive pulmonary disease) Diabetic acidosis, type I Hx of drug dependence Arthritis Back pain History of blood transfusion Anemia Diabetes GERD (gastroesophageal reflux disease) Hx of anxiety disorder Hx of bipolar disorder History of headache Depression Sleep apnea Oxygen dependent COPD (chronic obstructive pulmonary disease) Asthma Elevated cholesterol HTN (hypertension) Surgical History S/P cardiac cath History of esophagogastroduodenoscopy (EGD) H/O colonoscopy Hx of total knee replacement Hx of arthroscopic knee surgery Hx of section Hx of foot surgery Family History Father Heart disease Mother Heart disease Family/Other Mental health disorder Substance use disorder Social History Household Members: None Housing: Apartment Do you presently have visiting nurse or other home services: Yes Alcohol intake: former Patient Tobacco Use Status: Current everyday Tobacco user Tobacco use type: Cigarette Cigarettes Per Day: 3 Years Smoked: 50 Packs per year/per ci.50 e-Cigarette/Vaping Use: Never Used Second Hand Smoke Exposure: No Substance Use Type: Heroin service: No Current occupational status: disabled Current occupation: right handed Cognitive needs: Yes Hearing needs: No Vision needs: Yes Questionnaire PHQ-9 Over the last 2 weeks, how often have you been bothered by any of the following problems? 1. Little interest or pleasure in doing things: several days 2. Feeling down, depressed, or hopeless: several days 3. Trouble falling or staying asleep, or sleeping too much: several days 4. Feeling tired or having little energy: several days 5. Poor appetite or overeating: several days 6. Feeling bad about yourself - or that you are a failure or have let yourself or your family down: several days 7. Trouble concentrating on things, such as reading the newspaper or watching television: several days 8. Moving or speaking so slowly that other people could have noticed. Or the opposite - being so fidgety or restless that you have been moving around a lot more than usual: not at all 9. Thoughts that you would be better off or of hurting yourself in some way: not at all Total score: 7 Depression Screening Interpretation: Positive Depression Screening Follow-up: Existing condition and In treatment Depression Screening Done: Yes 18618 - PHQ-9 Billing: Yes Source: Developed by Drs. Jann Du, Mary Norton, Alex Kerr and colleagues, with an educational mo from [employer]. Thrive Questionnaire Date Thrive assessed: 07/05/23 I am a: Patient What is your living situation today?: I have a steady place to live Within the past 12 months, did the food you bought not last and you didn't have the money to get more?: Never true Within the past 12 months, did you worry whether your food would run out before you got money to buy more?: Never true Do you have trouble paying for medicines?: No Do you have trouble getting transportation to medical appointments?: No Do you have trouble paying your heating and electricity bill?: No Do you have trouble taking care of your child, family member or friend?: No Do you have trouble with day-to-day activities such as bathing, preparing meals, shopping, managing finances, etc.?: Yes Are you currently unemployed and looking for a job?: No Are you interested in more education?: No Please select the resources that you would like help with: None Currently or been in a relationship where the following occur: no concerns reported THRIVE Score: 0 AUDIT C Alcohol Use Questionnaire (AUDIT-C) 1. How often do you have a drink containing alcohol?: Never Total Score: 0 SIMIN-7 AMB Questionnaire SIMIN-7 Date SIMIN - 7 assessed: 07/05/23 Feeling nervous, anxious, or on edge: 1 = Several days Not being able to stop or control worryin = Not at all Worrying too much about different things: 1 = Several days Trouble relaxin = Not at all Being so restless that it is hard to sit still: 0 = Not at all Becoming easily annoyed or irritable: 0 = Not at all Feeling afraid as if something awful might happen: 0 = Not at all Total SIMIN-7 score (0-4 normal; 5-9 mild; 10-14 moderate; 15-21 severe): 2 Source: Developed by Drs. Jann Du, Mary Norton, Alex Kerr and colleagues, with an educational mo from [employer]. SIMIN-7 Assessment Billing SIMIN-7 Assessment Tool: SIMIN-7 Assessment 11443 Review of Systems Const All systems reviewed & are unremarkable except as noted in HPI and below Eyes Reports no additional complaints, Denies change in vision and Denies other visual disturbances Card Denies chest pain at rest, Denies chest pain with activity, Denies edema, Denies irregular heart rhythm, Denies claudication, Denies dyspnea, Denies dyspnea on exertion, Denies orthopnea, Denies paroxysmal nocturnal dyspnea and Denies slow heart rate Resp Denies cough, Denies dyspnea and Denies dyspnea on exertion GI Denies abdominal pain, Denies change in bowel habits, Denies excessive flatus, Denies nausea and Denies vomiting Denies urinary incontinence, Denies urinary hesitancy and Denies urinary urgency Musc Denies atrophy, Denies deformity, Reports arthralgias, Reports joint swelling and Denies limited range of motion Physical exam (Primary Care) Vital Signs: Last Vital Signs BP 150/90 H 07/05/23 18:11 BMI result Body Mass Index 42.2 Tobacco/Smoking Status: Tobacco use Status Tobacco use date assessed 07/05/23 07/05/23 16:48 Patient Tobacco Use Status Current everyday Tobacco 07/05/23 16:38 Tobacco use type Cigarette 07/05/23 16:38 e-Cigarette/Vaping Use Never Used 07/05/23 16:38 PHQ-9: PHQ-9 Score PHQ-9: Total score 7 07/05/23 18:13 Depression Screening Interpretation: Positive Depression Screening Follow-up: Existing condition and In treatment Thrive Assessment: Date of Thrive Assessment Date Thrive assessed 07/05/23 07/05/23 16:48 Currently or been in a relationship where the following occur: no concerns reported Const Limitations: wheelchair [facility] General nose exam: Normal external nose present Eyes General: appearance normal, both eyes and all related structures Eyelids: Yes eyelids normal Conjunctivae: conjunctivae normal Neck Neck: Yes normal visual inspection and Yes supple Resp Effort & Inspection: normal respiratory effort Auscultation: clear to auscultation bilaterally Cardio Jugular venous distension: no JVD Rate: regular rate Rhythm: regular rhythm Heart sounds: S1 normal heart sound present and S2 normal heart sound present Extrem Left upper extremity: shoulder/upper arm Details: abnormal ROM Details: pain with active ROM Details: in ABduction and in extension Results AMB Hemoglobin A1c AMB Hemoglobin A1c 7.2 % Last Edit by TOM Tamez on 07/05/23 16:5 6 Results Reviewed Results Reviewed: Laboratory Last Values Hgb A1c (Clinic) 7.2 % (4.0-6.0) H 07/05/23 16:35 Assessment and Plan Assessment & Plan (1) Diabetes: Code(s): E11.9 - Type 2 diabetes mellitus without complications Plan: Continue metformin. A1c goal is equal or less than 7%. (2) COPD (chronic obstructive pulmonary disease): Code(s): J44.9 - Chronic obstructive pulmonary disease, unspecified Plan: Continue long-acting inhaler. Use rescue inhaler as needed. (3) Morbid obesity: Code(s): E66.01 - Morbid (severe) obesity due to excess calories Plan: Start diet and exercise. BMI goal is less than 30. (4) Bipolar disorder with depression: Code(s): F31.9 - Bipolar disorder, unspecified Plan: Was goal continue SSRI. (5) Opioid dependence on agonist therapy: Comment: History of heroin use-methadone maintenance likely cause for constipation Code(s): F11.20 - Opioid dependence, uncomplicated Plan: Continue methadone clinic. (6) Essential hypertension: Code(s): I10 - Essential (primary) hypertension Plan: Continue amlodipine and hydrochlorothiazide. Blood pressure goal is equal or less than 130/80. (7) Thoracic spine pain: Code(s): M54.6 - Pain in thoracic spine Plan: X-ray ordered. Orders: Orders AMB Hemoglobin A1c 07/05/23 E11.9 - Type 2 diabetes mellitus without complications XR ankle LT 2V 07/05/23 M25.572 - Pain in left ankle and joints of left foot XR thoracic spine 2V 07/05/23 M54.6 - Pain in thoracic spine Referrals Pain Management Referral M54.6 - Pain in thoracic spine Coding Level of Care Code Est Pt Level 4 (18668) Diagnoses Diabetes E11.9 COPD (chronic obstructive pulmonary disease) J44.9 Morbid obesity E66.01 Bipolar disorder with depression F31.9 Opioid dependence on agonist therapy F11.20 Essential hypertension I10 Thoracic spine pain M54.6 Additional Codes SIMIN-7 Assessment Billing - SIMIN-7 Assessment Tool: SIMIN-7 Assessment 46819 ([id number]) Time Spent (min) 24
[2023-07-05 16:44] VITALS: BP 156/90; BMI 42.2
[2023-07-05 18:11] VITALS: BP 150/90
== END 2023-07-05 17:11 | disposition home or self-care (01) ==
PROVIDERS: PCP Internal Medicine; Visit Provider Internal Medicine
DX: E11.9 Type 2 diabetes mellitus without complications (principal)
CPT/HCPCS: 83036; 99214

== ENCOUNTER 2023-07-06 13:10 | Emergency (ER) | payer OTHER, SELFPAY ==
--- NOTE | ~2023-07-06 | XR_ITS ---
Examination: Left tibia and fibula, left ankle and left foot. CLINICAL HISTORY: Fell in the bathroom with pain all and left side. TECHNIQUE: 2 views left tibia and fibula. 2 views left ankle and 3 views left foot. COMPARISON: None. FINDINGS: LEFT TIBIA AND FIBULA: There is a total left knee prosthesis. The the periprostatic tibial bone is normal. There is no visible fracture, dislocation bony abnormality involving the entire tibia and fibula. LEFT ANKLE: The ankle mortise and subtalar joints are normal. There is no visible acute fracture, dislocation or subluxation seen. Small calcaneal heel and retrocalcaneal enthesophytes are seen. There is no visible acute fracture or dislocation. LEFT FOOT: There is mild loss of tarsometatarsal joint space. No visible acute fracture or dislocation seen. The soft tissues are normal. XR/XR foot LT 2V IMPRESSION: 1. Unremarkable left tibia and fibula. Total left knee prosthesis in satisfactory alignment. 2. Small calcaneal heel and retrocalcaneal enthesophytes. No visible acute fracture or dislocation left ankle, left foot or left ankle.
--- NOTE | ~2023-07-06 | XR_ITS ---
EXAMINATION: XR LUMBOSACRAL SPINE CLINICAL INFORMATION: Fall 3 weeks ago. COMPARISON: Lumbar spine radiographs dated 05/27/2020. TECHNIQUE: Three views of the lumbosacral spine. FINDINGS: There is unchanged 3.6 mm of anterolisthesis of L4 in relation to L5. Lumbar spinal alignment is otherwise anatomic. Vertebral bodies demonstrate preserved stature. There is significant facet arthropathy at L3-L4, L4-L5, and L5-S1. There is degenerative disc disease at L3-L4, L4-L5, and L5-S1, similar to slightly progressed since the prior examination. No evidence of acute fracture. The sacroiliac joints are maintained. XR/XR lumbar spine 2-3V IMPRESSION: No acute osseous lumbar spine abnormality. Stable anterolisthesis of L4 in relation to L5. Severe lower lumbar spine facet arthropathy.
--- NOTE | ~2023-07-06 | XR_ITS ---
Examination: Left tibia and fibula, left ankle and left foot. CLINICAL HISTORY: Fell in the bathroom with pain all and left side. TECHNIQUE: 2 views left tibia and fibula. 2 views left ankle and 3 views left foot. COMPARISON: None. FINDINGS: LEFT TIBIA AND FIBULA: There is a total left knee prosthesis. The the periprostatic tibial bone is normal. There is no visible fracture, dislocation bony abnormality involving the entire tibia and fibula. LEFT ANKLE: The ankle mortise and subtalar joints are normal. There is no visible acute fracture, dislocation or subluxation seen. Small calcaneal heel and retrocalcaneal enthesophytes are seen. There is no visible acute fracture or dislocation. LEFT FOOT: There is mild loss of tarsometatarsal joint space. No visible acute fracture or dislocation seen. The soft tissues are normal. XR/XR tibia fibula LT 2V IMPRESSION: 1. Unremarkable left tibia and fibula. Total left knee prosthesis in satisfactory alignment. 2. Small calcaneal heel and retrocalcaneal enthesophytes. No visible acute fracture or dislocation left ankle, left foot or left ankle.
--- NOTE | ~2023-07-06 | XR_ITS ---
EXAMINATION: Left elbow and left forearm x-rays CLINICAL INFORMATION: Fall 3 weeks ago COMPARISON: None. TECHNIQUE: 3 views of the left elbow and 2 views of the left forearm FINDINGS: Left elbow: Bone alignment is normal. No fracture or dislocation. Normal joint spaces. Small soft tissue ossifications adjacent to the medial lateral humeral epicondyles ingestive old epicondylitis. No joint effusion. Left forearm: Bone alignment is normal. No fracture or dislocation. Joint spaces and soft tissues are normal. XR/XR forearm LT 2V IMPRESSION: No fracture or dislocation.
--- NOTE | ~2023-07-06 | XR_ITS ---
EXAMINATION: XR SHOULDER, LEFT CLINICAL INFORMATION: Pain COMPARISON: Previous x-ray May 2023 TECHNIQUE: Three views of the left shoulder. FINDINGS: The bones and soft tissues are normal. No fracture. Glenohumeral and acromioclavicular alignment is anatomic with normal joint space. No abnormal soft tissue calcifications. XR/XR shoulder LT min 2V IMPRESSION: Normal left shoulder.
--- NOTE | ~2023-07-06 | XR_ITS ---
EXAMINATION: Left elbow and left forearm x-rays CLINICAL INFORMATION: Fall 3 weeks ago COMPARISON: None. TECHNIQUE: 3 views of the left elbow and 2 views of the left forearm FINDINGS: Left elbow: Bone alignment is normal. No fracture or dislocation. Normal joint spaces. Small soft tissue ossifications adjacent to the medial lateral humeral epicondyles ingestive old epicondylitis. No joint effusion. Left forearm: Bone alignment is normal. No fracture or dislocation. Joint spaces and soft tissues are normal. XR/XR elbow LT 2V IMPRESSION: No fracture or dislocation.
--- NOTE | ~2023-07-06 | XR_ITS ---
Examination: Left tibia and fibula, left ankle and left foot. CLINICAL HISTORY: Fell in the bathroom with pain all and left side. TECHNIQUE: 2 views left tibia and fibula. 2 views left ankle and 3 views left foot. COMPARISON: None. FINDINGS: LEFT TIBIA AND FIBULA: There is a total left knee prosthesis. The the periprostatic tibial bone is normal. There is no visible fracture, dislocation bony abnormality involving the entire tibia and fibula. LEFT ANKLE: The ankle mortise and subtalar joints are normal. There is no visible acute fracture, dislocation or subluxation seen. Small calcaneal heel and retrocalcaneal enthesophytes are seen. There is no visible acute fracture or dislocation. LEFT FOOT: There is mild loss of tarsometatarsal joint space. No visible acute fracture or dislocation seen. The soft tissues are normal. XR/XR ankle LT min 3V IMPRESSION: 1. Unremarkable left tibia and fibula. Total left knee prosthesis in satisfactory alignment. 2. Small calcaneal heel and retrocalcaneal enthesophytes. No visible acute fracture or dislocation left ankle, left foot or left ankle.
[2023-07-06 13:41] VITALS: BP 130/75; PULSE 71; RESP 18; TEMP 36.9; O2SAT 100; BMI 42.1
--- NOTE | 2023-07-06 13:50 | ED_ITS ---
HPI - General Adult General Chief complaint: Fall Stated complaint: Fall 3 wks ago/multiple complaints Time Seen by Provider: 07/06/23 14:55 Source: patient and RN notes reviewed Mode of arrival: ambulatory Limitations: no limitations History of Present Illness HPI narrative: This is a 67-year-old female presenting to the emergency department with complaints of left shoulder, left elbow, left leg pain, and back pain status post fall which occurred 3 weeks ago. Patient states that she fell asleep on the toilet and fell onto the ground. She denies hitting her head or loss of consciousness. She states that since this injury she has been seen at an urgent care as well as her primary care physician for they ? have not done anything for me?. Patient reports that over the last couple of days she is endorsed increased left foot swelling. She states that she has a history of gout and states that her symptoms feel similar. She denies any headaches, blurred vision, dizziness, chest pain, shortness of breath, abdominal pain, nausea, vomiting or diarrhea. She has been taking Tylenol at home which has provided her with some relief. Denies taking any medications prior to arrival. No other complaints or concerns at this time. MD complaint: Left shoulder, left elbow, left leg, and back pain Onset (ago): week(s) Radiation: back Severity: moderate Relieving factors: none Exacerbating factors: none Associated symptoms: denies other symptoms Treatments prior to arrival: none Related Data Home Medications ?Medication ?Instructions ?Recorded ?Confirmed albuterol sulfate 90 mcg/actuation 2 puff inhalation Q4H PRN 01/25/20 07/05/23 aerosol inhaler Shortness Of Breath oxcarbazepine 600 mg tablet 600 mg PO BID 01/25/20 07/05/23 famotidine 20 mg tablet 20 mg PO BEDTIME 10/01/20 07/05/23 sertraline 50 mg tablet 50 mg PO DAILY 12/11/21 07/05/23 gabapentin 100 mg capsule 100 mg PO DAILY 03/18/22 07/05/23 hydrochlorothiazide 25 mg tablet 25 mg PO DAILY 03/18/22 07/05/23 mirtazapine 45 mg tablet 45 mg PO BEDTIME 03/18/22 07/05/23 methadone 5 mg/5 mL oral solution 130 mg PO DAILY 07/16/22 07/05/23 budesonide-formoterol HFA 160 2 puff inhalation BID 05/21/23 07/05/23 mcg-4.5 mcg/actuation aerosol inhaler (Symbicort) simvastatin 10 mg tablet 10 mg PO DAILY 05/21/23 07/05/23 Previous Rx's ?Medication ?Instructions ?Recorded ipratropium 0.5 mg-albuterol 3 mg 3 ml inhalation RQ4H PRN Shortness 10/03/20 (2.5 mg base)/3 mL nebulization Of Breath/Wheezing #15 mL soln home delivery of methadone per #1 ea 06/10/22 clinic dose blood sugar diagnostic (Accu-Chek #100 ea 08/04/22 Guide test strips) blood-glucose meter (Accu-Chek #1 ea 08/04/22 Guide Glucose Meter) furosemide 40 mg tablet 40 mg PO Q OTHER DAY #45 tabs 08/04/22 lancets (Accu-Chek Softclix #100 ea 08/04/22 Lancets) metformin 1,000 mg tablet 1,000 mg PO BID 30 days #60 tabs 08/04/22 cane #1 ea 09/11/22 lidocaine 4 % topical patch 1 patch topical DAILY PRN pain 30 05/05/23 (Aspercreme (lidocaine)) days #30 ea budesonide 160 mcg-glycopyr 9 2 inh inhalation BID 30 days #1 ea 05/19/23 mcg-formot 4.8 mcg/actuation HFA inhaler (Breztri Aerosphere) ipratropium bromide 42 mcg (0.06 2 spray intranasal TID 30 days #15 05/19/23 %) nasal spray mL ibuprofen 600 mg tablet 600 mg PO Q6H PRN fever or pain 05/21/23 #30 tabs home delivery of methadone #1 ea 06/03/23 allopurinol 300 mg tablet 300 mg PO DAILY 90 days #90 tabs 06/07/23 amlodipine 5 mg tablet 5 mg PO DAILY 90 days #90 tabs 06/07/23 cholecalciferol (vitamin D3) 50 50 mcg PO DAILY 90 days #90 caps 06/07/23 mcg (2,000 unit) capsule colchicine 0.6 mg tablet 0.6 mg PO BID PRN gout #180 tabs 06/07/23 cyclobenzaprine 10 mg tablet 10 mg PO BEDTIME #10 tabs 06/10/23 meloxicam 15 mg tablet 15 mg PO DAILY PRN pain, moderate 06/10/23 7 days #7 tabs prednisone 20 mg tablet 60 mg (3 x 20 mg) PO DAILY Asthma 07/08/23 5 days #15 tabs zolpidem 10 mg tablet 10 mg PO BEDTIME 30 days #30 tabs 07/13/23 Allergies Allergy/AdvReac Type Severity Reaction Status Date / Time Penicillins Allergy Intermediate RASH SOB Verified 07/12/23 09:23 Review of Systems Review of Systems: Yes all other systems are reviewed and are negative Constitutional: Constitutional: Reports as per [facility] Past Medical History Attestation statement: The following information was validated with the patient. Medical History ACS (acute coronary syndrome) History of heroin use BiPAP (biphasic positive airway pressure) dependence COPD (chronic obstructive pulmonary disease) Diabetic acidosis, type I Hx of drug dependence Arthritis Back pain History of blood transfusion Anemia Diabetes GERD (gastroesophageal reflux disease) Hx of anxiety disorder Hx of bipolar disorder History of headache Depression Sleep apnea Oxygen dependent COPD (chronic obstructive pulmonary disease) Asthma Elevated cholesterol HTN (hypertension) Surgical History S/P cardiac cath History of esophagogastroduodenoscopy (EGD) H/O colonoscopy Hx of total knee replacement Hx of arthroscopic knee surgery Hx of section Hx of foot surgery Family History Family History Father Heart disease Mother Heart disease Family/Other Mental health disorder Substance use disorder Social History Social History Household Members: None Housing: Apartment Do you presently have visiting nurse or other home services: Yes Alcohol intake: current Alcohol intake frequency: holidays/special occasions only Alcohol type: beer and wine Patient Tobacco Use Status: Current everyday Tobacco user Tobacco use type: Cigarette Cigarettes Per Day: 3 Years Smoked: 50 e-Cigarette/Vaping Use: Never Used Second Hand Smoke Exposure: No Substance Use Type: Former Substance User service: No Current occupational status: disabled Current occupation: right handed Cognitive needs: Yes Hearing needs: No Vision needs: Yes Physical Exam ED Vital Signs: Vital Signs - 24 hr 07/06/23 13:41 07/06/23 16:54 Temperature 98.4 F 98.4 F Pulse Rate 71 71 Respiratory Rate 18 18 Blood Pressure 130/75 130/75 Pulse Oximetry 100 100 Oxygen Delivery Method Room Air Room Air BMI result Body Mass Index 42.1 Const General: cooperative, comfortable and no acute distress Orientation/consciousness: patient oriented x3 Limitations: no limitations HENMT Head: Yes normal to inspection, Yes normocephalic and Yes atraumatic Ears: hearing grossly normal bilaterally General nose exam: Normal external nose present Face and sinus: Yes normal facial exam Mouth: Normal oral and palatal mucosa present, oropharynx normal and moist mucous membranes Throat: Yes posterior oropharynx normal Eyes General: appearance normal, both eyes and all related structures Eyelids: Yes eyelids normal Conjunctivae: conjunctivae normal Sclerae: sclerae normal Pupils: Equal, round and reactive pupils present EOM: EOMs intact bilaterally Neck Neck: Yes normal visual inspection, Yes full ROM and Yes no lymphadenopathy Lymphatic: no lymphadenopathy noted Chest Chest palpation & inspection: normal inspection of the chest Resp Effort & Inspection: normal respiratory effort and able to speak in complete sentences Auscultation: clear to auscultation bilaterally, no crackles, no rales, no rhonchi and no wheezes Cardio Rate: regular rate Rhythm: regular rhythm Heart sounds: S1 normal heart sound present and S2 normal heart sound present GI Inspection: Yes normal to inspection Back/Spine/Pelvis Other: No midline spine tenderness, patient has paraspinous muscle tenderness throughout the entire lumbar musculature. Skin General skin exam: no rashes or lesions noted Trauma: no lacerations or abrasions Wounds: no wounds Neuro General: patient oriented x3 and moves all extremities Cranial nerves: Yes CN's II-XII intact bilaterally and Yes Equal, round and reactive pupils present Cognition (Neuro): normal cognition Gait exam (Neuro): Normal gait present Motor exam (neuro): 5/5 motor strength present throughout Extrem Other: Left medial and lateral malleoli are tender, diffuse erythema edema noted. Full range of motion the ankle however with pain elicited. Strong DP pulse. No open wounds. Tenderness palpation diffusely throughout the left shoulder, good range of motion of the shoulder without difficulty. Strong radial pulse. General: Yes normal to inspection Right upper extremity: normal to inspection Left upper extremity: normal to inspection Right lower extremity: normal to inspection Left lower extremity: normal to inspection Course Course Course Narrative: RME: 67 year female presents to ED for left shoulder, left elbow, left leg, and lower back pain for the past 3 weeks since falling onto her left side. Patient states she slipped and fell off the toilet 3 [place] fell onto her left shoulder left elbow back and leg. Patient states having pain. images ordered Reevaluation(s) Reevaluation #1: X-rays revealing no acute bony abnormalities. She does have evidence of gouty flare-up therefore will treat. Patient given strict return precautions. She understands and agrees with plan. Patient stable for discharge. Medications Administered Discontinued Medications Generic Name Dose Route Start Last Admin Trade Name Freq PRN Reason Stop Dose Admin Hydrocodone Bitart/Acetaminophen 1 tab 07/06/23 15:27 07/06/23 16:29 Hydrocodone Bit/Acetam 5/325 Tablet PO 07/06/23 15:28 1 tab ONCE ONE Administration Medical Decision Making Medical Decision Making [facility] Narrative: This is a 67-year-old female presenting to the emergency department with complaints of left shoulder, left elbow, left leg pain, and back pain status post fall which occurred 3 weeks ago. On arrival vital signs stable. Patient with multiple complaints including shoulder, elbow, leg pain and back pain. Differential diagnoses include contusion, fracture, sprain, strain. She is alert and oriented x4, no neurologic deficits. Plan: X-rays Differential Diagnosis Differential Diagnoses: The differential diagnosis associated with the presentation includes See above Admission/Observation Consideration of admission/observation: Escalation of care including admission/observation considered Escalation of care including admission/observation considered however given workup today not warranted at this time. Radiology Impression Discussion of test interpretation with radiology: I have reviewed the radiologist's reading. Radiologist Impression: XR/XR tibia fibula LT 2V IMPRESSION: 1. Unremarkable left tibia and fibula. Total left knee prosthesis in satisfactory alignment. 2. Small calcaneal heel and retrocalcaneal enthesophytes. No visible acute fracture or dislocation left ankle, left foot or left ankle. XR/XR shoulder LT min 2V IMPRESSION: Normal left shoulder. XR/XR lumbar spine 2-3V IMPRESSION: No acute osseous lumbar spine abnormality. Stable anterolisthesis of L4 in relation to L5. Severe lower lumbar spine facet arthropathy. XR/XR forearm LT 2V IMPRESSION: No fracture or dislocation. Discharge Plan Discharge Clinical Impression: Gout, Contusion of left shoulder, Contusion of elbow, left, Hip pain, left Patient Disposition: Home, Self-Care Instructions: Gout (ED), Contusion in Adults (ED), Hip Pain (ED) Additional Instructions: Your seen in the emergency department due to pain after a fall which occurred 3 weeks ago. Your x-rays did not show any broken bones. You have a gout flare-up on your left foot. Please take prescribed medication as directed. Continue with Tylenol for pain. Drink plenty of fluids and get plenty of rest. If any new or worsening symptoms occur including but not limited to worsening pain, swelling, fevers, chills, chest pain, or shortness of breath, please retur n for re-evaluation. Prescriptions: No Action (DME) home delivery of methadone per clinic dose See Rx Instructions .Route .MEDSUPPLY Qty: 1 0RF Rx Instructions: Start date 06/15/2022 End date: 06/16/2023 (DME) cane Device See Rx Instructions .Route Qty: 1 0RF Rx Instructions: As directed lidocaine [Aspercreme (lidocaine)] 4 % adhesive patch,medicated 1 patch topical DAILY PRN (Reason: pain) 30 Days Qty: 30 1RF (DME) home delivery of methadone See Rx Instructions .Route .MEDSUPPLY Qty: 1 0RF Rx Instructions: Start date 06/10/23 End date 06/09/24 colchicine 0.6 mg tablet 0.6 mg PO BID PRN (Reason: gout) Qty: 180 0RF amlodipine 5 mg tablet 5 mg PO DAILY 90 Days Qty: 90 1RF cholecalciferol (vitamin D3) 50 mcg (2,000 unit) capsule 50 mcg PO DAILY 90 Days Qty: 90 1RF allopurinol 300 mg tablet 300 mg PO DAILY 90 Days Qty: 90 1RF zolpidem 10 mg tablet 10 mg PO BEDTIME 30 Days Qty: 30 0RF oxcarbazepine 600 mg Tablet 600 mg PO BID albuterol sulfate 90 mcg/actuation HFA aerosol inhaler 2 puff inhalation Q4H PRN (Reason: Shortness Of Breath) methadone 5 mg/5 mL solution 130 mg PO DAILY famotidine 20 mg tablet 20 mg PO BEDTIME ipratropium-albuterol 0.5 mg-3 mg(2.5 mg base)/3 mL Solution For Nebulization 3 ml inhalation RQ4H PRN (Reason: Shortness Of Breath/Wheezing) Qty: 15 0RF prednisone 20 mg tablet 60 mg PO DAILY 5 Days Qty: 15 0RF hydrochlorothiazide 25 mg tablet 25 mg PO DAILY gabapentin 100 mg capsule 100 mg PO DAILY mirtazapine 45 mg tablet 45 mg PO BEDTIME (DME) Accu-Chek Guide test strips Strip See Rx Instructions .Route Qty: 100 2RF Rx Instructions: Use 1 test strip once a day (DME) blood-glucose meter [Accu-Chek Guide Glucose Meter] Misc See Rx Instructions .Route Qty: 1 0RF Rx Instructions: As directed furosemide 40 mg tablet 40 mg PO Q OTHER DAY Qty: 45 5RF (DME) lancets [Accu-Chek Softclix Lancets] Misc See Rx Instructions .Route Qty: 100 2RF Rx Instructions: Use 1 lancet once a day metformin 1,000 mg tablet 1,000 mg PO BID 30 Days Qty: 60 3RF cyclobenzaprine 10 mg tablet 10 mg PO BEDTIME Qty: 10 0RF meloxicam 15 mg tablet 15 mg PO DAILY PRN (Reason: pain, moderate) 7 Days Qty: 7 0RF budesonide-formoterol [Symbicort] 160-4.5 mcg/actuation HFA aerosol inhaler 2 puff inhalation BID simvastatin 10 mg tablet 10 mg PO DAILY ibuprofen 600 mg tablet 600 mg PO Q6H PRN (Reason: fever or pain) Qty: 30 0RF sertraline 50 mg tablet 50 mg PO DAILY Breztri Aerosphere 160-9-4.8 mcg/actuation HFA aerosol inhaler 2 inh inhalation BID 30 Days Qty: 1 6RF ipratropium bromide 42 mcg (0.06 %) spray,non-aerosol 2 spray intranasal TID 30 Days Qty: 15 6RF Rx Instructions: administer into each nostril Interventions: ED Discharge Assessment Last Done: 07/06/23 16:54 Discharge Date/Time: 07/06/23 16:53 Print Language: Syriac
[2023-07-06] MEDS: HYDROcodone Bit/Acetam 5/325 TABLET 1 TAB PO (16:29)
[2023-07-06 16:54] VITALS: BP 130/75; PULSE 71; RESP 18; TEMP 36.9; O2SAT 100
== END 2023-07-06 16:53 | disposition home or self-care (01) ==
PROVIDERS: Emergency Provider Emergency Medicine Emergency Medical Services; PCP Internal Medicine
DX: S40.012A Contusion of left shoulder, initial encounter (principal); S50.02XA Contusion of left elbow, initial encounter; M25.552 Pain in left hip; M77.32 Calcaneal spur, left foot; M54.50 Low back pain, unspecified; M10.472 Other secondary gout, left ankle and foot; M79.672 Pain in left foot; F17.210 Nicotine dependence, cigarettes, uncomplicated; W18.12XA Fall from or off toilet with subsequent striking against object, initial encounter; Y93.9 Activity, unspecified; Y92.9 Unspecified place or not applicable; Y99.8 Other external cause status; Z79.899 Other long term (current) drug therapy
CPT/HCPCS: 72100; 73030; 73070; 73090; 73590; 73610; 73620; 99283; 99284

== ENCOUNTER 2023-07-08 14:19 | Outpatient (AMB) | payer OTHER, SELFPAY ==
[2023-07-08 14:23] VITALS: BP 130/100; PULSE 80; TEMP 36.8; O2SAT 91
--- NOTE | 2023-07-08 14:23 | MHC.OFFWIV ---
Intake Vital Signs 07/08/23 14:23 Height 5 ft 2 in BMI Reason not done Patient refused/unable BP 130/100 H Blood Pressure Location Lt brachial Position Sitting Pulse 80 Pulse Source Pulse Oximeter Temp 98.3 F Temp Source Temporal Artery Scan Pulse Oximetry (%) 91 L Oxygen Delivery Method Room Air Intake Visit Reasons: EP GOUT LT leg/Lung Pain Intake Note: pt is here today for gout lft leg started 3 days ago Patient Tobacco Use Status: Current everyday Tobacco user Allergies Penicillins Allergy (Intermediate, Verified 07/08/23 14:28) RASH SOB Do you need a note to return to daycare/school/sports/work: No HPI HPI Comments History of Present Illness Details 67 y/o female who presented to walk in clinic today with c/o severe right sided lower back pain, SOB, chest tightness since morning. Pt fell ~ 1 week ago and did land on her side, Pt worried she could have a Blood clot. [facility] Medical History ACS (acute coronary syndrome) History of heroin use BiPAP (biphasic positive airway pressure) dependence COPD (chronic obstructive pulmonary disease) Diabetic acidosis, type I Hx of drug dependence Arthritis Back pain History of blood transfusion Anemia Diabetes GERD (gastroesophageal reflux disease) Hx of anxiety disorder Hx of bipolar disorder History of headache Depression Sleep apnea Oxygen dependent COPD (chronic obstructive pulmonary disease) Asthma Elevated cholesterol HTN (hypertension) Surgical History S/P cardiac cath History of esophagogastroduodenoscopy (EGD) H/O colonoscopy Hx of total knee replacement Hx of arthroscopic knee surgery Hx of section Hx of foot surgery Family History Father Heart disease Mother Heart disease Family/Other Mental health disorder Substance use disorder Social History Household Members: None Housing: Apartment Do you presently have visiting nurse or other home services: Yes Alcohol intake: current Alcohol intake frequency: holidays/special occasions only Alcohol type: beer and wine Patient Tobacco Use Status: Current everyday Tobacco user Tobacco use type: Cigarette Cigarettes Per Day: 3 Years Smoked: 50 e-Cigarette/Vaping Use: Never Used Second Hand Smoke Exposure: No Substance Use Type: Former Substance User service: No Current occupational status: disabled Current occupation: right handed Cognitive needs: Yes Hearing needs: No Vision needs: Yes Review of Systems Const All systems reviewed & are unremarkable except as noted in HPI and below Physical Exam Const General: in distress moderate and respiratory and anxious; No comfortable Resp Effort & Inspection: normal respiratory effort and able to speak in complete sentences Auscultation: clear to auscultation bilaterally, no crackles, no rales, no rhonchi and no wheezes Cardio Rate: regular rate Rhythm: regular rhythm Assessment & Plan Assessment & Plan (1) SOB (shortness of breath): Code(s): R06.02 - Shortness of breath Plan: Called an Ambulance for ED. Pt has been sating between 80 - 84 on Face mask 2 L. She does appear lethargic and in distress Coding Level of Care Code Est Pt Level 4 (92175) Diagnoses SOB (shortness of breath) R06.02 Time Spent (min) 20
== END 2023-07-08 15:33 | disposition home or self-care (01) ==
PROVIDERS: PCP Internal Medicine; Visit Provider Nurse Practitioner Family
DX: R06.02 Shortness of breath (principal)
CPT/HCPCS: 99214

== ENCOUNTER 2023-07-08 15:28 | Emergency (ER) | payer OTHER, SELFPAY ==
[2023-07-08 15:40] VITALS: BP 140/80; PULSE 78; O2SAT 94
--- NOTE | 2023-07-08 15:47 | ED_ITS ---
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 Patient is currently being treated for gout. She has not taken anything for pain she denies cough shortness breast she has no urinary symptoms she denies dysuria or frequency or burning with urination or history of kidney stones patient had no new falls has not been lifting anything and her main complaint is back pain on the right flank. MD elicited complaint: back pain Pertinent past history: prior back pain Timing: constant Severity: mild Related Data Home Medications Medication Instructions Recorded Confirmed albuterol sulfate 90 mcg/actuation 2 puff inhalation Q4H PRN 01/25/20 07/05/23 aerosol inhaler Shortness Of Breath oxcarbazepine 600 mg tablet 600 mg PO BID 01/25/20 07/05/23 famotidine 20 mg tablet 20 mg PO BEDTIME 10/01/20 07/05/23 sertraline 50 mg tablet 50 mg PO DAILY 12/11/21 07/05/23 gabapentin 100 mg capsule 100 mg PO DAILY 03/18/22 07/05/23 hydrochlorothiazide 25 mg tablet 25 mg PO DAILY 03/18/22 07/05/23 mirtazapine 45 mg tablet 45 mg PO BEDTIME 03/18/22 07/05/23 methadone 5 mg/5 mL oral solution 130 mg PO DAILY 07/16/22 07/05/23 budesonide-formoterol HFA 160 2 puff inhalation BID 05/21/23 07/05/23 mcg-4.5 mcg/actuation aerosol inhaler (Symbicort) simvastatin 10 mg tablet 10 mg PO DAILY 05/21/23 07/05/23 Previous Rx's Medication Instructions Recorded ipratropium 0.5 mg-albuterol 3 mg 3 ml inhalation RQ4H PRN Shortness 10/03/20 (2.5 mg base)/3 mL nebulization Of Breath/Wheezing #15 mL soln home delivery of methadone per #1 ea 06/10/22 clinic dose blood sugar diagnostic (Accu-Chek #100 ea 08/04/22 Guide test strips) blood-glucose meter (Accu-Chek #1 ea 08/04/22 Guide Glucose Meter) furosemide 40 mg tablet 40 mg PO Q OTHER DAY #45 tabs 08/04/22 lancets (Accu-Chek Softclix #100 ea 08/04/22 Lancets) metformin 1,000 mg tablet 1,000 mg PO BID 30 days #60 tabs 08/04/22 cane #1 ea 09/11/22 lidocaine 4 % topical patch 1 patch topical DAILY PRN pain 30 05/05/23 (Aspercreme (lidocaine)) days #30 ea budesonide 160 mcg-glycopyr 9 2 inh inhalation BID 30 days #1 ea 05/19/23 mcg-formot 4.8 mcg/actuation HFA inhaler (Breztri Aerosphere) ipratropium bromide 42 mcg (0.06 2 spray intranasal TID 30 days #15 05/19/23 %) nasal spray mL ibuprofen 600 mg tablet 600 mg PO Q6H PRN fever or pain 05/21/23 #30 tabs home delivery of methadone #1 ea 06/03/23 allopurinol 300 mg tablet 300 mg PO DAILY 90 days #90 tabs 06/07/23 amlodipine 5 mg tablet 5 mg PO DAILY 90 days #90 tabs 06/07/23 cholecalciferol (vitamin D3) 50 50 mcg PO DAILY 90 days #90 caps 06/07/23 mcg (2,000 unit) capsule colchicine 0.6 mg tablet 0.6 mg PO BID PRN gout #180 tabs 06/07/23 zolpidem 10 mg tablet 10 mg PO BEDTIME 30 days #30 tabs 06/07/23 cyclobenzaprine 10 mg tablet 10 mg PO BEDTIME #10 tabs 06/10/23 meloxicam 15 mg tablet 15 mg PO DAILY PRN pain, moderate 06/10/23 7 days #7 tabs Allergies Allergy/AdvReac Type Severity Reaction Status Date / Time Penicillins Allergy Intermediate RASH SOB Verified 07/08/23 14:28 Review of Systems Review of Systems: Review of systems: General: Patient denies any fever chills recent illness or falls Musculoskeletal: Back pain denies any or body aches or other injuries HEENT: denies headache, runny nose, ear pain Respiratory: denies shortness of breath, cough Cardiovascular: no chest pain or palpitations : denies dysuria, frequency Abdomen: no nausea vomiting denies abdominal pain Extremities: no swelling, no pain Skin: no diaphoresis Yes all other systems are reviewed and are negative [facility] Past Medical History Medical History ACS (acute coronary syndrome) History of heroin use BiPAP (biphasic positive airway pressure) dependence COPD (chronic obstructive pulmonary disease) Diabetic acidosis, type I Hx of drug dependence Arthritis Back pain History of blood transfusion Anemia Diabetes GERD (gastroesophageal reflux disease) Hx of anxiety disorder Hx of bipolar disorder History of headache Depression Sleep apnea Oxygen dependent COPD (chronic obstructive pulmonary disease) Asthma Elevated cholesterol HTN (hypertension) Surgical History S/P cardiac cath History of esophagogastroduodenoscopy (EGD) H/O colonoscopy Hx of total knee replacement Hx of arthroscopic knee surgery Hx of section Hx of foot surgery Family History Family History Father Heart disease Mother Heart disease Family/Other Mental health disorder Substance use disorder Social History Social History Household Members: None Housing: Apartment Do you presently have visiting nurse or other home services: Yes Alcohol intake: current Alcohol intake frequency: holidays/special occasions only Alcohol type: beer and wine Patient Tobacco Use Status: Current everyday Tobacco user Tobacco use type: Cigarette Cigarettes Per Day: 3 Years Smoked: 50 Smoked in Last 30 Days: Yes e-Cigarette/Vaping Use: Never Used Second Hand Smoke Exposure: No Use of substances other than those prescribed or required for medical reasons: No Substance Use Type: Former Substance User Advance Directives: No Advance Directives Information Provided: No service: No Current occupational status: disabled Current occupation: right handed Cognitive needs: Yes Hearing needs: No Vision needs: Yes Physical Exam Vital Signs: Vital Signs: Last Vital Signs Temp 97.7 F 07/08/23 15:51 Pulse 70 07/08/23 15:51 Resp 19 07/08/23 15:51 BP 111/44 L 07/08/23 15:51 Pulse Ox 94 07/08/23 15:51 O2 Del Method Room Air 07/08/23 15:51 BMI result Body Mass Index 35.0 General: Well-appearing well-nourished in no signs of distress HEENT: Normocephalic atraumatic Neck: No signs of JVD, no masses no tenderness or lymphadenopathy Cardiovascular: Regular rate and rhythm Respiratory: Clear to auscultation bilaterally Abdomen: Soft nontender no masses patient has no CVA tenderness Extremities: Normal pedal pulses no signs of edema Skin: Dry warm no rashes Back: No tenderness full ROM Course Reevaluation(s) Reevaluation #1: Urine is negative for any blood patient looks well ambulated here without issue is no back pain red flags I feel comfortable discharging this patient Medications Administered Discontinued Medications Generic Name Dose Route Start Last Admin Trade Name Ismaelq PRN Reason Stop Dose Admin Acetaminophen 650 mg 07/08/23 15:48 07/08/23 16:15 Acetaminophen 325 Mg Tablet PO 07/08/23 15:49 650 mg ONCE ONE Administration Ibuprofen 400 mg 07/08/23 15:48 07/08/23 16:15 Ibuprofen 400 Mg Tablet PO 07/08/23 15:49 400 mg ONCE ONE Administration Lidocaine 1 patch 07/08/23 15:48 07/08/23 16:16 Lidocaine 4 % Patch Adh..Patch TRANSDERMA 07/08/23 15:49 1 patch ONCE ONE Administration Protocol Medical Decision Making Medical Decision Making [facility] Narrative: I will start the urinalysis patient has done any blood work had x-rays just few days ago this does not sound like a kidney stone since like musculoskeletal back pain I will treat the patient with Tylenol ibuprofen and lidocaine patch. If the urinalysis does show any blood do feel this kidney stone think there is any need for imaging Differential Diagnosis Differential Diagnoses: The differential diagnosis associated with the presentation includes Back pain back strain kidney stone urinary tract infection pyelonephritis Admission/Observation Consideration of admission/observation: Escalation of care including admission/observation considered Lab Data [facility] Lab Attestation statement: I reviewed the patient's lab results. Labs: Lab Results 07/08/23 Range/Units 16:24 Urine Color Yellow Urine Appearance Clear Urine pH 5.0 (5.0-9.0) Ur Specific Gleason 1.015 (1.005-1.025) Urine Protein Negative (Neg-Trace) mg/dL Urine Glucose (UA) Negative (Negative) mg/dL Urine Ketones Negative (Negative) mg/dL Urine Blood Negative (Negative) Urine Nitrite Negative (Negative) Ur Leukocyte Esterase Negative (Negative) Discharge Plan Discharge Clinical Impression: Back pain Patient Disposition: Home, Self-Care Instructions: Back Pain (ED) Additional Instructions: You were seen today for back pain. You had a urine done which was normal. You were given a lidocaine patch, Tylenol and ibuprofen Please continue with tylenol and ibuprofen. If you have any other concerns please return to the ER. Prescriptions: No Action (DME) home delivery of methadone per clinic dose See Rx Instructions .Route .MEDSUPPLY Qty: 1 0RF Rx Instructions: Start date 06/15/2022 End date: 06/16/2023 (DME) cane Device See Rx Instructions .Route Qty: 1 0RF Rx Instructions: As directed lidocaine [Aspercreme (lidocaine)] 4 % adhesive patch,medicated 1 patch topical DAILY PRN (Reason: pain) 30 Days Qty: 30 1RF (DME) home delivery of methadone See Rx Instructions .Route .MEDSUPPLY Qty: 1 0RF Rx Instructions: Start date 06/10/23 End date 06/09/24 colchicine 0.6 mg tablet 0.6 mg PO BID PRN (Reason: gout) Qty: 180 0RF amlodipine 5 mg tablet 5 mg PO DAILY 90 Days Qty: 90 1RF cholecalciferol (vitamin D3) 50 mcg (2,000 unit) capsule 50 mcg PO DAILY 90 Days Qty: 90 1RF allopurinol 300 mg tablet 300 mg PO DAILY 90 Days Qty: 90 1RF zolpidem 10 mg tablet 10 mg PO BEDTIME 30 Days Qty: 30 0RF oxcarbazepine 600 mg Tablet 600 mg PO BID albuterol sulfate 90 mcg/actuation HFA aerosol inhaler 2 puff inhalation Q4H PRN (Reason: Shortness Of Breath) methadone 5 mg/5 mL solution 130 mg PO DAILY famotidine 20 mg tablet 20 mg PO BEDTIME ipratropium-albuterol 0.5 mg-3 mg(2.5 mg base)/3 mL Solution For Nebulization 3 ml inhalation RQ4H PRN (Reason: Shortness Of Breath/Wheezing) Qty: 15 0RF hydrochlorothiazide 25 mg tablet 25 mg PO DAILY gabapentin 100 mg capsule 100 mg PO DAILY mirtazapine 45 mg tablet 45 mg PO BEDTIME (DME) Accu-Chek Guide test strips Strip See Rx Instructions .Route Qty: 100 2RF Rx Instructions: Use 1 test strip once a day (DME) blood-glucose meter [Accu-Chek Guide Glucose Meter] Misc See Rx Instructions .Route Qty: 1 0RF Rx Instructions: As directed furosemide 40 mg tablet 40 mg PO Q OTHER DAY Qty: 45 5RF (DME) lancets [Accu-Chek Softclix Lancets] Misc See Rx Instructions .Route Qty: 100 2RF Rx Instructions: Use 1 lancet once a day metformin 1,000 mg tablet 1,000 mg PO BID 30 Days Qty: 60 3RF cyclobenzaprine 10 mg tablet 10 mg PO BEDTIME Qty: 10 0RF meloxicam 15 mg tablet 15 mg PO DAILY PRN (Reason: pain, moderate) 7 Days Qty: 7 0RF budesonide-formoterol [Symbicort] 160-4.5 mcg/actuation HFA aerosol inhaler 2 puff inhalation BID simvastatin 10 mg tablet 10 mg PO DAILY ibuprofen 600 mg tablet 600 mg PO Q6H PRN (Reason: fever or pain) Qty: 30 0RF sertraline 50 mg tablet 50 mg PO DAILY Breztri Aerosphere 160-9-4.8 mcg/actuation HFA aerosol inhaler 2 inh inhalation BID 30 Days Qty: 1 6RF ipratropium bromide 42 mcg (0.06 %) spray,non-aerosol 2 spray intranasal TID 30 Days Qty: 15 6RF Rx Instructions: administer into each nostril
[2023-07-08 15:48] VITALS: BP 111/44; PULSE 70; RESP 19; TEMP 36.5; O2SAT 94; BMI 35.0
[2023-07-08 15:51] VITALS: BP 111/44; PULSE 70; RESP 19; TEMP 36.5; O2SAT 94
--- NOTE | 2023-07-08 15:53 | PC.NURSE ---
Pt coming from walk-in clinic via EMS for right flank pain that started this morning. Pt reports sharp and aching pain on right side of back, 01/19. Pt reports fall 3 weeks ago with bruise on back, was seen at ED for that fall. Pt denies CP, SOB, N/V/D, fevers, cough, or trouble urinating. Pt reports she has home O2 PRN 2L O2 for COPD but has not had to use it recently. Pt is alert and oriented, breathing even and unlabored, skin WNL. Pt appears uncomfortable, pain worsens with any movement.
[2023-07-08] MEDS: Ibuprofen 400 MG TABLET PO (16:15)
[2023-07-08] MEDS: Acetaminophen 325 MG TABLET 650 MG PO (16:15)
[2023-07-08] MEDS: Lidocaine 4 % Patch ADH..PATCH 1 PATCH TRANSDERMA (16:16)
[2023-07-08 17:47] LABS: Appearance Urine Clear; Color Urine Yellow; Glucose Urine UA Negative (Negative); Leukocyte Esterase Urine Negative (Negative); Nitrite Urine Negative (Negative); Specific Gravity - Urine 1.015 (1.005-1.025); Urine Blood Negative (Negative); Urine Ketones Negative (Negative); Urine Protein Negative (Neg-Trace)
[2023-07-08 18:23] VITALS: BP 119/52; PULSE 69; RESP 16; TEMP 36.4; O2SAT 98
== END 2023-07-08 18:24 | disposition home or self-care (01) ==
PROVIDERS: Emergency Provider Student in an Organized Health Care Education/Training Program; PCP Internal Medicine
DX: M54.9 Dorsalgia, unspecified (principal); M10.9 Gout, unspecified; I10 Essential (primary) hypertension; E10.9 Type 1 diabetes mellitus without complications; J44.9 Chronic obstructive pulmonary disease, unspecified; F11.20 Opioid dependence, uncomplicated
CPT/HCPCS: 81003; 99283; 99284

== ENCOUNTER 2023-07-12 08:55 | Outpatient (AMB) | payer OTHER, SELFPAY ==
--- NOTE | 2023-07-12 09:10 | A.OFFVIS_ITS ---
Intake Vital Signs 07/12/23 09:23 Height 5 ft 8 in Weight 230 lb BMI 35.0 Handedness Right Intake Visit Reasons: back tender insulation board-s/p fall. Left shoulder pain. Reduced ROM. Intake Note: Ivette is a 67 year old right hand dominant female who presents today as a new patient with complaints of left shoulder pain. She states that in the beginning of April she fell asleep on the toilet causing her to fall over and land on her left shoulder. Her ROM is limited due to her pain. Denies numbness and tingling. Patient reports she had a bruise on posterior aspect of shoulder. She was seen at [facility] on 07/09/23 where she was given a 5 day prescription of Prednisone, today is her last day of taking this. Accompanied by: Daughter Allergies Penicillins Allergy (Intermediate, Verified 07/12/23 09:23) RASH SOB HPI back tender insulation board-s/p fall. Left shoulder pain. Reduced ROM. HPI Details Ivette is a 67 year old right hand dominant female who presents today as a new patient with complaints of left shoulder pain. She states that in the beginning of April she fell asleep on the toilet causing her to fall over and land on her left shoulder. Her ROM is limited due to her pain. Denies numbness and tingling. Patient reports she had a bruise on posterior aspect of shoulder. She was seen at [facility] ED on 07/09/23 where she was given a 5 day prescription of Prednisone, today is her last day of taking this. She localizes the pain to her periscapular region. She states she fell on the back of her shoulder. [facility] Medical History ACS (acute coronary syndrome) History of heroin use BiPAP (biphasic positive airway pressure) dependence COPD (chronic obstructive pulmonary disease) Diabetic acidosis, type I Hx of drug dependence Arthritis Back pain History of blood transfusion Anemia Diabetes GERD (gastroesophageal reflux disease) Hx of anxiety disorder Hx of bipolar disorder History of headache Depression Sleep apnea Oxygen dependent COPD (chronic obstructive pulmonary disease) Asthma Elevated cholesterol HTN (hypertension) Surgical History S/P cardiac cath History of esophagogastroduodenoscopy (EGD) H/O colonoscopy Hx of total knee replacement Hx of arthroscopic knee surgery Hx of section Hx of foot surgery Family History Father Heart disease Mother Heart disease Family/Other Mental health disorder Substance use disorder Social History Household Members: None Housing: Apartment Do you presently have visiting nurse or other home services: Yes Alcohol intake: current Alcohol intake frequency: holidays/special occasions only Alcohol type: beer and wine Patient Tobacco Use Status: Current everyday Tobacco user Tobacco use type: Cigarette Cigarettes Per Day: 3 Years Smoked: 50 e-Cigarette/Vaping Use: Never Used Second Hand Smoke Exposure: No Substance Use Type: Former Substance User service: No Current occupational status: disabled Current occupation: right handed Cognitive needs: Yes Hearing needs: No Vision needs: Yes Physical Exam Vital Signs: BMI result Body Mass Index 35.0 Const General: cooperative, healthy appearing, no acute distress and well groomed Orientation/consciousness: oriented to person and oriented to place HEENT Head: Yes normal to inspection, Yes normocephalic and Yes atraumatic Eyes General: appearance normal, both eyes and all related structures Alignment and Position: alignment normal Conjunctivae: conjunctivae normal EOM: EOMs intact bilaterally Neck Neck: Yes normal visual inspection and Yes trachea midline Resp Other: No rerpiratory distress Effort & Inspection: normal respiratory effort and able to speak in complete sentences Cardio Other: Palpable radial pulse with no appreciable rythmic abnormalities GI Other: No abdominal distension Back/Spine/Pelvis Cervical Spine: normal cervical lordosis and cervical ROM normal Skin General skin exam: no rashes or lesions noted Neuro General: oriented to person, oriented to place and gait normal Extrem Other: Left shoulder with full range of motion although pain in the mid arc of abduction. Tightness in the trapezius and periscapular musculature. Negative empty can. Negative Khan and negative Neer. Results Reviewed Results Reviewed: I personally reviewed relevant radiographs. Left shoulder radiographs with mild AC and glenohumeral OA. No acute findings. Assessment & Plan Assessment & Plan (1) Periscapular pain of left shoulder: Code(s): M25.512 - Pain in left shoulder Plan: This is a 67-year-old with a contusion over her left scapula. I recommend physical therapy for scapular strengthening and stabilization. She may follow- up as needed. Orders: Orders PT Evaluation and Treatment Today M25.512 - Pain in left shoulder Coding Level of Care Code Est Pt Level 3 (53440) Diagnoses Periscapular pain of left shoulder M25.512
[2023-07-12 09:23] VITALS: BMI 35.0
== END 2023-07-12 14:03 | disposition home or self-care (01) ==
PROVIDERS: PCP Internal Medicine; Visit Provider Orthopaedic Surgery
DX: M25.512 Pain in left shoulder (principal); W18.11XA Fall from or off toilet without subsequent striking against object, initial encounter
CPT/HCPCS: 99213

== ENCOUNTER → 2023-07-12 08:55 | Outpatient (BNVA) | payer OTHER, SELFPAY | PROVIDERS: PCP Internal Medicine; Visit Provider Orthopaedic Surgery | DX: M25.512 Pain in left shoulder (principal); W18.11XA Fall from or off toilet without subsequent striking against object, initial encounter; Y93.9 Activity, unspecified; Y92.9 Unspecified place or not applicable; Y99.9 Unspecified external cause status | CPT/HCPCS: 99212 ==

== ENCOUNTER 2023-08-06 09:16 | Outpatient (AMB) | payer OTHER, SELFPAY ==
[2023-08-06 09:19] VITALS: BP 122/82; PULSE 68; BMI 34.5
--- NOTE | 2023-08-06 09:19 | A.OFFVIS_ITS ---
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 Required: No Allergies Penicillins Allergy (Intermediate, Verified 08/06/23 09:22) RASH SOB Medication List - Last Reconciled 08/06/23 by GUILLERMO Alves albuterol sulfate 90 mcg/actuation 2 puffs inhalation Q4H PRN allopurinol 300 mg PO DAILY 90 days amlodipine 5 mg PO DAILY 90 days blood sugar diagnostic (Accu-Chek Guide test strips) Use 1 test strip once a day blood-glucose meter (Accu-Chek Guide Glucose Meter) As directed budesonide-formoterol 160-4.5 mcg/actuation (Symbicort) 2 puffs inhalation BID faabtanene-datiycpm-ldzxukarur 160-9-4.8 mcg/actuation (Breztri Aerosphere) 2 inhalations inhalation BID 30 days cane As directed cholecalciferol (vitamin D3) 50 mcg PO DAILY 90 days colchicine 0.6 mg PO BID PRN cyclobenzaprine 10 mg PO BEDTIME famotidine 20 mg PO BEDTIME furosemide 40 mg PO Q OTHER DAY gabapentin 100 mg PO DAILY [home delivery of methadone Start date 06/10/23 End date 06/09/24] [home delivery of methadone per clinic dose Start date 06/15/2022 End date: 06/16/2023] hydrochlorothiazide 25 mg PO DAILY ibuprofen 600 mg PO Q6H PRN ipratropium bromide 2 sprays intranasal TID 30 days ipratropium-albuterol 0.5 mg-3 mg(2.5 mg base)/3 mL 3 mL inhalation RQ4H PRN lancets (Accu-Chek Softclix Lancets) Use 1 lancet once a day lidocaine 4% (Aspercreme (lidocaine)) 1 patch topical DAILY PRN 30 days meloxicam 15 mg PO DAILY PRN 7 days metformin 1,000 mg PO BID 30 days methadone 130 mg PO DAILY mirtazapine 45 mg PO BEDTIME oxcarbazepine 600 mg PO BID prednisone 60 mg (3 x 20 mg) PO DAILY 5 days sertraline 50 mg PO DAILY simvastatin 10 mg PO DAILY zolpidem 10 mg PO BEDTIME 30 days HPI HPI r/s 06/20// 6 mos followup: Details: Ivette is a 67 yo female with PMH of morbid obesity, HTN, HLD, DM, COPD, NSTEMI 10/2020 with cath showing normal coronary arteries, echo shows grade 1 diastolic dysfunction who presents for follow up. Today she reports generally feeling well over the last year. Her primary complaint today is of lower leg edema. She has been taking extra Lasix. No shortness of breath, PND, orthopnea. No chest discomfort at rest or with activity. No heart palpitations, light headedness, presyncope, syncope, falls. Taking meds as directed. Is on methadone. [facility] Medical History ACS (acute coronary syndrome) History of heroin use BiPAP (biphasic positive airway pressure) dependence COPD (chronic obstructive pulmonary disease) Diabetic acidosis, type I Hx of drug dependence Arthritis Back pain History of blood transfusion Anemia Diabetes GERD (gastroesophageal reflux disease) Hx of anxiety disorder Hx of bipolar disorder History of headache Depression Sleep apnea Oxygen dependent COPD (chronic obstructive pulmonary disease) Asthma Elevated cholesterol HTN (hypertension) Surgical History S/P cardiac cath History of esophagogastroduodenoscopy (EGD) H/O colonoscopy Hx of total knee replacement Hx of arthroscopic knee surgery Hx of section Hx of foot surgery Family History Father Heart disease Mother Heart disease Family/Other Mental health disorder Substance use disorder Social History Household Members: None Housing: Apartment Do you presently have visiting nurse or other home services: Yes Alcohol intake: current Alcohol intake frequency: holidays/special occasions only Alcohol type: beer and wine Patient Tobacco Use Status: Current everyday Tobacco user Tobacco use type: Cigarette Cigarettes Per Day: 3 Years Smoked: 50 e-Cigarette/Vaping Use: Never Used Second Hand Smoke Exposure: No Substance Use Type: Former Substance User service: No Current occupational status: disabled Current occupation: right handed Cognitive needs: Yes Hearing needs: No Vision needs: Yes Review of Systems Const All systems reviewed & are unremarkable except as noted in HPI and below ENT Denies dizziness Card Denies chest pain, Denies chest pain at rest, Denies chest pain with activity, Denies rapid heart rate, Denies pedal edema, Denies edema, Reports leg edema, Denies lightheadedness, Denies palpitations, Denies dyspnea, Denies dyspnea on exertion and Denies orthopnea Resp Denies cough, Denies dyspnea and Denies dyspnea on exertion GI Denies hematochezia and Denies change in stool character Musc Denies abnormal gait, Denies limited range of motion, Denies muscle cramps, Denies muscle weakness, Denies numbness, Denies radiating pain into limb, Denies stiffness and Denies tingling Neuro Denies abnormal gait, Denies dizziness, Denies numbness and Denies tingling Endo Denies palpitations Physical Exam Vital Signs: Last Vital Signs Pulse 68 08/06/23 09:19 BP 122/82 08/06/23 09:19 BMI result Body Mass Index 34.5 Const General: cooperative, comfortable and no acute distress Neck Neck: Yes normal visual inspection and Yes no JVD Carotids: normal carotid upstroke Resp Effort & Inspection: normal respiratory effort Auscultation: clear to auscultation bilaterally, no crackles, no rales, no rhonchi and no wheezes Cardio Jugular venous distension: no JVD Rate: regular rate Rhythm: regular rhythm Heart sounds: S1 normal heart sound present, S2 normal heart sound present, no gallops, no murmurs and no rubs Extrem Other: mildly pitting, +1 edema of lower legs General: Yes normal to inspection, No no pedal edema and No calf tenderness Psych Appearance: grossly normal Mental Status: mental status grossly normal Speech and movement: Normal speech and movement present Assessment & Plan Assessment & Plan (1) T wave inversion in electrocardiogram: Code(s): R94.31 - Abnormal electrocardiogram [ECG] [EKG] Category: Medical Plan: EKG during prior [facility] admission had shown anterior T wave inversions. At that time she had no chest discomfort but did have multi cardiac risks including obesity, HTN, HLD, DM. CTA showed no PE. She was transferred to [facility] for cardiac cath which showed normal coronary arteries. She initially was on Plavix as she has an aspirin allergy but that has since been discontinued. Since then she has been doing well with no anginal sounding chest discomfort. Her last EKG was done on 2022 showing sinus bradycardia, rate 53, normal T-wave appearance. She is being treated with cardiac risk factor modification. She is obese and the need for weight loss has been reviewed with her again. Will continue on simvastatin with ideal LDL goal less than 70 in patient with diabetes. Her last labs 07/22/2022 showed LDL 105. She is due for an updated lipid profile. Blood pressure is currently well controlled. Will have her continue hydrochlorothiazide and amlodipine. She is reporting some leg edema and normally takes Lasix 40 mg every other day. Informed that she may increase Lasix up to 40 mg daily as needed for her leg edema however go back to every other day once edema has resolved. Reviewed need for increasing activity as tolerated. Signs and symptoms of angina discussed. Cardiology follow-up 6 months, sooner if needed. (2) Prolonged QT interval: Code(s): R94.31 - Abnormal electrocardiogram [ECG] [EKG] Category: Medical Plan: Has had prolonged QT interval in the past. Most recent echo 12/23/2022 had QTC 465 milliseconds. She is on sertraline and methadone each of which can prolong QTC. There is been no recent changes to her medications. Will continue to follow. Plan for EKG next visit. (3) Edema, peripheral: Code(s): R60.9 - Edema, unspecified Category: Medical Plan: Reports of lower leg edema. On exam today she has +1 edema bilateral lower legs. She has been increasing her Lasix to daily when she normally takes it every other day. Will send more to her pharmacy so that she does not run out. Last known creatinine 1 0.31 on 07/22/2022. Again she is due for updated labs. Lab orders are in our system as placed by her PCP. Patient informed to obtain. Reviewed low-salt diet. Gave her a pair of compression stockings from our office stock. (4) S/P cardiac cath: Comment: 10/2020 Normal coronaries Code(s): Z98.890 - Other specified postprocedural states Category: Surgical Plan: As above Plan Time spent on chart review, documentation, interview assessment Orders: Orders CA echo transthoracic complete Today R60.9 - Edema, unspecified Medications: Changed From furosemide 40 mg PO Q OTHER DAY 45 tabs 5RF To furosemide 40 mg PO QAM 90 tabs 1RF Coding Level of Care Code Est Pt Level 3 (02662) Diagnoses T wave inversion in electrocardiogram R94.31 Prolonged QT interval R94.31 Edema, peripheral R60.9 S/P cardiac cath Z98.890 Time Spent (min) 24
== END 2023-08-06 09:43 | disposition home or self-care (01) ==
PROVIDERS: PCP Internal Medicine; Visit Provider Nurse Practitioner Family
DX: R94.31 Abnormal electrocardiogram [ECG] [EKG] (principal); R60.9 Edema, unspecified; Z98.890 Other specified postprocedural states
CPT/HCPCS: 99213

== ENCOUNTER → 2023-08-06 09:16 | Outpatient (BNVA) | payer OTHER, SELFPAY | PROVIDERS: PCP Internal Medicine; Visit Provider Nurse Practitioner Family | DX: R94.31 Abnormal electrocardiogram [ECG] [EKG] (principal); R60.0 Localized edema; I10 Essential (primary) hypertension; Z79.899 Other long term (current) drug therapy | CPT/HCPCS: 99212 ==

== ENCOUNTER 2023-08-28 17:18 | Inpatient (IN) | payer OTHER, SELFPAY ==
--- NOTE | ~2023-08-28 | XR_ITS ---
EXAMINATION: XR CHEST CLINICAL INFORMATION: Reason for Exam fall. Hit chest COMPARISON: Chest radiograph 10/31/2020 TECHNIQUE: 2 views of the chest FINDINGS: Lines and tubes: None. Streaky left basilar airspace opacities likely reflecting atelectasis. No pleural effusion. No pneumothorax. Normal cardiomediastinal silhouette. No displaced rib fracture appreciated however chest radiographs have limited sensitivity. XR/XR chest 2V IMPRESSION: 1. Streaky left basilar airspace opacities likely reflecting atelectasis. 2. No displaced rib fracture appreciated however chest radiographs have limited sensitivity.
--- NOTE | ~2023-08-28 | CT_ITS ---
EXAMINATION: CT head/brain wo IV con CLINICAL INFORMATION: hit head, garcia COMPARISON: None. TECHNIQUE: Contiguous axial imaging was performed from the skull base to vertex without intravenous contrast. This CT examination was performed using dose optimization techniques as appropriate, variously including the following: * Automated exposure control * Adjustment of mA and/or kV according to patient size (this includes techniques or standardized protocols for targeted exams where dose is matched to indication/reason for exam; i.e. extremities or head) * Use of iterative reconstruction technique DLP: 637 mGy-cm. FINDINGS: There is no evidence of acute intracranial hemorrhage or territorial infarction. Leon to white matter differentiation is well preserved. No abnormal mass effect or midline shift is seen. No extra-axial fluid collections are identified. No hydrocephalus. No significant volume loss. Patchy periventricular and deep white matter hypoattenuation is consistent with mild small vessel ischemic changes. The cerebellar tonsils are well positioned. No acute osseous or soft tissue abnormality. Visualized portions of the orbits are unremarkable. The mastoid air cells and visualized portions of the paranasal sinuses are well aerated. CT/CT head/brain wo IV con IMPRESSION: No acute intracranial pathology.
--- NOTE | ~2023-08-28 | US_ITS ---
EXAMINATION: US VENOUS ULTRASOUND WITH DOPPLER LOWER EXTREMITY, RIGHT CLINICAL INFORMATION: Swelling and pain COMPARISON: Lower extremity DVT ultrasound 01/27/2021 TECHNIQUE: Ultrasound of the deep veins is performed from the hip to the calf with compression sonography and color and pulse Doppler assessment. Spectral analysis with color-flow imaging is performed. FINDINGS: There is normal venous compression and respiratory variation and augmented flow. The visualized common femoral vein, superficial femoral vein, profunda femoral vein, popliteal vein, and the trifurcation region shows no evidence of deep venous thrombosis. There is no significant popliteal fossa cyst. US/US venous duplex LE RT IMPRESSION: No DVT demonstrated in the right lower extremity.
[2023-08-28 17:36] VITALS: BP 144/49; PULSE 73; RESP 20; TEMP 37.2; O2SAT 100; BMI 42.1
--- NOTE | 2023-08-28 17:36 | ED_ITS ---
HPI - Fall General Chief Complaint: Fall Stated Complaint: Fall T-1/ Leg redness and swelling Time Seen by Provider: 08/28/23 20:08 Source: patient, family (Patient's daughter), RN notes reviewed and old records reviewed Mode of arrival: ambulatory Limitations: no limitations History of Present Illness HPI Narrative: 67-year-old female past medical history significant for COPD, coronary artery disease, diabetes, hyperlipidemia bipolar disorder presents for evaluation after a fall yesterday. The patient tripped and fell yesterday getting out of bed. She struck her face just below her left eye There was no loss of consciousness She denies any dizziness, headache. Denies any blurry vision or changes The patient also notes that she tripped against a chair a few days ago and had a small wound to her right marks This area is erythematous and swollen The patient also notes that she is supposed to be on CPAP machine at night, but they recalled my machine a few months ago and never gave me a new 1. ? She is also supposed to be on oxygen at home but does not have any portable devices so she does not wear oxygen when she is out of her house Patient plans to fly to [place] tomorrow for 3 weeks She denies any pain Related Data Home Medications ?Medication ?Instructions ?Recorded ?Confirmed albuterol sulfate 90 mcg/actuation 2 puff inhalation Q4H PRN 01/25/20 08/06/23 aerosol inhaler Shortness Of Breath oxcarbazepine 600 mg tablet 600 mg PO BID 01/25/20 08/06/23 famotidine 20 mg tablet 20 mg PO BEDTIME 10/01/20 08/06/23 sertraline 50 mg tablet 50 mg PO DAILY 12/11/21 08/06/23 gabapentin 100 mg capsule 100 mg PO DAILY 03/18/22 08/06/23 hydrochlorothiazide 25 mg tablet 25 mg PO DAILY 03/18/22 08/06/23 mirtazapine 45 mg tablet 45 mg PO BEDTIME 03/18/22 08/06/23 methadone 5 mg/5 mL oral solution 130 mg PO DAILY 07/16/22 08/06/23 budesonide-formoterol HFA 160 2 puff inhalation BID 05/21/23 08/06/23 mcg-4.5 mcg/actuation aerosol inhaler (Symbicort) simvastatin 10 mg tablet 10 mg PO DAILY 05/21/23 08/06/23 Previous Rx's ?Medication ?Instructions ?Recorded ipratropium 0.5 mg-albuterol 3 mg 3 ml inhalation RQ4H PRN Shortness 10/03/20 (2.5 mg base)/3 mL nebulization Of Breath/Wheezing #15 mL soln home delivery of methadone per #1 ea 06/10/22 clinic dose blood sugar diagnostic (Accu-Chek #100 ea 08/04/22 Guide test strips) blood-glucose meter (Accu-Chek #1 ea 08/04/22 Guide Glucose Meter) lancets (Accu-Chek Softclix #100 ea 08/04/22 Lancets) metformin 1,000 mg tablet 1,000 mg PO BID 30 days #60 tabs 08/04/22 cane #1 ea 09/11/22 lidocaine 4 % topical patch 1 patch topical DAILY PRN pain 30 05/05/23 (Aspercreme (lidocaine)) days #30 ea budesonide 160 mcg-glycopyr 9 2 inh inhalation BID 30 days #1 ea 05/19/23 mcg-formot 4.8 mcg/actuation HFA inhaler (Breztri Aerosphere) ipratropium bromide 42 mcg (0.06 2 spray intranasal TID 30 days #15 05/19/23 %) nasal spray mL ibuprofen 600 mg tablet 600 mg PO Q6H PRN fever or pain 05/21/23 #30 tabs home delivery of methadone #1 ea 06/03/23 allopurinol 300 mg tablet 300 mg PO DAILY 90 days #90 tabs 06/07/23 amlodipine 5 mg tablet 5 mg PO DAILY 90 days #90 tabs 06/07/23 cholecalciferol (vitamin D3) 50 50 mcg PO DAILY 90 days #90 caps 06/07/23 mcg (2,000 unit) capsule colchicine 0.6 mg tablet 0.6 mg PO BID PRN gout #180 tabs 06/07/23 cyclobenzaprine 10 mg tablet 10 mg PO BEDTIME #10 tabs 06/10/23 meloxicam 15 mg tablet 15 mg PO DAILY PRN pain, moderate 06/10/23 7 days #7 tabs prednisone 20 mg tablet 60 mg (3 x 20 mg) PO DAILY Asthma 07/08/23 5 days #15 tabs zolpidem 10 mg tablet 10 mg PO BEDTIME 30 days #30 tabs 07/13/23 furosemide 40 mg tablet 40 mg PO QAM #90 tabs 08/06/23 Allergies Allergy/AdvReac Type Severity Reaction Status Date / Time Penicillins Allergy Intermediate RASH SOB Verified 08/28/23 17:38 Review of Systems 2 Constitutional: Constitutional: Denies body ache(s), Denies chills, Denies fever(s) and Denies headache(s) Eyes: Eyes: Denies blurry vision Comments: Bruising just below the left eye ENT: Denies headache(s) and Denies sore throat Cardiovascular: Cardiovascular: Denies chest pain, Reports leg edema and Denies dyspnea Respiratory: Respiratory: Denies cough and Denies dyspnea Gastrointestinal: Gastrointestinal: Denies abdominal pain, Denies nausea and Denies vomiting Musculoskeletal: Musculoskeletal: Denies back pain Integumentary/Breasts: Skin/Breast: Reports erythema and Denies rash Neurologic: Denies headache(s) [facility] Past Medical History Medical History ACS (acute coronary syndrome) History of heroin use BiPAP (biphasic positive airway pressure) dependence COPD (chronic obstructive pulmonary disease) Diabetic acidosis, type I Hx of drug dependence Arthritis Back pain History of blood transfusion Anemia Diabetes GERD (gastroesophageal reflux disease) Hx of anxiety disorder Hx of bipolar disorder History of headache Depression Sleep apnea Oxygen dependent COPD (chronic obstructive pulmonary disease) Asthma Elevated cholesterol HTN (hypertension) Surgical History S/P cardiac cath History of esophagogastroduodenoscopy (EGD) H/O colonoscopy Hx of total knee replacement Hx of arthroscopic knee surgery Hx of section Hx of foot surgery Family History Family History Father Heart disease Mother Heart disease Family/Other Mental health disorder Substance use disorder Social History Social History Household Members: None Housing: Apartment Do you presently have visiting nurse or other home services: Yes Alcohol intake: current Alcohol intake frequency: holidays/special occasions only Alcohol type: beer and wine Patient Tobacco Use Status: Current everyday Tobacco user Tobacco use type: Cigarette Cigarettes Per Day: 3 Years Smoked: 50 Smoked in Last 30 Days: No e-Cigarette/Vaping Use: Never Used Second Hand Smoke Exposure: No Use of substances other than those prescribed or required for medical reasons: No Substance Use Type: Former Substance User Advance Directives: No Advance Directives Information Provided: No Do you have a plan to hurt others: No Plan service: No Current occupational status: disabled Current occupation: right handed Cognitive needs: Yes Hearing needs: No Vision needs: Yes Physical Exam 2 Vital Signs: Vital Signs: Last Vital Signs Temp 97.7 F 08/28/23 21:20 Pulse 84 08/28/23 23:37 Resp 18 08/28/23 23:37 BP 139/61 08/28/23 21:20 Pulse Ox 95 08/28/23 21:30 O2 Del Method Nasal Cannula 08/28/23 21:30 O2 Flow Rate 2 08/28/23 21:30 BMI result Body Mass Index 42.1 Const: General: healthy appearing, comfortable, no acute distress, alert and awake Nutritional Appearance: well nourished Orientation/consciousness: p atient oriented x3 HEENT: Other: Small area of ecchymosis inferior to the left orbit. No palpable deformities to the orbit Eyes: Eyelids: Yes eyelids normal Conjunctivae: conjunctivae normal S clerae: sclerae normal Corneas: corneas normal Pupils: Equal, round and reactive pupils present EOM: EOMs intact bilaterally Neck: Neck: Yes full ROM Resp: Effort & Inspection: normal respiratory effort, able to speak in complete sentences and not labored GI: Inspection: No distended Palpation (GI): Soft to palpation, not firm, nontender, no guarding and not rigid Skin: Other: Small abrasion to the right anterior marks. There is minimal surrounding erythema and edema to this area. No active drainage or fluctuance General skin exam: elasticity normal Neuro: General: patient oriented x3 Cranial nerves: Yes CN's II-XII intact bilaterally, Yes Equal, round and reactive pupils present and Yes Bilaterally intact EOM present Cognition (Neuro): normal cognition Course Course Course Narrative: This is a rapid medical exam. Deferred additional HPI, ROS and PE to primary provider. 67 yo female w/ chronic back pain history of heroin use on methadone COPD type 1 diabetes arthritis GERD anxiety bipolar depression sleep apnea hypertension hyperlipidemia here with chest wall pain/left sided facial pain after mechanical fall this morning. No LOC. No AC therapy use. Also c/o 3 days of right lower extremity swelling/pain. WIll obtain labs, imaging ELIZABETH Galdamez APRN Medications Administered Generic Name Dose Route Start Last Admin Trade Name Freq PRN Reason Stop Dose Admin Potassium Chloride 10 meq in 100 mls @ 100 mls/hr 08/28/23 20:30 08/28/23 23:11 Potassium Chloride/H20 IV 08/29/23 00:29 100 mls/hr Q1H KAMRYN Administration Discontinued Medications Generic Name Dose Route Start Last Admin Trade Name Freq PRN Reason Stop Dose Admin Albuterol/Ipratropium 3 ml 08/28/23 23:11 08/28/23 23:37 Albuterol/Iprat 2.5/0.5mg 3 Ml Ampul.Neb INHALE 08/28/23 23:12 3 ml ONCE ONE Administration Cefuroxime Axetil 500 mg 08/28/23 21:55 08/28/23 22:16 Cefuroxime Axetil 500 Mg Tablet PO 08/28/23 21:56 500 mg ONCE ONE Administration Magnesium Sulfate 2 gm in 50 mls @ 150 mls/hr 08/28/23 20:28 08/28/23 21:08 Magnesium Sulfate/H2o IV 08/28/23 20:47 Infused ONCE ONE Infusion Potassium Chloride 40 meq 08/28/23 20:27 08/28/23 20:43 Potassium Chloride Er 20 Meq Tab.Er.Prt PO 08/28/23 20:28 40 meq ONCE ONE Administration Medical Decision Making Medical Decision Making [facility] Narrative: 67-year-old female with past medical history as documented above presents for evaluation of multiple complaints. She fell yesterday and hit her head. She has not anticoagulated, she denies any loss of consciousness. CT scan the brain does not show any acute traumatic injuries. I have a very low suspicion for facial fracture despite the small area of ecchymosis. The patient does have clinical right lower extremity cellulitis. She is not septic. This can be treated with oral antibiotics. DVT scan was negative for DVT. However, it is significant the patient's potassium is low at 2.6, she is on furosemide 40 mg the morning and 20 mg at night. This is likely the cause of her hypokalemia. Patient's CO2 is elevated to 42 which is likely related to her known history of COPD, noncompliance with CPAP. Her magnesium also low at 1.3 this will be repleted. She has a known diabetic and her glucose was elevated to 158 with a point of care 2 hours later of 179. Differential Diagnosis Differential Diagnoses: The differential diagnosis associated with the presentation includes Hypokalemia Hypovolemia CO2 retention Respiratory acidosis Admission/Observation Consideration of admission/observation: Escalation of care including admission/observation considered Due to patient's numerous chemistry abnormalities, discussed with the hospitalist for admission of hypokalemia, hypercapnia Lab Data MDM Lab Attestation statement: I reviewed the patient's lab results. See above 08/28/23 19:01 08/28/23 19:01 Labs: Lab Results 08/28/23 08/28/23 08/28/23 Range/Units 19:01 20:38 20:48 WBC 12.5 H (4.8-10.8) X10*3/uL RBC 5.05 (4.20-5.50) X10*6/uL Hgb 14.8 (12.0-16.0) g/dl Hct 45.3 (37.0-47.0) % MCV 89.7 (80.0-98.0) fL MCH 29.3 (27.0-33.0) pg MCHC 32.7 (31.0-35.0) g/dl RDW 14.1 (11.0-16.0) % Plt Count 219 (160-400) X10*3/uL MPV 11.3 (9.4-12.3) fL Immature Gran % (Auto) 0.2 (0.0-0.4) % Neut % (Auto) 72.1 (45-73) % Lymph % (Auto) 14.0 L (20-40) % Trinity % (Auto) 8.5 (2-11) % Eos % (Auto) 4.7 H (0-4) % Baso % (Auto) 0.5 (0-2) % Lymph # (Auto) 1.7 (1.2-4.9) X10*3/uL Trinity # (Auto) 1.1 (0.1-1.2) X10*3/uL Eos # (Auto) 0.6 H (0.0-0.4) X10*3/uL Baso # (Auto) 0.1 (0.0-0.2) X10*3/uL Abs Immat Gran (auto) 0.02 (0.00-0.03) X10*3/uL Absolute Neuts (auto) 9.0 H (2.0-8.3) x10*3/uL Absolute Nucleated RBC 0.000 (0.0-0.012) X10*3/uL Nucleated RBC % (auto) 0.0 (0.0-0.2) /100WBC VBG pH 7.35 (7.32-7.43) VBG pCO2 86 mmHg VBG pO2 36 mmHg VBG HCO3 48 H (22-26) mmol/L VBG O2 Saturation 54.0 % VBG Base Excess 16.6 mmol/L Sodium 145 (135-145) mmol/L Potassium 2.6 L* (3.3-5.1) mmol/L Chloride 90 L (96-108) mmol/L Carbon Dioxide 42 H* (22-29) mmol/L Anion Gap 16 (12-20) BUN 16 (9-16) mg/dL Creatinine 1.10 (0.5-1.4) mg/dL Estim Creat Clear Calc 56.2 Estimated GFR 50 POC Glucose (60-115) mg/dL Random Glucose 158 H (60-115) mg/dL Calcium 9.0 (8.4-10.2) mg/dL Magnesium 1.3 L* (1.6-2.6) mg/dL Total Bilirubin 0.3 (0.0-1.0) mg/dL Direct Bilirubin 0.1 (0.0-0.5) mg/dL AST 17 (5-31) U/L ALT 16 (0-31) U/L Alkaline Phosphatase 144 H (39-117) U/L Total Protein 7.7 (6.5-8.0) g/dL Albumin 4.0 (3.5-5.0) g/dL Urine Color Yellow Urine Appearance Clear Urine pH 7.0 (5.0-9.0) Ur Specific Cocoa 1.015 (1.005-1.025) Urine Protein Negative (Neg-Trace) mg/dL Urine Glucose (UA) Negative (Negative) mg/dL Urine Ketones Negative (Negative) mg/dL Urine Blood Negative (Negative) Urine Nitrite Negative (Negative) Ur Leukocyte Esterase Negative (Negative) Urine Opiates Screen POSITIVE H (Not Detect) Ur Buprenorphine Scrn Not Detected (Not Detect) ng/mL Ur Oxycodone Screen Not Detected (Not Detect) ng/mL Urine Methadone Screen Positive H (Not Detect) ng/mL Urine Fentanyl Screen POSITIVE H (Not Detect) Ur Barbiturates Screen Not Detected (Not Detect) Ur Phencyclidine Scrn Not Detected (Not Detect) Ur Amphetamines Screen Not Detected (Not Detect) U Benzodiazepines Scrn Not Detected (Not Detect) Urine Cocaine Screen Not Detected (Not Detect) U Marijuana (THC) Screen Not Detected (Not Detect) 08/28/23 Range/Units 21:08 WBC (4.8-10.8) X10*3/uL RBC (4.20-5.50) X10*6/uL Hgb (12.0-16.0) g/dl Hct (37.0-47.0) % MCV (80.0-98.0) fL MCH (27.0-33.0) pg MCHC (31.0-35.0) g/dl RDW (11.0-16.0) % Plt Count (160-400) X10*3/uL MPV (9.4-12.3) fL Immature Gran % (Auto) (0.0-0.4) % Neut % (Auto) (45-73) % Lymph % (Auto) (20-40) % Trinity % (Auto) (2-11) % Eos % (Auto) (0-4) % Baso % (Auto) (0-2) % Lymph # (Auto) (1.2-4.9) X10*3/uL Trinity # (Auto) (0.1-1.2) X10*3/uL Eos # (Auto) (0.0-0.4) X10*3/uL Baso # (Auto) (0.0-0.2) X10*3/uL Abs Immat Gran (auto) (0.00-0.03) X10*3/uL Absolute Neuts (auto) (2.0-8.3) x10*3/uL Absolute Nucleated RBC (0.0-0.012) X10*3/uL Nucleated RBC % (auto) (0.0-0.2) /100WBC VBG pH (7.32-7.43) VBG pCO2 mmHg VBG pO2 mmHg VBG HCO3 (22-26) mmol/L VBG O2 Saturation % VBG Base Excess mmol/L Sodium (135-145) mmol/L Potassium (3.3-5.1) mmol/L Chloride (96-108) mmol/L Carbon Dioxide (22-29) mmol/L Anion Gap (12-20) BUN (9-16) mg/dL Creatinine (0.5-1.4) mg/dL Estim Creat Clear Calc Estimated GFR POC Glucose 179 H (60-115) mg/dL Random Glucose (60-115) mg/dL Calcium (8.4-10.2) mg/dL Magnesium (1.6-2.6) mg/dL Total Bilirubin (0.0-1.0) mg/dL Direct Bilirubin (0.0-0.5) mg/dL AST (5-31) U/L ALT (0-31) U/L Alkaline Phosphatase (39-117) U/L Total Protein (6.5-8.0) g/dL Albumin (3.5-5.0) g/dL Urine Color Urine Appearance Urine pH (5.0-9.0) Ur Specific Cocoa (1.005-1.025) Urine Protein (Neg-Trace) mg/dL Urine Glucose (UA) (Negative) mg/dL Urine Ketones (Negative) mg/dL Urine Blood (Negative) Urine Nitrite (Negative) Ur Leukocyte Esterase (Negative) Urine Opiates Screen (Not Detect) Ur Buprenorphine Scrn (Not Detect) ng/mL Ur Oxycodone Screen (Not Detect) ng/mL Urine Methadone Screen (Not Detect) ng/mL Urine Fentanyl Screen (Not Detect) Ur Barbiturates Screen (Not Detect) Ur Phencyclidine Scrn (Not Detect) Ur Amphetamines Screen (Not Detect) U Benzodiazepines Scrn (Not Detect) Urine Cocaine Screen (Not Detect) U Marijuana (THC) Screen (Not Detect) ABG Data Attestation ABG: I personally reviewed and interpreted this ABG as follows: Interpretation: Patient has respiratory acidosis with metabolic compensation Independent Interpretation I performed an independent interpretation of an: Plain X-Ray and Ultrasound (No focal infiltrates) Radiology Impression Discussion of test interpretation with radiology: I have reviewed the radiologist's reading. Radiologist Impression: XR/XR chest 2V IMPRESSION: 1. Streaky left basilar airspace opacities likely reflecting atelectasis. 2. No displaced rib fracture appreciated however chest radiographs have limited sensitivity. US/US venous duplex LE RT IMPRESSION: No DVT demonstrated in the right lower extremity. Discharge Plan Discharge Clinical Impression: Acute hypokalemia, Chronic respiratory failure with hypercapnia, Cellulitis Patient Disposition: Admitted As Inpatient Prescriptions: No Action (DME) home delivery of methadone per clinic dose See Rx Instructions .Route .MEDSUPPLY Qty: 1 0RF Rx Instructions: Start date 06/15/2022 End date: 06/16/2023 (DME) cane Device See Rx Instructions .Route Qty: 1 0RF Rx Instructions: As directed lidocaine [Aspercreme (lidocaine)] 4 % adhesive patch,medicated 1 patch topical DAILY PRN (Reason: pain) 30 Days Qty: 30 1RF (DME) home delivery of methadone See Rx Instructions .Route .MEDSUPPLY Qty: 1 0RF Rx Instructions: Start date 06/10/23 End date 06/09/24 colchicine 0.6 mg tablet 0.6 mg PO BID PRN (Reason: gout) Qty: 180 0RF amlodipine 5 mg tablet 5 mg PO DAILY 90 Days Qty: 90 1RF cholecalciferol (vitamin D3) 50 mcg (2,000 unit) capsule 50 mcg PO DAILY 90 Days Qty: 90 1RF allopurinol 300 mg tablet 300 mg PO DAILY 90 Days Qty: 90 1RF zolpidem 10 mg tablet 10 mg PO BEDTIME 30 Days Qty: 30 0RF oxcarbazepine 600 mg Tablet 600 mg PO BID albuterol sulfate 90 mcg/actuation HFA aerosol inhaler 2 puff inhalation Q4H PRN (Reason: Shortness Of Breath) methadone 5 mg/5 mL solution 130 mg PO DAILY famotidine 20 mg tablet 20 mg PO BEDTIME ipratropium-albuterol 0.5 mg-3 mg(2.5 mg base)/3 mL Solution For Nebulization 3 ml inhalation RQ4H PRN (Reason: Shortness Of Breath/Wheezing) Qty: 15 0RF prednisone 20 mg tablet 60 mg PO DAILY 5 Days Qty: 15 0RF hydrochlorothiazide 25 mg tablet 25 mg PO DAILY gabapentin 100 mg capsule 100 mg PO DAILY mirtazapine 45 mg tablet 45 mg PO BEDTIME (DME) Accu-Chek Guide test strips Strip See Rx Instructions .Route Qty: 100 2RF Rx Instructions: Use 1 test strip once a day (DME) blood-glucose meter [Accu-Chek Guide Glucose Meter] Misc See Rx Instructions .Route Qty: 1 0RF Rx Instructions: As directed ([facility]) lancets [Accu-Chek Softclix Lancets] Misc See Rx Instructions .Route Qty: 100 2RF Rx Instructions: Use 1 lancet once a day metformin 1,000 mg tablet 1,000 mg PO BID 30 Days Qty: 60 3RF cyclobenzaprine 10 mg tablet 10 mg PO BEDTIME Qty: 10 0RF meloxicam 15 mg tablet 15 mg PO DAILY PRN (Reason: pain, moderate) 7 Days Qty: 7 0RF budesonide-formoterol [Symbicort] 160-4.5 mcg/actuation HFA aerosol inhaler 2 puff inhalation BID simvastatin 10 mg tablet 10 mg PO DAILY ibuprofen 600 mg tablet 600 mg PO Q6H PRN (Reason: fever or pain) Qty: 30 0RF sertraline 50 mg tablet 50 mg PO DAILY Breztri Aerosphere 160-9-4.8 mcg/actuation HFA aerosol inhaler 2 inh inhalation BID 30 Days Qty: 1 6RF ipratropium bromide 42 mcg (0.06 %) spray,non-aerosol 2 spray intranasal TID 30 Days Qty: 15 6RF Rx Instructions: administer into each nostril furosemide 40 mg tablet 40 mg PO QAM Qty: 90 1RF Print Language: Kenyan
[2023-08-28 19:05] LABS: MANUAL DIFF FLAG NO
[2023-08-28 19:07] LABS: Basophils Absolute Auto 0.1 X10*3/uL (0.0-0.2); Basophils Percent Auto 0.5 % (0-2); Eosinophils Absolute Auto 0.6 X10*3/uL (0.0-0.4); Eosinophils Percent Auto 4.7 % (0-4); Hematocrit 45.3 % (37.0-47.0); Hemoglobin 14.8 g/dl (12.0-16.0); Imm Gran Abs Auto 0.02 X10*3/uL (0.00-0.03); Imm Gran Pct Auto 0.2 % (0.0-0.4); Lymphocytes Absolute Auto 1.7 X10*3/uL (1.2-4.9); Mean Corpuscular HGB Conc 32.7 g/dl (31.0-35.0); Mean Corpuscular Hemoglobin 29.3 pg (27.0-33.0); Mean Corpuscular Volume 89.7 fL (80.0-98.0); Mean Platelet Volume 11.3 fL (9.4-12.3); Monocytes Absolute Auto 1.1 X10*3/uL (0.1-1.2); Monocytes Percent Auto 8.5 % (2-11); Neutrophils Percent Auto 72.1 % (45-73); Platelet Count 219 X10*3/uL (160-400); Red Blood Count 5.05 X10*6/uL (4.20-5.50); Red Cell Distribution Width 14.1 % (11.0-16.0); White Blood Count 12.5 X10*3/uL (4.8-10.8)
[2023-08-28 19:29] LABS: Anion Gap 16 (12-20); Blood Urea Nitrogen 16 mg/dL (9-16); Carbon Dioxide 42 mmol/L (22-29); Chloride 90 mmol/L (96-108); Creatinine Clr Calc Pharmacy 56.2; Estimated Glomerular Filt Rate 50; Glucose Random 158 mg/dL (60-115); Potassium 2.6 mmol/L (3.3-5.1); Sodium 145 mmol/L (135-145)
[2023-08-28 20:27] LABS: Alanine Aminotransferase 16 U/L (0-31); Alkaline Phosphatase 144 U/L (39-117); Aspartate Amino Transferase 17 U/L (5-31); Bilirubin Direct 0.1 mg/dL (0.0-0.5); Bilirubin Total 0.3 mg/dL (0.0-1.0); Magnesium 1.3 mg/dL (1.6-2.6); Total Protein 7.7 g/dL (6.5-8.0)
--- NOTE | 2023-08-28 20:42 | ECG_ITS ---
Test Reason : FALL Blood Pressure : / mmHG Vent. Rate : 070 BPM Atrial Rate : 070 BPM P-R Int : 158 ms QRS Dur : 100 ms QT Int : 536 ms P-R-T Axes : 023 056 077 degrees QTc Int : 578 ms Normal sinus rhythm Nonspecific T wave abnormality Abnormal ECG When compared with ECG of 03-OCT-2020 10:02, ST no longer elevated in Inferior leads Nonspecific T wave abnormality has replaced inverted T waves in Anterior leads QT has lengthened Referred By: Urban Méndez Electronically Signed By:ANUP SWAIN MD
[2023-08-28 20:43] LABS: Venous Blood Gas Refer to POC result
[2023-08-28] MEDS: Potassium Chloride ER 20 MEQ TAB.ER.PRT 40 MEQ PO (20:43)
[2023-08-28] MEDS: Magnesium Sulfate/H2O 2 GM/50 ML PIGGYBACK IV (20:43)
[2023-08-28 20:44] LABS: VBG Base Excess 16.6 mmol/L; VBG HCO3 48 mmol/L (22-26); VBG pCO2 86 mmHg; VBG pH 7.35 (7.32-7.43); VBG pO2 36 mmHg
[2023-08-28 20:57] LABS: Appearance Urine Clear; Color Urine Yellow; Glucose Urine UA Negative (Negative); Leukocyte Esterase Urine Negative (Negative); Nitrite Urine Negative (Negative); Specific Gravity - Urine 1.015 (1.005-1.025); Urine Blood Negative (Negative); Urine Ketones Negative (Negative); Urine Protein Negative (Neg-Trace)
[2023-08-28 21:07] LABS: Amphetamine Screen Urine Not Detected (Not Detect); Barbiturates, Urine Not Detected (Not Detect); Benzodiazepines Screen Urine Not Detected (Not Detect); Buprenorphine Scr Not Detected (Not Detect); Cannabinoid Screen Urine Not Detected (Not Detect); Cocaine Screen Urine Not Detected (Not Detect); Fentanyl, urine POSITIVE (Not Detect); Methadone Screen, Urine Positive (Not Detect); Opiate Screen Urine POSITIVE (Not Detect); Oxycodone Screen Urine Not Detected (Not Detect); Phencyclidine Screen Urine Not Detected (Not Detect)
[2023-08-28] MEDS: Potassium Chloride/H20 10 MEQ/100 ML PIGGYBACK 100 MEQ IV ×4 (21:08→23:56)
[2023-08-28 21:12] LABS: Glucose, Whole Blood 179 mg/dL (60-115)
[2023-08-28 21:20] VITALS: BP 139/61; PULSE 69; RESP 12; TEMP 36.5; O2SAT 90
--- NOTE | 2023-08-28 21:24 | PC.NURSE ---
Patient somnolent, easily arousable. patient sating 74% on RA, asked patient if she wears oxygen at home, patient states she's always on 2L, confirmed by daughter at bedside. Patient placed on 2L, sating 95%, provider Bjorn made aware.
[2023-08-28 21:30] VITALS: O2SAT 95
[2023-08-28] MEDS: cefuroxime axetiL 500 MG TABLET PO (22:16)
--- NOTE | 2023-08-28 22:22 | PC.NURSE ---
Patient much more awake and alert in bed, talking with daughter at bedside, eating/drinking waiting for potential admit orders. REMA arroyo.
[2023-08-28 23:37] VITALS: PULSE 84; RESP 18; O2SAT 100
[2023-08-28] MEDS: Albuterol/Iprat 2.5/0.5MG 3 ML AMPUL.NEB INHALE (23:37)
[2023-08-29] VITALS (10 sets, daily range): BP systolic 108–172; BP diastolic 45–85; PULSE 57–84; RESP 10–20; TEMP 36.4–36.8; O2SAT 90–99
--- NOTE | 2023-08-29 00:22 | P.HPHOSP_ITS ---
History of Present Illness Date of Service: 08/29/23 Attending physician on admission: Mariza Kwan Chief Complaint: Fall Ivette Foresty 67 y/o woman with past medical history significant for type 2 diabetes mellitus, obstructive sleep apnea (not using CPAP), COPD, obesity, hypertension, neuropathy, substance abuse on methadone and bipolar disorder presents to the emergency department after she sustained a fall this morning striking her face and chest upon falling down. She denied any other acute symptoms such as headache, dizziness, palpitations, chest pain, fever, chills or shortness on breath. She also denied any acute cardiopulmonary or gastrointestinal symptoms. She is a tobacco smoker, half a pack daily since age 14. Denied ongoing illegal drug use or alcohol abuse. She also mentioned that 3 days ago she sustained a abrasion to the left leg has developed redness and tenderness. In the ED, she was found to have stable vital signs. Blood workup was remarkable for leukocytosis of 12.5. Hemoglobin and platelets are normal. Potassium level is 2.6 and CO2 42. Creatinine is 1.10 and glucose 179. LFTs are unremarkable except for elevated alk-phos. UA showed no UTI. Her lower extremity venous ultrasound showed no DV. CXR is negative for pneumonia, pleural effusions, pneumothorax or consolidations. Head CT scan showed no acute intracranial abnormality. ED tx: KCl 40 mEq p.o., magnesium sulfate 2 g IV, KCl IV, Ceftin 500 mg PO and DuoNeb. Review of Systems 2 Review of Systems: All 12 systems were reviewed and normal except as noted in HPI. [facility] Medical History ACS (acute coronary syndrome) History of heroin use BiPAP (biphasic positive airway pressure) dependence COPD (chronic obstructive pulmonary disease) Diabetic acidosis, type I Hx of drug dependence Arthritis Back pain History of blood transfusion Anemia Diabetes GERD (gastroesophageal reflux disease) Hx of anxiety disorder Hx of bipolar disorder History of headache Depression Sleep apnea Oxygen dependent COPD (chronic obstructive pulmonary disease) Asthma Elevated cholesterol HTN (hypertension) Family History Father Heart disease Mother Heart disease Family/Other Mental health disorder Substance use disorder Surgical History S/P cardiac cath History of esophagogastroduodenoscopy (EGD) H/O colonoscopy Hx of total knee replacement Hx of arthroscopic knee surgery Hx of section Hx of foot surgery Social History Household Members: None Housing: Apartment Do you presently have visiting nurse or other home services: Yes Alcohol intake: current Alcohol intake frequency: holidays/special occasions only Alcohol type: beer and wine Patient Tobacco Use Status: Never used Tobacco Tobacco use type: Cigarette Cigarettes Per Day: 3 Years Smoked: 50 Smoked in Last 30 Days: No e-Cigarette/Vaping Use: Never Used Second Hand Smoke Exposure: No Use of substances other than those prescribed or required for medical reasons: No Substance Use Type: Former Substance User Advance Directives: No Advance Directives Information Provided: No Do you have a plan to hurt others: No Plan Nutrition Risks: No Nutritional Risk service: No Current occupational status: disabled Current occupation: right handed Cognitive needs: Yes Hearing needs: No Vision needs: Yes Meds Allergies Allergy/AdvReac Type Severity Reaction Status Date / Time Penicillins Allergy Intermediate RASH SOB Verified 08/28/23 17:38 Active Medications: Current Medications Acetaminophen (Acetaminophen 325 Mg Tablet) 975 mg PO Q6H PRN PRN Reason: mild pain, headache or fever Albuterol Sulfate (Albuterol Sulfate (0.083%) 2.5 Mg/3 Ml Vial.Neb) 2.5 mg INHALE Q2H PRN PRN Reason: Shortness of Breath/Wheezing Cefuroxime Axetil (Cefuroxime Axetil 500 Mg Tablet) 500 mg PO Q12H KAMRYN Glucose (Glucose Gel 15 Gm Gel..Gram.) 15 gm PO Q15M PRN; Protocol PRN Reason: per Hypoglycemia Standing Ord. Potassium Chloride (Potassium Chloride/H20) 10 meq in 100 mls @ 100 mls/hr IV Q1H KAMRYN Stop: 08/29/23 00:29 Last Admin: 08/28/23 23:56 Dose: 100 mls/hr Dextrose (D10) 250 mls @ 750 mls/hr IV Q15M PRN; Protocol PRN Reason: per Hypoglycemia Standing Ord. Insulin Human Lispro (Insulin Lispro 100 Unit/Ml 3 Ml Vial) 0 unit SUBCUT QIDACHS [facility]N; Protocol Sodium Chloride (0.9 % Sodium Chloride Flush 3 Ml Syringe) 3 ml IVFLUSH QSHIFT [facility] Home Medications ?Medication ?Instructions ?Recorded ?Confirmed ?Last Taken ?Type albuterol sulfate 90 mcg/actuation 2 puff inhalation Q4H PRN 01/25/20 08/29/23 Unknown History aerosol inhaler Shortness Of Breath oxcarbazepine 600 mg tablet 600 mg PO BID 01/25/20 08/29/23 08/28/23 History famotidine 20 mg tablet 20 mg PO BEDTIME 10/01/20 08/29/23 08/28/23 History sertraline 50 mg tablet 50 mg PO DAILY 12/11/21 08/29/23 08/28/23 History gabapentin 100 mg capsule 100 mg PO DAILY 03/18/22 08/29/23 08/28/23 History hydrochlorothiazide 25 mg tablet 25 mg PO DAILY 03/18/22 08/29/23 08/28/23 History mirtazapine 45 mg tablet 45 mg PO BEDTIME 03/18/22 08/29/23 08/28/23 History methadone 5 mg/5 mL oral solution 135 mg PO DAILY 07/16/22 08/29/23 08/29/23 10:10 History simvastatin 10 mg tablet 10 mg PO DAILY 05/21/23 08/29/23 08/28/23 History furosemide 40 mg tablet 60 mg PO DAILY 08/29/23 08/29/23 08/28/23 History Physical Exam 2 Vital Signs and Narrative: Vital Signs: Last Vital Signs Temp 97.7 F 08/28/23 21:20 Pulse 84 08/28/23 23:37 Resp 18 08/28/23 23:37 BP 139/61 08/28/23 21:20 Pulse Ox 95 08/28/23 21:30 O2 Del Method Nasal Cannula 08/28/23 21:30 O2 Flow Rate 2 08/28/23 21:30 BMI result Body Mass Index 42.1 Constitutional - Awake and Alert, No apparent distress. NC in place. HEENT - PERRLA, EOMI Heart - S1S2, RRR. Lungs - Normal lung expansion, Normal respiratory effort, No respiratory distress, CTA bilaterally Gastrointestinal - NT / ND; +BS; No rebound or guarding Extremities - right leg lower 3rd anterior aspect: Abrasion with surrounding erythema and edema and associated tenderness. Musculoskeletal - Normal inspection, normal ROM Skin - Warm/Dry Neurological - Alert & oriented x3. No focal weakness. Normal speech Psychological - Appropriate affect Results Labs 08/29/23 08:35 08/29/23 08:35 Labs: Laboratory Results - last 24 hr 08/28/23 08/28/23 08/28/23 19:01 20:38 20:48 MCV 89.7 MCH 29.3 MCHC 32.7 RDW 14.1 Plt Count 219 MPV 11.3 Immature Gran % (Auto) 0.2 Neut % (Auto) 72.1 Lymph % (Auto) 14.0 L [place] % (Auto) 8.5 Eos % (Auto) 4.7 H Baso % (Auto) 0.5 Lymph # (Auto) 1.7 [place] # (Auto) 1.1 Eos # (Auto) 0.6 H Baso # (Auto) 0.1 Abs Immat Gran (auto) 0.02 Absolute Neuts (auto) 9.0 H Absolute Nucleated RBC 0.000 Nucleated RBC % (auto) 0.0 VBG pH 7.35 VBG pCO2 86 VBG pO2 36 VBG HCO3 48 H VBG O2 Saturation 54.0 VBG Base Excess 16.6 Anion Gap 16 Estim Creat Clear Calc 56.2 Estimated GFR 50 POC Glucose Random Glucose 158 H Calcium 9.0 Magnesium 1.3 L* Total Bilirubin 0.3 Direct Bilirubin 0.1 AST 17 ALT 16 Alkaline Phosphatase 144 H Total Protein 7.7 Albumin 4.0 Urine Color Yellow Urine Appearance Clear Urine pH 7.0 Ur Specific [place] 1.015 Urine Protein Negative Urine Glucose (UA) Negative Urine Ketones Negative Urine Blood Negative Urine Nitrite Negative Ur Leukocyte Esterase Negative Urine Opiates Screen POSITIVE H Ur Buprenorphine Scrn Not Detected Ur Oxycodone Screen Not Detected Urine Methadone Screen Positive H Urine Fentanyl Screen POSITIVE H Ur Barbiturates Screen Not Detected Ur Phencyclidine Scrn Not Detected Ur Amphetamines Screen Not Detected U Benzodiazepines Scrn Not Detected Urine Cocaine Screen Not Detected U Marijuana (THC) Screen Not Detected 08/28/23 21:08 MCV MCH MCHC RDW Plt Count MPV Immature Gran % (Auto) Neut % (Auto) Lymph % (Auto) [place] % (Auto) Eos % (Auto) Baso % (Auto) Lymph # (Auto) [place] # (Auto) Eos # (Auto) Baso # (Auto) Abs Immat Gran (auto) Absolute Neuts (auto) Absolute Nucleated RBC Nucleated RBC % (auto) VBG pH VBG pCO2 VBG pO2 VBG HCO3 VBG O2 Saturation VBG Base Excess Anion Gap Estim Creat Clear Calc Estimated GFR POC Glucose 179 H Random Glucose Calcium Magnesium Total Bilirubin Direct Bilirubin AST ALT Alkaline Phosphatase Total Protein Albumin Urine Color Urine Appearance Urine pH Ur Specific [place] Urine Protein Urine Glucose (UA) Urine Ketones Urine Blood Urine Nitrite Ur Leukocyte Esterase Urine Opiates Screen Ur Buprenorphine Scrn Ur Oxycodone Screen Urine Methadone Screen Urine Fentanyl Screen Ur Barbiturates Screen Ur Phencyclidine Scrn Ur Amphetamines Screen U Benzodiazepines Scrn Urine Cocaine Screen U Marijuana (THC) Screen Imaging Radiologist's Impressions: Impressions Head CT 08/28/23 17:54 IMPRESSION: No acute intracranial pathology. Chest X-Ray 08/28/23 17:55 IMPRESSION: 1. Streaky left basilar airspace opacities likely reflecting atelectasis. 2. No displaced rib fracture appreciated however chest radiographs have limited sensitivity. Venous Duplex 08/28/23 18:15 IMPRESSION: No DVT demonstrated in the right lower extremity. Assessment and Plan (1) Hypomagnesemia: Status: Acute (2) Hypokalemia: Status: Acute (3) TESS (obstructive sleep apnea): Status: Acute (4) Chronic respiratory failure with hypercapnia: Status: Acute Plan Ivette Lim 67 y/o woman admitted with: * Hypokalemia and hypomagnesemia. Secondary to diuretics use: Furosemide and hydrochlorothiazide. Admit to hospitalist service. Telemetry. Hold diuretics. Replete as needed. Continue to monitor K+ and Mg level. * Chronic respiratory failure, multifactorial: COPD, TESS. Continue supplemental oxygen and CPAP at bedtime (pt has not been using her CPAP because the device had a recall but it was not replaced). Continue home inhalers. Bronchodilator therapy as needed. * Right lower extremity cellulitis, mild. Continue Ceftin 500 mg PO bid. * Obesity. BMI 42.1 kg/m2. Weight loss. * Type 2 diabetes mellitus. Blood glucose checks before meals at bedtime. Diabetic diet. Continue metformin. Insulin sliding scale * Essential hypertension. Continue amlodipine. Hydrochlorothiazide on hold due to hypokalemia. * Neuropathy. Continue gabapentin. * History of substance abuse, IV heroin. Not actively using illegal drugs. Continue methadone. * Bipolar disorder. Continue home medications. * Ongoing tobacco smoker. Tobacco cessation education DVT prophylaxis: SCDs Code status: Full Patient will need hospitalization for at least 2 midnights for electrolyte imbalances repletion, close monitoring electrolytes levels and cardiac monitoring. Quality Stroke Does the patient have a stroke diagnosis?: No VTE Prior VTE?: No VTE Risk Level:: Medical - moderate - high VTE Device Contraindication: N/A - Device Ordered VTE Drug Contraindication: Treatment Not Indicated
--- NOTE | 2023-08-29 01:39 | MHC.EDTECH ---
Late Entry,This tech took over care of patient at 2300,hourly rounds and vitals completed,Belonging list completed call aguilar in reach
--- NOTE | 2023-08-29 03:15 | PC.NURSE ---
Assumed care of pt.
[2023-08-29 07:29] LABS: Glucose, Whole Blood 144 mg/dL (60-115)
[2023-08-29 09:01] LABS: MANUAL DIFF FLAG NO
[2023-08-29 09:06] LABS: Basophils Percent Auto 0.3 % (0-2); Eosinophils Absolute Auto 0.4 X10*3/uL (0.0-0.4); Hematocrit 43.6 % (37.0-47.0); Hemoglobin 13.9 g/dl (12.0-16.0); Imm Gran Abs Auto 0.06 X10*3/uL (0.00-0.03); Imm Gran Pct Auto 0.5 % (0.0-0.4); Lymphocytes Absolute Auto 1.9 X10*3/uL (1.2-4.9); Lymphocytes Percent Auto 14.4 % (20-40); Mean Corpuscular HGB Conc 31.9 g/dl (31.0-35.0); Mean Corpuscular Hemoglobin 28.9 pg (27.0-33.0); Mean Corpuscular Volume 90.6 fL (80.0-98.0); Mean Platelet Volume 11.6 fL (9.4-12.3); Monocytes Absolute Auto 0.9 X10*3/uL (0.1-1.2); Monocytes Percent Auto 6.9 % (2-11); Neutrophils Absolute Auto 9.9 x10*3/uL (2.0-8.3); Neutrophils Percent Auto 74.9 % (45-73); Platelet Count 211 X10*3/uL (160-400); Red Blood Count 4.81 X10*6/uL (4.20-5.50); Red Cell Distribution Width 14.2 % (11.0-16.0); White Blood Count 13.2 X10*3/uL (4.8-10.8)
--- NOTE | 2023-08-29 09:19 | PHA.MEDREC ---
Pharmacy Consult ? Medication Reconciliation Pharmacy has completed the medication reconciliation. Patient states they take furosemide 60 mg daily.
[2023-08-29 09:35] LABS: Alanine Aminotransferase 15 U/L (0-31); Albumin Level 3.7 g/dL (3.5-5.0); Alkaline Phosphatase 135 U/L (39-117); Anion Gap 16 (12-20); Aspartate Amino Transferase 16 U/L (5-31); Bilirubin Total 0.4 mg/dL (0.0-1.0); Blood Urea Nitrogen 15 mg/dL (9-16); Calcium 9.1 mg/dL (8.4-10.2); Carbon Dioxide 38 mmol/L (22-29); Chloride 92 mmol/L (96-108); Creatinine Clr Calc Pharmacy 59.4; Estimated Glomerular Filt Rate 53; Glucose Random 215 mg/dL (60-115); Magnesium 1.7 mg/dL (1.6-2.6); Potassium 3.2 mmol/L (3.3-5.1); Sodium 143 mmol/L (135-145); Total Protein 7.2 g/dL (6.5-8.0)
--- NOTE | 2023-08-29 09:46 | P.PNIM_ITS ---
Subjective Subjective Date of Service: 08/29/23 Interval History: f/u on cellulitis and electrolytes abnormalities interval history: k and mag better, cellulitis improving Physical Exam 2 Vital Signs: Vital Signs: Last Vital Signs Temp 98 F 08/29/23 07:29 Pulse 57 08/29/23 07:29 Resp 10 L 08/29/23 07:29 BP 121/64 08/29/23 07:29 Pulse Ox 96 08/29/23 07:29 O2 Del Method CPAP 08/29/23 07:29 O2 Flow Rate 2 08/28/23 21:30 BMI result Body Mass Index 42.1 Const: Other: General: AO X 3, no acute distress Resp: CTA bilateral CVS: S1,S2,RRR GI: +BS, NT, no distention Skin: mild redness of righ leg Neuro: motor grossly intact Psych: appropriate affect Objective Data Active Medications Acetaminophen (Acetaminophen 325 Mg Tablet) 975 mg PO Q6H PRN PRN Reason: mild pain, headache or fever Albuterol Sulfate (Albuterol Sulfate (0.083%) 2.5 Mg/3 Ml Vial.Neb) 2.5 mg INHALE Q2H PRN PRN Reason: Shortness of Breath/Wheezing Cefuroxime Axetil (Cefuroxime Axetil 500 Mg Tablet) 500 mg PO Q12H KAMRYN Glucose (Glucose Gel 15 Gm Gel..Gram.) 15 gm PO Q15M PRN; Protocol PRN Reason: per Hypoglycemia Standing Ord. Dextrose (D10) 250 mls @ 750 mls/hr IV Q15M PRN; Protocol PRN Reason: per Hypoglycemia Standing Ord. Insulin Human Lispro (Insulin Lispro 100 Unit/Ml 3 Ml Vial) 0 unit SUBCUT QIDACHS [facility]; Protocol Last Admin: 08/29/23 08:31 Dose: Not Given Documented By: SUSAN Non-Admin Reason: No Insulin Coverage Sodium Chloride (0.9 % Sodium Chloride Flush 3 Ml Syringe) 3 ml IVFLUSH QSHIFT [facility] Labs 08/29/23 08:35 08/29/23 08:35 Labs: Laboratory Results - last 24 hr 08/28/23 08/28/23 08/28/23 19:01 20:38 20:48 MCV 89.7 MCH 29.3 MCHC 32.7 RDW 14.1 Plt Count 219 MPV 11.3 Immature Gran % (Auto) 0.2 Neut % (Auto) 72.1 Lymph % (Auto) 14.0 L [place] % (Auto) 8.5 Eos % (Auto) 4.7 H Baso % (Auto) 0.5 Lymph # (Auto) 1.7 [place] # (Auto) 1.1 Eos # (Auto) 0.6 H Baso # (Auto) 0.1 Abs Immat Gran (auto) 0.02 Absolute Neuts (auto) 9.0 H Absolute Nucleated RBC 0.000 Nucleated RBC % (auto) 0.0 VBG pH 7.35 VBG pCO2 86 VBG pO2 36 VBG HCO3 48 H VBG O2 Saturation 54.0 VBG Base Excess 16.6 Anion Gap 16 Estim Creat Clear Calc 56.2 Estimated GFR 50 POC Glucose Random Glucose 158 H Calcium 9.0 Magnesium 1.3 L* Total Bilirubin 0.3 Direct Bilirubin 0.1 AST 17 ALT 16 Alkaline Phosphatase 144 H Total Protein 7.7 Albumin 4.0 Urine Color Yellow Urine Appearance Clear Urine pH 7.0 Ur Specific [place] 1.015 Urine Protein Negative Urine Glucose (UA) Negative Urine Ketones Negative Urine Blood Negative Urine Nitrite Negative Ur Leukocyte Esterase Negative Urine Opiates Screen POSITIVE H Ur Buprenorphine Scrn Not Detected Ur Oxycodone Screen Not Detected Urine Methadone Screen Positive H Urine Fentanyl Screen POSITIVE H Ur Barbiturates Screen Not Detected Ur Phencyclidine Scrn Not Detected Ur Amphetamines Screen Not Detected U Benzodiazepines Scrn Not Detected Urine Cocaine Screen Not Detected U Marijuana (THC) Screen Not Detected 08/28/23 08/29/23 08/29/23 21:08 07:18 08:35 MCV 90.6 MCH 28.9 MCHC 31.9 RDW 14.2 Plt Count 211 MPV 11.6 Immature Gran % (Auto) 0.5 H Neut % (Auto) 74.9 H Lymph % (Auto) 14.4 L [place] % (Auto) 6.9 Eos % (Auto) 3.0 Baso % (Auto) 0.3 Lymph # (Auto) 1.9 [place] # (Auto) 0.9 Eos # (Auto) 0.4 Baso # (Auto) 0.0 Abs Immat Gran (auto) 0.06 H Absolute Neuts (auto) 9.9 H Absolute Nucleated RBC 0.000 Nucleated RBC % (auto) 0.0 VBG pH VBG pCO2 VBG pO2 VBG HCO3 VBG O2 Saturation VBG Base Excess Anion Gap 16 Estim Creat Clear Calc 59.4 Estimated GFR 53 POC Glucose 179 H 144 H Random Glucose 215 H Calcium 9.1 Magnesium 1.7 Total Bilirubin 0.4 Direct Bilirubin AST 16 ALT 15 Alkaline Phosphatase 135 H Total Protein 7.2 Albumin 3.7 Urine Color Urine Appearance Urine pH Ur Specific [place] Urine Protein Urine Glucose (UA) Urine Ketones Urine Blood Urine Nitrite Ur Leukocyte Esterase Urine Opiates Screen Ur Buprenorphine Scrn Ur Oxycodone Screen Urine Methadone Screen Urine Fentanyl Screen Ur Barbiturates Screen Ur Phencyclidine Scrn Ur Amphetamines Screen U Benzodiazepines Scrn Urine Cocaine Screen U Marijuana (THC) Screen Assessment and Plan (1) Cellulitis: Status: Acute (2) Chronic respiratory failure with hypercapnia: Status: Acute (3) Acute hypokalemia: Status: Acute Plan 67 y/o woman with past medical history significant for type 2 diabetes mellitus, obstructive sleep apnea (not using CPAP), COPD, obesity, hypertension, neuropathy, substance abuse on methadone and depression Hypokalemia and hypomagnesemia. Secondary to diuretics use: Furosemide and hydrochlorothiazide on hold. -K now 3.1 and Mag 1.7 Chronic respiratory failure, multifactorial: COPD, TESS. Continue supplemental oxygen and CPAP at bedtime (pt has not been using her CPAP because the device had a recall but it was not replaced). Continue home inhalers. Bronchodilator therapy as needed. Right lower extremity cellulitis, mild. Continue Ceftin 500 mg PO bid. Obesity. BMI 42.1 kg/m2. Weight loss. Type 2 diabetes mellitus. Blood glucose checks before meals at bedtime. Diabetic diet. Continue metformin. Insulin sliding scale HTN, BP nl, Continue amlodipine. Hydrochlorothiazide on hold due to hypokalemia. Neuropathy. Continue gabapentin. History of substance abuse, IV heroin. Continue methadone, addiction med consult Bipolar disorder. Continue home medications. Ongoing tobacco smoker. Tobacco cessation education DVT prophylaxis: SCDs, heparin Code status: Full need for inpatient: for management of electrolytes disturbances Quality Stroke Does the patient have a stroke diagnosis?: No VTE Prior VTE?: No VTE Risk Level:: Medical - moderate - high VTE Device Contraindication: N/A - Device Ordered VTE Drug Contraindication: Treatment Not Indicated
[2023-08-29] MEDS: 0.9 % Sodium Chloride Flush 3 ML SYRINGE IVFLUSH ×2 (09:49→16:49)
[2023-08-29] MEDS: cefuroxime axetiL 500 MG TABLET PO ×2 (09:49→22:17)
--- NOTE | 2023-08-29 10:23 | PC.NURSE ---
This RN verified Methadone with [facility], formed filled out and faxed to Pharmacy. Provider aware.
[2023-08-29] MEDS: Gabapentin 100 MG CAPSULE PO (11:13)
[2023-08-29] MEDS: Acetaminophen 325 MG TABLET 975 MG PO (11:13)
[2023-08-29] MEDS: allopurinoL 300 MG TABLET PO (11:13)
[2023-08-29] MEDS: Potassium Chloride ER 20 MEQ TAB.ER.PRT 40 MEQ PO (11:14)
[2023-08-29] MEDS: metFORMIN HCl 1,000 MG TABLET 1000 MG PO ×2 (11:14→22:17)
[2023-08-29] MEDS: OXcarbazepine 300 MG TABLET 600 MG PO ×2 (11:14→22:17)
[2023-08-29] MEDS: Cholecalciferol (Vitamin D3) 25 MCG TABLET 50 MCG PO (11:14)
[2023-08-29] MEDS: Sertraline HCL 50 MG TABLET PO (11:14)
[2023-08-29] MEDS: amLODIPine Besylate 5 MG TABLET PO (11:14)
[2023-08-29] MEDS: Atorvastatin Calcium 10 MG TABLET PO (11:15)
--- NOTE | 2023-08-29 11:17 | HE.PHANOTE ---
Re: Methadone Patient receives from [facility] ([phone]). Per Jeff, patient last received 135mg on 08/29/23 1010. Patient receives take home bottles for August 16- of 135mg.
[2023-08-29 14:10] LABS: Glucose, Whole Blood 149 mg/dL (60-115)
--- NOTE | 2023-08-29 15:59 | MHC.CM.PN ---
IMM 08/28. PT SELF-CARE, LIVES AT HOME ALONE, RECEIVES COMPO CASTER SERVICES DAILY FROM HER DAUGHTER WHO WILL ALSO TRANSPORT HER HOME AT DISCHARGE. PT USES A CANE AND A WALKER. PT RECEIVES METHADONE FROM [facility]. NEW HCP COMPLETED WITH PT, NOW ON FILE. PCP: DR. LAST WHEAT
[2023-08-29 16:45] LABS: Glucose, Whole Blood 155 mg/dL (60-115)
[2023-08-29] MEDS: methADONE HCl 20 MG/2 ML ORAL.CONC 135 MG PO (16:48)
[2023-08-29] MEDS: Insulin Lispro 100 UNIT/ML 3 ML VIAL SUBCUT ×2 (16:48→22:18)
[2023-08-29] MEDS: Mirtazapine 15 MG TABLET 45 MG PO (22:15)
[2023-08-29] MEDS: Zolpidem Tartrate 5 MG TABLET PO (22:16)
[2023-08-29] MEDS: Famotidine 20 MG TABLET PO (22:18)
--- NOTE | 2023-08-29 22:21 | PC.NURSE ---
pt requesting to leave as she has a flight to catch tomorrow. pt previously awaiting discussion with hospitalist staff but never occured. RN called hospitalist this evening and made her aware, hospitalist to come down and speak with patient regarding desired for dc AMA
--- NOTE | 2023-08-29 22:40 | P.DS_ITS ---
DS: Providers Provider Date of Service: 08/29/23 Date of admission: 08/29/23 00:14 Date of discharge: 08/29/23 Primary care physician: Portia Hicks MD Admitting clinician: Mariza Kwan Attending physician on admission: Mariza Kwan Attending physician on discharge: [facility] DS: Diagnosis Discharge Diagnosis (1) Hypomagnesemia: Status: Acute (2) Hypokalemia: Status: Acute (3) TESS (obstructive sleep apnea): Status: Acute (4) Chronic respiratory failure with hypercapnia: Status: Acute DS: Summary Hospital Course Hospital Course: HPI: Ivette Lim 67 y/o woman with past medical history significant for type 2 diabetes mellitus, obstructive sleep apnea (not using CPAP), COPD, obesity, hypertension, neuropathy, substance abuse on methadone and bipolar disorder presents to the emergency department after she sustained a fall this morning striking her face and chest upon falling down. She denied any other acute symptoms such as headache, dizziness, palpitations, chest pain, fever, chills or shortness on breath. She also denied any acute cardiopulmonary or gastrointestinal symptoms. She is a tobacco smoker, half a pack daily since age 14. Denied ongoing illegal drug use or alcohol abuse. She also mentioned that 3 days ago she sustained a abrasion to the left leg has developed redness and tenderness. In the ED, she was found to have stable vital signs. Blood workup was remarkable for leukocytosis of 12.5. Hemoglobin and platelets are normal. Potassium level is 2.6 and CO2 42. Creatinine is 1.10 and glucose 179. LFTs are unremarkable except for elevated alk-phos. UA showed no UTI. Her lower extremity venous ultrasound showed no DV. CXR is negative for pneumonia, pleural effusions, pneumothorax or consolidations. Head CT scan showed no acute intracranial abnormality. ED tx: KCl 40 mEq p.o., magnesium sulfate 2 g IV, KCl IV, Ceftin 500 mg PO and DuoNeb. Hospital course: Patient was admitted to the hospital after she was found to have hypokalemia of 2.6 and I hypomagnesemia of 1.3. Potassium and magnesium were repleted p.o. and IV, respectively. Magnesium level at the time of discharge is 1.7 and potassium level is 3.2. Her right leg cellulitis improved significantly after receiving several doses of Ceftin. Patient stated that she wanted to be discharged as she has to catch a plane tomorrow. She feels well and would like to go home. Family members were at bedside and also agree with discharge planning. She will be discharged home to complete a course of Ceftin 500 mg PO bid for 7 days and also received a prescription for KCl 40 mEq ER to take daily.. She also received 1 dose of KCl 40 mEq ER x1 before discharging. Patient was advised to follow with her primary care physician and to return to the emergency department if any symptoms worsen. Time spent discussing smoking cessation with patient: 3 to 10 minutes Status at Discharge Functional status at discharge: independent ambulation Overall status at discharge: patient is back to baseline Time Attestation Discharge Coordination Time (in mins): 20 mins Quality: Safe Use of Opioids Does Pt have an Active Cancer Diagnosis on the Problem List?: No Quality: Stroke Does the patient have a stroke diagnosis?: No Physical Exam Vital Signs: Vital Signs: Last Vital Signs Temp 98.2 F 08/29/23 19:25 Pulse 62 08/29/23 19:25 Resp 12 08/29/23 19:25 BP 111/47 L 08/29/23 19:25 Pulse Ox 94 08/29/23 19:25 O2 Del Method Room Air 08/29/23 19:25 O2 Flow Rate 2 08/28/23 21:30 BMI result Body Mass Index 42.1 Constitutional - Awake and Alert, No apparent distress. NC in place. HEENT - PERRLA, EOMI Heart - S1S2, RRR. Lungs - Normal lung expansion, Normal respiratory effort, No respiratory distress, CTA bilaterally Gastrointestinal - NT / ND; +BS; No rebound or guarding Extremities - right leg lower 3rd anterior aspect: Abrasion with surrounding erythema and edema and associated tenderness. Musculoskeletal - Normal inspection, normal ROM Skin - Warm/Dry Neurological - Alert & oriented x3. No focal weakness. Normal speech Psychological - Appropriate affect DS: Data Data Completed and Pending Labs on day of discharge: Laboratory Results - last 24 hr 08/29/23 08/29/23 08/29/23 07:18 08:35 12:59 WBC 13.2 H RBC 4.81 Hgb 13.9 Hct 43.6 MCV 90.6 MCH 28.9 MCHC 31.9 RDW 14.2 Plt Count 211 MPV 11.6 Immature Gran % (Auto) 0.5 H Neut % (Auto) 74.9 H Lymph % (Auto) 14.4 L Lassen % (Auto) 6.9 Eos % (Auto) 3.0 Baso % (Auto) 0.3 Lymph # (Auto) 1.9 Lassen # (Auto) 0.9 Eos # (Auto) 0.4 Baso # (Auto) 0.0 Abs Immat Gran (auto) 0.06 H Absolute Neuts (auto) 9.9 H Absolute Nucleated RBC 0.000 Nucleated RBC % (auto) 0.0 Sodium 143 Potassium 3.2 L D Chloride 92 L Carbon Dioxide 38 H Anion Gap 16 BUN 15 Creatinine 1.04 Estim Creat Clear Calc 59.4 Estimated GFR 53 POC Glucose 144 H 149 H Random Glucose 215 H Calcium 9.1 Magnesium 1.7 Total Bilirubin 0.4 AST 16 ALT 15 Alkaline Phosphatase 135 H Total Protein 7.2 Albumin 3.7 08/29/23 16:40 WBC RBC Hgb Hct MCV MCH MCHC RDW Plt Count MPV Immature Gran % (Auto) Neut % (Auto) Lymph % (Auto) Lassen % (Auto) Eos % (Auto) Baso % (Auto) Lymph # (Auto) Lassen # (Auto) Eos # (Auto) Baso # (Auto) Abs Immat Gran (auto) Absolute Neuts (auto) Absolute Nucleated RBC Nucleated RBC % (auto) Sodium Potassium Chloride Carbon Dioxide Anion Gap BUN Creatinine Estim Creat Clear Calc Estimated GFR POC Glucose 155 H Random Glucose Calcium Magnesium Total Bilirubin AST ALT Alkaline Phosphatase Total Protein Albumin Discharge Plan Discharge Anticipated Discharge Date/Time: 08/29/23 22:32 Patient Disposition: Home, Self-Care Discharge Diagnosis: Cellulitis, electrolyte imbalances Referrals: Portia Carols MD [Primary Care Provider] - 1 Week Discharge Medications: New doxycycline monohydrate 100 mg capsule 100 mg PO BID Qty: 14 0RF Continued (DME) home delivery of methadone per clinic dose See Rx Instructions .Route .MEDSUPPLY Qty: 1 0RF Rx Instructions: Start date 06/15/2022 End date: 06/16/2023 (DME) cane Device See Rx Instructions .Route Qty: 1 0RF Rx Instructions: As directed lidocaine [Aspercreme (lidocaine)] 4 % adhesive patch,medicated 1 patch topical DAILY PRN (Reason: pain) 30 Days Qty: 30 1RF (DME) home delivery of methadone See Rx Instructions .Route .MEDSUPPLY Qty: 1 0RF Rx Instructions: Start date 06/10/23 End date 06/09/24 colchicine 0.6 mg tablet 0.6 mg PO BID PRN (Reason: gout) Qty: 180 0RF amlodipine 5 mg tablet 5 mg PO DAILY 90 Days Qty: 90 1RF cholecalciferol (vitamin D3) 50 mcg (2,000 unit) capsule 50 mcg PO DAILY 90 Days Qty: 90 1RF allopurinol 300 mg tablet 300 mg PO DAILY 90 Days Qty: 90 1RF zolpidem 10 mg tablet 10 mg PO BEDTIME 30 Days Qty: 30 0RF oxcarbazepine 600 mg Tablet 600 mg PO BID albuterol sulfate 90 mcg/actuation HFA aerosol inhaler 2 puff inhalation Q4H PRN (Reason: Shortness Of Breath) methadone 5 mg/5 mL solution 135 mg PO DAILY Rx Instructions: [employer] famotidine 20 mg tablet 20 mg PO BEDTIME ipratropium-albuterol 0.5 mg-3 mg(2.5 mg base)/3 mL Solution For Nebulization 3 ml inhalation RQ4H PRN (Reason: Shortness Of Breath/Wheezing) Qty: 15 0RF furosemide 40 mg tablet 60 mg PO DAILY hydrochlorothiazide 25 mg tablet 25 mg PO DAILY gabapentin 100 mg capsule 100 mg PO DAILY mirtazapine 45 mg tablet 45 mg PO BEDTIME (DME) Accu-Chek Guide test strips Strip See Rx Instructions .Route Qty: 100 2RF Rx Instructions: Use 1 test strip once a day (DME) blood-glucose meter [Accu-Chek Guide Glucose Meter[place] [facility] [place] Qty: 1 0RF Rx Instructions: As directed ([facility] [place]) lancets [Accu-Chek Softclix Lancets[place] [facility] [place] .Route Qty: 100 2RF Rx Instructions: Use 1 lancet once a day metformin 1,000 mg tablet 1,000 mg PO BID 30 Days Qty: 60 3RF simvastatin 10 mg tablet 10 mg PO DAILY ibuprofen 600 mg tablet 600 mg PO Q6H PRN (Reason: fever or pain) Qty: 30 0RF sertraline 50 mg tablet 50 mg PO DAILY Breztri Aerosphere 160-9-4.8 mcg/actuation HFA aerosol inhaler 2 inh inhalation BID 30 Days Qty: 1 6RF ipratropium bromide 42 mcg (0.06 %) spray,non-aerosol 2 spray intranasal TID 30 Days Qty: 15 6RF Rx Instructions: administer into each nostril Discharge Orders: Discharge Order (Routine); Ordered 08/29/23 Ordered By: Jose Rosario Diet: Diabetic diet Activity on Discharge: As tolerated Stand Alone Forms: Patient Portal Discharge page Print Language: Macedonian Care Plan Goals: . Health Concerns: . Plan of Treatment: Cefuroxime 500 mg PO bid X7 days. Potassium chloride 40 mEq PO daily Assessment: Electrolyte imbalances due to diuretic use Right lower extremity cellulitis
--- NOTE | 2023-08-29 23:07 | PC.NURSE ---
assumed care of pt at 1900, i was informed pt was going to be discharge. Pt was unaware that she was being admitted, pt reported she was going to [place] in the am. hospitalist came down to assess pt prior to d/c, pt received all medications per mar
== END 2023-08-30 17:03 | disposition home or self-care (01) | DRG 603 ==
LOC: HO.ED 23:54 → HO.EDOVER 08-29 00:19
PROVIDERS: Nurse Practitioner Family; Physician Assistant; Admitting Provider Internal Medicine; Emergency Provider Internal Medicine; PCP Internal Medicine; Visit Provider Internal Medicine
DX: L03.115 Cellulitis of right lower limb (principal); J96.12 Chronic respiratory failure with hypercapnia; F11.20 Opioid dependence, uncomplicated; Z68.41 Body mass index [BMI] 40.0-44.9, adult; E87.6 Hypokalemia; F31.9 Bipolar disorder, unspecified; E83.42 Hypomagnesemia; G47.33 Obstructive sleep apnea (adult) (pediatric); I25.10 Atherosclerotic heart disease of native coronary artery without angina pectoris; E11.40 Type 2 diabetes mellitus with diabetic neuropathy, unspecified; F17.210 Nicotine dependence, cigarettes, uncomplicated; Z71.6 Tobacco abuse counseling; E66.9 Obesity, unspecified; Z91.199 Patient's noncompliance with other medical treatment and regimen due to unspecified reason; Z79.84 Long term (current) use of oral hypoglycemic drugs; Z79.899 Other long term (current) drug therapy; M79.604 Pain in right leg
CPT/HCPCS: 36415; 70450; 71046; 80048; 80053; 80076; 80307; 81003; 82803; 82947; 83735; 85025; 93005; 93971; 94640; 94660; 99222; 99285; J3475; J3480

== ENCOUNTER → 2023-08-28 20:42 | Outpatient (BNV) | payer OTHER, SELFPAY | PROVIDERS: Admitting Provider Internal Medicine; Emergency Provider Internal Medicine; PCP Internal Medicine; Visit Provider Internal Medicine Cardiovascular Disease | DX: R94.31 Abnormal electrocardiogram [ECG] [EKG] (principal) | CPT/HCPCS: 93010 ==

== ENCOUNTER → 2023-08-29 00:14 | Outpatient (BNV) | payer OTHER, SELFPAY | PROVIDERS: Admitting Provider Internal Medicine; Emergency Provider Internal Medicine; PCP Internal Medicine; Visit Provider Internal Medicine | DX: E83.42 Hypomagnesemia (principal); E87.6 Hypokalemia; L03.115 Cellulitis of right lower limb; J96.12 Chronic respiratory failure with hypercapnia; G47.33 Obstructive sleep apnea (adult) (pediatric) | CPT/HCPCS: 99235 ==

== ENCOUNTER 2023-11-02 15:57 | Outpatient (AMB) | payer OTHER, SELFPAY ==
--- NOTE | 2023-11-02 15:58 | A.OFFPC_ITS ---
Vital Signs 11/02/23 16:02 Height 5 ft 2 in Weight 209 lb BMI 38.2 BP 118/70 Blood Pressure Location Lt brachial Position Sitting Intake Visit Reasons: [facility] [place] low potassium Shipping/Receiving Manager Required: No Accompanied by: Self / Same As Patient Allergies Penicillins Allergy (Intermediate, Verified 11/02/23 16:12) RASH SOB Medication List - Last Reconciled 11/02/23 by Portia Hicks MD albuterol sulfate 90 mcg/actuation 2 puffs inhalation Q4H PRN allopurinol 300 mg PO DAILY 90 days amlodipine 5 mg PO DAILY 90 days blood sugar diagnostic (Accu-Chek Guide test strips) Use 1 test strip once a day blood-glucose meter (Accu-Chek Guide Glucose Meter) As directed [id number] 160-9-4.8 mcg/actuation (Breztri Aerosphere) 2 inhalations inhalation BID 30 days cane As directed cholecalciferol (vitamin D3) 50 mcg PO DAILY 90 days colchicine 0.6 mg PO BID PRN famotidine 20 mg PO BEDTIME furosemide 60 mg (1.5 x 40 mg) PO DAILY gabapentin 100 mg PO DAILY [home delivery of methadone Start date 06/10/23 End date 06/09/24] [home delivery of methadone per clinic dose Start date 06/15/2022 End date: 06/16/2023] hydrochlorothiazide 25 mg PO DAILY ibuprofen 600 mg PO Q6H PRN ipratropium bromide 2 sprays intranasal TID 30 days ipratropium-albuterol 0.5 mg-3 mg(2.5 mg base)/3 mL 3 mL inhalation RQ4H PRN lancets (Accu-Chek Softclix Lancets) Use 1 lancet once a day lidocaine 4% (Aspercreme (lidocaine)) 1 patch topical DAILY PRN 30 days metformin 1,000 mg PO BID 30 days methadone 135 mg PO DAILY mirtazapine 45 mg PO BEDTIME oxcarbazepine 600 mg PO BID sertraline 50 mg PO DAILY simvastatin 10 mg PO DAILY zolpidem 10 mg PO BEDTIME 30 days Tobacco use date assessed: 07/05/23 Fall risk assessment: 1 Fall in past year Last assessed Fall Risk: 11/02/23 Dental Screening Dental Screen Date: 07/05/23 HPI HPI Comments History of Present Illness Details This is a 67-year-old female with diabetes mellitus type 2, hype rtension, COPD, bipolar depression and lumbar degenerative disc disease that comes today for follow-up on her conditions. She walks with a cane for gait stability due to chronic low back pain. A1c close to goal. COPD stable with long-acting inhaler and follow by pulmonology. Bipolar depression well control with medication. She has opioid dependence on agonist therapy due to history of heroin use and has been stable with methadone. She will benefit from having a walker instead of a cane. She is a smoker and is interested to quit but when she was aware that Chantix can cause suicidal ideation she does not want it at the moment. [facility] Medical History (Updated 11/02/23 @ 20:16 by Portia Hicks MD) Morbid obesity ACS (acute coronary syndrome) History of heroin use BiPAP (biphasic positive airway pressure) dependence COPD (chronic obstructive pulmonary disease) Diabetic acidosis, type I Hx of drug dependence Arthritis Back pain History of blood transfusion Anemia Diabetes GERD (gastroesophageal reflux disease) Hx of anxiety disorder Hx of bipolar disorder History of headache Depression Sleep apnea Oxygen dependent COPD (chronic obstructive pulmonary disease) Asthma Elevated cholesterol HTN (hypertension) Surgical History S/P cardiac cath History of esophagogastroduodenoscopy (EGD) H/O colonoscopy Hx of total knee replacement Hx of arthroscopic knee surgery Hx of section Hx of foot surgery Family History Father Heart disease Mother Heart disease Family/Other Mental health disorder Substance use disorder Social History (Updated 11/02/23 @ 16:17 by Portia Hicks MD) Household Members: None Housing: Apartment Do you presently have visiting nurse or other home services: Yes Alcohol intake: current Alcohol intake frequency: holidays/special occasions only Alcohol type: beer and wine Patient Tobacco Use Status: Current everyday Tobacco user Tobacco use type: Cigarette Cigarettes Per Day: 5 Years Smoked: 50 e-Cigarette/Vaping Use: Never Used Second Hand Smoke Exposure: No Substance Use Type: Former Substance User service: No Current occupational status: disabled Current occupation: right handed Cognitive needs: Yes Hearing needs: No Vision needs: Yes Questionnaire Thrive Questionnaire Date Thrive assessed: 08/29/23 SIMIN-7 AMB Questionnaire SIMIN-7 Date SIMIN - 7 assessed: 07/05/23 Source: Developed by Drs. Jann Du, Mary Norton, Alex Kerr and colleagues, with an educational mo from [employer]. Review of Systems Const All systems reviewed & are unremarkable except as noted in HPI and below Card Denies chest pain at rest, Denies chest pain with activity, Denies edema, Denies irregular heart rhythm, Denies claudication, Denies dyspnea, Denies dyspnea on exertion, Denies orthopnea, Denies paroxysmal nocturnal dyspnea and Denies slow heart rate Resp Denies cough, Denies dyspnea and Denies dyspnea on exertion GI Denies abdominal pain, Denies change in bowel habits, Denies excessive flatus, Denies nausea and Denies vomiting Physical exam (Primary Care) Vital Signs: Last Vital Signs BP 118/70 11/02/23 16:02 BMI result Body Mass Index 38.2 BMI Assessment/Plan discussion: High BMI High, discussed plan: lifestyle, weight reduction, dietary and physical activity Tobacco/Smoking Status: Tobacco use Status Tobacco use date assessed 07/05/23 11/02/23 16:00 Patient Tobacco Use Status Current everyday Tobacco 11/02/23 16:17 Tobacco use type Cigarette 11/02/23 16:17 e-Cigarette/Vaping Use Never Used 11/02/23 16:17 Are you ready to quit: Yes Tobacco cessation counseling provided: Yes Items discussed: [employer] Relapse Prevention: discussed the importance of a supportive environment, discussed negative mood or depression after quitting, weight gain after smoking is common and discussed dietary, exercise and/or lifestyle changes Number of minutes spent counselin CPT code: 57335 - 4-10 Minutes Thrive Assessment: Date of Thrive Assessment Date Thrive assessed 08/29/23 11/02/23 16:00 Const Limitations: ambulation with cane Resp Effort & Inspection: normal respiratory effort Auscultation: clear to auscultation bilaterally Cardio Jugular venous distension: no JVD Rate: regular rate Rhythm: regular rhythm Heart sounds: S1 normal heart sound present and S2 normal heart sound present Extrem General: Yes full ROM Results AMB Hemoglobin A1c AMB Hemoglobin A1c 7.3 % Last Edit by TOM Tamez on 11/02/23 16:1 3 Results Reviewed Results Reviewed: Laboratory Last Values Hgb A1c (Clinic) 7.3 % (4.0-6.0) H 11/02/23 16:07 Assessment and Plan Assessment & Plan (1) Essential hypertension: Code(s): I10 - Essential (primary) hypertension Plan: Continue amlodipine and hydrochlorothiazide. Blood pressure goal is equal or less than 130/80. (2) Bipolar disorder with depression: Code(s): F31.9 - Bipolar disorder, unspecified Plan: Continue ox carbamazepine and mirtazapine. Was advised to look for a psychiatrist. 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 A1c goal is equal or less than 7%. (4) COPD (chronic obstructive pulmonary disease): Code(s): J44.9 - Chronic obstructive pulmonary disease, unspecified Qualifiers: COPD type: unspecified COPD Qualified Code(s): J44.9 - Chronic obstructive pulmonary disease, unspecified Plan: Continue long-acting inhaler. Use rescue inhaler as needed. Follow-up with pulmonology. (5) Opioid dependence on agonist therapy: Comment: History of heroin use-methadone maintenance likely cause for constipation Code(s): F11.20 - Opioid dependence, uncomplicated Plan: Continue methadone. (6) Lumbar degenerative disc disease: Code(s): M51.36 - Other intervertebral disc degeneration, lumbar region Plan: Start using a Rollator. Orders: Orders Uric Acid Today M10.9 - Gout, unspecified Vitamin D 25-OH Total Today E55.9 - Vitamin D deficiency, unspecified Microalbumin, Random (w Creat) Today E11.9 - Type 2 diabetes mellitus without complications XR foot LT 2V Today M79.672 - Pain in left foot AMB Hemoglobin A1c Today E11.9 - Type 2 diabetes mellitus without complications Lipid Panel Today E78.5 - Hyperlipidemia, unspecified PT Evaluation and Treatment Today M25.511 - Pain in right shoulder, M25.512 - Pain in left shoulder Medications: New walker (Ultra-Light Rollator misc) with seat, brakes and wheels 1 ea 0RF M51.36 - Other intervertebral disc degeneration, lumbar region Changed From sertraline 50 mg PO DAILY To sertraline 50 mg PO DAILY 90 days 90 tabs 1RF From famotidine 20 mg PO BEDTIME To famotidine 20 mg PO BEDTIME 90 days 90 tabs 0RF From mirtazapine 45 mg PO BEDTIME To mirtazapine 45 mg PO BEDTIME 90 days 90 tabs 0RF From oxcarbazepine 600 mg PO BID To oxcarbazepine 600 mg PO BID 90 days 180 tabs 1RF From simvastatin 10 mg PO DAILY To simvastatin 10 mg PO DAILY 90 days 90 tabs 2RF From hydrochlorothiazide 25 mg PO DAILY To hydrochlorothiazide 25 mg PO DAILY 90 days 90 tabs 1RF Refilled amlodipine 5 mg PO DAILY 90 days 90 tabs 1RF cholecalciferol (vitamin D3) 50 mcg PO DAILY 90 days 90 caps 1RF metformin 1,000 mg PO BID 30 days 60 tabs 3RF ibuprofen 600 mg PO Q6H PRN 30 tabs 0RF fever or pain allopurinol 300 mg PO DAILY 90 days 90 tabs 1RF Discontinued zolpidem Discontinued Reason: Patient Completed Course 10 mg PO BEDTIME 30 days 30 tabs 0RF Coding Level of Care Code Est Pt Level 4 (69714) Complex EM visit Add On G2211 Diagnoses Essential hypertension I10 Bipolar disorder with depression F31.9 Type 2 diabetes mellitus with hyperglycemia, without long-term current use of insulin E11.65 Diabetes mellitus type: type 2 Diabetes mellitus extermination supervisor insulin use: without prison use Diabetes mellitus complication status: with hyperglycemia Chronic obstructive pulmonary disease, unspecified COPD type J44.9 COPD type: unspecified COPD Opioid dependence on agonist therapy F11.20 Lumbar degenerative disc disease M51.36 Additional Codes Vital Signs *Quality* - CPT code: 97967 - 4-10 Minutes ([id number]) Time Spent (min) 23
[2023-11-02 16:02] VITALS: BP 118/70; BMI 38.2
== END 2023-11-02 16:28 | disposition home or self-care (01) ==
PROVIDERS: PCP Internal Medicine; Visit Provider Internal Medicine
DX: E11.65 Type 2 diabetes mellitus with hyperglycemia (principal); F31.9 Bipolar disorder, unspecified; J44.9 Chronic obstructive pulmonary disease, unspecified; F11.20 Opioid dependence, uncomplicated; F17.210 Nicotine dependence, cigarettes, uncomplicated; I10 Essential (primary) hypertension; M51.36 Other intervertebral disc degeneration, lumbar region
CPT/HCPCS: 83036; 99214; 99406; G2211

== ENCOUNTER 2023-11-08 08:22 | Outpatient (REF) | payer OTHER, SELFPAY ==
--- NOTE | ~2023-11-08 | XR_ITS ---
EXAMINATION: XR FOOT, LEFT CLINICAL INFORMATION: Left foot pain. COMPARISON: 07/06/2023 TECHNIQUE: AP, lateral, and oblique views of the left foot. FINDINGS: Mild-moderate osteoarthritis is again noted at the first TMT joint with marginal osteophytes. More mild osteoarthritis of the other TMT joints and the naviculocuneiform joints as well as the great toe MTP joint and multiple interphalangeal joints. This appearances similar to prior. No acute fracture or malalignment. Bones are osteopenic. Mild soft tissue swelling. Small enthesopathic spurs are present at the Achilles tendon insertion and plantar fascial origin on the calcaneus. XR/XR foot LT 2V IMPRESSION: 1. No acute fracture or malalignment. 2. 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
[2023-11-08 10:15] LABS: Alanine Aminotransferase 13 U/L (0-31); Albumin Level 3.8 g/dL (3.5-5.0); Alkaline Phosphatase 147 U/L (39-117); Anion Gap 11 (12-20); Aspartate Amino Transferase 14 U/L (5-31); Bilirubin Total 0.4 mg/dL (0.0-1.0); Blood Urea Nitrogen 14 mg/dL (9-16); Calcium 10.2 mg/dL (8.4-10.2); Carbon Dioxide 38 mmol/L (22-29); Chloride 96 mmol/L (96-108); Cholesterol 151 mg/dL (<200); Estimated Glomerular Filt Rate 52; Glucose Fasting 132 mg/dL (60-99); HDL Cholesterol 40 mg/dL (>40); LDL Cholesterol Calculated 73 mg/dL (<100); Potassium 3.3 mmol/L (3.3-5.1); Sodium 142 mmol/L (135-145); Total Protein 7.5 g/dL (6.5-8.0); Triglycerides 191 mg/dL (<150)
[2023-11-08 10:25] LABS: Vitamin D 25-OH Total 40.8 ng/mL (>30)
[2023-11-08 10:35] LABS: Uric Acid 5.8 mg/dL (2.4-5.7)
[2023-11-08 10:52] LABS: Creatinine Urine 139.12 mg/dL; Microalbum/Creatinine Ratio Ur 6.4 ug/mg cr (<30)
[2023-11-08 11:00] LABS: Folate 6.5 ng/mL (> or = 4.0); Vitamin B12 473 pg/mL (200-900)
== END 2023-11-08 08:23 | disposition home or self-care (01) ==
LOC: HO.LAB 08:22
PROVIDERS: PCP Internal Medicine; Visit Provider Internal Medicine
DX: E11.9 Type 2 diabetes mellitus without complications (principal); M10.9 Gout, unspecified; E55.9 Vitamin D deficiency, unspecified; E78.5 Hyperlipidemia, unspecified; E53.8 Deficiency of other specified B group vitamins; M79.672 Pain in left foot; M19.072 Primary osteoarthritis, left ankle and foot
CPT/HCPCS: 36415; 73620; 80053; 80061; 82043; 82306; 82570; 82607; 82746; 84550

== ENCOUNTER 2023-11-22 13:01 | Outpatient (AMB) | payer OTHER, SELFPAY ==
[2023-11-22 13:07] VITALS: BP 132/70; BMI 38.8
--- NOTE | 2023-11-22 13:07 | MHC.PC.OV ---
Vital Signs 11/22/23 13:07 Height 5 ft 2 in Weight 212 lb BMI 38.8 BP 132/70 Blood Pressure Location Lt brachial Position Sitting Intake Visit Reasons: pain in both legs Intake Note: Patient here c/o of joint pains, left ankle pain and swelling Irrigator Sprinkling System Required: No Accompanied by: Daughter Allergies Penicillins Allergy (Intermediate, Verified 11/22/23 13:20) RASH SOB Medication List - Last Reconciled 11/22/23 by Portia Hicks MD albuterol sulfate 90 mcg/actuation 2 puffs inhalation Q4H PRN allopurinol 300 mg PO DAILY 90 days amlodipine 5 mg PO DAILY 90 days blood sugar diagnostic (Accu-Chek Guide test strips) Use 1 test strip once a day blood-glucose meter (Accu-Chek Guide Glucose Meter) As directed [id number] 160-9-4.8 mcg/actuation (Breztri Aerosphere) 2 inhalations inhalation BID 30 days cane As directed cholecalciferol (vitamin D3) 50 mcg PO DAILY 90 days colchicine 0.6 mg PO BID PRN famotidine 20 mg PO BEDTIME 90 days furosemide 60 mg (1.5 x 40 mg) PO DAILY gabapentin 100 mg PO DAILY [home delivery of methadone Start date 06/10/23 End date 06/09/24] [home delivery of methadone per clinic dose Start date 06/15/2022 End date: 06/16/2023] hydrochlorothiazide 25 mg PO DAILY 90 days ibuprofen 600 mg PO Q6H PRN ipratropium bromide 2 sprays intranasal TID 30 days ipratropium-albuterol 0.5 mg-3 mg(2.5 mg base)/3 mL 3 mL inhalation RQ4H PRN lancets (Accu-Chek Softclix Lancets) Use 1 lancet once a day lidocaine 4% (Aspercreme (lidocaine)) 1 patch topical DAILY PRN 30 days metformin 1,000 mg PO BID 30 days methadone 135 mg PO DAILY mirtazapine 45 mg PO BEDTIME 90 days oxcarbazepine 600 mg PO BID 90 days sertraline 50 mg PO DAILY 90 days simvastatin 10 mg PO DAILY 90 days walker (Ultra-Light Rollator misc) with seat, brakes and wheels Tobacco use date assessed: 07/05/23 Fall risk assessment: No Falls in past year Last assessed Fall Risk: 11/22/23 Dental Screening Dental Screen Date: 07/05/23 HPI HPI Comments History of Present Illness Details This is a 68-year-old female with diabetes mellitus type 2, COPD, opiate dependence on agonist therapy and bipolar depression that comes today accompanied by daughter complaining of diffuse joint pain that has been present for months. She also has bilateral shoulder pain with limited elevation and abduction and will be referred to physical therapy. Will be referred to rheumatology due to diffuse joint pain to rule out any other kind of arthritis besides osteoarthritis. A1c last month was 7.3% which is close to goal and dietary changes were advised. COPD stable with long-acting inhaler and was advised to quit smoking. On methadone for her opiate dependence. Patient did ask for some kind of pain medication and I told her that she was already on methadone. [facility] Medical History (Updated 11/22/23 @ 14:35 by Portia Hicks MD) Morbid obesity ACS (acute coronary syndrome) History of heroin use BiPAP (biphasic positive airway pressure) dependence COPD (chronic obstructive pulmonary disease) Diabetic acidosis, type I Hx of drug dependence Arthritis Back pain History of blood transfusion Anemia Diabetes GERD (gastroesophageal reflux disease) Hx of anxiety disorder Hx of bipolar disorder History of headache Depression Sleep apnea Oxygen dependent COPD (chronic obstructive pulmonary disease) Asthma Elevated cholesterol HTN (hypertension) Surgical History S/P cardiac cath History of esophagogastroduodenoscopy (EGD) H/O colonoscopy Hx of total knee replacement Hx of arthroscopic knee surgery Hx of section Hx of foot surgery Family History Father Heart disease Mother Heart disease Family/Other Mental health disorder Substance use disorder Social History Household Members: None Housing: Apartment Do you presently have visiting nurse or other home services: Yes Alcohol intake: current Alcohol intake frequency: holidays/special occasions only Alcohol type: beer and wine Patient Tobacco Use Status: Current everyday Tobacco user Tobacco use type: Cigarette Cigarettes Per Day: 5 Years Smoked: 50 e-Cigarette/Vaping Use: Never Used Second Hand Smoke Exposure: No Substance Use Type: Former Substance User service: No Current occupational status: disabled Current occupation: right handed Cognitive needs: Yes Hearing needs: No Vision needs: Yes Questionnaire Thrive Questionnaire Date Thrive assessed: 08/29/23 SIMIN-7 AMB Questionnaire SIMIN-7 Date SIMIN - 7 assessed: 07/05/23 Source: Developed by Drs. Jann Du, Mary Norton, Alex Kerr and colleagues, with an educational mo from [employer]. Review of Systems Const All systems reviewed & are unremarkable except as noted in HPI and below Card Denies chest pain at rest, Denies chest pain with activity, Denies edema, Denies irregular heart rhythm, Denies claudication, Denies dyspnea, Denies dyspnea on exertion, Denies orthopnea, Denies paroxysmal nocturnal dyspnea and Denies slow heart rate Resp Denies cough, Denies dyspnea and Denies dyspnea on exertion GI Denies abdominal pain, Denies change in bowel habits, Denies excessive flatus, Denies nausea and Denies vomiting Musc Denies abnormal gait, Denies atrophy, Denies deformity and Denies limited range of motion Skin/Breast Denies bleeding lesions, Denies changing lesions and Denies rash Neuro Denies abnormal gait and Denies lack of coordination Physical exam (Primary Care) Vital Signs: Last Vital Signs BP 132/70 11/22/23 13:07 BMI result Body Mass Index 38.8 BMI Assessment/Plan discussion: High BMI High, discussed plan: lifestyle, weight reduction, dietary and physical activity Tobacco/Smoking Status: Tobacco use Status Tobacco use date assessed 07/05/23 11/22/23 13:08 Patient Tobacco Use Status Current everyday Tobacco 11/22/23 13:08 Tobacco use type Cigarette 11/22/23 13:08 e-Cigarette/Vaping Use Never Used 11/22/23 13:08 Are you ready to quit: No Tobacco cessation counseling provided: Yes Items discussed: QuitWorks Relapse Prevention: discussed the importance of a supportive environment, discussed extending NRT, discussed negative mood or depression after quitting, weight gain after smoking is common and discussed dietary, exercise and/or lifestyle changes Number of minutes spent counselin CPT code: 57354 - 4-10 Minutes Thrive Assessment: Date of Thrive Assessment Date Thrive assessed 08/29/23 11/22/23 13:08 Const Limitations: ambulation with cane Resp Effort & Inspection: normal respiratory effort Auscultation: clear to auscultation bilaterally Cardio Jugular venous distension: no JVD Rate: regular rate Rhythm: regular rhythm Heart sounds: S1 normal heart sound present and S2 normal heart sound present Assessment and Plan Assessment & Plan (1) Right shoulder pain: Code(s): M25.511 - Pain in right shoulder Qualifiers: Chronicity: chronic Qualified Code(s): M25.511 - Pain in right shoulder; G89.29 - Other chronic pain Plan: Start physical therapy. (2) Left shoulder pain: Code(s): M25.512 - Pain in left shoulder Qualifiers: Chronicity: chronic Qualified Code(s): M25.512 - Pain in left shoulder; G89.29 - Other chronic pain Plan: Start physical therapy. (3) Polyarthralgia: Code(s): M25.50 - Pain in unspecified joint Plan: Referred to rheumatology. (4) Opioid dependence on agonist therapy: Comment: History of heroin use-methadone maintenance likely cause for constipation Code(s): F11.20 - Opioid dependence, uncomplicated Plan: Continue methadone. (5) Bipolar disorder with depression: Code(s): F31.9 - Bipolar disorder, unspecified Plan: Continue SSRIs. Follow-up with psychiatry. (6) Diabetes: Code(s): E11.9 - Type 2 diabetes mellitus without complications Qualifiers: Diabetes mellitus type: type 2 Diabetes mellitus terminal superintendent insulin use: without jail use Diabetes mellitus complication status: with hyperglycemia Qualified Code(s): E11.65 - Type 2 diabetes mellitus with hyperglycemia Plan: Continue metformin. A1c goal is equal or less than 7%. (7) COPD (chronic obstructive pulmonary disease): Code(s): J44.9 - Chronic obstructive pulmonary disease, unspecified Qualifiers: COPD type: unspecified COPD Qualified Code(s): J44.9 - Chronic obstructive pulmonary disease, unspecified Plan: Continue long-acting inhaler. Follow-up with pulmonology. Orders: Orders PT Evaluation and Treatment Today M25.511 - Pain in right shoulder, M25.512 - Pain in left shoulder Referrals Rheumatology Referral M25.50 - Pain in unspecified joint Coding Level of Care Code Est Pt Level 4 (93590) Complex EM visit Add On G2211 Diagnoses Chronic right shoulder pain M25.511; G89.29 Chronicity: chronic Chronic left shoulder pain M25.512; G89.29 Chronicity: chronic Polyarthralgia M25.50 Opioid dependence on agonist therapy F11.20 Bipolar disorder with depression F31.9 Type 2 diabetes mellitus with hyperglycemia, without long-term current use of insulin E11.65 Diabetes mellitus type: type 2 Diabetes mellitus terminal superintendent insulin use: without terminal superintendent use Diabetes mellitus complication status: with hyperglycemia Chronic obstructive pulmonary disease, unspecified COPD type J44.9 COPD type: unspecified COPD Additional Codes Vital Signs *Quality* - CPT code: 07951 - 4-10 Minutes ([id number]) Time Spent (min) 25
== END 2023-11-22 13:29 | disposition home or self-care (01) ==
PROVIDERS: PCP Internal Medicine; Visit Provider Internal Medicine
DX: M25.511 Pain in right shoulder (principal); G89.29 Other chronic pain; M25.512 Pain in left shoulder; M25.50 Pain in unspecified joint; F11.20 Opioid dependence, uncomplicated; F31.9 Bipolar disorder, unspecified; E11.65 Type 2 diabetes mellitus with hyperglycemia; J44.9 Chronic obstructive pulmonary disease, unspecified
CPT/HCPCS: 99214; 99406; G2211

== ENCOUNTER → 2024-04-17 11:16 | Outpatient (BNV) | payer OTHER, SELFPAY | PROVIDERS: Emergency Provider Emergency Medicine; PCP Internal Medicine; Visit Provider Internal Medicine | DX: R07.9 Chest pain, unspecified (principal) | CPT/HCPCS: 93010 ==

== ENCOUNTER → 2024-04-17 11:25 | Outpatient (BNV) | payer OTHER, SELFPAY | PROVIDERS: PCP Internal Medicine; Visit Provider Radiology Diagnostic Radiology | DX: R07.9 Chest pain, unspecified (principal); R06.02 Shortness of breath; S20.229A Contusion of unspecified back wall of thorax, initial encounter | CPT/HCPCS: 70450; 71250; 72125; 74176 ==

== ENCOUNTER 2024-11-01 12:30 | Outpatient (AMB) | payer OTHER, SELFPAY ==
--- NOTE | 2024-11-01 12:40 | A.OFFPC_ITS ---
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 Accompanied by: Daughter Allergies Penicillins Allergy (Intermediate, Verified 11/01/24 13:01) RASH SOB Medication List - Last Reconciled 11/01/24 by Portia Hicks MD albuterol sulfate 90 mcg/actuation 2 puffs inhalation Q4H PRN allopurinol 300 mg PO DAILY 90 days amlodipine 5 mg PO DAILY 90 days blood sugar diagnostic (Accu-Chek Guide test strips) Use 1 test strip once a day blood-glucose meter (Accu-Chek Guide Glucose Meter) As directed [id number]-[id number]-cejbdxsfrn 160-9-4.8 mcg/actuation (Breztri Aerosphere) 2 inhalations inhalation BID 30 days cane As directed cholecalciferol (vitamin D3) 50 mcg PO DAILY 90 days colchicine 0.6 mg PO BID PRN famotidine 20 mg PO BEDTIME 90 days furosemide 40 mg PO QAM gabapentin 100 mg PO DAILY [home delivery of methadone Start date 06/10/23 End date 06/09/24] [home delivery of methadone per clinic dose Start date 06/15/2022 End date: 06/16/2023] hydrochlorothiazide 25 mg PO DAILY 90 days ibuprofen 600 mg PO Q6H PRN ipratropium bromide 2 sprays intranasal TID ipratropium-albuterol 0.5 mg-3 mg(2.5 mg base)/3 mL 3 mL inhalation RQ4H PRN lancets (Accu-Chek Softclix Lancets) Use 1 lancet once a day lidocaine 4% (Aspercreme (lidocaine)) 1 patch topical DAILY PRN 30 days metformin 1,000 mg PO BID 30 days methadone 135 mg PO DAILY oxcarbazepine 600 mg PO BID 90 days prednisone 40 mg (2 x 20 mg) PO DAILY 4 days risperidone 1 mg PO BEDTIME 30 days sertraline 50 mg PO DAILY 90 days simvastatin 10 mg PO DAILY 90 days walker (Ultra-Light Rollator misc) with seat, brakes and wheels Tobacco use date assessed: 11/01/24 Fall risk assessment: 2 + Falls in past year Last assessed Fall Risk: 11/01/24 Dental Screening Dental Screen Date: 11/01/24 Did you have a dental visit in the last 12 months?: No Did you have a dental problem in the last 6 months where you did not have access to dental care?: No Was dental information given to patient?: No HPI HPI Comments History of Present Illness Details The patient is a 68-year-old female presenting for a physical exam accompanied by daughter and management of chronic conditions. She has a history of pneumonia and COVID-19, with the latter occurring during the past winter. She has been vaccinated for shingles and is considering a pneumonia vaccine but does not remember if she had it already and will check with the pharmacy. The patient has a history of bipolar disorder and opioid dependence, for which she is on methadone therapy to prevent cravings. She also has a diagnosis of Chronic Obstructive Pulmonary Disease (COPD) managed with respiratory medications. Hypertension and diabetes mellitus are part of her chronic conditions, with a noted high A1c level of 8.6. She is on multiple medications, including metfor min, but reports issues with medication adherence. Trulicity will be added to the regimen. The patient experiences insomnia and migraine headaches, with the latter recently becoming more frequent. She reports depression and anxiety, which are being managed with psychiatric medications. She has a history of sleep apnea and uses a CPAP machine, although there have been issues with the equipment being outdated. Complains of blurry vision. The patient has lumbar radiculopathy, causing significant back pain and mobility issues. She is considering further imaging to assess the condition. Will be referred to pain management. Socially, she smokes approximately five cigarettes a day and consumes alcohol occasionally. [facility] Medical History (Updated 11/01/24 @ 13:27 by Portia Hicks MD) Morbid obesity ACS (acute coronary syndrome) History of heroin use BiPAP (biphasic positive airway pressure) dependence COPD (chronic obstructive pulmonary disease) Diabetic acidosis, type I Hx of drug dependence Arthritis Back pain History of blood transfusion Anemia Diabetes GERD (gastroesophageal reflux disease) Hx of anxiety disorder Hx of bipolar disorder History of headache Depression Sleep apnea Oxygen dependent COPD (chronic obstructive pulmonary disease) Asthma Elevated cholesterol HTN (hypertension) Surgical History S/P cardiac cath History of esophagogastroduodenoscopy (EGD) H/O colonoscopy Hx of total knee replacement Hx of arthroscopic knee surgery Hx of section Hx of foot surgery Family History Father Heart disease Mother Heart disease Family/Other Mental health disorder Substance use disorder Social History (Updated 11/01/24 @ 13:12 by Portia Hicks MD) Household Members: None Housing: Apartment Do you presently have visiting nurse or other home services: Yes Alcohol intake: current Alcohol intake frequency: a few times a week Alcohol type: beer and wine Patient Tobacco Use Status: Current everyday Tobacco user Tobacco use type: Cigarette Cigarettes Per Day: 5 Years Smoked: 50 e-Cigarette/Vaping Use: Never Used Second Hand Smoke Exposure: No Substance Use Type: Former Substance User service: No Current occupational status: disabled Current occupation: right handed Cognitive needs: Yes Hearing needs: No Vision needs: Yes Questionnaire PHQ-9 Over the last 2 weeks, how often have you been bothered by any of the following problems? 1. Little interest or pleasure in doing things: nearly every day 2. Feeling down, depressed, or hopeless: several days 3. Trouble falling or staying asleep, or sleeping too much: several days 4. Feeling tired or having little energy: several days 5. Poor appetite or overeating: several days 6. Feeling bad about yourself - or that you are a failure or have let yourself or your family down: several days 7. Trouble concentrating on things, such as reading the newspaper or watching television: several days 8. Moving or speaking so slowly that other people could have noticed. Or the opposite - being so fidgety or restless that you have been moving around a lot more than usual: several days 9. Thoughts that you would be better off or of hurting yourself in some way: not at all Total score: 10 Depression Screening Interpretation: Positive Depression Screening Follow-up: Existing condition, In treatment and Follow-up Visit Requested Depression Screening Done: Yes 06759 - PHQ-9 Billing: Yes Source: Developed by Drs. Jann Du, Mary Norton, Alex Kerr and colleagues, with an educational mo from [employer]. Thrive Questionnaire Date Thrive assessed: 11/01/24 I am a: Patient What is your living situation today?: I have a steady place to live Within the past 12 months, did the food you bought not last and you didn't have the money to get more?: Never true Within the past 12 months, did you worry whether your food would run out before you got money to buy more?: Never true Do you have trouble paying for medicines?: No Do you have trouble getting transportation to medical appointments?: No Do you have trouble paying your heating and electricity bill?: No Do you have trouble taking care of your child, family member or friend?: No Do you have trouble with day-to-day activities such as bathing, preparing meals, shopping, managing finances, etc.?: No Are you currently unemployed and looking for a job?: No Are you interested in more education?: No Please select the resources that you would like help with: Transportation and Daily support Currently or been in a relationship where the following occur: No concerns reported THRIVE Score: 0 AUDIT C Alcohol Use Questionnaire (AUDIT-C) 1. How often do you have a drink containing alcohol?: 2-4 times a month 2. How many drinks containing alcohol do you have on a typical day when you are drinking?: 3 or 4 3. How often do you have six or more drinks on one occasion?: Never Total Score: 3 Score Reviewed/Action Taken: No SIMIN-7 AMB Questionnaire SIMIN-7 Date SIMIN - 7 assessed: 11/01/24 Feeling nervous, anxious, or on edge: 3 = Nearly every day Not being able to stop or control worryin = More than half the days Worrying too much about different things: 2 = More than half the days Trouble relaxin = Nearly every day Being so restless that it is hard to sit still: 3 = Nearly every day Becoming easily annoyed or irritable: 3 = Nearly every day Feeling afraid as if something awful might happen: 3 = Nearly every day Total SIMIN-7 score (0-4 normal; 5-9 mild; 10-14 moderate; 15-21 severe): 19 Source: Developed by Drs. Jann Du, Mary Norton, Alex Kerr and colleagues, with an educational mo from [employer]. SIMIN-7 Assessment Billing SIMIN-7 Assessment Tool: SIMIN-7 Assessment 58471 Review of Systems Const All systems reviewed & are unremarkable except as noted in HPI and below Card Denies chest pain at rest, Denies chest pain with activity, Denies edema, Denies irregular heart rhythm, Denies claudication, Denies dyspnea, Denies dyspnea on exertion, Denies orthopnea, Denies paroxysmal nocturnal dyspnea and Denies slow heart rate Resp Denies cough, Denies dyspnea and Denies dyspnea on exertion GI Denies abdominal pain, Denies change in bowel habits, Denies excessive flatus, Denies nausea and Denies vomiting Physical exam (Primary Care) Vital Signs: Last Vital Signs BP 118/70 11/01/24 12:41 BMI result Body Mass Index 35.7 BMI Assessment/Plan discussion: High BMI High, discussed plan: lifestyle, weight reduction, dietary and physical activity Tobacco/Smoking Status: Tobacco use Status Tobacco use date assessed 11/01/24 11/01/24 12:57 Patient Tobacco Use Status Current everyday Tobacco 11/01/24 13:12 Tobacco use type Cigarette 11/01/24 13:12 e-Cigarette/Vaping Use Never Used 11/01/24 13:12 Are you ready to quit: No Tobacco cessation counseling provided: Yes Items discussed: Nicotine replacement Relapse Prevention: weight gain after smoking is common Number of minutes spent counselin CPT code: Less than 3 minutes PHQ-9: PHQ-9 Score PHQ-9: Total score 10 11/01/24 17:16 Depression Screening Interpretation: Positive Depression Screening Follow-up: Existing condition, In treatment and Follow-up Visit Requested Thrive Assessment: Date of Thrive Assessment Date Thrive assessed 11/01/24 11/01/24 12:41 Currently or been in a relationship where the following occur: No concerns reported Const Limitations: ambulation with walker HENMT Head: Yes normal to inspection, Yes normocephalic and Yes atraumatic Ears: external ears normal Eyes General: appearance normal, both eyes and all related structures Eyelids: Yes eyelids normal Conjunctivae: conjunctivae normal Neck Neck: Yes normal visual inspection and Yes supple Resp Effort & Inspection: normal respiratory effort Auscultation: clear to auscultation bilaterally Cardio Jugular venous distension: no JVD Rate: regular rate Rhythm: regular rhythm Heart sounds: S1 normal heart sound present and S2 normal heart sound present GI Inspection: Yes normal to inspection Palpation (GI): Soft to palpation and nontender Auscultation: normal bowel sounds Skin General skin exam: no rashes or lesions noted Neuro General: no focal motor deficits Extrem General: Yes full ROM Psych Appearance: grossly normal Coding Level of Care Code Est Pt Level 4 (45413) Est Pt Prev Care >65y(63457) Diagnoses Physical exam Z00.00 Bipolar disorder with depression F31.9 Opioid dependence on agonist therapy F11.20 Type 2 diabetes mellitus with hyperglycemia, without long-term current use of insulin E11.65 Diabetes mellitus type: type 2 Diabetes mellitus 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 insulin use: without senior care use Diabetes mellitus complication status: with hyperglycemia Polyarthralgia M25.50 Lumbar degenerative disc disease M51.36 Chronic obstructive pulmonary disease, unspecified COPD type J44.9 COPD type: unspecified COPD TESS (obstructive sleep apnea) G47.33 Additional Codes SIMIN-7 Assessment Billing - SIMIN-7 Assessment Tool: SIMIN-7 Assessment [id number] ([id number]) PHQ-9 - 85834 - PHQ-9 Billing: Yes ([id number]) Time Spent (min) 40 Assessment & Plan Assessment & Plan (1) Physical exam: Code(s): Z00.00 - Encounter for general adult medical examination without abnormal findings Category: Medical (2) Bipolar disorder with depression: Code(s): F31.9 - Bipolar disorder, unspecified Category: Medical (3) Opioid dependence on agonist therapy: Comment: History of heroin use-methadone maintenance likely cause for constipation Code(s): F11.20 - Opioid dependence, uncomplicated Category: Medical (4) Diabetes: Code(s): E11.9 - Type 2 diabetes mellitus without complications Category: Medical Qualifiers: Diabetes mellitus type: type 2 Diabetes mellitus senior care insulin use: without senior care use Diabetes mellitus complication status: with hyperglycemia Qualified Code(s): E11.65 - Type 2 diabetes mellitus with hyperglycemia (5) Polyarthralgia: Code(s): M25.50 - Pain in unspecified joint Category: Medical (6) Lumbar degenerative disc disease: Code(s): M51.36 - Other intervertebral disc degeneration, lumbar region Category: Medical (7) COPD (chronic obstructive pulmonary disease): Code(s): J44.9 - Chronic obstructive pulmonary disease, unspecified Category: Medical Qualifiers: COPD type: unspecified COPD Qualified Code(s): J44.9 - Chronic obstructive pulmonary disease, unspecified (8) TESS (obstructive sleep apnea): Code(s): G47.33 - Obstructive sleep apnea (adult) (pediatric) Category: Medical Plan The patient will continue with methadone therapy for opioid dependence to manage cravings effectively. For COPD, she will maintain her current respiratory medications and consider further evaluation if symptoms persist. Management of hypertension and diabetes will include monitoring blood pressure and blood glucose levels, with adjustments to medications as needed. The patient is advised to adhere to her medication regimen, including metformin, to manage her diabetes effectively. For insomnia and migraines, the patient will continue with her current medications and consider additional interventions if symptoms worsen. Psychiatric conditions, including depression and anxiety, will be managed with ongoing psychiatric support and medication adjustments as necessary. The patient is encouraged to use her CPAP machine regularly for sleep apnea and to address any equipment issues with her provider. Further evaluation for cataracts and diabetic neuropathy will be considered to manage vision and sensation issues. For lumbar radiculopathy, imaging studies may be pursued to assess the condition further, and pain management strategies will be discussed. The patient is advised to reduce smoking and alcohol consumption to improve overall health. Patient was informed and verbally consented to the use of an ambient scribe for clinic note documentation during this visit. Orders: Orders MM tomosynthesis screening BI 11/01/24 Z12.31 - Encounter for screening mammogram for malignant neoplasm of breast Lipid Panel 11/01/24 E78.5 - Hyperlipidemia, unspecified Microalbumin, Random (w Creat) 11/01/24 R80.9 - Proteinuria, unspecified Vitamin D 25-OH Total 11/01/24 E55.9 - Vitamin D deficiency, unspecified Vitamin B12 and Folate 11/01/24 E53.8 - Deficiency of other specified B group vitamins Complete Blood Count Auto Diff 11/01/24 D64.9 - Anemia, unspecified IRON PROFILE 11/01/24 D64.9 - Anemia, unspecified Uric Acid 11/01/24 M10.9 - Gout, unspecified XR DEXA axial skeleton 11/01/24 Z78.0 - Asymptomatic menopausal state Comprehensive [place]. Panel Fast 11/01/24 Z00.00 - Encounter for general adult medical examination without abnormal findings CA echo transthoracic complete 11/01/24 I50.30 - Unspecified diastolic (congestive) heart failure NT-proBNP 07/23/25 I50.30 - Unspecified diastolic (congestive) heart failure Referrals Open Access Screening Colonoscopy Referral Z12.12 - Encounter for screening for malignant neoplasm of rectum Psychiatry Referral F31.9 - Bipolar disorder, unspecified Pain Management Referral M51.36 - Other intervertebral disc degeneration, lumbar region Allergy & Immunology Referral J30.9 - Allergic rhinitis, unspecified Sleep Medicine Referral G47.33 - Obstructive sleep apnea (adult) (pediatric) Medications: New dulaglutide (Trulicity) 0.75 mg (0.5 mL) subcut QWEEK 6.5 mL 0RF 90 days E11.65 - Type 2 diabetes mellitus with hyperglycemia Changed From metformin 1,000 mg PO BID 30 days 60 tabs 1RF To metformin 1,000 mg PO BID 180 tabs 1RF 90 days Refilled allopurinol 300 mg PO DAILY 90 tabs 1RF 90 days amlodipine 5 mg PO DAILY 90 tabs 1RF 90 days cholecalciferol (vitamin D3) 50 mcg PO DAILY 90 caps 1RF 90 days ibuprofen 600 mg PO Q6H PRN 30 tabs 0RF fever or pain simvastatin 10 mg PO DAILY 90 tabs 2RF 90 days hydrochlorothiazide 25 mg PO DAILY 90 tabs 1RF 90 days
[2024-11-01 12:41] VITALS: BP 118/70; BMI 35.7
--- OUTSIDE RECORDS SUMMARY | 2024-11-01 12:55 | XMS_ITS | Clinical Summary ---
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 Name Role Phone Unavailable Primary Care Provider Unavailabl e Social History Tobacco Use Types Packs/Day Years Used Date Smoking Tobacco: Never Assessed Comments Unknown Sex and Gender Information Value Date Recorded Sex Assigned at Not on file Legal Sex Female 5:14 PM EST Gender Identity Not on file Sexual Orientation Not on file Plan of Treatment Health Maintenance Due Date Last Done Comments Breast Cancer Screening 1955 DTaP,Tdap,and Td Vaccines (1 - Tdap) 11/16/1974 Pneumococcal Vaccine: 50+ Ye ars (1 of 1 - PCV) 11/16/2005 Zoster Vaccines (1 of 2) 11/16/2005 COVID-19 Vaccine (1 - 2023-2 5 season) 2023 Depression Screening 04/12/2024 Influenza Vaccine (#1) 2024 RSV Immunization Adult Patie nts (1 - 1-dose 75+ series) 11/16/2030 HIB Vaccines Aged Out No longer eligi ble based on patient's age to complete this topic HPV Vaccines Aged Out No longer eligi ble based on patient's age to complete this topic Hepatitis A Vaccines Aged Out No long er eligible based on patient's age to complete this topic Hepatitis B Vaccines Aged Out No long er eligible based on patient's age to complete this topic IPV Vaccines Aged Out No longer eligi ble based on patient's age to complete this topic MMR Vaccines Aged Out No longer eligi ble based on patient's age to complete this topic Meningococcal ACWY Vaccine Aged Out N o longer eligible based on patient's age to complete this topic Meningococcal B Vaccine Aged Out No l onger eligible based on patient's age to complete this topic RSV Immunization Patients Un eze 20 months Aged Out No longer eligible b ased on patient's age to complete this topic Varicella Vaccines Aged Out No longer eligible based on patient's age to complete this topic
--- OUTSIDE RECORDS SUMMARY | 2024-11-01 12:55 | XMS_ITS ---
Author Name Marisabel Marie NP Address [address] [place] [address] Phone [phone] [facility] Care Team Providers Care Rn Wound Name Role Phone Marisabel Marie Unavailable [phone] Unavailable Unavailable Unavailable LAST PRINCE Unavailable [phone] Reason for Referral Not Available Allergies, adverse reactions, alerts Allergen Type Reaction Severity Status Onset Date Penicillins Allergy to substance (disorder) rash, itchy, swollen Unknown Active N/A History of medication use Medication Class Instructions Start Date End Date Simvastatin 10 mg Tab TAKE 1 TABLET BY M OUTH ONCE A DAY 2021-09-01 No Data Available Sertraline 50 mg Tab TAKE 1 TABLET BY MO UTH EVERY DAY 2021-08-05 No Data Available metFORMIN 1000 mg Tab TAKE 1 TABLET BY M OUTH TWICE A DAY 2021-04-16 No Data Available Accu-Chek Marleny Plus Strip TEST TWICE A DAY 2021-07-29 No Data Available Albuterol Sulfate HFA 108 (9 0 Base) MCG/ACT Aerosol Solution Inhalation TAKE 2 PUFFS BY MOUTH EVERY 4 HOURS NEEDED 2021-12-12 No Data Available amLODIPine Besylate 5 mg Tab TAKE 1 TABL ET BY MOUTH EVERY DAY 2021-02-13 No Data Available Famotidine 20 mg Tab TAKE 1 TABLET BY MO UTH EVERY DAY AT BEDTIME 2021-12-12 No Data Available Gabapentin 100 mg Cap TAKE 1 CAPSULE BY MOUTH EVERY DAY 2021-12-12 No Data Available hydroCHLOROthiazide 25 mg Tab TAKE 1 TAB LET BY MOUTH EVERY DAY 2021-02-13 No Data Available predniSONE 10 mg Tab TAKE 2 TABS TWICE A DAY X5 DAYS, 1 TAB TWICE A DAY X3 DAYS, 1 TAB DAILY X3 DAYS THEN 1/2 TAB X2 DAYS 2021-12-19 2022-06-24 Furosemide 40 mg Tab TAKE 1 TABLET BY MO UTH EVERY OTHER DAY 2021-08-05 No Data Available Mirtazapine 45 mg Tab TAKE 1 TABLET BY M OUTH EVERY DAY 2021-12-12 No Data Available Allopurinol 100 mg Tab TAKE 1 TABLET BY MOUTH EVERY DAY 2022-02-25 No Data Available Ibuprofen 600 mg Tab TAKE 1 TABLET BY MO UTH EVERY 6 HOURS NEEDED FOR PAIN OR FEVER 2022-02-25 No Data Available oxyCODONE 5 mg Tab TAKE 1 TABLET BY HAILEY TH EVERY 6 HOURS NEEDED FOR PAIN 2022-02-25 No Data Available Colchicine 0.6 mg Tab TAKE 1 TABLET BY M OUTH TWICE A DAY NEEDED FOR GOUT 2022-02-25 No Data Available Naproxen 250 mg Tab 1 tablet orally BID PRN pain 2022-06-24 No Data Available Trileptal 600 mg Tab 1 tablet orally 2 t imes per day 2022-06-24 No Data Available Symbicort 160-4.5 MCG/ACT Aerosol INHALE 2 PUFFS BY MOUTH TWICE A DAY 2023-01-06 No Data Available Azithromycin 250 mg Tab TAKE 2 TABLETS B Y MOUTH TODAY, THEN TAKE 1 TABLET DAILY FOR 4 DAYS DIRECTED 2023-02-19 No Data Available Vitamin D3 50 MCG (1999 UT) Cap TAKE 1 C APSULE BY MOUTH EVERY DAY 2023-02-27 2024-01-04 [facility] Mucus ER 600 mg Tab ER 12hr TAKE 1 T ABLET BY MOUTH TWICE A DAY FOR 5 DAYS 2023-04-01 No Data Available Breztri Aerosphere 160-9-4.8 MCG/ACT Aerosol INHALE 2 PUFFS TWICE A DAY FOR 30 DAYS 2023-05-19 No Data Available Ipratropium [place] 0.06 % Solution SPRAY 2 SPRAYS INTO EACH NOSTRIL 3 TIMES A DAY FOR 30 DAYS. 2023-05-19 No Data Available Cyclobenzaprine 10 mg Tab TAKE 1 TABLET BY MOUTH AT BEDTIME 2023-05-21 No Data Available Vitamin D3 50 MCG (2000 UT) Cap TAKE 1 C APSULE BY MOUTH EVERY DAY 2023-02-27 No Data Available Meloxicam 15 mg Tab TAKE 1 TABLET BY HAILEY TH EVERY DAY NEEDED FOR MODERATE PAIN FOR 7 DAYS 2023-06-10 No Data Available Lidoderm 5 % Patch 1 patch topically to affected area daily remove after 12 hours 2023-12-01 2024-01-04 Lidoderm 5 % Patch 1 patch topically to affected area daily remove after 12 hours 2023-12-01 No Data Available Doxycycline Monohydrate 100 mg Cap TAKE 1 CAPSULE BY MOUTH TWICE A DAY FOR CELLULITIS 2023-08-29 No Data Available Cefuroxime Axetil 500 mg Tab TAKE 1 TABL ET BY MOUTH EVERY 12 HOURS FOR 7 DAYS 2023-08-30 No Data Available risperiDONE 1 mg Tab TAKE 1 TABLET BY [facility] AT BEDTIME FOR 30 DAYS 2023-12-23 No Data Available Voltaren 1 % Gel 2 grams topically to affected area 4 times per day prn 2024-01-04 No Data Available Mucinex 600 mg Tab ER 12hr 1 tablets ora lly every 12 hours as needed 2024-04-19 No Data Available Cefdinir 300 mg Cap Take 1 tablet PO twi ce daily for 10 days. 2024-04-22 No Data Available guaiFENesin ER 600 mg Tab ER 12hr 1 tablet orally every 12 hours 2024-04-22 No Data Available Arch[place]ta Nasal [place] 0.65 % Solution Nasal 2 sprays intranasally every 2 hours in each nostril as needed 2024-04-25 No Data Available Methadone 5 mg/5ML Solution 135 mg PO daily 2024-04-27 No Data Available Problem List Problem Status Onset Date Resolved Date Synopsis Gout Active 2022-06-02 N/A StableAllopuri nolDietary interventions and continue to follow up pcp Bipolar 2 disorder Active 2022-05-11 N/A Stable Sertraline, trileptal, mirtazepine, risperidoneDenies SI/HIReports seeing a therapist, denies psychiatristMonitor for worsening depression, billy, safety, coping mechanisms reviewed, and continue with PCP. Listed for admission to hospital Active 2024-04-27 N/A admit 04/17/24: T ell me about your recent hospital stay(s) or ER visit(s) and precipitating factors: chest pain, sob, nasal congestion Reason for Hospitalization and summary of hospital course: presented to ED for chest pain and back pain wfor the past 3 days. PE +for slight bruising on thoracic upper lumbar area. Patient lives alone and has h/o RUBY/metal falling while at home, although patient denies falling but does have some bruising upper back family notes bruis on back but it looks like pigmentation issue not bruising. [id number] acute processC T: no acute process in abd/chest/pelvisviral panel and ddimer: nlserum crea 0.90BNP elevated/mild 120UDS: +fentanyl, +methadone, +cocaine, ETOH-neg+COVID infectiontx c IV sterouds, neb, 04/19/24continues to have chest congestion with wheezing, denies feverPLAN: pred taperStart above and expect to feel better in 48-72 hrs - call CB if you are not improving. ER if you are short of breath or weak.Rest. Increase fluids to help your immune system - tea, broth, water, diluted juice. Raw local honey 1 TBSP throughout day has natural antimicrobial properties.Steam shower 15min before bed and few times / day to open airway and clear congestion. Stop Afrin as can worsen your congestion after using 3 + days. Inhaler puffer 4/ day for bronchodilation Substance use disorder Active 2024-04-27 N/A me thadone 135mg PO daily 5mg/5ml h/o heroin use+UDS on 04/17/24 ER admit for cocaine and fentanylwill discuss in future visits Heart failure, unspecified, secondary hyperaldosteronism Active 2022-05-11 N/A Stablefurosem fredy, amlodipineChronic edemaMonitor for BLE swelling, cardiac s/sx (eg. palpitations) and continue to follow with cardiologist05/06denies LE swelling Morbid (severe) obesity due to excess calories Active 2022-06-24 N/A 03/21/24: BMI: 43.90+HTN, +DMFollow with PCPAdvised to eat a healthy diet include emphasizing fruits, vegetables, whole grains, poultry, fish and nuts and limiting sugary foods and beverages. Eating this way may help increase fiber, which is also beneficial. A diet high in fiber can help lower cholesterol levels by as much as 10 percent. DASH diet. Increase exercise to 30-45 min q day. Decrease sugary drinks, stop soda intake. Limit ETOH intake. If you smoke, quit smoking. Type 2 diabetes mellitus with other specified complication, Chronic kidney disease, stage 3b, Hyperlipidemia, Diabetic neuropathy Active 2022-05-11 N/A Continues on metforminGlucose: ~100-110A1c: recommended to obtain, no recent outside records to reviewRenal: recommended blood/urine testing, no recent outside records to reviewCV: +HF, HLD (simvastatin)Neuropathy: +feet - gabapentin Eyes: deniesFollows with PCPRecommend low carb/sugar diet, exercise, monitor BG; notify CB of high/low glucose levels 04/28/24-continue current treatment plan-emphasized importance of diet modifications, exercise as tolerated, weight loss-Follows PCP Goals of care, counseling/discussion Active 2024-05-30 N/A Advance Ca re Plan and Serious Illness ConversationDate of Conversation: 05/30/2024Life Limiting Diagnosis: Diagnosis: CHF, COPDCurrently on Hospice NoDo you have a Durable Power of Neon Tube Pumper for Healthcare, or Healthcare Proxy Or Guardianship? Yes, preferred proxy but not named POAIf so, Who? (Enter Proxy/Health Care surrogate contact information in Golgi)Do you have a written Advance Directive? Prognostic Understanding: No understanding of prognosisInformation: Patient wants to be fully informedToday's prognostic communication: Curable/managable condition, life expectancy several yearsGoals: live as long as possible, no matter what Fears/Worries: pain Strength: Family Discussion: wants clinician to talk with familyCode Status: YES CPR: Attempt ResuscitationGoals of Care: Curative: Attempt to sustain life by all medically effective meansToday's plan: Repeat discussion in <6> monthsOther details of discussion: (Who was present: member Ivette Lim Frequent falls Active 2024-05-31 N/A increased LE weakness R29.6, and frequent falls R29.: reports 3 falls in the past week. +LE weakness Fall prevention TIPS: Wear sensible shoes. Remove home hazards (Get rid of all rugs/mats in your home). Light up your living space (keep a flash light next to your bed for night time). Use assistive devices. Lumbar radiculopathy, Gait instability Active 2022-06-24 N/A back and leg pa in R>L gabapentin Follows with PCP12/01/23: Today, member states she has chronic pains, back pains, joint pains. She is awaiting a specialist appointment. She is interested in trialing Lidoderm patches, will escribe. 01/04/24: Sciatica is bothering her. Called her PCP. She states they want to send her to a rn ed due to left ankle edema. Started several weeks ago. Denies fall or trauma. Denies redness, discoloration or warmth to the touch. Pain feels different than gout flare. Typically gets flare in her big toe. She called to schedule an appt and is waiting for them to call her back. She is using Lidoderm patches. She would like to try Voltaren gel. Sent refill for naproxen as she ran out. Discussed with member potential interaction of naproxen with sertraline and verbalized understanding that she should call CB with any new symptoms and stop taking naproxen. 03/21/24:-reports lidocaine patch has been helpful, but still in pain-discussed trying increase of gabapentin 300 mg po. If improvement noted, discuss with PCP on continuing and refills-She was also referred to pain mgt by PCP, waiting on appt.-She reports losing her cane last week- would like a new one- will put in DME request for standard cane.-She reports her PCP put in a request for a rolling walker. 04/25/24: has had >3 falls in the past months r/t LE weakness DME needs: walker, bedside commode, PT for LE strengthening WIll order above during [facility] : reports 3 falls in the past week. +LE weakness 09/05/2024 -reports that her pain is at a9/10 at times. Member is asking for a refill of lidocaine patches. Refill sent. Chronic obstructive pulmonary disease, unspecified with supplemental oxygen with chronic resp failure Active 2022-06-24 N/A Stablealbut ciara, symbicort, BretrziMonitor for SOBOn supplemental oxygen as needed. follows with PCP03/21/24-last used 3 days ago due to nasal congestion-has allergies around this time of year. reports she has nasal antihistamine and will start using [id number] cough with green mucous and dyspneasymptoms x 2 weeksstart cefdinir bid x 10 days, mucinex biduse albuterol inh q 3 hours prn while symptoms presentcontinue other inhalers as prescribedtylenol prn for headacherest and hydratecb mohan fu scheduled wednesday. contact cb sooner if needed04/25/24: cefdinir has taken x 2 days. Did not receive pred taper yet. Feeling a bit better today. PLAN: send pred taper and saline rinses 05/30/24feels much better. Denies SOB or wheezing today. 09/05/2024M[place]ira asked for a refill of her Albuterol. Denies current shortness of breath. Courtesy Refill sent in Other problems related to medical facilities and other health care Active 2023-05-19 N/A FALL CO NTINGENCY PLANMember to call for the following symptoms: Fall / Vertigo/ WeaknessPlanned intervention: [facility] at [facility] Encourage extra fluid intake / Assess for change in mental status and provide reassurance if none (patient's Baseline is AA&Ox4) / Review importance of sitting for two to three minutes prior to standing after laying downPAIN CONTINGENCY PLANLast updated: 09/05/2024Memarker to call for the following symptoms: Fall / Increased pain/ Increased pain medsPlanned intervention: Lidoderm patch 4% to affected area/ Prednisone 50mg daily for 5 days Encounters Encounters Type Facility Date of Service Diagnosis/Complaint No Data Available [facility] [place]/2022 Gout, unspecified No Data Available [facility] [place] 06/[place]/2022 New patient,40-59min; chronic exacerbation, 2 stable chronic or 1 acute illness add add modifier 95 for video (do not use for phone, instead use [id number]) [facility] [place] 06/24/2022 Type 2 diabetes mellitus wit h diabetic polyneuropathyType 2 diabetes mellitus with other specified complicationHyperlipidemia, unspecifiedBipolar II disorderGout, unspecifiedChronic obstructive pulmonary disease, unspecifiedDependence on supplemental oxygenRadiculopathy, lumbar regionMorbid (severe) obesity due to excess caloriesHeart failure, unspecifiedSecondary hyperaldosteronism New patient,40-59min; chronic exacerbation, 2 stable chronic or 1 acute illness add add modifier 95 for video (do not use for phone, instead use [id number]) [facility] [place] 06/24/2022 New patient,40-59min; chronic exacerbation, 2 stable chronic or 1 acute illness add add modifier 95 for video (do not use for phone, instead use [id number]) [facility] [place] 06/24/2022 New patient,40-59min; chronic exacerbation, 2 stable chronic or 1 acute illness add add modifier 95 for video (do not use for phone, instead use [id number]) [facility] [place] 06/24/2022 New patient,40-59min; chronic exacerbation, 2 stable chronic or 1 acute illness add add modifier 95 for video (do not use for phone, instead use [id number]) [facility] [place] 06/24/2022 New patient,40-59min; chronic exacerbation, 2 stable chronic or 1 acute illness add add modifier 95 for video (do not use for phone, instead use [id number]) [facility] [place] 06/24/2022 New patient,40-59min; chronic exacerbation, 2 stable chronic or 1 acute illness add add modifier 95 for video (do not use for phone, instead use [id number]) [facility] [place] 06/24/2022 New patient,40-59min; chronic exacerbation, 2 stable chronic or 1 acute illness add add modifier 95 for video (do not use for phone, instead use [id number]) [facility] [place] 06/24/2022 New patient,40-59min; chronic exacerbation, 2 stable chronic or 1 acute illness add add modifier 95 for video (do not use for phone, instead use [id number]) [facility] [place] 06/24/2022 No Data Available [facility] [place] 12/01/2023 Type 2 diabetes mellitus wit h diabetic chronic kidney diseaseChronic kidney disease, stage 3bType 2 diabetes mellitus with diabetic polyneuropathyType 2 diabetes mellitus with other specified complicationHyperlipidemia, unspecifiedOther problems related to medical facilities and other health careBipolar II disorderHeart failure, unspecifiedSecondary hyperaldosteronismGout, unspecifiedChronic respiratory failure with hypoxiaDependence on supplemental oxygenChronic obstructive pulmonary disease, unspecifiedRadiculopathy, lumbar regionMorbid (severe) obesity due to excess caloriesBody mass index (BMI) 40.0-44.9, adult No Data Available [facility] ([place] 12/01/2023 No Data Available [facility] [place]2023 No Data Available [facility] [place]20[place] No Data Available [facility] [place] 12[place]/2023 No Data Available [facility] [place]2023 No Data Available [facility] [place] 12/28/2023 Type 2 diabetes mellitus wit h diabetic polyneuropathyType 2 diabetes mellitus with other specified complicationHyperlipidemia, unspecifiedBipolar II disorderHeart failure, unspecifiedSecondary hyperaldosteronismGout, unspecifiedChronic obstructive pulmonary disease, unspecifiedChronic respiratory failure with hypoxiaDependence on supplemental oxygenNicotine dependence, unspecified, uncomplicatedRadiculopathy, lumbar regionMorbid (severe) obesity due to excess caloriesType 2 diabetes mellitus with diabetic chronic kidney diseaseChronic kidney disease, stage 3bLong term (current) use of oral hypoglycemic drugsOther problems related to medical facilities and other health care No Data Available [facility] [place] 12[place]28/2023 No Data Available [facility] [place] 12/28/2023 No Data Available [facility] [place]/28/2023 No Data Available [facility] [place] 12/28/2023 No Data Available [facility] [place] 12/28/2023 No Data Available [facility] [place] 12/28/2023 No Data Available [facility] [place] 12/28/2023 No Data Available [facility] [place] 12/28/2023 No Data Available [facility] [place] 12/28/2023 Estab. patient 20-29min; 1 stable chronic or 2 minor; add add modifier 95 for video, modifier 93 for phone [facility] [place] 01/04/2024 Radiculopathy, lumbar region Other problems related to medical facilities and other health care Estab. patient 20-29min; 1 stable chronic or 2 minor; add add modifier 95 for video, modifier 93 for phone [facility] [place] 01/04/2024 No Data Available [facility] [place] 02/11/2024 Type 2 diabetes mellitus wit h diabetic polyneuropathyType 2 diabetes mellitus with other specified complicationHyperlipidemia, unspecifiedOther problems related to medical facilities and other health careBipolar II disorderHeart failure, unspecifiedSecondary hyperaldosteronismGout, unspecifiedChronic obstructive pulmonary disease, unspecifiedDependence on supplemental oxygenChronic respiratory failure with hypoxiaChronic kidney disease, stage 3bRadiculopathy, lumbar regionMorbid (severe) obesity due to excess caloriesBody mass index (bmi) 39.0-39.9, adult No Data Available [facility] [place] 02/11/2024 No Data Available [facility] [place] 02/11/2024 No Data Available [facility] [place] 02/11/2024 No Data Available [facility] [place] 02/11/2024 No Data Available [facility] [place] 03/21/2024 Type 2 diabetes mellitus wit h other specified complicationChronic kidney disease, stage 3bHyperlipidemia, unspecifiedType 2 diabetes mellitus with diabetic neuropathy, unspecifiedOther problems related to medical facilities and other health careBipolar II disorderHeart failure, unspecifiedSecondary hyperaldosteronismGout, unspecifiedChronic obstructive pulmonary disease, unspecifiedDependence on supplemental oxygenChronic respiratory failure with hypoxiaRadiculopathy, lumbar regionUnsteadiness on feetMorbid (severe) obesity due to excess caloriesOther specified counseling No Data Available [facility] [place] 03/21/2024 No Data Available [facility] [place] 03/21/2024 No Data Available [facility] [place] 03/21/2024 Estab. patient 10-29min; 1 minor problem; add add modifier 95 for video, modifier 93 for phone [facility] [place] 04/22/2024 Chronic obstructive pulmonar y disease, unspecifiedDependence on supplemental oxygenChronic respiratory failure with hypoxia Estab. patient 10-29min; 1 minor problem; add add modifier 95 for video, modifier 93 for phone [facility] [place] 04/22/2024 Estab. patient 20-29min; 1 stable chronic or 2 minor; add add modifier 95 for video, modifier 93 for phone [facility] ([place] 04/19/2024 Heart failure, unspecifiedSe condary hyperaldosteronismOther psychoactive substance use, unspecified, uncomplicatedBody mass index (BMI) 40.0-44.9, adultPerson awaiting admission to adequate facility elsewhereOther problems related to medical facilities and other health care Estab. patient 20-29min; 1 stable chronic or 2 minor; add add modifier 95 for video, modifier 93 for phone [facility], ([place] 04/19/2024 Estab. patient 20-29min; 1 stable chronic or 2 minor; add add modifier 95 for video, modifier 93 for phone [facility], ([place] 04/19/2024 Estab. patient 20-29min; 1 stable chronic or 2 minor; add add modifier 95 for video, modifier 93 for phone [facility], ([place] 04/19/2024 Estab. patient 20-29min; 1 stable chronic or 2 minor; add add modifier 95 for video, modifier 93 for phone [facility], ([place] 04/19/2024 Estab. patient 20-29min; 1 stable chronic or 2 minor; add add modifier 95 for video, modifier 93 for phone [facility], ([place] 04/19/2024 Estab. patient 20-29min; 1 stable chronic or 2 minor; add add modifier 95 for video, modifier 93 for phone [facility], ([place] 04/19/2024 Estab. patient 10-29min; 1 minor problem; add add modifier 95 for video, modifier 93 for phone [facility], ([place] 04/25/2024 Chronic obstructive pulmonar y disease, unspecifiedDependence on supplemental oxygenChronic respiratory failure with hypoxiaOther problems related to medical facilities and other health careRadiculopathy, lumbar regionUnsteadiness on feet Estab. patient 10-29min; 1 minor problem; add add modifier 95 for video, modifier 93 for phone [facility], ([place] 04/25/2024 Estab. patient 20-29min; 1 stable chronic or 2 minor; add add modifier 95 for video, modifier 93 for phone [facility], ([place] 04/28/2024 Type 2 diabetes mellitus wit h other specified complicationHyperlipidemia, unspecifiedType 2 diabetes mellitus with diabetic neuropathy, unspecifiedType 2 diabetes mellitus with diabetic chronic kidney diseaseChronic kidney disease, stage 3bBipolar II disorderHeart failure, unspecifiedChronic obstructive pulmonary disease, unspecifiedChronic respiratory failure with hypoxiaMorbid (severe) obesity due to excess caloriesBody mass index (BMI) 40.0-44.9, adultRadiculopathy, lumbar regionSecondary hyperaldosteronismUnsteadiness on feetGout, unspecifiedOther psychoactive substance use, unspecified, uncomplicatedPerson awaiting admission to adequate facility elsewhereOther problems related to medical facilities and other health careDependence on supplemental oxygen Estab. patient 20-29min; 1 stable chronic or 2 minor; add add modifier 95 for video, modifier 93 for phone [facility] [place] 04/28/2024 Estab. patient 20-29min; 1 stable chronic or 2 minor; add add modifier 95 for video, modifier 93 for phone [facility], ([place] 04/28/2024 Estab. patient 20-29min; 1 stable chronic or 2 minor; add add modifier 95 for video, modifier 93 for phone [facility] [place] 04/28/2024 Estab. patient 20-29min; 1 stable chronic or 2 minor; add add modifier 95 for video, modifier 93 for phone [facility], ([place] 04/28/2024 Estab. patient 20-29min; 1 stable chronic or 2 minor; add add modifier 95 for video, modifier 93 for phone [facility], ([place] 04/28/2024 Estab. patient 20-29min; 1 stable chronic or 2 minor; add add modifier 95 for video, modifier 93 for phone [facility] [place] 04/28/2024 Estab. patient 20-29min; 1 stable chronic or 2 minor; add add modifier 95 for video, modifier 93 for phone [facility] [place] 04/28/2024 Estab. patient 20-29min; 1 stable chronic or 2 minor; add add modifier 95 for video, modifier 93 for phone [facility] ([place]) 04/28/2024 Estab. patient 10-29min; 1 minor problem; add add modifier 95 for video, modifier 93 for phone [facility] ([place]) 05/30/2024 Chronic respiratory failure with hypoxiaChronic obstructive pulmonary disease, unspecifiedRadiculopathy, lumbar regionUnsteadiness on feetDependence on supplemental oxygenOther specified counselingOther problems related to medical facilities and other health careOther symptoms and signs involving the musculoskeletal systemRepeated falls Estab. patient 10-29min; 1 minor problem; add add modifier 95 for video, modifier 93 for phone [facility] [place], ([place]) 09/05/2024 Radiculopathy, lumbar regionUnsteadiness on feetChronic obstructive pulmonary disease, unspecifiedDependence on supplemental oxygenChronic respiratory failure with hypoxiaOther problems related to medical facilities and other health care Estab. patient 10-29min; 1 minor problem; add add modifier 95 for video, modifier 93 for [facility], ([place]) 09/05/2024 Estab. patient 10-29min; 1 minor problem; add add modifier 95 for video, modifier 93 for [facility], ([place]) 09/05/2024 Vital Signs Date of Collection Vitals 2022-06-24 11:24:36 Height - 157.48 cmWe ight - 104.33 kgBody Mass Index (BMI) - 42.07 kg/m2BP Diastolic - 85.0 mm[Hg]BP Systolic - 125.0 mm[Hg] 2023-12-28 15:46:18 Height - 157.48 cmWe ight - 98.43 kgBody Mass Index (BMI) - 39.69 kg/m2BP Diastolic - 70.0 mm[Hg]BP Systolic - 130.0 mm[Hg] 2024-03-21 09:21:39 Height - 157.48 cmWe ight - 108.41 kgBody Mass Index (BMI) - 43.71 kg/m2BP Diastolic - 70.0 mm[Hg]BP Systolic - 120.0 mm[Hg] 2024-04-25 13:47:07 Weight - 108.41 kgBo dy Mass Index (BMI) - 43.71 kg/m2 2024-04-19 09:41:00 Height - 157.48 cmWe ight - 108.41 kgBody Mass Index (BMI) - 43.71 kg/m2BP Diastolic - 68.0 mm[Hg]BP Systolic - 161.0 mm[Hg]Pain Scale - 5.0 {score} 2024-04-28 12:11:58 Height - 157.48 cmWe ight - 108.86 kgBody Mass Index (BMI) - 43.9 kg/m2BP Diastolic - 72.0 mm[Hg]BP Systolic - 138.0 mm[Hg]Pain Scale - 7.0 {score} 2024-09-05 13:28:10 Pain Scale - 9.0 {sc ore} Social History Social History Social History Observation Description Effec tive Time Current Smoking Status Current every day smoker 2024-11-01 Sex Female Gender identity Woman History of Procedures Procedures Service Procedure code Service date Servicing provider Phone# No Data Available [id number] 2022-06-02 No Data Available No Data Available Pain Assessment - Pain Documented on a Pain Scale (1125F) 1125F 2022-06-02 No Data Available No Data Roz ilable New patient,40-59min; chronic exacerbation, 2 stable chronic or 1 acute illness add add modifier 95 for video (do not use for phone, instead use [id number]) [id number] 2022-06-24 No Data Available No Data Availa ble Medication List Documented (1159F) 1159F 2022-06-24 No Data Available No Data Roz ilable Medication Review by prescribing provider or pharmacist documented (1160F) 1160F 2022-06-24 No Data Available No Data Roz ilable Functional Status Assessed (1170F) 1170F 2022-06-24 No Data Available No Data Avail able Advance Care Directive Advance care planning discussion documented in the medical record (1158F) 1158F 2022-06-24 No Data Available No Data Availa ble BMI obtained (3008F) 3008F 2022-06-24 No Data Availab le No Data Available Pain Assessment - Pain Documented on a Pain Scale (1125F) 1125F 2022-06-24 No Data Available No Data Roz ilable SBP < 130 (3074F) 3074F 2022-06-24 No Data Available No Data Available DBP 80-89 (3079F) 3079F 2022-06-24 No Data Available No Data Available No Data Available [id number] 2023-12-01 No Data Available No Data Available Medication List Documented (1159F) 1159F 2023-12-01 No Data Available No Data Roz ilable Functional Status Assessed (1170F) 1170F 2023-12-01 No Data Available No Data Avail able Pain Assessment - Pain Documented on a Pain Scale (1125F) 1125F 2023-12-01 No Data Available No Data Roz ilable Advance Care Directive Advance care planning discussion documented in the medical record (1158F) 1158F 2023-12-01 No Data Available No Data Availa ble Advance care planning discussed and documented advance care plan or surrogate decision-maker was documented in the medical record. (1123F) 1123F 2023-12-01 No Data Available No Data Availa ble No Data Available [id number] 2023-12-28 No Data Available No Data Available Medication List Documented (1159F) 1159F 2023-12-28 No Data Available No Data Roz ilable Medication Review by prescribing provider or pharmacist documented (1160F) 1160F 2023-12-28 No Data Available No Data Roz ilable Functional Status Assessed (1170F) 1170F 2023-12-28 No Data Available No Data Avail able BMI obtained (3008F) 3008F 2023-12-28 No Data Availab le No Data Available Advance Care Directive Advance care planning discussion documented in the medical record (1158F) 1158F 2023-12-28 No Data Available No Data Availa ble Advance care planning discussed and documented advance care plan or surrogate decision-maker was documented in the medical record. (1123F) 1123F 2023-12-28 No Data Available No Data Availa ble Pain Assessment - Pain Documented on a Pain Scale (1125F) 1125F 2023-12-28 No Data Available No Data Roz ilable SBP 130-139 (3075F) 3075F 2023-12-28 No Data Availabl e No Data Available DBP <80 (3078F) 3078F 2023-12-28 No Data Available No Data Available Estab. patient 20-29min; 1 stable chronic or 2 minor; add add modifier 95 for video, modifier 93 for phone [id number] 2024-01-04 No Data Available No Data Availa ble Medication List Documented (1159F) 1159F 2024-01-04 No Data Available No Data Roz ilable No Data Available [id number] 2024-02-11 No Data Available No Data Available Advance Care Directive Advance care planning discussion documented in the medical record (1158F) 1158F 2024-02-11 No Data Available No Data Availa ble Advance care planning discussed and documented advance care plan or surrogate decision-maker was documented in the medical record. (1123F) 1123F 2024-02-11 No Data Available No Data Availa ble Medication List Documented (1159F) 1159F 2024-02-11 No Data Available No Data Roz ilable Functional Status Assessed (1170F) 1170F 2024-02-11 No Data Available No Data Avail able No Data Available [id number] 2024-03-21 No Data Available No Data Available SBP < 130 (3074F) 3074F 2024-03-21 No Data Available No Data Available DBP <80 (3078F) 3078F 2024-03-21 No Data Available No Data Available Medication List Documented (1159F) 1159F 2024-03-21 No Data Available No Data Roz ilable Estab. patient 10-29min; 1 minor problem; add add modifier 95 for video, modifier 93 for phone [id number] 2024-04-22 No Data Available No Data Availa ble Medication List Documented (1159F) 1159F 2024-04-22 No Data Available No Data Roz ilable Estab. patient 20-29min; 1 stable chronic or 2 minor; add add modifier 95 for video, modifier 93 for phone [id number] 2024-04-19 No Data Available No Data Availa ble Medications prescribed in hospital were reviewed and reconciled against what they were taking prior to admission during today's visit. (1111F) 1111F 2024-04-19 No Data Available No Data Availa ble Advance care planning discussed and documented advance care plan or surrogate decision-maker was documented in the medical record. (1123F) 1123F 2024-04-19 No Data Available No Data Availa ble Medication List Documented (1159F) 1159F 2024-04-19 No Data Available No Data Roz ilable SBP >= 140 3077F 2024-04-19 No Data Available No Data Available DBP <80 (3078F) 3078F 2024-04-19 No Data Available No Data Available Pain Assessment - Pain Documented on a Pain Scale (1125F) 1125F 2024-04-19 No Data Available No Data Roz ilable Estab. patient 10-29min; 1 minor problem; add add modifier 95 for video, modifier 93 for phone [id number] 2024-04-25 No Data Available No Data Availa ble Medication List Documented (1159F) 1159F 2024-04-25 No Data Available No Data Roz ilable Estab. patient 20-29min; 1 stable chronic or 2 minor; add add modifier 95 for video, modifier 93 for phone [id number] 2024-04-28 No Data Available No Data Availa ble Medication Review by prescribing provider or pharmacist documented (1160F) 1160F 2024-04-28 No Data Available No Data Roz ilable SBP 130-139 (3075F) 3075F 2024-04-28 No Data Availabl e No Data Available DBP <80 (3078F) 3078F 2024-04-28 No Data Available No Data Available Pain Assessment - Pain Documented on a Pain Scale (1125F) 1125F 2024-04-28 No Data Available No Data Roz ilable Advance Care Directive Advance care planning discussion documented in the medical record (1158F) 1158F 2024-04-28 No Data Available No Data Availa ble Advance care planning discussed and documented advance care plan or surrogate decision-maker was documented in the medical record. (1123F) 1123F 2024-04-28 No Data Available No Data Availa ble Medication List Documented (1159F) 1159F 2024-04-28 No Data Available No Data Roz ilable Functional Status Assessed (1170F) 1170F 2024-04-28 No Data Available No Data Avail able Estab. patient 10-29min; 1 minor problem; add add modifier 95 for video, modifier 93 for phone [id number] 2024-05-30 No Data Available No Data Availa ble Estab. patient 10-29min; 1 minor problem; add add modifier 95 for video, modifier 93 for phone [id number] 2024-09-05 No Data Available No Data Availa ble Pain Assessment - Pain Documented on a Pain Scale (1125F) 1125F 2024-09-05 No Data Available No Data Roz ilable Medication List Documented (1159F) 1159F 2024-09-05 No Data Available No Data Roz ilable Functional Status Functional Category Effective Dates [employer] - cleaning, meal prep, t libia to appts, food shopping (sometimes pt goes with her), washes clothes 2022-06-24 Cognition Status: Oriented to Person, Pl srini and Time 2024-04-28 ADL: Bathing Needs Assistanc e , Dressing Needs Assistance , Eating Independent , Ambulation Needs Assistance , Transferring Needs Assistance and Toileting Needs Assistance 2024-04-28 IADL: Medication Needs Simran tance , Meal Prep Needs Assistance , Shopping Needs Assistance , Driving or Public Transport Needs Assistance , Housework Needs Assistance , Finances Independent 2024-04-28 How many falls within the last 6 months? yes 2024-04-28 Near falls within the last 6 months? yes 2024-04-28 Do you feel unsteady on your feet? Yes Do you worry about falling? 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 depressive disorder, recurrent, unspecifiedGoutChronic obstructive pulmonary disease, unspecified with supplemental oxygenLumbar radiculopathyMorbid (severe) obesity due to excess caloriesHeart failure, unspecified with secondary hyperaldosteronism 2023-12-01 06:40:00 Type 2 diabetes river it[place] with diabetic polyneuropathy and hyperlipidemiaOther problems related to medical facilities and other health careBipolar 2 disorderHeart failure, unspecified with secondary hyperaldosteronismGoutChronic obstructive pulmonary disease, unspecified with supplemental oxygen with chronic resp failureLumbar radiculopathyClass 3 severe obesity due to excess calories with serious comorbidity and body mass index (BMI) of 40.0 to 44.9 in adultChronic kidney disease, stage 3b 2023-12-28 15:46:18 Other problems relat ed to medical facilities and other health careType 2 diabetes mellitus with diabetic polyneuropathy and hyperlipidemiaBipolar 2 disorderHeart failure, unspecified with secondary hyperaldosteronismGoutChronic obstructive pulmonary disease, unspecified with supplemental oxygen with chronic resp failureLumbar radiculopathyMorbid (severe) obesity due to excess caloriesChronic kidney disease, stage 3b 2024-01-04 13:12:55 Lumbar radiculopathy Other problems related to medical facilities and other health care 2024-02-11 06:49:12 Type 2 diabetes river it[place] with diabetic polyneuropathy and hyperlipidemiaOther problems related to medical facilities and other health careBipolar 2 disorderHeart failure, unspecified with secondary hyperaldosteronismGoutChronic obstructive pulmonary disease, unspecified with supplemental oxygen with chronic resp failureChronic kidney disease, stage 3bLumbar radiculopathyMorbid (severe) obesity due to excess calories 2024-03-21 09:21:39 Type 2 diabetes river itus with other specified complication, Chronic kidney disease, stage 3b, Hyperlipidemia, Diabetic neuropathyOther problems related to medical facilities and other health careBipolar 2 disorderHeart failure, unspecified, secondary hyperaldosteronismGoutChronic obstructive pulmonary disease, unspecified with supplemental oxygen with chronic resp failureMorbid (severe) obesity due to excess caloriesOther specified counselingLumbar radiculopathy, Gait instability 2024-04-22 12:55:38 Follow up plan for a cute symptoms:Chronic obstructive pulmonary disease, unspecified with supplemental oxygen with chronic resp failure 2024-04-19 09:41:00 Substance use disord erListed for admission to hospitalHeart failure, unspecified, secondary hyperaldosteronismOther problems related to medical facilities and other health care 2024-04-25 13:47:07 Chronic obstructive pulmonary disease, unspecified with supplemental oxygen with chronic resp failureOther problems related to medical facilities and other health careLumbar radiculopathy, Gait instability 2024-04-28 12:11:58 Type 2 diabetes irver itus with other specified complication, Chronic kidney disease, stage 3b, Hyperlipidemia, Diabetic neuropathyOther problems related to medical facilities and other health careBipolar 2 disorderHeart failure, unspecified, secondary hyperaldosteronismGoutChronic obstructive pulmonary disease, unspecified with supplemental oxygen with chronic resp failureLumbar radiculopathy, Gait instabilityMorbid (severe) obesity due to excess caloriesListed for admission to hospitalSubstance use disorder 2024-05-30 07:27:24 Goals of care, couns eling/discussionLumbar radiculopathy, Gait instabilityChronic obstructive pulmonary disease, unspecified with supplemental oxygen with chronic resp failureOther problems related to medical facilities and other health careFrequent falls 2024-09-05 13:28:10 Lumbar radiculopathy , Gait instabilityChronic obstructive pulmonary disease, unspecified with supplemental oxygen with chronic resp failureOther problems related to medical facilities and other health care Plan of Care Date of Service Plans 2022-06-02 08:45:50 Phone (patient, pare nt, or guardian); 11-20 minutes of medical discussion (no modifier 95)Continue to see PCP. Follow-up with [facility] as needed for any acute or disease education needs that may arise 02/11.gout, pain started yesterday states prednisone helped with the inflammation before and is asking for a prescription for it Patient is prescribed allopurinol and colchicine but has not been back to PCP to get refills, so is not currently taking gout medications.will refill allopurinol and colchicine (Category C with simvastatin, instructed to monitor for muscle pain/weakness).Avoid high purine foods such as sugary breads and drinks, alcohol, certain fish/seafood and organ meats.Continue to monitor 2022-06-24 11:24:36 Medication Review by prescribing provider or pharmacist documented (1160F)Medication List Documented (1159F)Functional Status Assessed (1170F)Advance Care Directive Advance care planning discussion documented in the medical record (1158F)BMI obtained (3008F)SBP < 130 (3074F)DBP 80-89 (3079F)Televideo new patient,40-59min; chronic exacerbation, 2 stable chronic or 1 acute illness add modifier 95Pain Assessment - Pain Documented (1125F)Continue to see PCP. Follow-up with [facility] as needed for any acute or disease education needs that may arise.stablemetforminGlucose: ~100-110A1c: recommended to obtain, no recent outside records to reviewRenal: recommended blood/urine testing, no recent outside records to reviewCV: +HF, HLD (simvastatin)Neuropathy: +feet - gabapentin Eyes: deniesFollows with PCPRecommend low carb/sugar diet, exercise, monitor BG; notify CB of high/low glucose levelsstablesertraline, trileptal, mirtazepine, zolpidemwas following with psych but she missed multiple appts so she was dischargedPCP has been filling her medicationsshe would consider telepsychiatry onlygout, pain started yesterday states prednisone helped with the inflammation before and is asking for a prescription for it Patient is prescribed allopurinol and colchicine but has not been back to PCP to get refills, so is not currently taking gout medications.will refill allopurinol and colchicine (Category C with simvastatin, instructed to monitor for muscle pain/weakness).Avoid high purine foods such as sugary breads and drinks, alcohol, certain fish/seafood and organ meats.Continue to monitor06/23/22: pt is monitoring diet; continue medications; doing wellstablealbuterol, floventOn supplemental oxygen as neededfollows with PCPstableback and leg pain R>L 10/19 paingabpentin Follows with PCPstableBMI: 42.07+HTN, +DMFollow with PCPstabledenies CP, SOBBP: 120-130/80-90furosemide, amlodipineFollows with television cable installer 2023-12-01 06:40:00 Phone (patient, pare nt, or guardian); 5-10 minutes of medical discussion (no modifier 95)Continue to see PCP. [facility] disease [facility] needs that may arise 02/11.Continues on metforminGlucose: ~100-110A1c: recommended to obtain, no recent outside records to reviewRenal: recommended blood/urine testing, no recent outside records to reviewCV: +HF, HLD (simvastatin)Neuropathy: +feet - gabapentin Eyes: deniesFollows with PCPRecommend low carb/sugar diet, exercise, monitor BG; notify CB of high/low glucose levelsLast ER 08/28/23 sobCONTINGENCY PLANMember to call for the following symptoms: Blood pressure <100/60/ Blood pressure >180/100/ Heart rate >110/ Unable to walk without stopping due to difficulty breathing/ Increased tiredness/ Wheezing/ Breathing loudly/ Increased cough/ Change in sputum color/ Decreased desire to eat/ Confusion or change in behavior/ Chest painPlanned intervention: Increase use of albuterol inhaler to q2h PRN cough, breathlessness/ Prednisone 50mg PO daily x 5 days/ Doxycycline 100mg BID x 7 days/ Mucinex 600mg q12h with a full glass of water to thin secretions/ Flonase 2 sprays daily/ Claritin 10mg daily/ Confirm appropriate inhaler usageContinues on sertraline, trileptal, mirtazepine, zolpidemwas following with psych but she missed multiple appts so she was dischargedPCP has been filling her medicationsshe would consider telepsychiatry onlyBP: 120-130/80-90furosemide, amlodipineFollows with cardiologistAllopurinolFollow up pcpalbuterol, symbicort, BretrziOn supplemental oxygen as neededfollows with PCPback and leg pain R>L gabapentin Follows with PCP12/01/23: Today, member states she has chronic pains, back pains, joint pains. She is awaiting a specialist appointment. She is interested in trialing Lidoderm patches, will escribe.stableBMI: 42.07+HTN, +DMFollow with PCPAdvised to eat a healthy diet include emphasizing fruits, vegetables, whole grains, poultry, fish and nuts and limiting sugary foods and beverages. Eating this way may help increase fiber, which is also beneficial. A diet high in fiber can help lower cholesterol levels by as much as 10 percent. DASH diet. Increase exercise to 30-45 min q day. Decrease sugary drinks, stop soda intake. Limit ETOH intake. If you smoke, quit smoking.Per hx, Avoid nephrotoxic medicationsFollow up labs; no recent labs in outside care Follow up pcp 2023-12-28 15:46:18 Televideo 30-39min; chronic exacerbation, 2 stable chronic or 1 acute illness add modifier 95Functional Status Assessed (1170F)Pain Assessment - Pain Documented (1125F)BMI obtained (3008F)Advance Care Directive Advance care planning discussion documented in the medical record (1158F)Advance care planning discussed and documented advance care plan or surrogate decision-maker was documented in the medical record. (1123F)SBP 130-139 (3075F)DBP <80 (3078F)Continue to see PCP. Follow-up with [facility] as needed for any acute or disease education needs that may arise.CONTINGENCY PLANMember to call for the following symptoms: Blood pressure <100/60/ Blood pressure >180/100/ Heart rate >110/ Unable to walk without stopping due to difficulty breathing/ Increased tiredness/ Wheezing/ Breathing loudly/ Increased cough/ Change in sputum color/ Decreased desire to eat/ Confusion or change in behavior/ Chest painPlanned intervention: Increase use of albuterol inhaler to q2h PRN cough, breathlessness/ Prednisone 50mg PO daily x 5 days/ Doxycycline 100mg BID x 7 days/ Mucinex 600mg q12h with a full glass of water to thin secretions/ Flonase 2 sprays daily/ Claritin 10mg daily/ Confirm appropriate inhaler usageContinues on metforminGlucose: ~100-110A1c: recommended to obtain, no recent outside records to reviewRenal: recommended blood/urine testing, no recent outside records to reviewCV: +HF, HLD (simvastatin)Neuropathy: +feet - gabapentin Eyes: deniesFollows with PCPRecommend low carb/sugar diet, exercise, monitor BG; notify CB of high/low glucose levelsStableSertraline, trileptal, mirtazepine, risperidoneDenies SI/HIReports seeing a therapist, denies psychiatristMonitor for worsening depression, billy, safety, coping mechanisms reviewed, and continue with PCP.Stablefurosemide, amlodipineMonitor for BLE swelling, cardiac s/sx (eg. palpitations) and continue to follow with cardiologistStableAllopurinolDietary interventions and continue to follow up pcpStablealbuterol, symbicort, BretrziMonitor for SOBOn supplemental oxygen as neededfollows with PCPback and leg pain R>L gabapentin Follows with PCP12/01/23: Today, member states she has chronic pains, back pains, joint pains. She is awaiting a specialist appointment. She is interested in trialing Lidoderm patches, will escribe.stableBMI: 39.69+HTN, +DMFollow with PCPAdvised to eat a healthy diet include emphasizing fruits, vegetables, whole grains, poultry, fish and nuts and limiting sugary foods and beverages. Eating this way may help increase fiber, which is also beneficial. A diet high in fiber can help lower cholesterol levels by as much as 10 percent. DASH diet. Increase exercise to 30-45 min q day. Decrease sugary drinks, stop soda intake. Limit ETOH intake. If you smoke, quit smoking.Per hx, Avoid nephrotoxic medicationsFollow up labs; no recent labs in outside care Follow up pcp 2024-01-04 13:12:55 Televideo 20-29min; 1 stable chronic or 2 minor; add modifier 95Continue to see PCP. Follow-up with [facility] as needed for any acute or disease education needs that may arise 02/11.back and leg pain R>L gabapentin Follows with PCP12/01/23: Today, member states she has chronic pains, back pains, joint pains. She is awaiting a specialist appointment. She is interested in trialing Lidoderm patches, will escribe. 01/04/24: Sciatica is bothering her. Called her PCP. She states they want to send her to a rn ed due to left ankle edema. Started several weeks ago. Denies fall or trauma. Denies redness, discoloration or warmth to the touch. Pain feels different than gout flare. Typically gets flare in her big toe. She called to schedule an appt and is waiting for them to call her back. She is using Lidoderm patches. She would like to try Voltaren gel. Sent refill for naproxen as she ran out. Discussed with member potential interaction of naproxen with sertraline and verbalized understanding that she should call CB with any new symptoms and stop taking naproxen.Last ER 08/28/23 sobCONTINGENCY PLANMember to call for the following symptoms: Blood pressure <100/60/ Blood pressure >180/100/ Heart rate >110/ Unable to walk without stopping due to difficulty breathing/ Increased tiredness/ Wheezing/ Breathing loudly/ Increased cough/ Change in sputum color/ Decreased desire to eat/ Confusion or change in behavior/ Chest painPlanned intervention: Increase use of albuterol inhaler to q2h PRN cough, breathlessness/ Prednisone 50mg PO daily x 5 days/ Doxycycline 100mg BID x 7 days/ Mucinex 600mg q12h with a full glass of water to thin secretions/ Flonase 2 sprays daily/ Claritin 10mg daily/ Confirm appropriate inhaler usage 2024-02-11 06:49:12 Phone (patient, pare nt, or guardian); 5-10 minutes of medical discussion (no modifier 95)Continue to see PCP. [facility] or disease education needs that may arise 02/11.Continues on metforminGlucose: ~100-110A1c: recommended to obtain, no recent outside records to reviewRenal: recommended blood/urine testing, no recent outside records to reviewCV: +HF, HLD (simvastatin)Neuropathy: +feet - gabapentin Eyes: deniesFollows with PCPRecommend low carb/sugar diet, exercise, monitor BG; notify CB of high/low glucose levelsLast ER 08/28/23 sobCONTINGENCY PLANupdated 02/11/24Member to call for the following symptoms: Blood pressure <100/60/ Blood pressure >180/100/ Heart rate >110/ Unable to walk without stopping due to difficulty breathing/ Increased tiredness/ Wheezing/ Breathing loudly/ Increased cough/ Change in sputum color/ Decreased desire to eat/ Confusion or change in behavior/ Chest painPlanned intervention: Increase use of albuterol inhaler to q2h PRN cough, breathlessness/ Prednisone 50mg PO daily x 5 days/ Doxycycline 100mg BID x 7 days/ Mucinex 600mg q12h with a full glass of water to thin secretions/ Flonase 2 sprays daily/ Claritin 10mg daily/ Confirm appropriate inhaler usageStableSertraline, trileptal, mirtazepine, risperidoneDenies SI/HIReports seeing a therapist, denies psychiatristMonitor for worsening depression, billy, safety, coping mechanisms reviewed, and continue with PCP.Stablefurosemide, amlodipineChronic edemaMonitor for BLE swelling, cardiac s/sx (eg. palpitations) and continue to follow with cardiologistStableAllopurinolDietary interventions and continue to follow up pcpStablealbuterol, symbicort, BretrziMonitor for SOBOn supplemental oxygen as neededfollows with PCPPer hx, Avoid nephrotoxic medicationsFollow up labs; no recent labs in outside care Follow up pcpback and leg pain R>L gabapentin Follows with PCP12/01/23: Today, member states she has chronic pains, back pains, joint pains. She is awaiting a specialist appointment. She is interested in trialing Lidoderm patches, will escribe. 01/04/24: Sciatica is bothering her. Called her PCP. She states they want to send her to a rn ed due to left ankle edema. Started several weeks ago. Denies fall or trauma. Denies redness, discoloration or warmth to the touch. Pain feels different than gout flare. Typically gets flare in her big toe. She called to schedule an appt and is waiting for them to call her back. She is using Lidoderm patches. She would like to try Voltaren gel. Sent refill for naproxen as she ran out. Discussed with member potential interaction of naproxen with sertraline and verbalized understanding that she should call CB with any new symptoms and stop taking naproxen.stableBMI: 39.69+HTN, +DMFollow with PCPAdvised to eat a healthy diet include emphasizing fruits, vegetables, whole grains, poultry, fish and nuts and limiting sugary foods and beverages. Eating this way may help increase fiber, which is also beneficial. A diet high in fiber can help lower cholesterol levels by as much as 10 percent. DASH diet. Increase exercise to 30-45 min q day. Decrease sugary drinks, stop soda intake. Limit ETOH intake. If you smoke, quit smoking. 2024-03-21 09:21:39 Phone (patient, pare nt, or guardian); 5-10 minutes of medical discussion (no modifier 95)Continue to see PCP. [facility] or disease education needs that may arise 02/11.Continues on metforminGlucose: ~100-110A1c: recommended to obtain, no recent outside records to reviewRenal: recommended blood/urine testing, no recent outside records to reviewCV: +HF, HLD (simvastatin)Neuropathy: +feet - gabapentin Eyes: deniesFollows with PCPRecommend low carb/sugar diet, exercise, monitor BG; notify CB of high/low glucose levels 03/21/24-continue current treatment plan-emphasized importance of diet modifications, exercise as tolerated, weight loss-Follows PCPLast ER 08/28/23 sobCONTINGENCY PLANupdated 02/11/24Member to call for the following symptoms: Blood pressure <100/60/ Blood pressure >180/100/ Heart rate >110/ Unable to walk without stopping due to difficulty breathing/ Increased tiredness/ Wheezing/ Breathing loudly/ Increased cough/ Change in sputum color/ Decreased desire to eat/ Confusion or change in behavior/ Chest painPlanned intervention: Increase use of albuterol inhaler to q2h PRN cough, breathlessness/ Prednisone 50mg PO daily x 5 days/ Doxycycline 100mg BID x 7 days/ Mucinex 600mg q12h with a full glass of water to thin secretions/ Flonase 2 sprays daily/ Claritin 10mg daily/ Confirm appropriate inhaler usageStableSertraline, trileptal, mirtazepine, risperidoneDenies SI/HIReports seeing a therapist, denies psychiatristMonitor for worsening depression, billy, safety, coping mechanisms reviewed, and continue with PCP.Stablefurosemide, amlodipineChronic edemaMonitor for BLE swelling, cardiac s/sx (eg. palpitations) and continue to follow with cardiologistStableAllopurinolDietary interventions and continue to follow up pcpStablealbuterol, symbicort, BretrziMonitor for SOBOn supplemental oxygen as needed. follows with PCP03/21/24-last used 3 days ago due to nasal congestion-has allergies around this time of year. reports she has nasal antihistamine and will start using it03/21/24: BMI: 43.71+HTN, +DMFollow with PCPAdvised to eat a healthy diet include emphasizing fruits, vegetables, whole grains, poultry, fish and nuts and limiting sugary foods and beverages. Eating this way may help increase fiber, which is also beneficial. A diet high in fiber can help lower cholesterol levels by as much as 10 percent. DASH diet. Increase exercise to 30-45 min q day. Decrease sugary drinks, stop soda intake. Limit ETOH intake. If you smoke, quit smoking.03/21/24:Colon cancer screening: due for screening. Has cologuard. She has the kit, but has not done it yet. Encouraged completionback and leg pain R>L gabapentin Follows with PCP12/01/23: Today, member states she has chronic pains, back pains, joint pains. She is awaiting a specialist appointment. She is interested in trialing Lidoderm patches, will escribe. 01/04/24: Sciatica is bothering her. Called her PCP. She states they want to send her to a rn ed due to left ankle edema. Started several weeks ago. Denies fall or trauma. Denies redness, discoloration or warmth to the touch. Pain feels different than gout flare. Typically gets flare in her big toe. She called to schedule an appt and is waiting for them to call her back. She is using Lidoderm patches. She would like to try Voltaren gel. Sent refill for naproxen as she ran out. Discussed with member potential interaction of naproxen with sertraline and verbalized understanding that she should call CB with any new symptoms and stop taking naproxen. 03/21/24:-reports lidocaine patch has been helpful, but still in pain-discussed trying increase of gabapentin 300 mg po. If improvement noted, discuss with PCP on continuing and refills-She was also referred to pain mgt by PCP, waiting on appt.-She reports losing her cane last week- would like a new one- will put in DME request for standard cane.-She reports her PCP put in a request for a rolling walker. 2024-04-22 12:55:38 Televideo 10-29min; 1 minor problem; add add modifier 95 for video, modifier 93 for phoneContinue to see PCP. Follow-up with [facility] as needed for any acute or disease education needs that may arise 02/11.Stablealbuterol, symbicort, BretrziMonitor for SOBOn supplemental oxygen as needed. follows with PCP03/21/24-last used 3 days ago due to nasal congestion-has allergies around this time of year. reports she has nasal antihistamine and will start using it1.11.25productive cough with green mucous and dyspneasymptoms x 2 weeksstart cefdinir bid x 10 days, mucinex biduse albuterol inh q 3 hours prn while symptoms presentcontinue other inhalers as prescribedtylenol prn for headacherest and hydratecb mohan fu scheduled wednesday. contact cb sooner if needed 2024-04-19 09:41:00 Discharge medication s reconciled with current medication listAdvance care planning discussed and documented advance care plan or surrogate decision-maker was documented in t e medical record. (1123F)Estab. patient 10-29min; 1 minor problem; add add modifier 93 for phonePCP visit is planned for:methadone 135mg PO daily 5mg/5ml h/o heroin use+UDS on 04/17/24 ER admit for cocaine and fentanylwill discuss in future visitsadmit 04/17/24: Tell me about your recent hospital stay(s) or ER visit(s) and precipitating factors: chest pain, sob, nasal congestion Reason for Hospitalization and summary of hospital course: presented to ED for chest pain and back pain wfor the past 3 days. PE +for slight bruising on thoracic upper lumbar area. Patient lives alone and has h/o RUBY/metal falling while at home, although patient denies falling but does have some bruising upper back family notes bruis on back but it looks like pigmentation issue not bruising. EXF-VWMLLE-xy acute processC T: no acute process in abd/chest/pelvisviral panel and ddimer: nlserum crea 0.90BNP elevated/mild 120UDS: +fentanyl, +methadone, +cocaine, ETOH-neg+COVID infectiontx c IV sterouds, joyce, 04/19/24continues to have chest congestion with wheezing, denies feverPLAN: pred taperStart above and expect to feel better in 48-72 hrs - call CB if you are not improving. ER if you are short of breath or weak.Rest. Increase fluids to help your immune system - tea, broth, water, diluted juice. Raw local honey 1 TBSP throughout day has natural antimicrobial properties.Steam shower 15min before bed and few times / day to open airway and clear congestion. Stop Afrin as can worsen your congestion after using 3 + days. Inhaler puffer 4/ day for bronchodilationStablefurosemide, amlodipineChronic edemaMonitor for BLE swelling, cardiac s/sx (eg. palpitations) and continue to follow with cardiologist05/06denies LE swellingCOPD CONTINGENCY PLANLast updated: 04/19/2024Member to call for the following symptoms: Increased cough / WheezingPlanned intervention: Increase use of albuterol inhaler to q2h PRN cough, breathlessness/ prednisone taper 40mg x 3 days, 30mg x 3 days, 20mg x 3 days, 10mg x 3 days/ augmentin BID x 7 days/ Mucinex 600mg q12h with a full glass of water to thin secretions 2024-04-25 13:47:07 Estab. patient 10-29 min; 1 minor problem; modifier 93 for phoneContinue to see PCP. Follow-up with [facility] as needed for any acute or disease education needs that may arise 02/11.Stablealbuterol, symbicort, BretrziMonitor for SOBOn supplemental oxygen as needed. follows with PCP03/21/24-last used 3 days ago due to nasal congestion-has allergies around this time of year. reports she has nasal antihistamine and will start using it1..25productive cough with green mucous and dyspneasymptoms x 2 weeksstart cefdinir bid x 10 days, mucinex biduse albuterol inh q 3 hours prn while symptoms presentcontinue other inhalers as prescribedtylenol prn for headacherest and hydratecb mohan fu scheduled wednesday. contact cb sooner if needed04/25/24: cefdinir has taken x 2 days. Did not receive pred taper yet. Feeling a bit better today. PLAN: send pred taper and saline rinsesCOPD CONTINGENCY PLANLast updated: 04/19/2024Member to call for the following symptoms: Increased cough / WheezingPlanned intervention: Increase use of albuterol inhaler to q2h PRN cough, breathlessness/ prednisone taper 40mg x 3 days, 30mg x 3 days, 20mg x 3 days, 10mg x 3 days/ augmentin BID x 7 days/ Mucinex 600mg q12h with a full glass of water to thin secretionsback and leg pain R>L gabapentin Follows with PCP12/01/23: Today, member states she has chronic pains, back pains, joint pains. She is awaiting a specialist appointment. She is interested in trialing Lidoderm patches, will escribe. 01/04/24: Sciatica is bothering her. Called her PCP. She states they want to send her to a rn ed due to left ankle edema. Started several weeks ago. Denies fall or trauma. Denies redness, discoloration or warmth to the touch. Pain feels different than gout flare. Typically gets flare in her big toe. She called to schedule an appt and is waiting for them to call her back. She is using Lidoderm patches. She would like to try Voltaren gel. Sent refill for naproxen as she ran out. Discussed with member potential interaction of naproxen with sertraline and verbalized understanding that she should call CB with any new symptoms and stop taking naproxen. 03/21/24:-reports lidocaine patch has been helpful, but still in pain-discussed trying increase of gabapentin 300 mg po. If improvement noted, discuss with PCP on continuing and refills-She was also referred to pain mgt by PCP, waiting on appt.-She reports losing her cane last week- would like a new one- will put in DME request for standard cane.-She reports her PCP put in a request for a rolling walker. 04/25/24: has had >3 falls in the past months r/t LE weakness DME needs: walker, bedside commode, PT for LE strengthening WIll order above during [facility] 04/282024-04-28 12:11:58 Functional Status As sessed (1170F)Advance Care Directive Advance care planning discussion documented in the medical record (1158F)Advance care planning discussed and documented advance care plan or surrogate decision-maker was documented in the medical record. (1123F)SBP 130-139 (3075F)DBP <80 (3078F)Estab. patient 20-29min; 1 stable chronic or 2 minor; add add modifier 95 for video, modifier 93 for phoneMedication List Documented (1159F)Medication Review by prescribing pr ovider or pharmacist documented (1160F)Pain Assessment - Pain Documented on a Pain Scale (1125F)Continue to see PCP. [facility] or disease education needs that may arise.Continues on metforminGlucose: ~100-110A1c: recommended to obtain, no recent outside records to reviewRenal: recommended blood/urine testing, no recent outside records to reviewCV: +HF, HLD (simvastatin)Neuropathy: +feet - gabapentin Eyes: deniesFollows with PCPRecommend low carb/sugar diet, exercise, monitor BG; notify CB of high/low glucose levels 04/28/24-continue current treatment plan-emphasized importance of diet modifications, exercise as tolerated, weight loss-Follows PCPCOPD CONTINGENCY PLANLast updated: 04/19/2024Member to call for the following symptoms: Increased cough / WheezingPlanned intervention: Increase use of albuterol inhaler to q2h PRN cough, breathlessness/ prednisone taper 40mg x 3 days, 30mg x 3 days, 20mg x 3 days, 10mg x 3 days/ augmentin BID x 7 days/ Mucinex 600mg q12h with a full glass of water to thin secretionsStableSertraline, trileptal, mirtazepine, risperidoneDenies SI/HIReports seeing a therapist, denies psychiatristMonitor for worsening depression, billy, safety, coping mechanisms reviewed, and continue with PCP.Stablefurosemide, amlodipineChronic edemaMonitor for BLE swelling, cardiac s/sx (eg. palpitations) and continue to follow with cardiologist05/06denies LE swellingStableAllopurinolDietary interventions and continue to follow up pcpStablealbuterol, symbicort, BretrziMonitor for SOBOn supplemental oxygen as needed. follows with PCP03/21/24-last used 3 days ago due to nasal congestion-has allergies around this time of year. reports she has nasal antihistamine and will start using it1..25productive cough with green mucous and dyspneasymptoms x 2 weeksstart cefdinir bid x 10 days, mucinex biduse albuterol inh q 3 hours prn while symptoms presentcontinue other inhalers as prescribedtylenol prn for headacherest and hydratecb mohan fu scheduled wednesday. contact cb sooner if needed04/25/24: cefdinir has taken x 2 days. Did not receive pred taper yet. Feeling a bit better today. PLAN: send pred taper and saline rinses 04/28/24feels much better. Denies SOB or wheezing today.back and leg pain R>L gabapentin Follows with PCP12/01/23: Today, member states she has chronic pains, back pains, joint pains. She is awaiting a specialist appointment. She is interested in trialing Lidoderm patches, will escribe. 01/04/24: Sciatica is bothering her. Called her PCP. She states they want to send her to a rn ed due to left ankle edema. Started several weeks ago. Denies fall or trauma. Denies redness, discoloration or warmth to the touch. Pain feels different than gout flare. Typically gets flare in her big toe. She called to schedule an appt and is waiting for them to call her back. She is using Lidoderm patches. She would like to try Voltaren gel. Sent refill for naproxen as she ran out. Discussed with member potential interaction of naproxen with sertraline and verbalized understanding that she should call CB with any new symptoms and stop taking naproxen. 03/21/24:-reports lidocaine patch has been helpful, but still in pain-discussed trying increase of gabapentin 300 mg po. If improvement noted, discuss with PCP on continuing and refills-She was also referred to pain mgt by PCP, waiting on appt.-She reports losing her cane last week- would like a new one- will put in DME request for standard cane.-She reports her PCP put in a request for a rolling walker. 04/25/24: has had >3 falls in the past months r/t LE weakness DME needs: walker, bedside commode, PT for LE strengthening WIll order above during [facility] : reports 3 falls in the past week. +LE sodirdiu31/10/24: BMI: 43.90+HTN, +DMFollow with PCPAdvised to eat a healthy diet include emphasizing fruits, vegetables, whole grains, poultry, fish and nuts and limiting sugary foods and beverages. Eating this way may help increase fiber, which is also beneficial. A diet high in fiber can help lower cholesterol levels by as much as 10 percent. DASH diet. Increase exercise to 30-45 min q day. Decrease sugary drinks, stop soda intake. Limit ETOH intake. If you smoke, quit smoking.admit 04/17/24: Tell me about your recent hospital stay(s) or ER visit(s) and precipitating factors: chest pain, sob, nasal congestion Reason for Hospitalization and summary of hospital course: presented to ED for chest pain and back pain wfor the past 3 days. PE +for slight bruising on thoracic upper lumbar area. Patient lives alone and has h/o RUBY/metal falling while at home, although patient denies falling but does have some bruising upper back family notes bruis on back but it looks like pigmentation issue not bruising. [id number] acute processC T: no acute process in abd/chest/pelvisviral panel and ddimer: nlserum crea 0.90BNP elevated/mild 120UDS: +fentanyl, +methadone, +cocaine, ETOH-neg+COVID infectiontx c IV sterouds, neb, 04/19/24continues to have chest congestion with wheezing, denies feverPLAN: pred taperStart above and expect to feel better in 48-72 hrs - call CB if you are not improving. ER if you are short of breath or weak.Rest. Increase fluids to help your immune system - tea, broth, water, diluted juice. Raw local honey 1 TBSP throughout day has natural antimicrobial properties.Steam shower 15min before bed and few times / day to open airway and clear congestion. Stop Afrin as can worsen your congestion after using 3 + days. Inhaler puffer 4/ day for bronchodilationmethadone 135mg PO daily 5mg/5ml h/o heroin use+UDS on 04/17/24 ER admit for cocaine and fentanylwill discuss in future visits 2024-05-30 07:27:24 Estab. patient 10-29 min; 1 minor problem; add add modifier 95 for video, modifier 93 for phoneContinue to see PCP. Follow-up with [facility] as needed for any acute or disease education needs that may arise 02/11.Advance Care Plan and Serious Illness ConversationDate of Conversation: 05/30/2024Life Limiting Diagnosis: Diagnosis: CHF, COPDCurrently on Hospice NoDo you have a Durable Power of Neon Tube Pumper for Healthcare, or Healthcare Proxy Or Guardianship? Yes, preferred proxy but not named POAIf so, Who? daughter [phone] [place] Do you have a written Advance Directive? NoPrognostic Understanding: No understanding of prognosisInformation: Patient wants to be fully informedToday's prognostic communication: managable condition, life expectancy several yearsGoals: live as long as possible, no matter what Fears/Worries: pain Strength: Family Discussion: wants clinician to talk with familyCode Status: YES CPR: Attempt ResuscitationGoals of Care: Curative: Attempt to sustain life by all medically effective meansToday's plan: Repeat discussion in <6> monthsOther details of discussion: (Who was present: member Ivette Elliott and leg pain R>L gabapentin Follows with PCP12/01/23: Today, member states she has chronic pains, back pains, joint pains. She is awaiting a specialist appointment. She is interested in trialing Lidoderm patches, will escribe. 01/04/24: Sciatica is bothering her. Called her PCP. She states they want to send her to a rn ed due to left ankle edema. Started several weeks ago. Denies fall or trauma. Denies redness, discoloration or warmth to the touch. Pain feels different than gout flare. Typically gets flare in her big toe. She called to schedule an appt and is waiting for them to call her back. She is using Lidoderm patches. She would like to try Voltaren gel. Sent refill for naproxen as she ran out. Discussed with member potential interaction of naproxen with sertraline and verbalized understanding that she should call CB with any new symptoms and stop taking naproxen. 03/21/24:-reports lidocaine patch has been helpful, but still in pain-discussed trying increase of gabapentin 300 mg po. If improvement noted, discuss with PCP on continuing and refills-She was also referred to pain mgt by PCP, waiting on appt.-She reports losing her cane last week- would like a new one- will put in DME request for standard cane.-She reports her PCP put in a request for a rolling walker. 04/25/24: has had >3 falls in the past months r/t LE weakness DME needs: walker, bedside commode, PT for LE strengthening WIll order above during [facility] : reports 3 falls in the past week. +LE weaknessStablealbuterol, symbicort, BretrziMonitor for SOBOn supplemental oxygen as needed. follows with PCP03/21/24-last used 3 days ago due to nasal congestion-has allergies around this time of year. reports she has nasal antihistamine and will start using it1.11.25productive cough with green mucous and dyspneasymptoms x 2 weeksstart cefdinir bid x 10 days, mucinex biduse albuterol inh q 3 hours prn while symptoms presentcontinue other inhalers as prescribedtylenol prn for headacherest and hydratecb mohan fu scheduled wednesday. contact cb sooner if needed04/25/24: cefdinir has taken x 2 days. Did not receive pred taper yet. Feeling a bit better today. PLAN: send pred taper and saline rinses 05/30/24feels much better. Denies SOB or wheezing today.FALL CONTINGENCY PLANMember to call for the following symptoms: Fall / Vertigo/ WeaknessPlanned intervention[facility] extra fluid [facility] / Assess for change in mental status and provide reassurance if none (patient's Baseline is AA&Ox4) / Review importance of sitting for two to three minutes prior to standing after laying downincreased LE weakness R29.6, and frequent falls R29.: reports 3 falls in the past week. +LE weakness Fall prevention TIPS: Wear sensible shoes. Remove home hazards (Get rid of all rugs/mats in your home). Light up your living space (keep a flash light next to your bed for night time). Use assistive devices. 2024-09-05 13:28:10 Estab. patient 10-29 min; 1 minor problem; add add modifier 95 for video, modifier 93 for phoneContinue to see PCP. Follow-up with [facility] as needed for any acute or disease education needs that may arise 02/11.back and leg pain R>L gabapentin Follows with PCP12/01/23: Today, member states she has chronic pains, back pains, joint pains. She is awaiting a specialist appointment. She is interested in trialing Lidoderm patches, will escribe. 01/04/24: Sciatica is bothering her. Called her PCP. She states they want to send her to a rn ed due to left ankle edema. Started several weeks ago. Denies fall or trauma. Denies redness, discoloration or warmth to the touch. Pain feels different than gout flare. Typically gets flare in her big toe. She called to schedule an appt and is waiting for them to call her back. She is using Lidoderm patches. She would like to try Voltaren gel. Sent refill for naproxen as she ran out. Discussed with member potential interaction of naproxen with sertraline and verbalized understanding that she should call CB with any new symptoms and stop taking naproxen. 03/21/24:-reports lidocaine patch has been helpful, but still in pain-discussed trying increase of gabapentin 300 mg po. If improvement noted, discuss with PCP on continuing and refills-She was also referred to pain mgt by PCP, waiting on appt.-She reports losing her cane last week- would like a new one- will put in DME request for standard cane.-She reports her PCP put in a request for a rolling walker. 04/25/24: has had >3 falls in the past months r/t LE weakness DME needs: walker, bedside commode, PT for LE strengthening WIll order above during [facility] : reports 3 falls in the past week. +LE weakness 09/05/2024 -reports that her pain is at a9/10 at times. Member is asking for a refill of lidocaine patches. Refill sent.Stablealbuterol, symbicort, BretrziMonitor for SOBOn supplemental oxygen as needed. follows with PCP03/21/24-last used 3 days ago due to nasal congestion-has allergies around this time of year. reports she has nasal antihistamine and will start using it1.11.25productive cough with green mucous and dyspneasymptoms x 2 weeksstart cefdinir bid x 10 days, mucinex biduse albuterol inh q 3 hours prn while symptoms presentcontinue other inhalers as prescribedtylenol prn for headacherest and hydratecb mohan fu scheduled wednesday. contact cb sooner if needed04/25/24: cefdinir has taken x 2 days. Did not receive pred taper yet. Feeling a bit better today. PLAN: send pred taper and saline rinses 05/30/24feels much better. Denies SOB or wheezing today. 09/05/2024Member asked for a refill of her Albuterol. Denies current shortness of breath. Courtesy Refill sent inFALL CONTINGENCY PLANMember to call for the following symptoms: Fall / Vertigo/ WeaknessPlanned intervention: [facility] extra fluid intake / Assess for change in mental status and provide reassurance if none (patient's Baseline is AA&Ox4) / Review importance of sitting for two to three minutes prior to standing after laying downPAIN CONTINGENCY PLANLast updated: 09/05/2024Member to call for the following symptoms: Fall / Increased pain/ Increased pain medsPlanned intervention: Lidoderm patch 4% to affected area/ Prednisone 50mg daily for 5 days Goals Date Goal 2022-06-02 Remember to keep all appointments with your PCP. 2022-06-02 Call if you have que stions or concerns before you go to the ER. 2022-06-02 Discussed how to con tact [facility] via phone or tablet. 2023-12-28 Remember to adhere t o dietary interventions and exercise as tolerable. 2023-12-28 Contact us if develo ping acute cardiac (eg. palpitations, BLE fluid fluid), flank pain, SOB, worsening pain, HHS, DKA, or health-related concern. 2023-12-28 Continue taking medi cations as prescribed and f/u care and monitoring with PCP every 3-6 months. 2024-03-21 Continue taking medi cations as directed and keep all follow up appointments with established PCP and Specialist. 2024-03-21 At least 50% of time spent counseling patient, discussing diagnosis, treatment plan, complicance, and coordinating follow up care. 2024-09-05 Continue taking medi cations as directed and keep all follow up appointments with established PCP and Specialist. Health Concerns Date Concern 2024-09-05 Visit completed via audio by telephone. Informed verbal consent was obtained from this patient to communicate and provide care using virtual and other telecommunications tools. This patient has been explained the risks, if any, related to the encounter. I explained that care provided through video or audio communication cannot replace the need for physical examination or an in-person visit for some disorders or urgent problems. Patient/Guardian agreed to visit via telehealth. 2024-09-05 Most recent hospital stay(s) or ER visit(s) and precipitating factors: Denies Er or hospital visits
== END 2024-11-01 13:25 | disposition home or self-care (01) ==
LOC: HO.HMCH 12:30
PROVIDERS: PCP Internal Medicine; Visit Provider Internal Medicine
DX: Z00.00 Encounter for general adult medical examination without abnormal findings (principal); F31.9 Bipolar disorder, unspecified; F11.20 Opioid dependence, uncomplicated; E11.65 Type 2 diabetes mellitus with hyperglycemia; J44.9 Chronic obstructive pulmonary disease, unspecified; M25.50 Pain in unspecified joint; M51.369 Other intervertebral disc degeneration, lumbar region without mention of lumbar back pain or lower extremity pain; G47.33 Obstructive sleep apnea (adult) (pediatric)

== ENCOUNTER → 2024-11-01 12:30 | Outpatient (BNVA) | payer OTHER, SELFPAY | PROVIDERS: PCP Internal Medicine; Visit Provider Internal Medicine | DX: Z00.01 Encounter for general adult medical examination with abnormal findings (principal); F31.9 Bipolar disorder, unspecified; F11.20 Opioid dependence, uncomplicated; E11.65 Type 2 diabetes mellitus with hyperglycemia; M25.50 Pain in unspecified joint; M51.369 Other intervertebral disc degeneration, lumbar region without mention of lumbar back pain or lower extremity pain; J44.9 Chronic obstructive pulmonary disease, unspecified; G47.33 Obstructive sleep apnea (adult) (pediatric) | CPT/HCPCS: 96127; 99212; 99397 ==

== ENCOUNTER 2024-11-09 08:48 | Outpatient (REF) | payer OTHER, SELFPAY ==
--- OUTSIDE RECORDS SUMMARY | 2024-11-09 09:05 | XMS_ITS | Clinical Summary ---
Author Organization [facility] ity Address [address] [place] [address] Care Team Providers Care Graphics Intern Name Role Phone Unavailable Primary Care Provider [...]
[2024-11-09 09:08] LABS: MANUAL DIFF FLAG NO
[2024-11-09 09:21] LABS: Hematocrit 40.8 % (37.0-47.0); Hemoglobin 13.9 g/dl (12.0-16.0); Imm Gran Abs Auto 0.05 X10*3/uL (0.00-0.03); Imm Gran Pct Auto 0.4 % (0.0-0.4); Lymphocytes Absolute Auto 2.8 X10*3/uL (1.2-4.9); Mean Corpuscular HGB Conc 34.1 g/dl (31.0-35.0); Mean Corpuscular Hemoglobin 29.2 pg (27.0-33.0); Mean Corpuscular Volume 85.7 fL (80.0-98.0); NRBC Abs Auto 0.000 X10*3/uL (0.0-0.012); NRBC Pct Auto 0.0 /100WBC (0.0-0.2); Platelet Count 233 X10*3/uL (160-400); Red Blood Count 4.76 X10*6/uL (4.20-5.50); White Blood Count 12.5 X10*3/uL (4.8-10.8)
[2024-11-09 09:58] LABS: Microalbum/Creatinine Ratio Ur 116.4 ug/mg cr (<30)
[2024-11-09 10:05] LABS: Alanine Aminotransferase 14 U/L (0-31); Albumin Level 4.3 g/dL (3.5-5.0); Alkaline Phosphatase 118 U/L (39-117); Anion Gap 14 (12-20); Aspartate Amino Transferase 23 U/L (5-31); Blood Urea Nitrogen 23 mg/dL (9-16); Calcium 9.5 mg/dL (8.4-10.2); Carbon Dioxide 38 mmol/L (22-29); Chloride 96 mmol/L (96-108); Cholesterol 173 mg/dL (<200); Estimated Glomerular Filt Rate 49; HDL Cholesterol 50 mg/dL (>40); Iron 63 mcg/dL (30-160); Percent Iron Saturation 22 % (15-50); Potassium 3.5 mmol/L (3.3-5.1); Sodium 144 mmol/L (135-145); Total Iron Binding Capacity 286 mcg/dL (228-428); Total Protein 7.5 g/dL (6.5-8.0); Triglycerides 142 mg/dL (<150); Unsaturated Iron Binding 223 ug/dL; Uric Acid 8.3 mg/dL (2.4-5.7)
[2024-11-09 10:24] LABS: Vitamin B12 486 pg/mL (200-900)
[2024-11-09 10:47] LABS: Folate 7.6 ng/mL (> or = 4.0)
== END 2024-11-09 08:49 | disposition home or self-care (01) ==
LOC: HO.LAB 08:48
PROVIDERS: PCP Internal Medicine; Visit Provider Internal Medicine
DX: Z00.00 Encounter for general adult medical examination without abnormal findings (principal); E53.8 Deficiency of other specified B group vitamins; I50.30 Unspecified diastolic (congestive) heart failure; M10.9 Gout, unspecified; E78.5 Hyperlipidemia, unspecified; E55.9 Vitamin D deficiency, unspecified; D64.9 Anemia, unspecified; R80.9 Proteinuria, unspecified
CPT/HCPCS: 36415; 80053; 80061; 82043; 82306; 82570; 82607; 82746; 83540; 83880; 84550; 85025

== ENCOUNTER 2024-12-20 10:54 | Outpatient (AMB) | payer OTHER, MEDICAID, SELFPAY ==
--- NOTE | 2024-12-20 10:59 | MHC.OFFVIS ---
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 The patient experiences insomnia and migraine headaches, with the latter recently becoming more frequent. She has a history of sleep apnea and uses a CPAP machine, although there have been issues with the equipment being outdated. Last sleep study was years ago at [facility]. Accompanied by: Self / Same As Patient Allergies Penicillins Allergy (Intermediate, Verified 12/20/24 11:03) RASH SOB HPI Comments Details: 69 year old female is here for a sleep apnea evaluation, she is referred to us by her PCP. 11/2018 HST c/w AHI is 7/ hr and oxygen level desaturation to 77% with respiratory failure. Severe TESS with central apneas, check pulmonary respiratory failure with copd/ she is on 2l O2 at night now. She had insomnia for years and was taking ambien, and now she is taking risperidone but it did not work for her. She has anxiety and depression on Sertraline 50mg po daily. Her memory is poor and has a VNA visits daily for methadone doses. She smokes 5 cigarettes daily and is trying to quit. She has asthma and on 3 inhalers. She is chronically fatigued and has difficulty falling asleep but also staying asleep. She wakes up with headaches which can last for days and has to go the ED to get IV infusions gill's cocktails, etc. Headache starts in her frontal to parietal area, with sharp migrating pain to her stomach, she has n/v and auras with flashing lights and vision changes. She has phootophobia /phonophobia, with vertigo, balance and gait difficulties, denies falls, ambulates with a cane. She has to go into a dark room and lay down for hours and then headaches improve after sleeping it off. Her A1c is 8.5 checked with visiting /HOSPITAL WELLNESS COORDINATOR/Nurse and she is on metformin 1000mg PO BID along with Trulicity subq 1x week recent addition, will f/u with her pcp. She has gout in R. toe and is on 2 meds, allopurinol for flares and colchicine maintenance. The flareups can be severe and wake her up several times at night. She has RLS with burning, pins, needles and paresthesias. [facility] Medical History Morbid obesity ACS (acute coronary syndrome) History of heroin use BiPAP (biphasic positive airway pressure) dependence COPD (chronic obstructive pulmonary disease) Diabetic acidosis, type I Hx of drug dependence Arthritis Back pain History of blood transfusion Anemia Diabetes GERD (gastroesophageal reflux disease) Hx of anxiety disorder Hx of bipolar disorder History of headache Depression Sleep apnea Oxygen dependent COPD (chronic obstructive pulmonary disease) Asthma Elevated cholesterol HTN (hypertension) Surgical History S/P cardiac cath History of esophagogastroduodenoscopy (EGD) H/O colonoscopy Hx of total knee replacement Hx of arthroscopic knee surgery Hx of section Hx of foot surgery Family History Father Heart disease Mother Heart disease Family/Other Mental health disorder Substance use disorder Social History Household Members: None Housing: Apartment Do you presently have visiting nurse or other home services: Yes Alcohol intake: current Alcohol intake frequency: a few times a week Alcohol type: beer and wine Patient Tobacco Use Status: Current everyday Tobacco user Tobacco use type: Cigarette Cigarettes Per Day: 5 Years Smoked: 50 e-Cigarette/Vaping Use: Never Used Second Hand Smoke Exposure: No Substance Use Type: Former Substance User service: No Current occupational status: disabled Current occupation: right handed Cognitive needs: Yes Hearing needs: No Vision needs: Yes Physical Exam Vital Signs: Last Vital Signs Pulse 53 12/20/24 11:05 BP 124/78 12/20/24 11:05 Pulse Ox 94 12/20/24 11:05 Oxygen Delivery Method Room Air 12/20/24 11:05 BMI result Body Mass Index 36.0 Const General: cooperative, comfortable and tired appearing Nutritional Appearance: obese and overweight Orientation/consciousness: patient oriented x3 Limitations: ambulation with cane HEENT Other: edentulous Face and sinus: Yes face symmetric Teeth and gingiva: other (mallampti score of 2) Neck Neck: Yes full ROM Resp Effort & Inspection: normal respiratory effort and able to speak in complete sentences Neuro General: patient oriented x3 and moves all extremities Cranial nerves: Yes Normal accommodation reflex present, Yes Nystagmus not present, Yes Normal facial strength present, Yes Midline tongue present, Yes Ability to bilaterally rotate head present and Yes Ability to bilaterally elevate shoulders present Gait exam (Neuro): Assisted gait required and Assistive device used Motor exam (neuro): Abnormal motor strength present and Abnormal muscle tone present Psych Appearance: well kempt Speech and movement: Slowed movement present (Neuro) Results Reviewed Results Reviewed: INTERPRETATION: No obstructive ventilatory defects. No significant response to bronchodilators noted. There is a moderate decrease in maximum voluntary ventilation secondary likely to deconditioning, although cannot rule out neuromuscular conditions. Lung volumes are low normal, and she has a significantly decreased expiratory reserve volume secondary to likely an elevated BMI. The patient does have a mild diffusion impairment, which partially corrects when correcting for the alveolar volume. Need to consider correcting for hemoglobin. Also consider pulmonary vascular conditions. Clinical correlation warranted. HST 11/2028 AHI is 6.9 and Oxygen Nadirs to 77% with pulmonary / respiratory complications: COPD and on 2l/ O2 at night. Mainly central sleep apnea. Assessment & Plan Assessment & Plan (1) Excessive daytime sleepiness: Code(s): G47.19 - Other hypersomnia Category: Medical (2) Bilateral headaches: Code(s): R51.9 - Headache, unspecified Category: Medical (3) Loud snoring: Code(s): R06.83 - Snoring Category: Medical (4) TESS (obstructive sleep apnea): Code(s): G47.33 - Obstructive sleep apnea (adult) (pediatric) Category: Medical (5) Chronic respiratory failure with hypercapnia: Code(s): J96.12 - Chronic respiratory failure with hypercapnia Category: Medical Plan PSG inlab to r/o tess. COPD she has 2 liter of oxygen at night as needed for respiratory failure per capsule filling machine operator. Labs to r/o fatigue Chronic Headaches Amytriptyline 10mg po qhs, may take one extra at night if headache does not go away. Migraine cap for headaches, peppermint oil one dab each jewish for headaches, and jayla tea for n/v. Manage A1c with pcp/ vna metformin 1000mg PO BID and Trulicity suq1x weekly. Gout continue colchicine and allopurinol. Orders: Orders RT PSG in-lab sleep study Today G47.19 - Other hypersomnia, G47.33 - Obstructive sleep apnea (adult) (pediatric) Vitamin D 25-OH Total Today G47.19 - Other hypersomnia Vitamin B1 Today G47.19 - Other hypersomnia Ferritin Today G47.19 - Other hypersomnia Vitamin B6 Today G47.19 - Other hypersomnia Vitamin B12 and Folate Today G47.19 - Other hypersomnia TSH reflex Free T4 Today G47.19 - Other hypersomnia Methylmalonic Acid Today G47.19 - Other hypersomnia, G47.9 - Sleep disorder, unspecified, R53.83 - Other fatigue Homocysteine Today G47.19 - Other hypersomnia, G47.9 - Sleep disorder, unspecified, R53.83 - Other fatigue Hemoglobin A1c Today G47.19 - Other hypersomnia IRON PROFILE Today G47.19 - Other hypersomnia, G47.9 - Sleep disorder, unspecified, R53.83 - Other fatigue Medications: New amitriptyline may take one additional pill if the headache does not go away. 10 mg PO BEDTIME 45 tabs 0RF headaches 1 month MDD 20mg R51.9 - Headache, unspecified Patient Instructions: Sleep Hygiene provided: set a scheduled bedtime and wake time to help regulate the circadian rhythm and balance the release of pituitary hormones. Sleep in a dark room, temperatures below 68 degrees, and no devices n bed. Limit caffeinated products 6 hours prior to bed, and limit fluids 2-4 hours prior to bed. Gentle night yoga, diffusing essential oils, and playing soft music can be relaxing. Coding Level of Care Code New Pt Level 4 (70571) Diagnoses Excessive daytime sleepiness G47.19 Bilateral headaches R51.9 Loud snoring R06.83 TESS (obstructive sleep apnea) G47.33 Chronic respiratory failure with hypercapnia J96.12 Sleep Questionnaire Difficulty falling asleep: Yes Difficulty staying asleep?: Yes Snoring: Yes Witnessed apneas: Yes Gasping arousals: Yes Nocturia: No GERD: Yes Vivid dreams: No Acting out dreams: No Abnormal behavior in sleep: No Abnormal movements in sleep: No Morning headaches: Yes Excessive daytime sleepiness: Yes Daytime naps: Yes Restless legs: Yes Hallucinations: No Sleep paralysis: No Drop attacks: No Sleep Study: Yes CPAP: Yes
[2024-12-20 11:05] VITALS: BP 124/78; PULSE 53; O2SAT 94; BMI 36.0
--- OUTSIDE RECORDS SUMMARY | 2024-12-20 13:50 | XMS_ITS ---
Author Name Marisabel Marie NP Address [address] [place] [address] Phone [phone] [facility] Care Team Providers Care Repair Servicer Name Role Phone Marisabel Marie Unavailable [phone] Unavailable Unavailable Unavailable LAST PRINCE Unavailable [phone] Reason for Referral Not Available Allergies, adverse [...] (9 0 Base) MCG/ACT Aerosol Solution Inhalation INHALE 2 PUFFS BY MOUTH EVERY 4 HOURS [...] 30 DAYS 2023-05-19 No Data Available Ipratropium [place] 0.06 % Solution SPRAY 2 SPRAYS INTO [...] 1 mg Tab TAKE 1 TABLET BY [facility] AT BEDTIME FOR 30 DAYS 2023-12-23 No [...] every 12 hours 2024-04-22 No Data Available [place] Nasal [place] 0.65 % Solution Nasal 2 sprays intranasally [...] it looks like pigmentation issue not bruising. [id number] acute processC T: no acute process in [...] NoDo you have a Durable Power of Blindmaker for Healthcare, or Healthcare Proxy Or Guardianship? [...] they want to send her to a service delivery analyst due to left ankle edema. Started several [...] has nasal antihistamine and will start using it.03.06productive cough with green mucous and dyspneasymptoms x [...] / Vertigo/ WeaknessPlanned intervention: Order x[facility] Encourage extra fluid intake / Assess for [...] Date of Service Diagnosis/Complaint No Data Available [facility] Gout, unspecified No Data Available [facility] [place] New patient,40-59min; chronic exacerbation, 2 stable chronic or 1 acute illness add add modifier 95 for video (do not use for phone, instead use [id number]) [facility] [place]2022 Type 2 diabetes mellitus wit h diabetic polyneuropathyType 2 diabetes mellitus with other specified complicationHyperlipidemia, unspecifiedBipolar II disorderGout, unspecifiedChronic obstructive pulmonary disease, unspecifiedDependence on supplemental oxygenRadiculopathy, lumbar regionMorbid (severe) obesity due to excess caloriesHeart failure, unspecifiedSecondary hyperaldosteronism New patient,40-59min; chronic exacerbation, 2 stable chronic or 1 acute illness add add modifier 95 for video (do not use for phone, instead use [id number]) [facility] [place] New patient,40-59min; chronic exacerbation, 2 stable chronic or 1 acute illness add add modifier 95 for video (do not use for phone, instead use 11580-53) [facility] [place] New patient,40-59min; chronic exacerbation, 2 stable chronic or 1 acute illness add add modifier 95 for video (do not use for phone, instead use [id number]) [facility] [place] New patient,40-59min; chronic exacerbation, 2 stable chronic or 1 acute illness add add modifier 95 for video (do not use for phone, instead use 29561-84) [facility] [place] New patient,40-59min; chronic exacerbation, 2 stable chronic or 1 acute illness add add modifier 95 for video (do not use for phone, instead use 66526-47) [facility] [place] New patient,40-59min; chronic exacerbation, 2 stable chronic or 1 acute illness add add modifier 95 for video (do not use for phone, instead use 08228-40) [facility] [place] New patient,40-59min; chronic exacerbation, 2 stable chronic or 1 acute illness add add modifier 95 for video (do not use for phone, instead use 81416-26) [facility] [place] New patient,40-59min; chronic exacerbation, 2 stable chronic or 1 acute illness add add modifier 95 for video (do not use for phone, instead use 93972-26) [facility] [place] No Data Available [facility] [place] 12[place]/2023 Type 2 diabetes mellitus wit h [...] index (BMI) 40.0-44.9, adult No Data Available [facility] [place] No Data [place] [facility] [place] No Data Available [facility] [place] No Data Available [facility] [place] No Data Available [facility] [place] No Data Available [facility] [place]20[place] Type 2 diabetes mellitus wit [...] and other health care No Data Available [facility] [place] No Data Available [facility] [place] No Data Available [facility] [place] No Data Available [facility] [place] No Data Available [facility] [place] No Data Available [facility] [place] No Data Available [facility] [place] No Data Available [facility] [place] No Data Available [facility] [place] Estab. patient 20-29min; 1 stable chronic or 2 minor; add add modifier 95 for video, modifier 93 for phone [facility] [place]2024 Radiculopathy, lumbar region Other problems related to medical facilities and other health care Estab. patient 20-29min; 1 stable chronic or 2 minor; add add modifier 95 for video, modifier 93 for phone [facility] [place] 01[place]04[place]2024 No Data Available [facility] [place] 02/11/2024 Type 2 diabetes mellitus wit h diabetic polyneuropathyType 2 diabetes mellitus with other specified complicationHyperlipidemia, unspecifiedOther problems related to medical facilities and other health careBipolar II disorderHeart failure, unspecifiedSecondary hyperaldosteronismGout, unspecifiedChronic obstructive pulmonary disease, unspecifiedDependence on supplemental oxygenChronic respiratory failure with hypoxiaChronic kidney disease, stage 3bRadiculopathy, lumbar regionMorbid (severe) obesity due to excess caloriesBody mass index (bmi) 39.0-39.9, adult No Data Available [facility] [place] 02/11/2024 No Data Available [facility] [place] 02/11/2024 No Data Available [facility] [place] 02/11/2024 No Data Available [facility] [place] 02/[place]/2024 No Data Available [facility] [place] 03/21/2024 Type 2 diabetes mellitus wit h other specified complicationChronic kidney disease, stage 3bHyperlipidemia, unspecifiedType 2 diabetes mellitus with diabetic neuropathy, unspecifiedOther problems related to medical facilities and other health careBipolar II disorderHeart failure, unspecifiedSecondary hyperaldosteronismGout, unspecifiedChronic obstructive pulmonary disease, unspecifiedDependence on supplemental oxygenChronic respiratory failure with hypoxiaRadiculopathy, lumbar regionUnsteadiness on feetMorbid (severe) obesity due to excess caloriesOther specified counseling No Data Available [facility] [place] 03/[place]/2024 No Data Available [facility] [place] 03/[place]/2024 No Data Available [facility] [place] 03[place]/20[place] Estab. patient 10-29min; 1 minor problem; add add modifier 95 for video, modifier 93 for phone [facility] [place] 04/[place]/2024 Chronic obstructive pulmonar y disease, unspecifiedDependence on supplemental oxygenChronic respiratory failure with hypoxia Estab. patient 10-29min; 1 minor problem; add add modifier 95 for video, modifier 93 for phone [facility] [place] 04/22/2024 Estab. patient 20-29min; 1 stable chronic or 2 minor; add add modifier 95 for video, modifier 93 for phone [facility] [place] Heart failure, unspecifiedSe condary hyperaldosteronismOther [...] 95 for video, modifier 93 for phone [facility] [place] Chronic obstructive pulmonar [...] [facility] [place] Estab. patient 10-29min; 1 minor problem; add add modifier 95 for video, modifier 93 for phone [facility] [place]2024 Chronic respiratory failure with hypoxiaChronic obstructive pulmonary disease, unspecifiedRadiculopathy, lumbar regionUnsteadiness on feetDependence on supplemental oxygenOther specified counselingOther problems related to medical facilities and other health careOther symptoms and signs involving the musculoskeletal systemRepeated falls Estab. patient 10-29min; 1 minor problem; add add modifier 95 for video, modifier 93 for [facility] [place]2024 Radiculopathy, lumbar regionUnsteadiness on feetChronic obstructive pulmonary disease, unspecifiedDependence on supplemental oxygenChronic respiratory failure with hypoxiaOther problems related to medical facilities and other health care Estab. patient 10-29min; 1 minor problem; add add modifier 95 for video, modifier 93 for [facility] [place] 09/05/20[place] Estab. patient 10-29min; 1 minor problem; add add modifier 95 for video, modifier 93 for [facility] [place] 09/05/2024 Vital Signs Date of Collection Vitals [...] Current Smoking Status Current every day smoker 2024-12-20 Sex Female Gender identity Woman History of Procedures Procedures Service Procedure code Service date Servicing provider Phone# No Data Available [id number] 2022-06-02 No Data Available No Data Available Pain Assessment - Pain Documented on a Pain Scale (1125F) 1125F 2022-06-02 No Data Available No Data Roz ilable New patient,40-59min; chronic exacerbation, 2 stable chronic or 1 acute illness add add modifier 95 for video (do not use for phone, instead use [id number]) [id number] 2022-06-24 No Data Available No Data Availa [...] Available No Data Available No Data Available [id number] 2023-12-01 No Data Available No Data Available [...] No Data Availa ble No Data Available [id number] 2023-12-28 No Data Available No Data Available [...] 95 for video, modifier 93 for phone [id number] 2024-01-04 No Data Available No Data Availa ble Medication List Documented (1159F) 1159F 2024-01-04 No Data Available No Data Roz ilable No Data Available [id number] 2024-02-11 No Data Available No Data Available [...] No Data Avail able No Data Available [id number] 2024-03-21 No Data Available No Data Available SBP < 130 (3074F) 3074F 2024-03-21 No Data Available No Data Available DBP <80 (3078F) 3078F 2024-03-21 No Data Available No Data Available Medication List Documented (1159F) 1159F 2024-03-21 No Data Available No Data Roz ilable Estab. patient 10-29min; 1 minor problem; add add modifier 95 for video, modifier 93 for phone [id number] 2024-04-22 No Data Available No Data Availa ble Medication List Documented (1159F) 1159F 2024-04-22 No Data Available No Data Roz ilable Estab. patient 20-29min; 1 stable chronic or 2 minor; add add modifier 95 for video, modifier 93 for phone [id number] 2024-04-19 No Data Available No Data Availa [...] 95 for video, modifier 93 for phone [id number] 2024-04-25 No Data Available No Data Availa ble Medication List Documented (1159F) 1159F 2024-04-25 No Data Available No Data Roz ilable Estab. patient 20-29min; 1 stable chronic or 2 minor; add add modifier 95 for video, modifier 93 for phone [id number] 2024-04-28 No Data Available No Data Availa ble Medication Review by prescribing provider or pharmacist documented (1160F) 1160F 2024-04-28 No Data Available No Data Roz ilable SBP 130-139 (3075F) 3075F 2024-04-28 No Data Availabl e No Data Available DBP <80 (3078F) 3078F 2024-04-28 No Data Available N o Data Available Pain Assessment - Pain Documented [...] 95 for video, modifier 93 for phone [id number] 2024-05-30 No Data Available No Data Availa ble Estab. 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 Yes 2 Do you worry about falling? Yes DME [...] Gait instability 2024-04-28 12:11:58 Type 2 diabetes river itus with other [...] with PCPstabledenies CP, SOBBP: 120-130/80-90furosemide, amlodipineFollows with clothes drier assembler 2023-12-01 06:40:00 Phone (patient, pare nt, or guardian); 5-10 minutes of medical discussion (no modifier 95)Continue to see PCP. Follow-up with [facility] as needed for any acute [...] modifier 95Continue to see PCP. Follow-up with [facility] as needed for any acute or disease [...] they want to send her to a service delivery analyst due to left ankle edema. Started several [...] modifier 95)Continue to see PCP. Follow-up with [facility] as needed for any acute [...] they want to send her to a service delivery analyst due to left ankle edema. Started several [...] modifier 95)Continue to see PCP. Follow-up with [facility] as needed for any acute [...] they want to send her to a service delivery analyst due to left ankle edema. Started several [...] it looks like pigmentation issue not bruising. [id number]-[id number]-au acute processC T: no acute process in [...] they want to send her to a service delivery analyst due to left ankle edema. Started several [...] Scale (1125F)Continue to see PCP. Follow-up with Mario as [...] has nasal antihistamine and will start using it1..productive cough with green mucous and dyspneasymptoms x [...] they want to send her to a service delivery analyst due to left ankle edema. Started several [...] 3 falls in the past week. +LE veknzjqu50/10/24: BMI: 43.90+HTN, +DMFollow with PCPAdvised to eat [...] it looks like pigmentation issue not bruising. [id number] acute processC T: no acute process in [...] NoDo you have a Durable Power of Blindmaker for Healthcare, or Healthcare Proxy Or Guardianship? Yes, preferred proxy but not named POAIf so, Who? daughter [phone] Oderis Do you have a written Advance [...] they want to send her to a service delivery analyst due to left ankle edema. Started several [...] Vertigo/ WeaknessPlanned intervention: [facility] Encourage extra fluid intake / Assess for [...] for phoneContinue to see PCP. Follow-up with [facility] as needed for any acute [...] they want to send her to a service delivery analyst due to left ankle edema. Started several [...] Vertigo/ WeaknessPlanned intervention: [facility] Encourage extra fluid intake / Assess for [...]
== END 2024-12-20 11:54 | disposition home or self-care (01) ==
LOC: HO.HSMC 10:55
PROVIDERS: PCP Internal Medicine; Visit Provider Physician Assistant Medical
DX: G47.19 Other hypersomnia (principal); R51.9 Headache, unspecified; R06.83 Snoring; G47.33 Obstructive sleep apnea (adult) (pediatric); J96.12 Chronic respiratory failure with hypercapnia
CPT/HCPCS: 99204

== ENCOUNTER → 2024-12-20 10:54 | Outpatient (BNVA) | payer OTHER, SELFPAY | PROVIDERS: PCP Internal Medicine; Visit Provider Physician Assistant Medical | DX: G47.33 Obstructive sleep apnea (adult) (pediatric) (principal); G47.19 Other hypersomnia; R51.9 Headache, unspecified; J96.12 Chronic respiratory failure with hypercapnia; Z99.89 Dependence on other enabling machines and devices; F17.210 Nicotine dependence, cigarettes, uncomplicated | CPT/HCPCS: 99202 ==

== ENCOUNTER 2024-12-22 13:38 | Outpatient (REF) | payer OTHER, SELFPAY ==
--- NOTE | ~2024-12-22 | MM_ITS ---
EXAMINATION: MM SCREENING DIGITAL BREAST TOMOSYNTHESIS, BILATERAL CLINICAL INFORMATION: Screening. Asymptomatic. COMPARISON: Mammography: Comparison is made with available priors TECHNIQUE: Digital breast mammography with tomosynthesis is performed in both the craniocaudal and mediolateral oblique views along with computer-aided detection (CAD). FINDINGS: There are scattered areas of fibroglandular density (ACR BI-RADS breast composition Category b). There are no significant masses, abnormal calcifications, or other abnormalities. MM/MM tomosynthesis screening BI IMPRESSION: No mammographic evidence of malignancy. ASSESSMENT: BI-RADS BI-RADS 1 - Negative RECOMMENDATION: Routine annual mammography screening. 1 year F/U This examination should not preclude the clinical evaluation of a suspicious palpable abnormality. This patient's information was entered into a reminder system with a target due date for their next mammogram. Electronically signed by: Jocelyne Cruz DO 12/26/2024 02:19 PM EDT
--- NOTE | ~2024-12-22 | MM_ITS ---
EXAMINATION: DXA BONE DENSITY AXIAL HISTORY: Z78.0 - Asymptomatic menopausal state TECHNIQUE: Leondra music Dual energy absorptiometry (DEXA) of the lumbar spine, total left hip, and femoral neck was performed. COMPARISON: Comparison is made with the prior examination dated 12/18/2020. FINDINGS: The bone mineral density of the lumbar spine is 1.395 g/cm2, corresponding to a T-score of 1.9, and a Z-score of 2.8. This is indicative of normal bone mineral density. This represents a BMD change of 4.7% compared to the prior exam. This is statistically significant. The bone mineral density of the left total hip is 1.152 g/cm2, corresponding to a T-score of 1.1, and a Z-score of 2.0. This is indicative of normal bone mineral density.- This represents a BMD change of 2.5% compared to the prior exam. This is not statistically significant. The bone mineral density of the left femoral neck is 1.058 g/cm2, corresponding to a T-score of 1.3, and a Z-score of 1.1. This is indicative of normal bone mineral density. This represents a BMD change of 1.6% compared to the prior exam. FRACTURE RISK: The FRAX index suggests a ten year probability of major osteoporotic fracture of 3.4%, and of hip fracture 0.2%. MM/XR DEXA axial skeleton IMPRESSION: Based on bone mineral density, and according to World Health Organization (WHO) criteria, the diagnosis is consistent with normal bone mineral density. Statistically, 68% of repeat scans fall within 1 SD (+/- 0.010 g/cm2 for AP spine L1-L4) and 1 SD (+/- 0.012 g/cm2 for femur total) FRAX is a trademark of the [employer]'s [employer], a World Health Organization (WHO) Collaborating Center. Electronically signed by: Jann Cedeno MD 12/22/2024 02:31 PM EDT
--- OUTSIDE RECORDS SUMMARY | 2024-12-22 16:29 | XMS_ITS | Clinical Summary ---
Author Organization [facility] [address] ity Address [address] [place] [address] Care Team Providers Care Perinatal Educator Name Role Phone Unavailable Primary Care Provider [...]
== END 2024-12-22 13:39 | disposition home or self-care (01) ==
LOC: HO.MAMMO 13:38
PROVIDERS: PCP Internal Medicine; Visit Provider Internal Medicine
DX: Z12.31 Encounter for screening mammogram for malignant neoplasm of breast (principal); Z13.820 Encounter for screening for osteoporosis; Z78.0 Asymptomatic menopausal state
CPT/HCPCS: 77063; 77067; 77080

== ENCOUNTER → 2024-12-22 14:00 | Outpatient (BNV) | payer OTHER, SELFPAY | PROVIDERS: PCP Internal Medicine; Visit Provider Radiology Diagnostic Radiology | DX: Z12.31 Encounter for screening mammogram for malignant neoplasm of breast (principal) | CPT/HCPCS: 77063; 77067; 77080 ==

== ENCOUNTER 2025-01-19 16:03 | Outpatient (AMB) | payer OTHER, SELFPAY ==
--- NOTE | 2025-01-19 16:18 | MHC.PC.OV ---
Vital Signs 01/19/25 16:19 Height 5 ft 2 in Weight 183 lb BMI 33.5 BP 120/60 Blood Pressure Location Lt brachial Position Sitting Pulse 58 Pulse Source Pulse Oximeter Temp 96.6 F L Temp Source Temporal Artery Scan Pulse Oximetry (%) 92 Oxygen Delivery Method Room Air Intake Visit Reasons: Severe Pain in Both legs Intake Note: Patient is here to follow up on Severe pain in left legs with nubness. Supervisor Plating And Point Assembly Required: No Esthetician Permanent Makeup Artist: Not Required per policy Accompanied by: Self / Same As Patient Allergies Penicillins Allergy (Intermediate, Verified 01/19/25 16:18) RASH SOB Tobacco use date assessed: 01/19/25 Fall risk assessment: No Falls in past year Last assessed Fall Risk: 01/19/25 Dental Screening Dental Screen Date: 11/01/24 HPI HPI Comments History of Present Illness Details The patient is a 69-year-old female presenting with leg pain and numbness. She describes the leg pain as persistent and severe, with numbness that almost led to a fall. The pain is constant and exacerbates at night. The numbness is characterized by a pins and needles sensation in her heels and foot. She is on gabapentin, which has not been refilled recently, and reports it does not relieve the pain. Her medical history includes bilateral knee replacement. [facility] Medical History Morbid obesity ACS (acute coronary syndrome) History of heroin use BiPAP (biphasic positive airway pressure) dependence COPD (chronic obstructive pulmonary disease) Diabetic acidosis, type I Hx of drug dependence Arthritis Back pain History of blood transfusion Anemia Diabetes GERD (gastroesophageal reflux disease) Hx of anxiety disorder Hx of bipolar disorder History of headache Depression Sleep apnea Oxygen dependent COPD (chronic obstructive pulmonary disease) Asthma Elevated cholesterol HTN (hypertension) Surgical History S/P cardiac cath History of esophagogastroduodenoscopy (EGD) H/O colonoscopy Hx of total knee replacement Hx of arthroscopic knee surgery Hx of section Hx of foot surgery Family History Father Heart disease Mother Heart disease Family/Other Mental health disorder Substance use disorder Social History Household Members: None Housing: Apartment Do you presently have visiting nurse or other home services: Yes Alcohol intake: current Alcohol intake frequency: a few times a week Alcohol type: beer and wine Patient Tobacco Use Status: Current everyday Tobacco user Tobacco use type: Cigarette Cigarette Packs Per Day: 0.5 Cigarettes Per Day: 5 Years Smoked: 50 e-Cigarette/Vaping Use: Never Used Second Hand Smoke Exposure: Yes Substance Use Type: Former Substance User service: No Current occupational status: disabled Current occupation: right handed Cognitive needs: Yes Hearing needs: No Vision needs: Yes Questionnaire Thrive Questionnaire Date Thrive assessed: 11/01/24 I am a: Patient What is your living situation today?: I have a steady place to live Within the past 12 months, did the food you bought not last and you didn't have the money to get more?: Never true Within the past 12 months, did you worry whether your food would run out before you got money to buy more?: Never true Do you have trouble paying for medicines?: No Do you have trouble getting transportation to medical appointments?: No Do you have trouble paying your heating and electricity bill?: No Do you have trouble taking care of your child, family member or friend?: No Do you have trouble with day-to-day activities such as bathing, preparing meals, shopping, managing finances, etc.?: No Are you currently unemployed and looking for a job?: No Are you interested in more education?: No Currently or been in a relationship where the following occur: No concerns reported THRIVE Score: 0 SIMIN-7 AMB Questionnaire SIMIN-7 Date SIMIN - 7 assessed: 11/01/24 Source: Developed by Drs. Jann Du, Mary Norton, Alex Kerr and colleagues, with an educational mo from [employer]. Review of Systems Const Details: Positives besides what was mentioned in HPI are in BOLD Constitutional: No Weight Change, No Fever, No Chills, No Night Sweats, No Fatigue, No Malaise ENT/Mouth: No Hearing Changes, No Ear Pain, No Nasal Congestion, No Sinus Pain, No Hoarseness, No sore throat, No Rhinorrhea, No Swallowing Difficulty Eyes: No Eye Pain, No Swelling, No Redness, No Foreign Body, No Discharge, No Vision Changes Cardiovascular: No Chest Pain, No SOB, No PND, No Dyspnea on Exertion, No Orthopnea, No Claudication, No Edema, No Palpitations Respiratory: No Cough, No Sputum, No Wheezing, No Smoke Exposure, No Dyspnea Gastrointestinal: No Nausea, No Vomiting, No Diarrhea, No Constipation, No Pain, No Heartburn, No Anorexia, No Dysphagia, No Hematochezia, No Melena, No Flatulence, No Jaundice Genitourinary: No Dysmenorrhea, No DUB, No Dyspareunia, No Dysuria, No Urinary Frequency, No Hematuria, No Urinary Incontinence, No Urgency, No Flank Pain, No Urinary Flow Changes, No Hesitancy Musculoskeletal: No Arthralgias, No Myalgias, No Joint Swelling, No Joint Stiffness, No Back Pain, No Neck Pain, No Injury History Skin: No Skin Lesions, No Pruritis, No Hair Changes, No Breast/Skin Changes, No Nipple Discharge Neuro: No Weakness, No Numbness, No Paresthesias, No Loss of Consciousness, No Syncope, No Dizziness, No Headache, No Coordination Changes, No Recent Falls Psych: No Anxiety/Panic, No Depression, No Insomnia, No Personality Changes, No Delusions, No Rumination, No SI/HI/AH/VH, No Social Issues, No Memory Changes, No Violence/Abuse Hx., No Eating Concerns Heme/Lymph: No Bruising, No Bleeding, No Transfusions History, No Lymphadenopathy Endocrine: No Polyuria, No Polydipsia, No Temperature Intolerance Physical exam (Primary Care) Vital Signs: Last Vital Signs Temp 96.6 F L 01/19/25 16:19 Pulse 58 01/19/25 16:19 BP 120/60 01/19/25 16:19 Pulse Ox 92 01/19/25 16:19 Oxygen Delivery Method Room Air 01/19/25 16:19 BMI result Body Mass Index 33.5 Tobacco/Smoking Status: Tobacco use Status Tobacco use date assessed 01/19/25 01/19/25 16:25 Patient Tobacco Use Status Current everyday Tobacco 01/19/25 16:25 Tobacco use type Cigarette 01/19/25 16:25 e-Cigarette/Vaping Use Never Used 01/19/25 16:25 Thrive Assessment: Date of Thrive Assessment Date Thrive assessed 11/01/24 01/19/25 16:25 Currently or been in a relationship where the following occur: No concerns reported Const Other: Pertinent findings are in BOLD GENERAL APPEARANCE NAD, activity normal for age, well developed/ well nourished, no cyanosis, pallor, or diaphoresis. EYES lids/conjunctiva normal. EARS/NOSE/THROAT Mucous membranes moist, nares normal, lips/teeth normal uvula midline without oral pharyngeal erythema, exudate or swelling TMs normal bilaterally. No lymphangitis/lymphedema. HEAD/NECK normocephalic atraumatic, no facial trauma, neck is supple. RESPIRATORY respiratory effort normal, speaks in full sentences, no tripod position, no accessory muscle use. Lungs clear to auscultation without rhonchi, wheezes, rales CARDIAC Regular rate and rhythm, no edema. ABDOMINAL Soft, ND/NT. No evidence of fluid wave. No pulsatile masses on exam, rebound tenderness, Boyd sign or pain over Mcburney's point. MUSCLES/EXTREMITIES No abnormal range of motion, no swelling. SKIN Warm, pink and dry. No rashes, dermatoses, petechiae or lesions. NEUROLOGICAL Speech is clear and appropriate. Normal level of consciousness. Gait and coordination are normal. 5/5 strength in all extremities. PSYCH Normal mood and affect. Judgement/competence is appropriate Coding Level of Care Code Est Pt Level 3 (11061) Diagnoses Lumbar degenerative disc disease M51.36 Time Spent (min) 20 Assessment & Plan Assessment & Plan (1) Lumbar degenerative disc disease: Code(s): M51.36 - Other intervertebral disc degeneration, lumbar region Category: Medical Plan: Ct scan lumbar spine. In case oleg has degenrative disc we will consider referring her to Orthopedic therapy. - Gabapentin dosage was increased to 200 mg twice daily to manage the pain. Plan I discussed with the patient that the leg pain and numbness might be related to an issue in the back, and a CT scan was ordered to investigate further. We also talked about increasing the gabapentin dosage to help manage the symptoms, and I advised her to follow up with her primary care physician, Dr. Tsai. Orders: Orders CT lumbar spine wo IV con Today M51.36 - Other intervertebral disc degeneration, lumbar region Medications: Changed From gabapentin 100 mg PO DAILY To gabapentin 200 mg (2 x 100 mg) PO BID 120 caps 2RF Refilled dulaglutide (Trulicity) 0.75 mg (0.5 mL) subcut QWEEK 6.5 mL 0RF 90 days E11.65 - Type 2 diabetes mellitus with hyperglycemia
[2025-01-19 16:19] VITALS: BP 120/60; PULSE 58; TEMP 35.9; O2SAT 92; BMI 33.5
== END 2025-01-19 16:37 | disposition home or self-care (01) ==
LOC: HO.HMCH 16:04
PROVIDERS: PCP Internal Medicine; Visit Provider Internal Medicine
DX: M51.369 Other intervertebral disc degeneration, lumbar region without mention of lumbar back pain or lower extremity pain (principal)

== ENCOUNTER → 2025-01-19 16:03 | Outpatient (BNVA) | payer OTHER, SELFPAY | PROVIDERS: PCP Internal Medicine; Visit Provider Internal Medicine | DX: M79.605 Pain in left leg (principal); M79.604 Pain in right leg; R20.0 Anesthesia of skin; R20.2 Paresthesia of skin; M51.360 Other intervertebral disc degeneration, lumbar region with discogenic back pain only; E11.65 Type 2 diabetes mellitus with hyperglycemia | CPT/HCPCS: 99212 ==

== ENCOUNTER → 2025-01-24 20:30 | Outpatient (REF) | payer OTHER, SELFPAY ==
--- OUTSIDE RECORDS SUMMARY | 2025-01-24 22:18 | XMS_ITS | Clinical Summary ---
Author Organization [facility] ity Address [address] [place] [address] Care Team Providers Care Generator Switchboard Operator Name Role Phone Unavailable Primary Care Provider [...] 11/16/2005 Zoster Vaccines (1 of 2) 11/16/2005 Depression Screening 04/12/2024 COVID-19 Vaccine (1 - 2023-2 5 season) 2024 Influenza Vaccine (#1) 2024 RSV Immunization Adult [...]
--- OUTSIDE RECORDS SUMMARY | 2025-01-24 22:18 | XMS_ITS ---
Author Name Marisabel Marie NP Address [address] [place] [address] Phone [phone] [facility] Care Team Providers Care Thread Laster Name Role Phone Marisabel Marie Unavailable [phone] Unavailable Unavailable Unavailable LAST PRINCE Unavailable [phone] Reason for Referral Not Available Allergies, adverse [...] 30 DAYS 2023-05-19 No Data Available Ipratropium [place] 0.06 % Solution SPRAY 2 SPRAYS INTO [...] 1 mg Tab TAKE 1 TABLET BY [facility] AT BEDTIME FOR 30 DAYS 2023-12-23 [...] every 12 hours 2024-04-22 No Data Available [place] Nasal [place] 0.65 % Solution Nasal 2 sprays intranasally [...] it looks like pigmentation issue not bruising. [id number] acute processC T: no acute process in [...] NoDo you have a Durable Power of Cut In Worker for Healthcare, or Healthcare Proxy Or Guardianship? [...] they want to send her to a motor pool clerk due to left ankle edema. Started several [...] / Vertigo/ WeaknessPlanned intervention: Order x-ray at [facility] Encourage extra fluid intake / Assess for [...] Date of Service Diagnosis/Complaint No Data Available [facility], ([place] 06/02/2022 Gout, unspecified No Data Available [facility] [place] 06[place]/2022 New patient,40-59min; chronic exacerbation, 2 stable chronic or 1 acute illness add add modifier 95 for video (do not use for phone, instead use [id number]) [facility] [place] 06/24/2022 Type 2 diabetes mellitus wit h diabetic polyneuropathyType 2 diabetes mellitus with other specified complicationHyperlipidemia, unspecifiedBipolar II disorderGout, unspecifiedChronic obstructive pulmonary disease, unspecifiedDependence on supplemental oxygenRadiculopathy, lumbar regionMorbid (severe) obesity due to excess caloriesHeart failure, unspecifiedSecondary hyperaldosteronism New patient,40-59min; chronic exacerbation, 2 stable chronic or 1 acute illness add add modifier 95 for video (do not use for phone, instead use [id number]) [facility] ([place] 06/24/2022 New patient,40-59min; chronic exacerbation, 2 stable chronic or 1 acute illness add add modifier 95 for video (do not use for phone, instead use 36414-11) [facility] ([place] 06/24/2022 New patient,40-59min; chronic exacerbation, 2 stable chronic or 1 acute illness add add modifier 95 for video (do not use for phone, instead use 95611-47) [facility] ([place] 06/24/2022 New patient,40-59min; chronic exacerbation, 2 stable chronic or 1 acute illness add add modifier 95 for video (do not use for phone, instead use [id number]) [facility] ([place] 06/24/2022 New patient,40-59min; chronic exacerbation, 2 stable chronic or 1 acute illness add add modifier 95 for video (do not use for phone, instead use 24571-94) [facility] [place] 06/24/2022 New patient,40-59min; chronic exacerbation, 2 stable chronic or 1 acute illness add add modifier 95 for video (do not use for phone, instead use 03254-11) [facility] ([place] 06/24/2022 New patient,40-59min; chronic exacerbation, 2 stable chronic or 1 acute illness add add modifier 95 for video (do not use for phone, instead use 44464-36) [facility] ([place] 06/24/2022 New patient,40-59min; chronic exacerbation, 2 stable chronic or 1 acute illness add add modifier 95 for video (do not use for phone, instead use 09275-67) [facility] [place] 06/24/2022 No Data Available [facility] [place] 12/01/2023 Type 2 diabetes mellitus wit h [...] index (BMI) 40.0-44.9, adult No Data Available [facility] [place]2023 No Data Available [facility]23 No Data Available [facility]2023 No Data Available [facility] No Data Available [facility]23 No Data Available [facility]2023 Type 2 diabetes mellitus [...] and other health care No Data Available [facility]2023 No Data Available [facility]2023 No Data Available [facility]2023 No Data Available [facility]2023 No Data Available [facility] [place]2023 No Data Available [facility]2023 No Data Available [facility]2023 No Data Available [facility]2023 No Data Available [facility]2023 Estab. patient 20-29min; 1 stable chronic or 2 minor; add add modifier 95 for video, modifier 93 for phone [facility] 01[place]04/2024 Radiculopathy, lumbar region Other problems related to medical facilities and other health care Estab. patient 20-29min; 1 stable chronic or 2 minor; add add modifier 95 for video, modifier 93 for phone [facility] [place] 01/04/2024 No Data Available [facility] [place] 02/11/2024 Type 2 diabetes mellitus wit h diabetic polyneuropathyType 2 diabetes mellitus with other specified complicationHyperlipidemia, unspecifiedOther problems related to medical facilities and other health careBipolar II disorderHeart failure, unspecifiedSecondary hyperaldosteronismGout, unspecifiedChronic obstructive pulmonary disease, unspecifiedDependence on supplemental oxygenChronic respiratory failure with hypoxiaChronic kidney disease, stage 3bRadiculopathy, lumbar regionMorbid (severe) obesity due to excess caloriesBody mass index (bmi) 39.0-39.9, adult No Data Available [facility] [place] 02/11/2024 No Data Available [facility] [place] 02/11/2024 No Data Available [facility] [place] 02/11/2024 No Data Available [facility] [place] 02/11/2024 No Data Available [facility] [place] 03/21/2024 Type 2 diabetes mellitus wit h other specified complicationChronic kidney disease, stage 3bHyperlipidemia, unspecifiedType 2 diabetes mellitus with diabetic neuropathy, unspecifiedOther problems related to medical facilities and other health careBipolar II disorderHeart failure, unspecifiedSecondary hyperaldosteronismGout, unspecifiedChronic obstructive pulmonary disease, unspecifiedDependence on supplemental oxygenChronic respiratory failure with hypoxiaRadiculopathy, lumbar regionUnsteadiness on feetMorbid (severe) obesity due to excess caloriesOther specified counseling No Data Available [facility] [place] 03/21/2024 No Data Available [facility] [place] 03/21/2024 No Data Available [facility] [place] 03/21/2024 Estab. patient 10-29min; 1 minor problem; add add modifier 95 for video, modifier 93 for phone [facility] ([place] 04/22/2024 Chronic obstructive pulmonar y disease, unspecifiedDependence on supplemental oxygenChronic respiratory failure with hypoxia Estab. patient 10-29min; 1 minor problem; add add modifier 95 for video, modifier 93 for phone [facility] ([place] 04/22/2024 Estab. patient 20-29min; 1 stable chronic or 2 minor; add add modifier 95 for video, modifier 93 for phone [facility] [place] 04/19/2024 Heart failure, unspecifiedSe [...] 95 for video, modifier 93 for phone [facility] [place] 04/25/2024 Chronic obstructive pulmonar [...] modifier 95 for video, modifier 93 for [facility], ([place] 09/05/2024 Radiculopathy, lumbar regionUnsteadiness on feetChronic obstructive pulmonary disease, unspecifiedDependence on supplemental oxygenChronic respiratory failure with hypoxiaOther problems related to medical facilities and other health care Estab. patient 10-29min; 1 minor problem; add add modifier 95 for video, modifier 93 for [facility] ([place] 09/05/2024 Estab. patient 10-29min; 1 minor problem; add add modifier 95 for video, modifier 93 for [facility] ([place] 09/05/2024 Vital Signs Date of Collection Vitals [...] Current Smoking Status Current every day smoker 2025-01-25 Sex Female Gender identity Woman History of Procedures Procedures Service Procedure code Service date Servicing provider Phone# No Data Available [id number] 2022-06-02 No Data Available No Data Available Pain Assessment - Pain Documented on a Pain Scale (1125F) 1125F 2022-06-02 No Data Available No Data Roz ilable New patient,40-59min; chronic exacerbation, 2 stable chronic or 1 acute illness add add modifier 95 for video (do not use for phone, instead use [id number]) 98159 2022-06-24 No Data Available No Data Availa [...] Available No Data Available No Data Available [id number] 2023-12-01 No Data Available No Data Available [...] No Data Availa ble No Data Available [id number] 2023-12-28 No Data Available No Data Available [...] 95 for video, modifier 93 for phone [id number] 2024-01-04 No Data Available No Data Availa ble Medication List Documented (1159F) 1159F 2024-01-04 No Data Available No Data Roz ilable No Data Available [id number] 2024-02-11 No Data Available No Data Available [...] No Data Avail able No Data Available [id number] 2024-03-21 No Data Available No Data Available SBP < 130 (3074F) 3074F 2024-03-21 No Data Available No Data Available DBP <80 (3078F) 3078F 2024-03-21 No Data Available No Data Available Medication List Documented (1159F) 1159F 2024-03-21 No Data Available No Data Roz ilable Estab. patient 10-29min; 1 minor problem; add add modifier 95 for video, modifier 93 for phone [id number] 2024-04-22 No Data Available No Data Availa ble Medication List Documented (1159F) 1159F 2024-04-22 No Data Available No Data Roz ilable Estab. patient 20-29min; 1 stable chronic or 2 minor; add add modifier 95 for video, modifier 93 for phone [id number] 2024-04-19 No Data Available No Data Availa [...] 95 for video, modifier 93 for phone [id number] 2024-04-25 No Data Available No Data Availa ble Medication List Documented (1159F) 1159F 2024-04-25 No Data Available No Data Roz ilable Estab. patient 20-29min; 1 stable chronic or 2 minor; add add modifier 95 for video, modifier 93 for phone [id number] 2024-04-28 No Data Available No Data Availa [...] 95 for video, modifier 93 for phone [id number] 2024-05-30 No Data Available No Data Availa ble Estab. patient 10-29min; 1 minor problem; add add modifier 95 for video, modifier 93 for phone [id number] 2024-09-05 No Data Available No Data Availa ble Pain Assessment - Pain Documented on a Pain Scale (1125F) 1125F 2024-09-05 No Data Available No Data Roz ilable Medication List Documented (1159F) 1159F 2024-09-05 No Data Available No Data Roz ilable Functional Status Functional Category Effective Dates [employer] - cleaning, meal prep, t libia to [...] with PCPstabledenies CP, SOBBP: 120-130/80-90furosemide, amlodipineFollows with utility sales representative 2023-12-01 06:40:00 Phone (patient, pare nt, or guardian); 5-10 minutes of medical discussion (no modifier 95)Continue to see PCP. [facility] [...] modifier 95Continue to see PCP. [facility] [...] they want to send her to a motor pool clerk due to left ankle edema. Started several [...] modifier 95)Continue to see PCP. [facility] or disease [...] they want to send her to a motor pool clerk due to left ankle edema. Started several [...] modifier 95)Continue to see PCP. Follow-up with [facility] as needed for any acute or disease [...] they want to send her to a motor pool clerk due to left ankle edema. Started several [...] it looks like pigmentation issue not bruising. [id number] acute processC T: no acute process in [...] for phoneContinue to see PCP. Follow-up with [facility] as needed for any acute or disease [...] taper and saline rinsesCOPD CONTINGENCY PLANLast updated: 04/19/2024Meer to call for the following symptoms: Increased [...] they want to send her to a motor pool clerk due to left ankle edema. Started several [...] they want to send her to a motor pool clerk due to left ankle edema. Started several [...] 3 falls in the past week. +LE /10/24: BMI: 43.90+HTN, +DMFollow with PCPAdvised to eat [...] it looks like pigmentation issue not bruising. [id number] acute processC T: no acute process in [...] NoDo you have a Durable Power of Cut In Worker for Healthcare, or Healthcare Proxy Or Guardianship? Yes, preferred proxy but not named POAIf so, Who? daughter [phone] Oderis Do you have a written Advance [...] they want to send her to a motor pool clerk due to left ankle edema. Started several [...] / Vertigo/ WeaknessPlanned intervention[facility] / Assess [...] for phoneContinue to see PCP. Follow-up with [facility] as needed for any acute or disease [...] they want to send her to a motor pool clerk due to left ankle edema. Started several [...] / Vertigo/ WeaknessPlanned intervention: [facility] extra fluid [facility] / Assess [...]
== END ==
LOC: HO.SL 20:30
PROVIDERS: PCP Internal Medicine; Visit Provider Physician Assistant Medical
DX: G47.33 Obstructive sleep apnea (adult) (pediatric) (principal); G47.19 Other hypersomnia
CPT/HCPCS: 95810

== ENCOUNTER → 2025-01-24 22:30 | Outpatient (BNV) | payer OTHER, SELFPAY | PROVIDERS: PCP Internal Medicine; Visit Provider Internal Medicine | DX: G47.33 Obstructive sleep apnea (adult) (pediatric) (principal) | CPT/HCPCS: 95810 ==

== ENCOUNTER 2025-03-09 14:36 | Outpatient (REF) | payer OTHER, SELFPAY ==
--- NOTE | ~2025-03-09 | CT_ITS ---
EXAMINATION: CT LUMBAR SPINE WITHOUT CONTRAST CLINICAL INFORMATION: Intervertebral disc degeneration, lumbar region. COMPARISON: No prior CT. Lumbar radiographs 09/05/2023. Correlation made with CT abdomen and pelvis 04/17/2024. TECHNIQUE: Spiral CT imaging of the lumbar spine performed in axial plane without contrast. Multiplanar reformatted images were constructed from the axial data set. This CT examination was performed using dose optimization techniques as appropriate, variously including the following: *Automated exposure control *Adjustment of mA and/or kV according to patient size (this includes techniques or standardized protocols for targeted exams where dose is matched to indication/reason for exam; i.e. extremities or head) *Use of iterative reconstruction technique FINDINGS: There is no significant scoliosis. There is a normal lumbar lordosis. There is no fracture, compression deformity, or suspicious bone lesion. Alignment demonstrates a 5 mm degenerative type anterolisthesis of L4 on L5. There is a trace degenerative anterolisthesis of L3 on L4. Alignment is otherwise anatomic. Severe disc degeneration is present at L4-5 and L5-S1 with loss of disc space, and disc vacuum phenomenon present at both levels. Moderate to severe degeneration is present at L3-4. Moderate degeneration is present at L2-L3, with lesser degree at L1-2. There are is no paravertebral or paraspinous soft tissue abnormality or abnormal fluid collection present. The aorta is nonaneurysmal with mild to moderate calcification present. Mild sigmoid diverticulosis is incidentally noted. 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 AXIAL DISC LEVEL IMAGES: T12-L1: No significant central canal or neural foraminal narrowing. L1-L2: Moderate degenerative facet changes right greater than left with posterior ligamentous thickening/calcification. Trace disc bulging is present. There is mild to moderate central canal narrowing. No significant neural foraminal narrowing. L2-3: There is a diffuse disc osteophytic bulge present, moderate left greater than right hypertrophic degenerative facet changes, resulting in moderate central canal stenosis, moderate bilateral subarticular recess stenosis, and mild to moderate bilateral neural foraminal stenosis. L3-4: There is a diffuse disc bulge present which coupled with severe hypertrophic degenerative facet changes is resulting in severe central canal stenosis, severe bilateral subarticular recess stenosis, and severe bilateral neural foraminal stenosis right greater than left. L4-5: Severe disc degeneration. Severe bilateral facet degeneration and hypertrophy. Posterior ligamentous thickening/calcification. Findings result in severe central canal stenosis, severe bilateral subarticular recess stenosis, and severe bilateral neural foraminal stenosis. L5-S1: Shallow disc bulging is present with severe disc degeneration. Mild to moderate degenerative facet changes right greater than left. Posterior ligamentous thickening/calcification. There is mild central canal stenosis, mild bilateral subarticular recess stenosis, and severe bilateral neural foraminal stenosis right greater than left. CT/CT lumbar spine wo IV con IMPRESSION: 1. There is no acute bony or soft tissue abnormality of the lumbar spine. 2. There is diffuse disc degeneration present most severe spanning L3-S1. There is facet degeneration most severe at L3-4 and L4-5. 3. There is a 5 mm degenerative anterolisthesis of L4 on L5. 4. There is severe central canal stenosis present at L3-4, and L4-5. There is multilevel neural foraminal stenosis as detailed. Electronically signed by: Anurag French MD 03/09/2025 03:28 PM [facility] ESCUDERO
--- OUTSIDE RECORDS SUMMARY | 2025-03-09 14:40 | XMS_ITS | Clinical Summary ---
Author Organization [facility] ity Address [address] [place] [address] Care Team Providers Care Production Support Manager Name Role Phone Unavailable Primary Care Provider [...] Depression Screening 04/12/2024 COVID-19 Vaccine (1 - 2024-2 6 season) 2024 Influenza Vaccine (#1) 2024 RSV [...]
--- OUTSIDE RECORDS SUMMARY | 2025-03-09 14:40 | XMS_ITS ---
Author Name Marisabel Marie NP Address [address] [place] [address] Phone [phone] [facility] Care Team Providers Care Gas Blender Name Role Phone Marisabel Marie Unavailable [phone] Lucia García Unavailable [phone] LA[facility]CE Unavailable [phone] Reason for Referral Not Available Allergies, adverse [...] 30 DAYS 2023-05-19 No Data Available Ipratropium Pillager 0.06 % Solution SPRAY 2 SPRAYS INTO [...] 1 mg Tab TAKE 1 TABLET BY [facility] AT BEDTIME FOR 30 DAYS 2023-12-23 No [...] every 12 hours 2024-04-22 No Data Available Whiteside Nasal [place] 0.65 % Solution Nasal 2 sprays intranasally [...] it looks like pigmentation issue not bruising. [id number] acute processC T: no acute process in [...] NoDo you have a Durable Power of Client Support Representative for Healthcare, or Healthcare Proxy Or Guardianship? [...] they want to send her to a slab depiler operator due to left ankle edema. Started several [...] much better. Denies SOB or wheezing today. 09/05/2024Meer asked for a refill of her Albuterol. Denies current shortness of breath. Courtesy Refill sent in Other problems related to medical facilities and other health care Active 2023-05-19 N/A FALL CO NTINGENCY PLANMember to call for the following symptoms: Fall / Vertigo/ WeaknessPlanned intervention: [facility] Encourage extra fluid intake / Assess for [...] Date of Service Diagnosis/Complaint No Data Available [facility] ([place]/2022 Gout, unspecified No Data Available [facility] New patient,40-59min; chronic exacerbation, 2 stable chronic or 1 acute illness add add modifier 95 for video (do not use for phone, instead use [id number]) [facility] 06[place]24/2022 Type 2 diabetes mellitus wit h diabetic polyneuropathyType 2 diabetes mellitus with other specified complicationHyperlipidemia, unspecifiedBipolar II disorderGout, unspecifiedChronic obstructive pulmonary disease, unspecifiedDependence on supplemental oxygenRadiculopathy, lumbar regionMorbid (severe) obesity due to excess caloriesHeart failure, unspecifiedSecondary hyperaldosteronism New patient,40-59min; chronic exacerbation, 2 stable chronic or 1 acute illness add add modifier 95 for video (do not use for phone, instead use [id number]) [facility] New patient,40-59min; chronic exacerbation, 2 stable chronic or 1 acute illness add add modifier 95 for video (do not use for phone, instead use 93172-76) [facility] New patient,40-59min; chronic exacerbation, 2 stable chronic or 1 acute illness add add modifier 95 for video (do not use for phone, instead use [id number]) [facility] New patient,40-59min; chronic exacerbation, 2 stable chronic or 1 acute illness add add modifier 95 for video (do not use for phone, instead use [id number]) [facility] New patient,40-59min; chronic exacerbation, 2 stable chronic or 1 acute illness add add modifier 95 for video (do not use for phone, instead use [id number]) [facility] New patient,40-59min; chronic exacerbation, 2 stable chronic or 1 acute illness add add modifier 95 for video (do not use for phone, instead use 11095-26) [facility] New patient,40-59min; chronic exacerbation, 2 stable chronic or 1 acute illness add add modifier 95 for video (do not use for phone, instead use [id number]) [facility] New patient,40-59min; chronic exacerbation, 2 stable chronic or 1 acute illness add add modifier 95 for video (do not use for phone, instead use [id number]) [facility] No Data Available [facility] 12[place]01/2023 Type 2 diabetes mellitus wit h [...] index (BMI) 40.0-44.9, adult No Data Available [facility]20[place] No Data Available [facility] No Data Available [facility] No Data Available [facility] No Data Available [facility] No Data Available [facility]20[place] Type 2 diabetes mellitus wit [...] and other health care No Data Available [facility]2023 No Data Available [facility] No Data Available [facility] No Data Available [facility] No Data Available [facility] No Data Available [facility] No Data Available [facility] No Data Available [facility]2023 No Data Available [facility]20[place] Estab. patient 20-29min; 1 stable chronic or 2 minor; add add modifier 95 for video, modifier 93 for phone [facility] 01[place]04/2024 Radiculopathy, lumbar region Other problems related to medical facilities and other health care Estab. patient 20-29min; 1 stable chronic or 2 minor; add add modifier 95 for video, modifier 93 for phone [facility] 01/04/2024 No Data Available [facility] 02/11/2024 Type 2 diabetes mellitus wit h diabetic polyneuropathyType 2 diabetes mellitus with other specified complicationHyperlipidemia, unspecifiedOther problems related to medical facilities and other health careBipolar II disorderHeart failure, unspecifiedSecondary hyperaldosteronismGout, unspecifiedChronic obstructive pulmonary disease, unspecifiedDependence on supplemental oxygenChronic respiratory failure with hypoxiaChronic kidney disease, stage 3bRadiculopathy, lumbar regionMorbid (severe) obesity due to excess caloriesBody mass index (bmi) 39.0-39.9, adult No Data Available [facility] 02[place]/2024 No Data Available [facility]/2024 No Data Available [facility]/2024 No Data Available [facility] 02[place]/2024 No Data Available [facility] 03[place]21/2024 Type 2 diabetes mellitus wit h other specified complicationChronic kidney disease, stage 3bHyperlipidemia, unspecifiedType 2 diabetes mellitus with diabetic neuropathy, unspecifiedOther problems related to medical facilities and other health careBipolar II disorderHeart failure, unspecifiedSecondary hyperaldosteronismGout, unspecifiedChronic obstructive pulmonary disease, unspecifiedDependence on supplemental oxygenChronic respiratory failure with hypoxiaRadiculopathy, lumbar regionUnsteadiness on feetMorbid (severe) obesity due to excess caloriesOther specified counseling No Data Available [facility] 03[place]/2024 No Data Available [facility]2024 No Data Available [facility] [place]/20[place] Estab. patient 10-29min; 1 minor problem; add add modifier 95 for video, modifier 93 for phone [facility] [place] 04/[place]/2024 Chronic obstructive pulmonar y disease, unspecifiedDependence on supplemental oxygenChronic respiratory failure with hypoxia Estab. patient 10-29min; 1 minor problem; add add modifier 95 for video, modifier 93 for phone [facility] Estab. patient 20-29min; 1 stable chronic [...] phone [facility] [place]20[place] Estab. patient 20-29min; 1 stable chronic or 2 minor; add add modifier 95 for video, modifier 93 for phone [facility] [place] 04[place]19/20[place] Estab. patient 20-29min; 1 stable chronic or 2 minor; add add modifier 95 for video, modifier 93 for phone [facility] [place] 04/19/20[place] Estab. patient 20-29min; 1 stable chronic or 2 minor; add add modifier 95 for video, modifier 93 for phone [facility] [place] 04/19/2024 Estab. patient 20-29min; 1 stable chronic or 2 minor; add add modifier 95 for video, modifier 93 for phone [facility] [place] 04/19/2024 Estab. patient 20-29min; 1 stable chronic or 2 minor; add add modifier 95 for video, modifier 93 for phone [facility] [place] 04/19/2024 Estab. patient 10-29min; 1 minor problem; add add modifier 95 for video, modifier 93 for phone [facility] [place] 04/25/2024 Chronic obstructive pulmonar y disease, unspecifiedDependence on supplemental oxygenChronic respiratory failure with hypoxiaOther problems related to medical facilities and other health careRadiculopathy, lumbar regionUnsteadiness on feet Estab. patient 10-29min; 1 minor problem; add add modifier 95 for video, modifier 93 for phone [facility] [place]/25/20[place] Estab. patient 20-29min; 1 stable chronic or 2 minor; add add modifier 95 for video, modifier 93 for phone [facility] [place] 04/28/2024 Type 2 diabetes mellitus wit [...] 95 for video, modifier 93 for phone [facility]/28/[facility] Estab. patient 20-29min; 1 stable chronic or 2 minor; add add modifier 95 for video, modifier 93 for phone [facility] [place] 04/28/2024 Estab. patient 20-29min; 1 stable chronic or 2 minor; add add modifier 95 for video, modifier 93 for phone [facility] [place] 04/28/2024 Estab. patient 20-29min; 1 stable chronic or 2 minor; add add modifier 95 for video, modifier 93 for phone [facility] [place] 04/28/2024 Estab. patient 20-29min; 1 stable chronic or 2 minor; add add modifier 95 for video, modifier 93 for phone [facility] [place] 04/28/2024 Estab. patient 20-29min; 1 stable chronic or 2 minor; add add modifier 95 for video, modifier 93 for phone [facility] [place] 04/28/2024 Estab. patient 20-29min; 1 stable chronic or 2 minor; add add modifier 95 for video, modifier 93 for phone [facility] [place] 04/28/2024 Estab. patient 20-29min; 1 stable chronic or 2 minor; add add modifier 95 for video, modifier 93 for phone [facility] [place] 04/28/2024 Estab. patient 10-29min; 1 minor problem; add add modifier 95 for video, modifier 93 for phone [facility]2024 Chronic respiratory failure with hypoxiaChronic obstructive pulmonary disease, unspecifiedRadiculopathy, lumbar regionUnsteadiness on feetDependence on supplemental oxygenOther specified counselingOther problems related to medical facilities and other health careOther symptoms and signs involving the musculoskeletal systemRepeated falls Estab. patient 10-29min; 1 minor problem; add add modifier 95 for video, modifier 93 for [facility]05[place]2024 Radiculopathy, lumbar regionUnsteadiness on feetChronic obstructive pulmonary disease, unspecifiedDependence on supplemental oxygenChronic respiratory failure with hypoxiaOther problems related to medical facilities and other health care Estab. patient 10-29min; 1 minor problem; add add modifier 95 for video, modifier 93 for [facility] [place]/05/20[place] Estab. patient 10-29min; 1 minor problem; add add modifier 95 for video, modifier 93 for [facility] [place] 09/05/2024 Vital Signs Date of Collection Vitals [...] Current Smoking Status Current every day smoker 2025-03-09 Sex Female Gender identity Woman History of Procedures Procedures Service Procedure code Service date Servicing provider Phone# No Data Available [id number] 2022-06-02 No Data Available No Data Available Pain Assessment - Pain Documented on a Pain Scale (1125F) 1125F 2022-06-02 No Data Available No Data Roz ilable New patient,40-59min; chronic exacerbation, 2 stable chronic or 1 acute illness add add modifier 95 for video (do not use for phone, instead use [id number]) [id number] 2022-06-24 No Data Available No Data Availa [...] Available No Data Available No Data Available [id number] 2023-12-01 No Data Available No Data Available [...] No Data Availa ble No Data Available [id number] 2023-12-28 No Data Available No Data Available [...] 95 for video, modifier 93 for phone [id number] 2024-01-04 No Data Available No Data Availa ble Medication List Documented (1159F) 1159F 2024-01-04 No Data Available No Data Roz ilable No Data Available [id number] 2024-02-11 No Data Available No Data Available [...] No Data Avail able No Data Available [id number] 2024-03-21 No Data Available No Data Available SBP < 130 (3074F) 3074F 2024-03-21 No Data Available No Data Available DBP <80 (3078F) 3078F 2024-03-21 No Data Available No Data Available Medication List Documented (1159F) 1159F 2024-03-21 No Data Available No Data Roz ilable Estab. patient 10-29min; 1 minor problem; add add modifier 95 for video, modifier 93 for phone [id number] 2024-04-22 No Data Available No Data Availa ble Medication List Documented (1159F) 1159F 2024-04-22 No Data Available No Data Roz ilable Estab. patient 20-29min; 1 stable chronic or 2 minor; add add modifier 95 for video, modifier 93 for phone [id number] 2024-04-19 No Data Available No Data Availa [...] 95 for video, modifier 93 for phone [id number] 2024-04-25 No Data Available No Data Availa ble Medication List Documented (1159F) 1159F 2024-04-25 No Data Available No Data Roz ilable Estab. patient 20-29min; 1 stable chronic or 2 minor; add add modifier 95 for video, modifier 93 for phone [id number] 2024-04-28 No Data Available No Data Availa [...] 95 for video, modifier 93 for phone [id number] 2024-05-30 No Data Available No Data Availa ble Estab. patient 10-29min; 1 minor problem; add add modifier 95 for video, modifier 93 for phone [id number] 2024-09-05 No Data Available No Data Availa ble Pain Assessment - Pain Documented on a Pain Scale (1125F) 1125F 2024-09-05 No Data Available No Data Roz ilable Medication List Documented (1159F) 1159F 2024-09-05 No Data Available No Data Roz ilable Functional Status Functional Category Effective Dates TANK WASHER - cleaning, meal prep, t libia to [...] modifier 95)Continue to see PCP. Follow-up with [facility] as [...] with PCPstabledenies CP, SOBBP: 120-130/80-90furosemide, amlodipineFollows with private household worker 2023-12-01 06:40:00 Phone (patient, pare nt, or guardian); 5-10 minutes of medical discussion (no modifier 95)Continue to see PCP. Follow-up with Mario as [...] modifier 95Continue to see PCP. Follow-up with Mario as [...] they want to send her to a slab depiler operator due to left ankle edema. Started several [...] modifier 95)Continue to see PCP. Follow-up with Mario as [...] they want to send her to a slab depiler operator due to left ankle edema. Started several [...] modifier 95)Continue to see PCP. Follow-up with [facility] as [...] they want to send her to a slab depiler operator due to left ankle edema. Started several [...] area. Patient lives alone and has h/o RUYB/metal falling while at home, although patient denies falling but does have some bruising upper back family notes bruis on back but it looks like pigmentation issue not bruising. [id number] acute processC T: no acute process in [...] with cardiologist05/06denies LE swellingCOPD CONTINGENCY PLANLast updated: 04/19/2024[facility] to call for the following symptoms: Increased [...] for phoneContinue to see PCP. Follow-up with [facility] as needed for any acute or [...] taper and saline rinsesCOPD CONTINGENCY PLANLast updated: 04/19/2024[facility] to call for the following symptoms: Increased [...] they want to send her to a slab depiler operator due to left ankle edema. Started several [...] has nasal antihistamine and will start using it..productive cough with green mucous and dyspneasymptoms x [...] they want to send her to a slab depiler operator due to left ankle edema. Started several [...] 3 falls in the past week. +LE [id number]/10/24: BMI: 43.90+HTN, +DMFollow with PCPAdvised to eat [...] it looks like pigmentation issue not bruising. [id number] acute processC T: no acute process in [...] NoDo you have a Durable Power of Client Support Representative for Healthcare, or Healthcare Proxy Or Guardianship? Yes, preferred proxy but not named POAIf so, Who? daughter [phone] [place] Do you have a written Advance [...] they want to send her to a slab depiler operator due to left ankle edema. Started several [...] / Vertigo/ WeaknessPlanned intervention[facility] / Assess [...] for phoneContinue to see PCP. Follow-up with [facility] as needed for any acute or [...] they want to send her to a slab depiler operator due to left ankle edema. Started several [...] / Vertigo/ WeaknessPlanned intervention: [facility] extra fluid intake / Assess [...]
== END 2025-03-09 14:37 | disposition home or self-care (01) ==
LOC: HO.CT 14:36
PROVIDERS: PCP Internal Medicine; Visit Provider Internal Medicine
DX: M51.369 Other intervertebral disc degeneration, lumbar region without mention of lumbar back pain or lower extremity pain (principal)
CPT/HCPCS: 72131

== ENCOUNTER → 2025-03-09 14:40 | Outpatient (BNV) | payer OTHER, SELFPAY | PROVIDERS: PCP Internal Medicine; Visit Provider Radiology Diagnostic Radiology | DX: M51.369 Other intervertebral disc degeneration, lumbar region without mention of lumbar back pain or lower extremity pain (principal); M47.816 Spondylosis without myelopathy or radiculopathy, lumbar region | CPT/HCPCS: 72131 ==

== ENCOUNTER 2025-03-14 08:34 | Outpatient (AMB) | payer OTHER, SELFPAY ==
--- NOTE | 2025-03-14 08:37 | MHC.OFFVIS ---
Vital Signs 03/14/25 08:38 Height 5 ft 2 in Weight 179 lb BMI 32.7 BP 120/56 L Blood Pressure Location Lt brachial Position Sitting Pulse 54 Intake Visit Reasons: Colonoscopy screening/[facility] PT Intake Note: Patient complex follow up Colonoscopy screening/[facility] PT 05/20/2022. Patient cc: N/V on and off but pt think is due Trulicity injection, abdominal pain with constipation, and hx hemorrhoids, [employer] Required: No Accompanied by: Self / Same As Patient Allergies Penicillins Allergy (Intermediate, Verified 03/14/25 08:37) RASH SOB Medication List - Last Reconciled 03/14/25 by Melonie Luna CNP albuterol sulfate 90 mcg/actuation 2 puffs inhalation Q4H PRN allopurinol 300 mg PO DAILY 90 days amitriptyline 10 mg PO BEDTIME amlodipine 5 mg PO DAILY 90 days blood sugar diagnostic (Accu-Chek Guide test strips) Use 1 test strip once a day blood-glucose meter (Accu-Chek Guide Glucose Meter) As directed [id number] 160-9-4.8 mcg/actuation (Breztri Aerosphere) 2 inhalations inhalation BID 30 days cane As directed cholecalciferol (vitamin D3) 50 mcg PO DAILY 90 days colchicine 0.6 mg PO BID PRN docusate sodium 200 mg (2 x 100 mg) PO BEDTIME dulaglutide (Trulicity) 0.75 mg (0.5 mL) subcut QWEEK 90 days famotidine 20 mg PO BEDTIME 90 days furosemide 40 mg PO QAM gabapentin 200 mg (2 x 100 mg) PO BID [home delivery of methadone Start date 06/10/23 End date 06/09/24] [home delivery of methadone per clinic dose Start date 06/15/2022 End date: 06/16/2023] hydrochlorothiazide 25 mg PO DAILY 90 days ibuprofen 600 mg PO Q6H PRN ipratropium bromide 2 sprays intranasal TID ipratropium-albuterol 0.5 mg-3 mg(2.5 mg base)/3 mL 3 mL inhalation RQ4H PRN lancets (Accu-Chek Softclix Lancets) Use 1 lancet once a day lidocaine 4% (Aspercreme (lidocaine)) 1 patch topical DAILY PRN 30 days metformin 1,000 mg PO BID 90 days methadone 135 mg PO DAILY oxcarbazepine 600 mg PO BID 90 days [oxygen Not Applicable PRN] polyethylene glycol 3350 (Miralax) 17 grams PO DAILY 30 days sertraline 50 mg PO DAILY 90 days simvastatin 10 mg PO DAILY 90 days walker (Ultra-Light Rollator misc) with seat, brakes and wheels HPI HPI Colonoscopy screening/[facility] PT: Details: Patient is a 69-year-old female with PMH of opioid dependence on methadone, hypertension, hyperlipidemia, diabetes, diastolic heart failure, TESS, COPD. Last visit with CARLOTA Feliz 05/20/2022 for pre colonoscopy screening, Cologuard was ordered. Shares she deferred Cologuard stool-based CRC screening due to uncertainty about the process and personal preference for colonoscopy. Patient reports chronic constipation, typically going up to two weeks without a bowel movement. Constipation has been longstanding, unchanged with recent initiation of Trulicity two months ago (for DM and weight loss), and predates current medications. Uses OTC oral stool softeners, described as orange, little pills, with partial relief. Reports abdominal pain, localized midline, intermittent, relieved temporally by bowel movement. Appetite described as poor, with noted weight loss since starting Trulicity. Admits methadone use (daily) for opioid use disorder, acknowledges associated constipation. Reports stable GI symptoms otherwise, with adequate hydration and fair fruit/vegetable intake. Past medical history significant for CHF, COPD (requiring oxygen at 2 L/min as needed, especially with exertion), sleep apnea (not using CPAP due to device recall). Patient has established care with cardiology and pulmonology for these comorbidities; will require medical clearance prior to colonoscopy. No personal or family history of CRC or GI malignancy. Other comorbidities and treatments include hypertension, DM, dyslipidemia, chronic pain, history of bilateral knee replacements, and gout. Patient is also followed for substance use disorder ( [employer]) and receives assistance for ADLs from [facility]. Patient denies: fever/chills, n/v, pyrosis, regurgitation, dysphasia, unintentional wt loss, or melena/hematochezia. Social hx: -ETOH use weekends, 2 beer -Methadone daily. Reports weekly crack cocaine use (smoked), in treatment with counseling. Denies recreational drug use -current smoker ~5 cigarettes/day, working on cessation - family hx as below -denies personal hx of CA -tolerated anesthesia in the past without difficulty. [facility] Medical History (Updated 03/14/25 @ 10:06 by Melonie Luna CNP) Substance use disorder Colon cancer screening Constipation Elevated alkaline phosphatase level Morbid obesity Physical exam Excessive daytime sleepiness Loud snoring Acute dyspnea Lumbar degenerative disc disease Left shoulder pain Right shoulder pain COVID-19 Cellulitis Hypokalemia Hypomagnesemia Acute hypokalemia Encounter for screening colonoscopy Allergic rhinitis T wave inversion in electrocardiogram EKG abnormalities ACS (acute coronary syndrome) History of heroin use BiPAP (biphasic positive airway pressure) dependence COPD (chronic obstructive pulmonary disease) Diabetic acidosis, type I Hx of drug dependence Arthritis Back pain History of blood transfusion Anemia Diabetes GERD (gastroesophageal reflux disease) Hx of anxiety disorder Hx of bipolar disorder History of headache Depression Sleep apnea Oxygen dependent COPD (chronic obstructive pulmonary disease) Asthma Elevated cholesterol HTN (hypertension) Surgical History S/P cardiac cath History of esophagogastroduodenoscopy (EGD) H/O colonoscopy Hx of total knee replacement Hx of arthroscopic knee surgery Hx of section Hx of foot surgery Family History Father Heart disease Mother Heart disease Family/Other Mental health disorder Substance use disorder Social History Household Members: None Housing: Apartment Do you presently have visiting nurse or other home services: Yes Alcohol intake: current Alcohol intake frequency: a few times a week Alcohol type: beer and wine Patient Tobacco Use Status: Current everyday Tobacco user Tobacco use type: Cigarette Cigarette Packs Per Day: 0.5 Cigarettes Per Day: 5 Years Smoked: 50 e-Cigarette/Vaping Use: Never Used Second Hand Smoke Exposure: Yes Substance Use Type: Former Substance User service: No Current occupational status: disabled Current occupation: right handed Cognitive needs: Yes Hearing needs: No Vision needs: Yes Review of Systems Const Reports as per HPI ENT Reports as per HPI Card Reports as per HPI Resp Reports as per HPI GI Reports as per HPI Reports as per HPI Physical Exam Vital Signs: Last Vital Signs Pulse 54 03/14/25 08:38 BP 120/56 L 03/14/25 08:38 BMI result Body Mass Index 32.7 Const General: healthy appearing, no acute distress and well developed Nutritional Appearance: average body habitus Orientation/consciousness: patient oriented x3 HEENT Head: Yes normal to inspection, Yes normocephalic and Yes atraumatic Face and sinus: Yes normal facial exam Eyes General: appearance normal, both eyes and all related structures Neck Neck: Yes normal visual inspection Resp Effort & Inspection: normal respiratory effort, able to speak in complete sentences, no tracheal deviation and symmetric chest movement GI Inspection: Yes normal to inspection, No distended, Yes obesity and Yes striae Palpation (GI): Soft to palpation, not firm and nontender Auscultation: normal bowel sounds Neuro General: patient oriented x3 Gait exam (Neuro): Normal gait present Psych Appearance: grossly normal Mental Status: mental status grossly normal Speech and movement: Normal speech and movement present Affect: normal affect Attitude: cooperative Thought process: Normal thought process present Thought content: Normal thought content present Insight: Good insight present (Psych) Judgement: Good judgement present (Psych) Assessment & Plan Assessment & Plan (1) Constipation: Code(s): K59.00 - Constipation, unspecified Category: Medical Qualifiers: Constipation type: drug induced constipation Qualified Code(s): K59.03 - Drug induced constipation Plan: Multiple risk factors for reduced GI motility (methadone, GLP-1 agonist, low mobility, past response to fiber and hydration limited, possible neuropathic contribution). Additional Testing: - Fasting labs (to further evaluate persistently elevated alkaline phosphatase and liver profile) - Routine CRC screening colonoscopy pending specialty clearance (cardiology, pulmonology d/t CHF, COPD, TESS) Medication Management: - Start Miralax daily (osmotic laxative, tasteless, to mix with beverage of choice, once every morning) - Add docusate sodium 2 tabs po qhs for stool softening Lifestyle Recommendations: - Increase dietary fiber (fruits, vegetables, beans, nuts, seeds, granola per provided handout) - Emphasize water as primary hydration source; continue high fluid intake as tolerated - Increase mobility/physical activity as able - Reduce constipating substances (work with providers on tapering or alternatives) Follow-Up: 8 weeks for reassessment of bowel regularity and review of lab and CRC screening readiness (2) Colon cancer screening: Code(s): Z12.11 - Encounter for screening for malignant neoplasm of colon Category: Medical Plan: High-risk patient due to age, comorbidities, and inability to complete stool-based testing; colonoscopy indicated, but clearance required given CHF, COPD, TESS. Additional Testing: - Cardiology and pulmonology clearance for conscious sedation or anesthesia - Ensure stable respiratory and cardiac status before procedure -Ensure improvement in constipation prior to colonoscopy Medication Management: No changes. Lifestyle Recommendations: Reinforce need for improved bowel function pre-procedure for optimal prep. Follow-Up: Schedule colonoscopy after clearance and when constipation is improved (3) Elevated alkaline phosphatase level: Code(s): R74.8 - Abnormal levels of other serum enzymes Category: Medical Plan: Persistent elevation without established etiology Additional Testing: Fasting comprehensive metabolic panel, liver tests Medication Management: None at present; pending results Lifestyle Recommendations: None specific Follow-Up: Review labs at next visit (4) Substance use disorder: Code(s): F19.90 - Other psychoactive substance use, unspecified, uncomplicated Category: Medical Plan: Ongoing crack cocaine use (smoked, weekly) with treatment engagement; methadone daily for RUBY. Additional Testing: None through GI; will coordinate with primary/counseling team Medication Management: None by GI Lifestyle Recommendations: Encourage continued engagement with counseling, address cocaine and tobacco cessation Follow-Up: Continue with counselor; periodic check-ins for RUBY management Plan Follow-up 8 weeks or sooner as needed Time: I spent a total of 30 minutes on the date of encounter which includes: Preparing to see the patient (reviewed previous documentation, test results and medical history) Performing a medically appropriate exam and/or evaluation Ordering medications, tests, and procedures Documenting clinical information in the health record Orders: Orders Alkaline Phosphatase Isoenzyme 03/14/25 R74.8 - Abnormal levels of other serum enzymes Lipase 03/14/25 R74.8 - Abnormal levels of other serum enzymes Hepatitis A,B,C Profile 03/14/25 R74.8 - Abnormal levels of other serum enzymes HIV Ab/Ag 03/14/25 R74.8 - Abnormal levels of other serum enzymes Comprehensive [place]. Panel Fast 03/14/25 R74.8 - Abnormal levels of other serum enzymes Smooth Muscle Antibody 03/14/25 R74.8 - Abnormal levels of other serum enzymes Mitochondrial Antibody 03/14/25 R74.8 - Abnormal levels of other serum enzymes Ferritin 03/14/25 R74.8 - Abnormal levels of other serum enzymes Prothrombin Time INR 03/14/25 R74.8 - Abnormal levels of other serum enzymes LAST Reflex Titer and Pattern 03/14/25 R74.8 - Abnormal levels of other serum enzymes Hepatitis A IgG 03/14/25 R74.8 - Abnormal levels of other serum enzymes Medications: New docusate sodium Take two tablet at bedtime 200 mg (2 x 100 mg) PO BEDTIME 180 caps 1RF constipation polyethylene glycol 3350 (Miralax) Take 17G (one cap full) daily with 8oz of water 17 grams PO DAILY 510 grams 2RF constipation 30 days Coding Level of Care Code Established Pt Est Pt Level 4 (58424) Patient Type Established Diagnoses Drug-induced constipation K59.03 Constipation type: drug induced constipation Colon cancer screening Z12.11 Elevated alkaline phosphatase level R74.8 Substance use disorder F19.90
[2025-03-14 08:38] VITALS: BP 120/56; PULSE 54; BMI 32.7
--- OUTSIDE RECORDS SUMMARY | 2025-03-14 08:48 | XMS_ITS | Clinical Summary ---
Author Organization [facility] ity Address [address] [place] [address] Care Team Providers Care Drug Inspector Name Role Phone Unavailable Primary Care Provider [...]
== END 2025-03-14 09:28 | disposition home or self-care (01) ==
LOC: HO.HGI 08:35
PROVIDERS: PCP Internal Medicine; Visit Provider Nurse Practitioner Family
DX: Z01.818 Encounter for other preprocedural examination (principal); Z12.11 Encounter for screening for malignant neoplasm of colon; K59.03 Drug induced constipation; R74.8 Abnormal levels of other serum enzymes; F19.21 Other psychoactive substance dependence, in remission
CPT/HCPCS: 99214

== ENCOUNTER → 2025-03-14 08:34 | Outpatient (BNVA) | payer OTHER, SELFPAY | PROVIDERS: PCP Internal Medicine; Visit Provider Nurse Practitioner Family | DX: K59.03 Drug induced constipation (principal); Z12.11 Encounter for screening for malignant neoplasm of colon; R74.8 Abnormal levels of other serum enzymes; F19.90 Other psychoactive substance use, unspecified, uncomplicated; Z72.0 Tobacco use; Z79.85 Long-term (current) use of injectable non-insulin antidiabetic drugs; F11.90 Opioid use, unspecified, uncomplicated | CPT/HCPCS: 99212 ==

== ENCOUNTER 2025-03-20 10:42 | Outpatient (REF) | payer OTHER, SELFPAY ==
[2025-03-20 11:48] LABS: INTERNATIONAL NORM RATIO 1.1 (0.9-1.1); Prothrombin Time 12.9 SEC (11.2-13.5)
[2025-03-20 12:20] LABS: Alanine Aminotransferase 13 U/L (0-31); Albumin Level 4.1 g/dL (3.5-5.0); Alkaline Phosphatase 95 U/L (39-117); Anion Gap 7 (12-20); Aspartate Amino Transferase 20 U/L (5-31); Blood Urea Nitrogen 12 mg/dL (9-16); Calcium 9.4 mg/dL (8.4-10.2); Carbon Dioxide 34 mmol/L (22-29); Chloride 105 mmol/L (96-108); Estimated Glomerular Filt Rate 60; Lipase 22 U/L (8-78); Potassium 3.3 mmol/L (3.3-5.1); Sodium 143 mmol/L (135-145); Total Protein 7.1 g/dL (6.5-8.0)
[2025-03-20 12:42] LABS: Ferritin 250 ng/mL (10-250); HBS Num1 0.79 mIU/mL (0-7.99); HBc Num1 0.05 S/CO (0.00-0.79); HBsAGNum1 0.34 S/CO (0.00-0.99); HIV Num 1 0.10 S/CO (0.00-0.99); Hepatitis A Antibody IgM 0.20 Index (0-0.79); Hepatitis B Surface Antigen Negative (Negative); ~HepC Num1 0.08 S/CO (0.00-0.79); ~Hepatitis A Antibody IgM Nonreactive (Nonreactive); ~Hepatitis B Surface Antibody NONREACTIVE (Nonreactive); ~Hepatitis C Antibody Nonreactive (Nonreactive)
[2025-03-21 11:54] LABS: Anti Nuclear Antibody Screen NEGATIVE (NEGATIVE)
[2025-03-23 08:04] LABS: ~Hepatitis A Antibody IgG 2.43 S/CO (0.00-0.99)
== END 2025-03-20 10:43 | disposition home or self-care (01) ==
LOC: HO.LAB 10:42
PROVIDERS: PCP Internal Medicine; Visit Provider Nurse Practitioner Family
DX: Z51.81 Encounter for therapeutic drug level monitoring (principal); Z11.4 Encounter for screening for human immunodeficiency virus [HIV]; R74.8 Abnormal levels of other serum enzymes; Z01.84 Encounter for antibody response examination
CPT/HCPCS: 36415; 80053; 82728; 83690; 84080; 85610; 86015; 86038; 86381; 86704; 86706; 86708; 86709; 86803; 87340; 87389

== ENCOUNTER 2025-03-21 10:11 | Outpatient (AMB) | payer OTHER, MEDICAID, SELFPAY ==
[2025-03-21 10:33] VITALS: BP 130/64; PULSE 59; O2SAT 92; BMI 32.7
--- NOTE | 2025-03-21 10:33 | MHC.OFFVIS ---
Vital Signs 03/21/25 10:33 Height 5 ft 2 in Weight 179 lb BMI 32.7 BP 130/64 Blood Pressure Location Lt brachial Position Sitting Pulse 59 Pulse Source Pulse Oximeter Pulse Oximetry (%) 92 Oxygen Delivery Method Room Air Intake Visit Reasons: 3 mnts f/u Pediatric Nurse Required: No Accompanied by: Self / Same As Patient Allergies Penicillins Allergy (Intermediate, Verified 03/21/25 10:33) RASH SOB HPI Comments Details: 69 year old female is here for a sleep apnea evaluation, she is referred to us by her PCP. 11/2018 HST c/w AHI is 7/ hr and oxygen level desaturation to 77% with respiratory failure. Severe TESS with central apneas, check pulmonary respiratory failure with copd/ she is on 2l O2 at night now. Somnolent in clinic today. She had insomnia for years and stopped taking ambien, and now she is taking Risperidone but it did not work for her. She has anxiety and depression on Sertraline 50mg po daily. Her memory is poor and has a VNA visits daily for methadone 135mg. She smokes 5 cigarettes daily and is trying to quit. She has asthma and on 3 inhalers. She is chronically fatigued and has difficulty falling asleep but also staying asleep. She wakes up with headaches which can last for days and has to go the ED to get IV infusions gill's cocktails, etc. Headache starts in her frontal to parietal area, with sharp 10/10 migrating pain to her stomach, she has n/v, auras with flashing lights and vision changes. She has phootophobia /phonophobia, with vertigo, balance and gait difficulties, she had 2 falls due to legs giving out, ambulates with a cane or walker in the house. She has to go into a dark room and lay down for hours and then headaches improve after sleeping. Her fasting blood sugar is now improved, checked with visiting /[employer]/Nurse and she is on metformin 1000mg PO BID along with Trulicity subq 1x week recent addition, will f/u with her pcp. She has gout in R. toe and is on 2 meds, Allopurinol for flares and Colchicine maintenance. The flareups can be severe and wake her up several times at night. She has RLS with burning, pins, needles and paresthesias. COUNT INCLUDES THE [facility] Medical History Substance use disorder Colon cancer screening Constipation Elevated alkaline phosphatase level Morbid obesity Physical exam Excessive daytime sleepiness Loud snoring Acute dyspnea Lumbar degenerative disc disease Left shoulder pain Right shoulder pain COVID-19 Cellulitis Hypokalemia Hypomagnesemia Acute hypokalemia Encounter for screening colonoscopy Allergic rhinitis T wave inversion in electrocardiogram EKG abnormalities ACS (acute coronary syndrome) History of heroin use BiPAP (biphasic positive airway pressure) dependence COPD (chronic obstructive pulmonary disease) Diabetic acidosis, type I Hx of drug dependence Arthritis Back pain History of blood transfusion Anemia Diabetes GERD (gastroesophageal reflux disease) Hx of anxiety disorder Hx of bipolar disorder History of headache Depression Sleep apnea Oxygen dependent COPD (chronic obstructive pulmonary disease) Asthma Elevated cholesterol HTN (hypertension) Surgical History S/P cardiac cath History of esophagogastroduodenoscopy (EGD) H/O colonoscopy Hx of total knee replacement Hx of arthroscopic knee surgery Hx of section Hx of foot surgery Family History Father Heart disease Mother Heart disease Family/Other Mental health disorder Substance use disorder Social History Household Members: None Housing: Apartment Do you presently have visiting nurse or other home services: Yes Alcohol intake: current Alcohol intake frequency: a few times a week Alcohol type: beer and wine Patient Tobacco Use Status: Current everyday Tobacco user Tobacco use type: Cigarette Cigarette Packs Per Day: 0.5 Cigarettes Per Day: 5 Years Smoked: 50 e-Cigarette/Vaping Use: Never Used Second Hand Smoke Exposure: Yes Substance Use Type: Former Substance User service: No Current occupational status: disabled Current occupation: right handed Cognitive needs: Yes Hearing needs: No Vision needs: Yes Physical Exam Vital Signs: Last Vital Signs Pulse 59 03/21/25 10:33 BP 130/64 03/21/25 10:33 Pulse Ox 92 03/21/25 10:33 Oxygen Delivery Method Room Air 03/21/25 10:33 BMI result Body Mass Index 32.7 Const General: cooperative, comfortable and tired appearing Nutritional Appearance: obese and overweight Orientation/consciousness: patient oriented x3 Limitations: ambulation with cane HEENT Other: edentulous Face and sinus: Yes face symmetric Teeth and gingiva: other (mallampti score of 2) Neck Neck: Yes full ROM Resp Effort & Inspection: normal respiratory effort and able to speak in complete sentences Neuro Other: somnolent in clinic, General: patient oriented x3 and moves all extremities Cranial nerves: Yes Normal accommodation reflex present, Yes Nystagmus not present, Yes Normal facial strength present, Yes Midline tongue present, Yes Ability to bilaterally rotate head present and Yes Ability to bilaterally elevate shoulders present Gait exam (Neuro): Assisted gait required and Assistive device used (ambulates with rolling walker) Motor exam (neuro): Abnormal motor strength present and Abnormal muscle tone present Psych Appearance: well kempt Speech and movement: Slurred speech present and Slowed movement present (Neuro) Results Reviewed Results Reviewed: PSG reviewed with pt, pending in lab titration to start her on ideal therapy, with ASV/ BIPAP therapy. 11/2018 HST c/w AHI is 7/ hr and oxygen level desaturation to 77% with respiratory failure. Severe TESS with central apneas, check pulmonary respiratory failure with copd/ she is on 2l O2 at night now. Assessment & Plan Assessment & Plan (1) TESS (obstructive sleep apnea): Comment: pending titration to determine ideal pressures for therapy with ASV or BIPAP Code(s): G47.33 - Obstructive sleep apnea (adult) (pediatric) Category: Medical (2) Excessive daytime sleepiness: Code(s): G47.19 - Other hypersomnia Category: Medical (3) Bilateral headaches: Code(s): R51.9 - Headache, unspecified Category: Medical (4) Loud snoring: Code(s): R06.83 - Snoring Category: Medical (5) Chronic respiratory failure with hypercapnia: Code(s): J96.12 - Chronic respiratory failure with hypercapnia Category: Medical Plan PSG inlab reviewed with pt. she sleep efficiency is 55% and unable to complete titration to determine ASV or BIPAP machine. Titration study orders are submitted by , pt is awaiting titration to determine pressures for therapy on ASV or BIPAP. COPD she uses 2L of O2 at night as needed for respiratory failure per [employer]. Chronic Headaches Amytriptyline 10mg po qhs, may take one extra at night if headache does not go away. Migraine cap for headaches, peppermint oil one dab each cheondoism for headaches, and jayla tea for n/v. Manage A1c with pcp/ vna metformin 1000mg PO BID and Trulicity suq1x weekly. Foot pain /Gout continue colchicine and allopurinol. Labs to reviwed with pt Patient Instructions: Sleep Hygiene provided: set a scheduled bedtime and wake time to help regulate the circadian rhythm and balance the release of pituitary hormones. Sleep in a dark room, temperatures below 68 degrees, and no devices n bed. Limit caffeinated products 6 hours prior to bed, and limit fluids 2-4 hours prior to bed. Gentle night yoga, diffusing essential oils, and playing soft music can be relaxing. Titration study orders are submitted by , pt is awaiting titration to determine pressures for therapy on ASV or BIPAP. Coding Level of Care Code Est Pt Level 4 (02264) Diagnoses TESS (obstructive sleep apnea) G47.33 Excessive daytime sleepiness G47.19 Bilateral headaches R51.9 Loud snoring R06.83 Chronic respiratory failure with hypercapnia J96.12
== END 2025-03-21 11:25 | disposition home or self-care (01) ==
LOC: HO.HSMC 10:12
PROVIDERS: PCP Internal Medicine; Visit Provider Physician Assistant Medical
DX: G47.33 Obstructive sleep apnea (adult) (pediatric) (principal); G47.19 Other hypersomnia; R51.9 Headache, unspecified; R06.83 Snoring; J96.12 Chronic respiratory failure with hypercapnia
CPT/HCPCS: 99214

== ENCOUNTER → 2025-03-21 10:11 | Outpatient (BNVA) | payer OTHER, SELFPAY | PROVIDERS: PCP Internal Medicine; Visit Provider Physician Assistant Medical | DX: G47.33 Obstructive sleep apnea (adult) (pediatric) (principal); G47.19 Other hypersomnia; R51.9 Headache, unspecified; J96.12 Chronic respiratory failure with hypercapnia | CPT/HCPCS: 99212 ==

== ENCOUNTER 2025-04-02 14:02 | Outpatient (AMB) | payer OTHER, SELFPAY ==
--- NOTE | 2025-04-02 14:05 | A.SPINEOV_ITS ---
Vital Signs 04/02/25 14:19 Height 5 ft 2 in Weight 179 lb BMI 32.7 Intake Visit Reasons: Spinal Stenosis Intake Note: Ms. Lim is here tody c/o numbness of legs and with shaking of legs causing her to fall. MRI done at [facility]. 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 Dante Hicks, Thank you for referring Ms. Lim to our office today. She is a pleasant 69 year old female who comes in today for evaluation of low back pain in the occasional shooting pain into her bilateral lower extremities, left side worse than right. She reports this has been ongoing since January, and denies any previous history of back pain prior to this. In addition to this she reports that when the shooting pain does occur she will occasionally get tingling/numbness primarily on the left lower extremity. She is unable to id entify exacerbating factors for her low back and leg pain, and states that is happens randomly. She reports that it does not appear to flare-up and/or worsened with positional changes such as rising from a seated position or getting up out of a bed. She is still able to ambulate without any assistive devices on a regular basis, and comes into clinic today independently. She rates her pain as about an 8/10 throughout the day, with flare-ups occasionally up to 10/10. She reports no worsening of her pain with standing/ambulation vs. lying flat or sitting. She reports that she has not physical therapy, progressive care unit registered nurse, cortisone injections, acupuncture, or pain management / physiatry evaluation for this issue as of yet. PMH: T2DM with last A1c reported as 8.6. Diastolic heart failure. 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 Hypertension, migraine headaches, acid reflux, depression, anxiety, bipolar disorder, asthma, vitamin-D deficiency, constipation, Social hx: The patient smokes 5-6 cigarettes per day. Daily methadone dosing. Denies any other substance use. Medications: See [employer] list. Allergies: Penicillins. Physical exam: The patient has full 5/5 strength of her bilateral lower extremities. She ambulates well with a non spastic/nonantalgic gait, however his slightly hunched over when ambulating. She has no significant sensational deficits reported on light touch examination to lower extremities. She is able to rise from a seated position without difficulty, and gets up onto the examination table without much issue. (-) clonus, (-) Arias's, (-) bilateral straight leg raise. Imaging review: No MRI available for review. CT scan of the lumbar spine completed here at [facility] on 03/09/2025 shows age-related spondylosis of the lumbar spine with a notable grade 1 spondylolisthesis at L4- 5. There is evidence for degenerative disc disease worse from L3-S1. Disc degeneration and nerve impingement would be best imaged via lumbar MRI and can not be adequately assessed by CT scan imaging. Impression: Ms. Lim is a pleasant 69-year-old female comes in today for evaluation of low back pain with the occasional radiation to her lower extremities x 3 months. She reports this began abruptly without any known inciting incident. Her CT scan shows a small listhesis noted at L4-5. She thus far has not attempted any conservative management for this. The best initial steps I can suggest for this patient would be having her referred to physical therapy, then having her follow up with our colleagues at physiatry/pain management for discussion of conservative intervention. If the problem persists despite conservative measures, I would recommend ordering an MRI to evaluate for nerve impingement in the lumbar spine, which would help better localize the problem for continued conservative interventions. Unfortunately this patient is not a surgical candidate given her A1c of 8.6%. Other considerations that surgery may not be a good option for this patient include diastolic heart failure and chronic respiratory failure with hypercapnia. Even if her A1c were to come down within acceptable range for surgery, the patient would be at significant risk for cardiorespiratory decompensation and would likely require cardiology / pulmonology clearance. Thank you for allowing us to care for your patient. The total time spent with this visit with this patient was 45 minutes reviewing history, physical exam, MRI imaging review, and implementation of treatment plan or further diagnostic testing Costa Quesada MD,PhD [facility] Coding Level of Care Code New Pt Level 4 (92853) Diagnoses Low back pain potentially associated with radiculopathy M54.50
[2025-04-02 14:19] VITALS: BMI 32.7
--- OUTSIDE RECORDS SUMMARY | 2025-04-02 17:31 | XMS_ITS ---
Author Name Marisabel Marie NP Address [address] [place] [address] Phone [phone] [facility][note 3][facility] Care Team Providers Care Penetration Tester Name Role Phone Marisabel Marie Unavailable [phone] Lucia García Unavailable [phone] LAST PRINCE Unavailable [phone] Reason for Referral Not Available Allergies, adverse [...] 30 DAYS 2023-05-19 No Data Available Ipratropium [place] 0.06 % Solution SPRAY 2 SPRAYS INTO [...] mg Tab TAKE 1 TABLET BY [facility] AT BEDTIME FOR 30 DAYS 2023-12-23 No [...] every 12 hours 2024-04-22 No Data Available [place] Nasal [place] 0.65 % Solution Nasal 2 sprays intranasally [...] it looks like pigmentation issue not bruising. [id number] acute processC T: no acute process in [...] NoDo you have a Durable Power of Director Statistical Programming for Healthcare, or Healthcare Proxy Or Guardianship? [...] they want to send her to a graduate teaching associate due to left ankle edema. Started several [...] / Vertigo/ WeaknessPlanned intervention: Order x-ray at [facility] Encourage extra fluid intake / Assess for [...] Date of Service Diagnosis/Complaint No Data Available [facility]20[place] Gout, unspecified No Data Available [facility] [place] 06[place]2022 New patient,40-59min; chronic exacerbation, 2 stable chronic or 1 acute illness add add modifier 95 for video (do not use for phone, instead use [id number]) [facility] [place] 06/24/2022 Type 2 diabetes mellitus wit h diabetic polyneuropathyType 2 diabetes mellitus with other specified complicationHyperlipidemia, unspecifiedBipolar II disorderGout, unspecifiedChronic obstructive pulmonary disease, unspecifiedDependence on supplemental oxygenRadiculopathy, lumbar regionMorbid (severe) obesity due to excess caloriesHeart failure, unspecifiedSecondary hyperaldosteronism New patient,40-59min; chronic exacerbation, 2 stable chronic or 1 acute illness add add modifier 95 for video (do not use for phone, instead use [id number]) [facility] 06/24/2022 New patient,40-59min; chronic exacerbation, 2 stable chronic or 1 acute illness add add modifier 95 for video (do not use for phone, instead use [id number]) [facility] [place] 06/24/2022 New patient,40-59min; chronic exacerbation, 2 stable chronic or 1 acute illness add add modifier 95 for video (do not use for phone, instead use 40554-62) [facility] [place] 06/24/2022 New patient,40-59min; chronic exacerbation, 2 stable chronic or 1 acute illness add add modifier 95 for video (do not use for phone, instead use [id number]) [facility] [place] 06/24/2022 New patient,40-59min; chronic exacerbation, 2 stable chronic or 1 acute illness add add modifier 95 for video (do not use for phone, instead use [id number]) [facility] [place] 06/24/2022 New patient,40-59min; chronic exacerbation, 2 stable chronic or 1 acute illness add add modifier 95 for video (do not use for phone, instead use 12704-35) [facility] [place] 06/24/2022 New patient,40-59min; chronic exacerbation, 2 stable chronic or 1 acute illness add add modifier 95 for video (do not use for phone, instead use 73578-40) [facility] [place] 06/24/2022 New patient,40-59min; chronic exacerbation, 2 stable chronic or 1 acute illness add add modifier 95 for video (do not use for phone, instead use [id number]) [facility] [place] 06/24/2022 No Data Available [facility] [place] 12/01/2023 Type 2 diabetes mellitus wit h [...] index (BMI) 40.0-44.9, adult No Data Available [facility]2023 No Data Available [facility]2023 No Data Available [facility]23 No Data Available [facility]23 No Data Available [facility]2023 No Data Available [facility] 12[place]28[place]2023 Type 2 diabetes [...] and other health care No Data Available [facility] [place] 12[place]28/2023 No Data Available [facility] [place] 12/28[place]2023 No Data Available [facility] [place]28[place]2023 No Data Available [facility] [place] 12[place]2023 No Data Available [facility] [place] 12/28[place]2023 No Data Available [facility] [place] 12[place]2023 No Data Available [facility] [place] 12/28[place]2023 No Data Available [facility] [place] 12/28[place]2023 No Data Available [facility] [place] 12[place]28/2023 Estab. patient 20-29min; 1 stable chronic or 2 minor; add add modifier 95 for video, modifier 93 for phone [facility] 01[place]04/2024 Radiculopathy, lumbar region Other problems related to medical facilities and other health care Estab. patient 20-29min; 1 stable chronic or 2 minor; add add modifier 95 for video, modifier 93 for phone [facility] 01/04/2024 No Data Available [facility] [place] 02/11/2024 Type 2 diabetes mellitus wit h diabetic polyneuropathyType 2 diabetes mellitus with other specified complicationHyperlipidemia, unspecifiedOther problems related to medical facilities and other health careBipolar II disorderHeart failure, unspecifiedSecondary hyperaldosteronismGout, unspecifiedChronic obstructive pulmonary disease, unspecifiedDependence on supplemental oxygenChronic respiratory failure with hypoxiaChronic kidney disease, stage 3bRadiculopathy, lumbar regionMorbid (severe) obesity due to excess caloriesBody mass index (bmi) 39.0-39.9, adult No Data Available [facility] [place] 02/11/2024 No Data Available [facility] [place] 02/11/2024 No Data Available [facility] [place] 02[place]11/2024 No Data Available [facility] [place] 02/11/2024 No Data Available [facility] [place] 03/21/2024 Type 2 diabetes mellitus wit h other specified complicationChronic kidney disease, stage 3bHyperlipidemia, unspecifiedType 2 diabetes mellitus with diabetic neuropathy, unspecifiedOther problems related to medical facilities and other health careBipolar II disorderHeart failure, unspecifiedSecondary hyperaldosteronismGout, unspecifiedChronic obstructive pulmonary disease, unspecifiedDependence on supplemental oxygenChronic respiratory failure with hypoxiaRadiculopathy, lumbar regionUnsteadiness on feetMorbid (severe) obesity due to excess caloriesOther specified counseling No Data Available [facility] [place] 03/21/2024 No Data Available [facility] [place] 03/21/2024 No Data Available [facility] [place] 03/21/2024 Estab. patient 10-29min; 1 minor problem; add add modifier 95 for video, modifier 93 for phone [facility] [place] 04/22/2024 Chronic obstructive pulmonar y disease, unspecifiedDependence on supplemental oxygenChronic respiratory failure with hypoxia Estab. patient 10-29min; 1 minor problem; add add modifier 95 for video, modifier 93 for phone [facility] 04[place]/20[place] Estab. patient 20-29min; [...] 95 for video, modifier 93 for phone [facility] Estab. patient 20-29min; 1 stable chronic or 2 minor; add add modifier 95 for video, modifier 93 for phone [facility] [place] 04/28/2024 Estab. patient 20-29min; 1 stable chronic or 2 minor; add add modifier 95 for video, modifier 93 for phone [facility] [place] 04/28/2024 Estab. patient 20-29min; 1 stable chronic or 2 minor; add add modifier 95 for video, modifier 93 for phone [facility] [place] 04/28/2024 Estab. patient 20-29min; 1 stable chronic or 2 minor; add add modifier 95 for video, modifier 93 for phone [facility] [place] 04/28/2024 Estab. patient 20-29min; 1 stable chronic or 2 minor; add add modifier 95 for video, modifier 93 for phone [facility] [place] 04/28/2024 Estab. patient 20-29min; 1 stable chronic or 2 minor; add add modifier 95 for video, modifier 93 for phone [facility] [place] 04/28/2024 Estab. patient 20-29min; 1 stable chronic or 2 minor; add add modifier 95 for video, modifier 93 for phone [facility] [place] 04/28/2024 Estab. patient 10-29min; 1 minor problem; add add modifier 95 for video, modifier 93 for phone [facility] [place] 05[place]2024 Chronic respiratory failure with hypoxiaChronic obstructive pulmonary disease, unspecifiedRadiculopathy, lumbar regionUnsteadiness on feetDependence on supplemental oxygenOther specified counselingOther problems related to medical facilities and other health careOther symptoms and signs involving the musculoskeletal systemRepeated falls Estab. patient 10-29min; 1 minor problem; add add modifier 95 for video, modifier 93 for [facility] 09[place]05/2024 Radiculopathy, lumbar regionUnsteadiness on feetChronic obstructive pulmonary disease, unspecifiedDependence on supplemental oxygenChronic respiratory failure with hypoxiaOther problems related to medical facilities and other health care Estab. patient 10-29min; 1 minor problem; add add modifier 95 for video, modifier 93 for [facility] [place] 09[place]05/20[place] Estab. patient 10-29min; 1 minor problem; add add modifier 95 for video, modifier 93 for [facility] [place] 09/05/2024 Vital Signs Date of Collection [...] Current Smoking Status Current every day smoker 2025-04-02 Sex Female Gender identity Woman History of Procedures Procedures Service Procedure code Service date Servicing provider Phone# No Data Available [id number] 2022-06-02 No Data Available No Data Available Pain Assessment - Pain Documented on a Pain Scale (1125F) 1125F 2022-06-02 No Data Available No Data Roz ilable New patient,40-59min; chronic exacerbation, 2 stable chronic or 1 acute illness add add modifier 95 for video (do not use for phone, instead use [id number]) 02707 2022-06-24 No Data Available No Data Availa [...] Available No Data Available No Data Available [id number] 2023-12-01 No Data Available No Data Available [...] No Data Availa ble No Data Available [id number] 2023-12-28 No Data Available No Data Available [...] 95 for video, modifier 93 for phone [id number] 2024-01-04 No Data Available No Data Availa ble Medication List Documented (1159F) 1159F 2024-01-04 No Data Available No Data Roz ilable No Data Available [id number] 2024-02-11 No Data Available No Data Available [...] No Data Avail able No Data Available [id number] 2024-03-21 No Data Available No Data Available SBP < 130 (3074F) 3074F 2024-03-21 No Data Available No Data Available DBP <80 (3078F) 3078F 2024-03-21 No Data Available No Data Available Medication List Documented (1159F) 1159F 2024-03-21 No Data Available No Data Roz ilable Estab. patient 10-29min; 1 minor problem; add add modifier 95 for video, modifier 93 for phone [id number] 2024-04-22 No Data Available No Data Availa ble Medication List Documented (1159F) 1159F 2024-04-22 No Data Available No Data Roz ilable Estab. patient 20-29min; 1 stable chronic or 2 minor; add add modifier 95 for video, modifier 93 for phone [id number] 2024-04-19 No Data Available No Data Availa [...] 95 for video, modifier 93 for phone [id number] 2024-04-25 No Data Available No Data Availa ble Medication List Documented (1159F) 1159F 2024-04-25 No Data Available No Data Roz ilable Estab. patient 20-29min; 1 stable chronic or 2 minor; add add modifier 95 for video, modifier 93 for phone [id number] 2024-04-28 No Data Available No Data Availa [...] 95 for video, modifier 93 for phone [id number] 2024-05-30 No Data Available No Data Availa ble Estab. patient 10-29min; 1 minor problem; add add modifier 95 for video, modifier 93 for phone [id number] 2024-09-05 No Data Available No Data Availa ble Pain Assessment - Pain Documented on a Pain Scale (1125F) 1125F 2024-09-05 No Data Available No Data Roz ilable Medication List Documented (1159F) 1159F 2024-09-05 No Data Available No Data Roz ilable Functional Status Functional Category Effective Dates MAIL READER - cleaning, meal prep, t libia to [...] with PCPstabledenies CP, SOBBP: 120-130/80-90furosemide, amlodipineFollows with paste up artist apprentice 2023-12-01 06:40:00 Phone (patient, pare nt, or [...] they want to send her to a graduate teaching associate due to left ankle edema. Started several [...] they want to send her to a graduate teaching associate due to left ankle edema. Started several [...] they want to send her to a graduate teaching associate due to left ankle edema. Started several [...] it looks like pigmentation issue not bruising. [id number] acute processC T: no acute process in [...] with cardiologist05/06denies LE swellingCOPD CONTINGENCY PLANLast updated: 04/19/2024[facility] to call for the following symptoms: [...] for phoneContinue to see PCP. Follow-up with [facility] as needed for any acute or [...] taper and saline rinsesCOPD CONTINGENCY PLANLast updated: 04/19/2024[facility] to call for the following symptoms: [...] they want to send her to a graduate teaching associate due to left ankle edema. Started several [...] they want to send her to a graduate teaching associate due to left ankle edema. Started several [...] 3 falls in the past week. +LE uyolqdin83/10/24: BMI: 43.90+HTN, +DMFollow with PCPAdvised to eat [...] it looks like pigmentation issue not bruising. [id number] acute processC T: no acute process in [...] NoDo you have a Durable Power of Director Statistical Programming for Healthcare, or Healthcare Proxy Or Guardianship? Yes, preferred proxy but not named POAIf so, Who? daughter [phone] O[place]is Do you have a written Advance [...] they want to send her to a graduate teaching associate due to left ankle edema. Started several [...] WeaknessPlanned intervention[facility] extra fluid intake / Assess [...] for phoneContinue to see PCP. Follow-up with [facility] as needed for any acute or [...] they want to send her to a graduate teaching associate due to left ankle edema. Started several [...] WeaknessPlanned intervention: [facility] Encourage extra fluid intake / Assess [...]
--- OUTSIDE RECORDS SUMMARY | 2025-04-02 17:31 | XMS_ITS | Clinical Summary ---
Author Organization [facility] ity Address [address] [place] [address] Care Team Providers Care Global Consumer Sector Vice President Name Role Phone Unavailable Primary Care Provider [...]
== END 2025-04-02 15:37 | disposition home or self-care (01) ==
LOC: HO.HNS 14:03
PROVIDERS: PCP Internal Medicine; Visit Provider Physician Assistant
DX: M54.50 Low back pain, unspecified (principal)
CPT/HCPCS: 99204

== ENCOUNTER → 2025-04-02 20:30 | Outpatient (REF) | payer OTHER, SELFPAY | LOC: HO.SL 20:30 | PROVIDERS: PCP Internal Medicine; Visit Provider Internal Medicine Pulmonary Disease | DX: M47.26 Other spondylosis with radiculopathy, lumbar region (principal); E11.9 Type 2 diabetes mellitus without complications; I50.30 Unspecified diastolic (congestive) heart failure; J96.12 Chronic respiratory failure with hypercapnia; F17.210 Nicotine dependence, cigarettes, uncomplicated | CPT/HCPCS: 99202 ==

== ENCOUNTER → 2025-04-02 20:30 | Outpatient (BNV) | payer OTHER, SELFPAY | PROVIDERS: PCP Internal Medicine; Visit Provider Psychiatry & Neurology Neurology | DX: G47.33 Obstructive sleep apnea (adult) (pediatric) (principal) | CPT/HCPCS: 95811 ==